=== PATIENT | male | born 1950 | race Caucasian/White ===

== ENCOUNTER 2016-04-16 11:41 | Emergency (ER) | payer MEDICARE, MEDICAID ==
[2016-04-16 11:52] VITALS: BP 153/82
== END 2016-04-16 12:30 | disposition left against medical advice (07) ==
LOC: ED 11:41
DX: R51 Headache (principal); Z53.21 Procedure and treatment not carried out due to patient leaving prior to being seen by health care provider

== ENCOUNTER 2016-04-20 13:41 | Inpatient (IN) | payer MEDICARE, MEDICAID ==
[2016-04-20] MEDS ORDERED: Vancomycin(*) 1,000 MG in NS 0.9% 250 ML* 250 ML IVPB ONE (15:16)
[2016-04-20] MEDS ORDERED: Cefepime(*) 2 GM in NS 0.9% 50 ML* 50 ML IVPB ONE (15:16)
[2016-04-20] MEDS ORDERED: metroNIDAZOLE IV 500 MG/100ML* 500 MG/100 ML BAG IVPB ONE (15:16)
[2016-04-20] MEDS ORDERED: HYDROmorphone INJ* 1 MG/ML CARPUJECT SYRINGE IV SLOW PU ONE (15:18)
[2016-04-20] MEDS ORDERED: Acetaminophen TAB* 325 MG PO ONE (15:19)
[2016-04-20 15:25] LABS: Hematocrit 41 % (42-52); Hemoglobin 13.8 g/dl (14.0-18.0); Mean Corpuscular HGB Conc 33 g/dl (31-36); Mean Corpuscular Hemoglobin 29 pg (27-31); Mean Corpuscular Volume 87 fL (80-94); Mean Platelet Volume 8 um3 (7.4-10.4); Red Blood Count 4.74 10^6/ul (4.0-5.4); Red Cell Distribution Width 13 % (10.5-15); White Blood Count 19.5 10^3/ul (3.5-10.8)
[2016-04-20] MEDS ORDERED: NS 0.9% 50 ML* 50 ML ONE (15:25)
[2016-04-20 15:26] LABS: Comments Flag Yes
[2016-04-20] MEDS ORDERED: NS 0.9% 250 ML* 250 ML ONE (15:26)
[2016-04-20 15:27] LABS: Add Diff/Slide Review? Slide Review Added
[2016-04-20] MEDS ORDERED: Vancomycin(*) 1,000 MG BAG IVPB ONE (15:29)
[2016-04-20 15:37] LABS: Albumin 3.3 g/dL (3.2-5.2); BUN/Creatinine Ratio 17.7 (8-20); Calcium 9.6 mg/dL (8.6-10.3); EGFR African American 127.4 (>60); EGFR Non-African American 99.1 (>60); Globulin 5.4 g/dL (2-4); Potassium 4.1 mmol/L (3.5-5.0); Total Bilirubin 0.6 mg/dL (0.2-1.0); Total Protein 8.7 g/dL (6.4-8.9)
[2016-04-20 15:38] LABS: Troponin I 0.01 ng/mL (<0.04)
[2016-04-20] MEDS: NS 0.9% 1000 ML* 4,000 ML IV ONE ×3 (15:44→17:45)
--- NOTE | 2016-04-20 16:10 | ADMNOTE ---
Subjective Date of Service: 04/20/16 Interval History: ADMISSION HISTORY AND PHYSICAL EXAM: Allergies Allergy/AdvReac Type Severity Reaction Status Date / Time No Known Allergies Allergy Verified 04/16/16 11:46 Home Medications Medication Instructions Recorded Confirmed Type Albuterol HFA INHALER* [Proair Hfa 2 puff INH Q4HR PRN 08/03/13 04/20/16 History Inhaler*] Ibuprofen TAB* [Motrin TAB*] 600 mg PO TID PRN 08/03/13 04/20/16 History Lisinopril TAB* [Prinivil TAB*] 20 mg PO QAM 08/03/13 04/20/16 History metFORMIN* [Glucophage*] 1,000 mg PO BID 08/03/13 04/20/16 History Insulin Detemir (NF) [Levemir (NF)] 150 unit SUBCUT BEDTIME 10/05/13 04/20/16 History SitaGLIPtin (NF) [Januvia (NF)] 100 mg PO QAM 11/11/15 04/20/16 History Insulin NPH Isophane & Reg (Hu 100 inj SUBCUT QAM 01/03/16 04/20/16 History [Humulin 70/30 (70-30) 100 Unit/ml] Aspirin EC Low Dose* [Ecotrin EC 81 mg PO DAILY 04/20/16 04/20/16 History Low Dose*] Canagliflozin (NF) [Invokana (NF)] 300 mg PO DAILY 04/20/16 04/20/16 History Fenofibrate(NF) [Tricor(NF)] 160 mg PO DAILY 04/20/16 04/20/16 History Humulin R 100unit/Ml 25 units SUBCUT BID 04/20/16 04/20/16 History Pravastatin (NF) [Pravachol (NF)] 40 mg PO BEDTIME 04/20/16 04/20/16 History HPI: The patient has been seeing Dr. Torres regularly since his partial R foot amputation 01/13/16. About 2 weeks ago his foot got worse. Last week he was seen by Dr. Torres and sent to the ED to get admitted and have an MRI. He waited in the ED waiting area for about 2 hours and then left. He has some pain in his foot but ran out of pain meds about 3 days ago. No chills or sweats. Family History: Findings - unremarkable Social History: Findings - SDM is his natalie Panchito Gonzalez. Lives with his girlfriend. Quit smoking and drinking about 15 yrs ago. Past Medical History: Findings - R foot partial amputation 01/13/16, melanoma L shoulder 2013, splenectomy 1973, [facility], foot surgery, R shoulder surgery, KYLE, DM, asthma, HLD Review of Systems - Measurements Intake and Output: Intake and Output Last 24 Hours 04/18/16 04/19/16 04/20/16 04/21/16 06:59 06:59 06:59 06:59 Weight 285 lb - Review of Systems Constitutional Symptoms: Negative: Weight Gain, Weight Loss, Weakness, Fatigue, Fever, Night Sweats, Unexplained Falls, Other Dermatology: Positive: Normal HEENT: Positive: Normal Eyes: Positive: Normal Thyroid: Positive: Normal Pulmonary: Positive: Normal Cardiology: Positive: Normal Gastroenterology: Positive: Normal Genital - Urinary: Positive: Normal Musculoskeletal: Positive: Other - R foot pain Endocrinology: Positive: Diabetes Mellitus Hematologic/Lymphatic: Positive: Anemia, Easy Brusing, Hx Leukemia, Hx Lymphoma , Use of Anticoagulant, Use of Antiplatelet Drugs, Other Neurology: Positive: Normal Psychiatry: Positive: Normal Allergic/Immunologic: Negative: Hx Anaphylaxis, Hx Angioedema, Hx Environmental, Hx Seasonal, Athsma, Hx HIV, Immunocompromise, Swollen Glands LymphNodes, Other Objective Active Medications: Cefepime HCl 2 gm/ Sodium (Chloride) 50 mls @ 100 mls/hr IVPB ED ONCE ONE Stop: 04/20/16 15:45 Sodium Chloride (Ns 0.9% 1000 Ml*) 4,000 mls @ 1,000 mls/hr IV ED ONCE ONE Stop: 04/20/16 19:15 Last Admin: 04/20/16 15:44 Dose: 1,000 mls/hr Vancomycin HCl 1,000 mg/ (Sodium Chloride) 250 mls @ 166.667 mls/hr IVPB ED ONCE ONE Stop: 04/20/16 16:45 Last Admin: 04/20/16 15:37 Dose: 166.667 mls/hr Metronidazole/Sodium Chloride (Flagyl 500 Mg Ivpb*) 500 mg in 100 mls @ 100 mls /hr IVPB ED ONCE ONE Stop: 04/20/16 16:15 Vital Signs 02/08/2904/20/16 04/20/16 13:43 14:50 15:39 Temperature 100.2 F 99.4 F Pulse Rate 119 107 Respiratory 22 16 16 Rate Blood Pressure 145/88 124/74 (mmHg) O2 Sat by Pulse 99 97 Oximetry Oxygen Devices in Use Now: None Appearance: Alert, supine on ED stretcher. In good spirits. Looks comfortable. Eyes: No Scleral Icterus Ears/Nose/Mouth/Throat: Clear Oropharnyx, Mucous Membranes Moist Neck: NL Appearance and Movements; NL JVP, No Thyroid Enlargement, Masses Respiratory: Symmetrical Chest Expansion and Respiratory Effort, Clear to Auscultation, Clear to Percussion Cardiovascular: NL Sounds; No Murmurs; No JVD, RRR, No Edema, - Extremities: No Edema, No Clubbing, Cyanosis, - - R foot bandaged with gauze and an elastic wrap. Skin: No Rash or Ulcers, No Nodules or Sclerosis, - Neurological: Alert and Oriented x 3, NL Sensation Result Diagrams: 04/20/16 15:00 04/20/16 15:00 Assess/Plan/Problems-Billing Assessment: - Patient Problems (1) Osteomyelitis, chronic, ankle or foot Current Visit: Yes Status: Acute Comment: Cefeepime, vanco, metro ordered. Dr. Torres may do further surgery. (2) Diabetes Current Visit: Yes Status: Acute Code(s): E11.9 - TYPE 2 DIABETES MELLITUS WITHOUT COMPLICATIONS SNOMED Code(s): 98242061 Comment: Pt states he take 150 U Levemir at night and 25 U Humalog with each meal. Lantus, Lispor fixed schedule and Lantus SS ordered. Cons carb diet. Metformin and 2 other oral agents on hold. (3) Morbid obesity Current Visit: Yes Status: Acute Code(s): E66.01 - MORBID (SEVERE) OBESITY DUE TO EXCESS CALORIES SNOMED Code(s): 473057118 Comment: BMI 39.7.
--- NOTE | 2016-04-20 16:14 | ED ---
Andrei Tanner Adam, scribed for Ozzy Alberto MD on 04/20/16 at 1513 . Lower Extremity - HPI Summary HPI Summary: Pt is a 65 year old diabetic male presenting with a painful wound in his right foot. He states that he came to [facility] [place] for this 4 days ago but got tired of waiting and left before being seen. He has a home nurse that manages the wound care of his foot but she did not come today. He underwent a ray operation on the right foot 4 months ago in which his great toe was amputated. He was healing well until he walked all over [facility] recently, aggravating the wound. Pt also c/o vomiting and a fever that set on last week (Tylenol taken this am). He denies CP, SOB, and arthralgia. PMHx of DM and HTN. FMHx of DM. - History of Current Complaint Chief Complaint: EDExtremityLower Stated Complaint: POSSIBLE INFECTION RT FT Time Seen by Provider: 04/20/16 15:02 Hx Obtained From: Patient Mechanism Of Injury: Unknown Onset of Pain: Prior to Arrival Onset/Duration: Still Present Severity Initially: Mild Severity Currently: Moderate Pain Intensity: 5 Pain Scale Used: 0-10 Numeric Timing: Constant Location: Is Discrete @ - Right foot Associated Signs And Symptoms: Positive: Redness, Other - Drainage Aggravating Factor(s): Standing, Ambulation, Movement, Weight Bearing Alleviating Factor(s): Rest Able to Bear Weight: Yes - Allergies/Home Medications Allergies/Adverse Reactions: Allergies Allergy/AdvReac Type Severity Reaction Status Date / Time No Known Allergies Allergy Verified 04/16/16 11:46 PMH/Surg Hx/FS Hx/Imm Hx Endocrine/Hematology History: Reports: Hx Diabetes - TYPE II ON ORAL AND INSULIN MEDICATION FOR Denies: Hx Anticoagulant Therapy Cardiovascular History: Reports: Hx Hypertension - ON MEDICATION FOR Denies: Hx Congestive Heart Failure, Hx Pacemaker/ICD, Other Cardiovascular Problems/Disorders Respiratory History: Reports: Hx Asthma - PRN INHALER, Hx Sleep Apnea Comment Only: Other Respiratory Problems/Disorders - ON DAILY PROAIR INHALER , SOB GI History: Denies: Other GI Disorders History: Denies: Hx Renal Disease Musculoskeletal History: Denies: Hx Arthritis, Other Musculoskeletal History Sensory History: Reports: Hx Contacts or Glasses - GLASSES Denies: Hx Hearing Aid Opthamlomology History: Reports: Hx Contacts or Glasses - GLASSES Neurological History: Denies: Other Neuro Impairments/Disorders Psychiatric History: Denies: Hx Panic Disorder - Cancer History Cancer Type, Location and Year: Lt SHOULDER - CANCEROUS MASS REMOVED - 2012 Hx Chemotherapy: Yes - 10/2013 - Surgical History Surgery Procedure, Year, and Place: 12/28 - Rt GREAT TOE -AMPUTATED. SPLENECTOMY -1973. RT SHOULDER -1973. Rt HEEL - BONE SPUR REMOVED - 2008. FRANSICO CARPAL TUNNEL - 2005. Lt SHOULDER - CANCEROUS MASS REMOVED - 2012. Rt PINKY FINGER - KNUCKLE REPAIRED - Xs 2 Hx Anesthesia Reactions: No Infectious Disease History: No Infectious Disease History: Denies: Traveled Outside the [place] in Last 30 Days - Family History Known Family History: Positive: Diabetes - Social History Occupation: Disabled Lives: Alone Alcohol Use: None Hx Substance Use: No Substance Use Type: Reports: None Hx Tobacco Use: Yes Smoking Status (MU): Former Smoker Type: Cigarettes Amount Used/How Often: 3 PPD X 45 YRS Length of Time of Smoking/Using Tobacco: 45 YEARS Have You Smoked in the Last Year: No Review of Systems Negative: Fever Negative: Chest Pain Negative: Shortness Of Breath Positive: Vomiting Positive: Myalgia - Bottom of foot. Negative: Arthralgia Positive: Other - Open wound on bottom of foot All Other Systems Reviewed And Are Negative: Yes Physical Exam - Summary Physical Exam Summary: The patient is obese in no acute distress and in no acute pain. Decreased skin turgor. HEENT: The head is normocephalic and atraumatic. The pupils are equal and reactive. The conjunctivae are clear and without drainage. Nares are patent and without drainage. Mouth reveals dry oral mucosa. The external ears are intact. Neck is supple with full range of motion and non-tender. There are no carotid bruits. There is no neck vein distension. Respiratory: Chest is non-tender. Lungs are clear to auscultation and breath sounds are symmetrical and equal. Cardiovascular: Heart is tachycardic. There is no murmur or rub auscultated. There is no peripheral edema and pulses are symmetrical and equal. Abdomen: The abdomen is soft and non-tender. There are normal bowel sounds heard in all four quadrants and there is no organomegaly palpated. Musculoskeletal: There is no back pain noted. Extremities are non-tender with full range of motion. Capillary refill 2 seconds. There is no peripheral edema or calf tenderness elicited. Right foot: Foul-smelling purulent drainage. Erythema on dorsum of foot above ankle. No lymphangitis. Good pulses. No gangrene. Amputation of great toe. Macerated ulcer on the sole of the foot. Drainage between the toes which are erythematous. Neurological: Patient is alert and oriented to person, place and time. The patient has symmetrical motor strength in all four extremities. Cranial nerves are grossly intact. Deep tendon reflexes are symmetrical and equal in all four extremities. Psychiatric: The patient has an appropriate affect and does not exhibit any anxiety or depression. Triage Information Reviewed: Yes Vital Signs On Initial Exam: Initial Vitals Temp Pulse Resp BP Pulse Ox 100.2 F 119 22 145/88 99 04/20/16 13:43 04/20/16 13:43 04/20/16 13:43 04/20/16 13:43 04/20/16 13:43 Vital Signs Reviewed: Yes Diagnostics - Vital Signs Vital Signs Temp Pulse Resp BP Pulse Ox 04/20/16 14:50 99.4 F 107 16 124/74 97 04/20/16 13:43 100.2 F 119 22 145/88 99 - Laboratory Lab Results: Lab Results 04/20/16 04/20/16 04/20/16 Range/Units 15:00 15:00 15:00 WBC 19.5 H (3.5-10.8) 10^3/ul RBC 4.74 (4.0-5.4) 10^6/ul Hgb 13.8 L (14.0-18.0) g/dl Hct 41 L (42-52) % MCV 87 (80-94) fL MCH 29 (27-31) pg MCHC 33 (31-36) g/dl RDW 13 (10.5-15) % Plt Count 563 H (150-450) 10^3/ul MPV 8 (7.4-10.4) um3 Neut % (Auto) 71.9 (38-83) % Lymph % (Auto) 17.3 L (25-47) % [place] % (Auto) 9.1 H (1-9) % Eos % (Auto) 0.7 (0-6) % Baso % (Auto) 1.0 (0-2) % Absolute Neuts (auto) 14.0 H (1.5-7.7) 10^3/ul Absolute Lymphs (auto) 3.4 (1.0-4.8) 10^3/ul Absolute Monos (auto) 1.8 H (0-0.8) 10^3/ul Absolute Eos (auto) 0.1 (0-0.6) 10^3/ul Absolute Basos (auto) 0.2 (0-0.2) 10^3/ul Absolute Nucleated RBC 0.01 10^3/ul Nucleated RBC % 0 INR (Anticoag Therapy) 1.16 H (0.89-1.11) APTT 26.1 (26.0-36.3) seconds Sodium 128 L (133-145) mmol/L Potassium 4.1 (3.5-5.0) mmol/L Chloride 97 L (101-111) mmol/L Carbon Dioxide 24 (22-32) mmol/L Anion Gap 7 (2-11) mmol/L BUN 14 (6-24) mg/dL Creatinine 0.79 (0.67-1.17) mg/dL Est GFR ( Amer) 127.4 (>60) Est GFR (Non-Af Amer) 99.1 (>60) BUN/Creatinine Ratio 17.7 (8-20) Glucose 230 H (70-100) mg/dL Lactic Acid (0.5-2.0) mmol/L Calcium 9.6 (8.6-10.3) mg/dL Total Bilirubin 0.60 (0.2-1.0) mg/dL AST 11 L (13-39) U/L ALT 11 (7-52) U/L Alkaline Phosphatase 82 (34-104) U/L Troponin I 0.01 (<0.04) ng/mL Total Protein 8.7 (6.4-8.9) g/dL Albumin 3.3 (3.2-5.2) g/dL Globulin 5.4 H (2-4) g/dL Albumin/Globulin Ratio 0.6 L (1-3) 04/20/16 Range/Units 15:00 WBC (3.5-10.8) 10^3/ul RBC (4.0-5.4) 10^6/ul Hgb (14.0-18.0) g/dl Hct (42-52) % MCV (80-94) fL MCH (27-31) pg MCHC (31-36) g/dl RDW (10.5-15) % Plt Count (150-450) 10^3/ul MPV (7.4-10.4) um3 Neut % (Auto) (38-83) % Lymph % (Auto) (25-47) % [place] % (Auto) (1-9) % Eos % (Auto) (0-6) % Baso % (Auto) (0-2) % Absolute Neuts (auto) (1.5-7.7) 10^3/ul Absolute Lymphs (auto) (1.0-4.8) 10^3/ul Absolute Monos (auto) (0-0.8) 10^3/ul Absolute Eos (auto) (0-0.6) 10^3/ul Absolute Basos (auto) (0-0.2) 10^3/ul Absolute Nucleated RBC 10^3/ul Nucleated RBC % INR (Anticoag Therapy) (0.89-1.11) APTT (26.0-36.3) seconds Sodium (133-145) mmol/L Potassium (3.5-5.0) mmol/L Chloride (101-111) mmol/L Carbon Dioxide (22-32) mmol/L Anion Gap (2-11) mmol/L BUN (6-24) mg/dL Creatinine (0.67-1.17) mg/dL Est GFR ( Amer) (>60) Est GFR (Non-Af Amer) (>60) BUN/Creatinine Ratio (8-20) Glucose (70-100) mg/dL Lactic Acid 2.0 (0.5-2.0) mmol/L Calcium (8.6-10.3) mg/dL Total Bilirubin (0.2-1.0) mg/dL AST (13-39) U/L ALT (7-52) U/L Alkaline Phosphatase (34-104) U/L Troponin I (<0.04) ng/mL Total Protein (6.4-8.9) g/dL Albumin (3.2-5.2) g/dL Globulin (2-4) g/dL Albumin/Globulin Ratio (1-3) Result Diagrams: 04/20/16 15:00 04/20/16 15:00 Lab Statement: Any lab studies that have been ordered have been reviewed, and results considered in the medical decision making process. - EKG 15:20 Cardiac Rate: NL - 93 BPM EKG Rhythm: Sinus Rhythm EKG Interpretation: RBBB - Additional Comments Diagnostic Additional Comments: Troponin I - 0.01 Lower Extremity Course/Dx - Diagnoses Differential Diagnosis/HQI/PQRI: Positive: Cellulitis, Infection, Osteomyelitis , Other - diabetes mellitus, sepsis Provider Diagnoses: Infected foot - Physician Notifications Discussed Care of Patient With: Dr. Torres at 15:20 who recommended admission to the hospitalist service for IV antibiotics. Dr. Mallory notified at 1545. he will evaluate the patient for admission. Discharge - Discharge Plan Condition: Stable Disposition: ADMITTED TO [facility] Referrals: Erik Puri MD [Primary Care Provider] - The documentation as recorded by the Andrei lange Adam accurately reflects the service I personally performed and the decisions made by me, Ozzy Alberto MD.
[2016-04-20] MEDS ORDERED: Dextrose 50% Syringe 50 ML* 25 GM/50 ML SYRINGE IV PUSH PRN (16:38)
[2016-04-20] MEDS ORDERED: Albuterol HFA INHALER* 8 gm MDI INH PRN (16:41)
[2016-04-20] MEDS ORDERED: Vancomycin per Pharmacy* NOTE FOLLOW UP SCH (17:00)
[2016-04-20] MEDS ORDERED: Enoxaparin(*) 40 MG/0.4 ML SYR SUBCUT SCH (18:00)
[2016-04-20] MEDS: metroNIDAZOLE IV 500 MG/100ML* 500 MG/100 ML BAG IVPB SCH (19:45)
[2016-04-20] MEDS ORDERED: Gadoteridol* (CONTRAST) 279.3 MG/ML 10 ML IV ONE (20:43)
[2016-04-20] MEDS: Insulin GLARGINE(*) 1 UNITS UNIT SUBCUT SCH (22:14)
[2016-04-20] MEDS: Insulin LISPRO* 1 UNITS UNIT SUBCUT SCH ×2 (22:15→23:13)
[2016-04-20] MEDS: Atorvastatin* 10 MG TAB PO SCH (22:15)
[2016-04-20] MEDS: Enoxaparin(*) 40 MG/0.4 ML SYR SUBCUT SCH (22:16)
[2016-04-20] MEDS: Vancomycin(*) 1,250 MG in NS 0.9% 250 ML* 250 ML IVPB SCH (22:20)
[2016-04-21] MEDS: metroNIDAZOLE IV 500 MG/100ML* 500 MG/100 ML BAG IVPB SCH ×4 (01:46→19:48)
[2016-04-21] MEDS: Cefepime(*) 2 GM in NS 0.9% 50 ML* 50 ML IVPB SCH ×2 (05:27→18:30)
[2016-04-21] MEDS: Vancomycin(*) 1,250 MG in NS 0.9% 250 ML* 250 ML IVPB SCH ×2 (06:18→14:20)
--- NOTE | 2016-04-21 08:13 | RAD ---
INDICATION: Osteomyelitis right foot. COMPARISON: Correlation is made with a prior x-ray study of the right foot from September 01, 2016. TECHNIQUE: Axial, sagittal and coronal T1 and T2-weighted images of the right foot were obtained. In addition axial, sagittal and coronal T1-weighted images were obtained with fat suppression following intravenous gadolinium enhancement with 20 mL of ProHance nonionic contrast. The exam is limited due to motion artifact on the majority of the pulse sequences obtained. FINDINGS: The patient is status post amputation of the first digital ray at the level of the mid first metatarsal. There is surrounding soft tissue swelling and a soft tissue defect present inferior to the surgical site and inferior to second and third metatarsal heads. There is fluid and low signal intensity present in the soft tissue defect extending to the skin surface between the first and second metatarsals. The low signal most likely represents air. There is bone marrow edema signal intensity at the amputation site in the mid first metatarsal and abnormal enhancement in this region suspicious for osteomyelitis. In addition there is bone marrow edema signal intensity and abnormal enhancement present throughout the second metatarsal and within the second proximal, middle and distal phalanges and within the third metatarsal head most consistent with osteomyelitis. There is also increased signal intensity on T2-weighted images within the intermediate cuneiform bone which demonstrates normal signal intensity on T1-weighted images. No abnormal enhancement is seen and this likely represents reactive change. No abscess is seen. IMPRESSION: FINDINGS MOST CONSISTENT WITH OSTEOMYELITIS AT THE AMPUTATION SITE IN THE MID FIRST METATARSAL, THROUGHOUT THE SECOND METATARSAL, SECOND PROXIMAL MID AND DISTAL PHALANGES AND IN THE THIRD METATARSAL HEAD.
--- NOTE | 2016-04-21 09:21 | PN ---
Subjective Date of Service: 04/21/16 Interval History: Patient seen this morning. Reports no new complaints. Denies RLE pain. Sitting up and eating breakfast. No fever or chills overnight. No SOB or chest pain. Understands results of MRI and BCx Family History: Unchanged from Admission Social History: Unchanged from Admission Past Medical History: Unchanged from Admission Objective Active Medications: Albuterol (Ventolin Hfa Inhaler*) 2 puff INH Q4H PRN Aspirin (Aspirin Ec Low Dose*) 81 mg PO DAILY OTTO Atorvastatin Calcium (Lipitor*) 10 mg PO BEDTIME OTTO Dextrose (D50w Syringe 50 Ml*) 12.5 gm IV PUSH .FOR FS < 60 - SS PRN Enoxaparin Sodium (Lovenox(*)) 40 mg SUBCUT 2215 OTTO Cefepime HCl 2 gm/ Sodium (Chloride) 50 mls @ 100 mls/hr IVPB Q12H OTTO Metronidazole/Sodium Chloride (Flagyl 500 Mg Ivpb*) 500 mg in 100 mls @ 100 mls /hr IVPB Q8H OTTO Vancomycin HCl 1,250 mg/ (Sodium Chloride) 250 mls @ 166.667 mls/hr IVPB Q8H OTTO Insulin Glargine (Lantus(*)) 80 units SUBCUT Q24H OTTO Insulin Human Lispro (Humalog*) 0 units SUBCUT ACHS OTTO Insulin Human Lispro (Humalog*) 0 units SUBCUT ACHS OTTO Lisinopril (Prinivil Tab*) [address] [facility] Vital Signs 04/20/16 04/20/16 04/20/16 16:45 18:00 19:42 Temperature 101.5 F 100.6 F 98.4 F Pulse Rate 78 71 Respiratory 18 20 Rate Blood Pressure 118/63 141/71 (mmHg) O2 Sat by Pulse 94 97 Oximetry 04/20/16 04/20/16 04/21/16 22:32 22:51 03:05 Temperature 99.1 F 99.7 F Pulse Rate 90 78 Respiratory 20 20 16 Rate Blood Pressure 159/72 141/69 (mmHg) O2 Sat by Pulse 97 94 Oximetry 04/21/16 08:00 Temperature Pulse Rate Respiratory 16 Rate Blood Pressure (mmHg) O2 Sat by Pulse Oximetry Oxygen Devices in Use Now: None Appearance: Obese, middle-aged, M, sitting on bed in NAD Eyes: No Scleral Icterus Ears/Nose/Mouth/Throat: Mucous Membranes Moist Neck: NL Appearance and Movements; NL JVP Respiratory: Symmetrical Chest Expansion and Respiratory Effort, Clear to Auscultation Cardiovascular: NL Sounds; No Murmurs; No JVD, RRR Abdominal: - - Obese, soft, NTND, BS+ Lymphatic: No Cervical Adenopathy Extremities: - - Asymmetric RLE, some mild RLE edema Skin: - - RLE with wound dressing place, did not undress Neurological: Alert and Oriented x 3 Result Diagrams: 04/20/16 15:00 04/20/16 15:00 Assess/Plan/Problems-Billing Assessment: Staph aureus bacteremia, R foot osteomyelitis in a 65 yo M with hx of RLE osteo , DM, HTN, KYLE, asthma - Patient Problems (1) Osteomyelitis of foot, right, acute Current Visit: Yes Comment: with staph aureus bacteremia. MRI shows bone involvement in 1st, 2nd and 3rd metatarsals. Patient also with fever and leukocytosis. Appreciate Ortho assistance, will discuss further about next steps , ?need for further amputation. Will continue Vanc/Cefepime/Flagyl for now. Will get ID consult to assist with ABx management. Check RLE doppler (2) Diabetes Current Visit: Yes Comment: Continue Lantus, Lispro fixed schedule and Lispro SS. Cons carb diet. Metformin and 2 other oral agents on hold. (3) HTN (hypertension) Current Visit: Yes Comment: Continue home Lisinopril (4) Morbid obesity Current Visit: Yes Comment: BMI 39.7. (5) DVT prophylaxis Current Visit: Yes Comment: Lovenox SQ Status and Disposition: Inpatient for osteo and IV ABx
[2016-04-21 09:41] LABS: Hematocrit 36 % (42-52); Hemoglobin 11.8 g/dl (14.0-18.0); Mean Corpuscular HGB Conc 33 g/dl (31-36); Mean Corpuscular Hemoglobin 29 pg (27-31); Mean Corpuscular Volume 88 fL (80-94); Mean Platelet Volume 8 um3 (7.4-10.4); Red Cell Distribution Width 13 % (10.5-15); White Blood Count 19.5 10^3/ul (3.5-10.8)
[2016-04-21 09:45] LABS: Comments Flag Yes
[2016-04-21 09:55] LABS: BUN/Creatinine Ratio 16.4 (8-20); Calcium 8.6 mg/dL (8.6-10.3); EGFR African American 154.1 (>60); EGFR Non-African American 119.8 (>60); Potassium 3.8 mmol/L (3.5-5.0)
[2016-04-21] MEDS: Aspirin EC Low Dose* 81 MG TAB.EC PO SCH (10:16)
[2016-04-21] MEDS: Lisinopril TAB* 10 MG PO SCH (10:16)
[2016-04-21] MEDS: Insulin LISPRO* 1 UNITS UNIT SUBCUT SCH ×8 (10:17→23:04)
--- NOTE | 2016-04-21 12:19 | PN ---
Progress Note - Progress Note SOAP: Subjective: [Pt was seen laying in bed today. Pt states that he is not having any pain currently. States that there is some slight stinging in the affected foot. ] Objective: [General: Pt is awake, alert and oriented. MSK: Dressing was changed today. Dried blood had soaked through the 4x4s and through the DIDI wrap on the dorsal portion of the foot. Wound has mucoid covering. New betadine wet to dry dressing was placed over the wound today and a new DIDI wrap was applied. ] Vital Signs Temp 99.0 F 04/21/16 11:23 Pulse 71 04/21/16 11:23 Resp 18 04/21/16 11:23 BP 120/69 04/21/16 11:23 Pulse Ox 93 04/21/16 11:23 Intake & Output 04/20/16 04/21/16 04/21/16 18:59 06:59 18:59 Intake Total 2250 960 Output Total 800 Balance 2250 160 Weight 285 lb 285 lb Intake: IV Fluids 2250 460 cefepime 50 flagyl 100 ns 60 vanco 250 Oral 500 Output: Urine 800 Other: Estimated Void Medium # Bowel Movements 0 # Voids 1 Microbiology 04/20/16 15:33 Aerobic Blood Culture - Preliminary Blood Venous Blood MRSA/MSSA (PCR) - Final Mrsa Negative S.aureus Positive Assessment: [Osteomyelitis of R foot. ] Plan: [MRI was obtained last night Dressing changed today, Will continue daily dressing change wet to dry. ]
--- NOTE | 2016-04-21 13:01 | RAD ---
HISTORY: Right calf pain and edema TECHNIQUE: Multiple transverse and longitudinal ultrasound images were obtained of the veins of the right lower extremity using grayscale, color Doppler, and spectral Doppler imaging with and without compression and with augmentation. FINDINGS: VEINS: The common femoral vein, deep femoral vein, femoral vein and popliteal vein are compressible throughout their course, with normal flow on color Doppler imaging and normal response to augmentation on spectral Doppler imaging. SOFT TISSUES: Mildly enlarged right groin lymph nodes are seen measuring up to 1.3 x 4 cm and greatest dimension. Normal lymph node architecture appears to be maintained. IMPRESSION: 1. No sonographic evidence of deep vein thrombosis. 2. Top normal right groin lymph nodes with maintenance of normal morphology.
--- NOTE | 2016-04-21 20:42 | CONS ---
CONSULTATION REPORT: DATE OF CONSULT: 04/21/16 REQUESTING PHYSICIAN: Dr. Garcia. CONSULTING SERVICE: Infectious Disease. REASON FOR CONSULTATION: Staphylococcal bacteremia and foot infection. IMPRESSION: 1. Right plantar forefoot ulcer foul odor surrounding cellulitis. MRI shows acute osteomyelitis, nonhematogenous of the first metatarsal and second metatarsal proximal mid distal phalangeus and third metatarsal head. This is likely polymicrobial including Staphylococcus aureus predominant pathogen. PCR for MRSA is negative from the blood. 2. Diabetes with neuropathy. 3. 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 4. Normal DESIREE October 2015. 5. History of right great toe amputation on 01/13/16, now the site is healed. 6. Leukocytosis and fever. 7. Staphylococcus aureus bacteremia. No other apparent sites of infection. No prosthetic material present. Other differential would include infective endocarditis. RECOMMENDATIONS: We will continue cefepime and Flagyl to cover Staphylococcus aureus as well as other organisms that may grow in the wound, which is then cleaned with Betadine. He is going to have further amputation in the next day or two as well. 2. Transthoracic echocardiogram. He has no peripheral stigmata of infective endocarditis, so I think it is less likely. HISTORY OF PRESENT ILLNESS: This is a 65-year-old male with history of right great toe amputation in December 2015, now with an ulcer in the bottom of the right foot since the [place], this has gotten bigger and bigger, gotten more painful to bear weight. He started to have redness spread of his foot and leg. He developed fever, chills, and sweats. He was directed to the ER last week, went home against medical advice. Then he came back on the with the white count of 19,000 and fever of 102. Blood cultures were taken that grow Staph aureus. MRI was done with findings as above. He has been seen by Dr. Torres, planning for further surgery. He has had ongoing fevers. He denies chills, sweats today. He has no abdominal pain or diarrhea. He has no other painful joints, no back, or neck pain either. There is no prosthetic material present. PAST MEDICAL HISTORY: 1. Status post right great toe amputation 2015. 2. Diabetes with neuropathy. 3. Obstructive sleep apnea, on CPAP. 4. Melanoma of the shoulder with a positive lymph node 2013. 5. Hypertension. 6. Hyperlipidemia. 7. Asthma. 8. Status post splenectomy 1973. HOME MEDICATIONS: 1. Tylenol. 2. Albuterol. 3. Aspirin. 4. Lipitor. 5. Cefepime 2 g IV every 12 hours. 6. Insulin glargine. 7. Lisinopril. 8. Flagyl 5 mg every 8 hours. ALLERGIES: No known drug allergies. FAMILY HISTORY: No recurrent infections. SOCIAL HISTORY: Lives in [place] with his girlfriend. No travel. No sick contacts. REVIEW OF SYSTEMS: All negative except as noted above. PHYSICAL EXAMINATION: GENERAL: He is awake, in no distress. VITAL SIGNS: Temperature 37, heart rate 70, respiratory 18, blood pressure 120/70, and O2 saturation 93% on room air. HEENT: There is no conjunctival hemorrhage. Oropharynx, no lesions. NECK: Neck was supple without nuchal rigidity. LYMPH NODES: There is no cervical, supraclavicular, inguinal, axillary, or epitrochlear lymphadenopathy. Lungs: Clear to auscultation bilaterally. HEART: Regular rate and rhythm without murmurs, rubs, or gallops. ABDOMEN: Soft, nontender, and nondistended without hepatosplenomegaly. MUSCULOSKELETAL : There is no spine tenderness to palpation or joint synovitis. The right foot , there is erythema and mild edema over the dorsal foot up the ankle and distal leg without crepitus or fluctuance. The plantar aspect of the forefoot, there is a 2 cm ragged ulceration with foul odor, some serous drainage covered with Betadine. SKIN: There is no rashes or splinter hemorrhage. NEUROLOGIC: He is oriented x3. Follows up all commands. He has decreased sensation to the light touch in the feet bilaterally. DIAGNOSTIC STUDIES/LABORATORY DATA: White blood cell count 19, hemoglobin 11, and platelets 544. Creatinine of 0.7. ALT 11. Please see impressions and recommendations as outlined above. We will recheck the blood cultures tomorrow. Thanks for asking me to see Mr. Joiner in consultation. [id number]/[facility] #: [id number] RUTH
[2016-04-21] MEDS: Atorvastatin* 10 MG TAB PO SCH (21:11)
[2016-04-21] MEDS: Insulin GLARGINE(*) 1 UNITS UNIT SUBCUT SCH (21:13)
[2016-04-21] MEDS ORDERED: Vancomycin Trough Check NOTE FOLLOW UP ONE (22:00)
[2016-04-21] MEDS: Enoxaparin(*) 40 MG/0.4 ML SYR SUBCUT SCH (22:53)
[2016-04-21] MEDS ORDERED: Acetaminophen TAB* 325 MG ONE (23:58)
[2016-04-22] MEDS: metroNIDAZOLE IV 500 MG/100ML* 500 MG/100 ML BAG IVPB SCH ×3 (03:10→19:17)
[2016-04-22] MEDS: Cefepime(*) 2 GM in NS 0.9% 50 ML* 50 ML IVPB SCH ×2 (05:52→17:18)
[2016-04-22 06:54] LABS: Hematocrit 36 % (42-52); Hemoglobin 11.8 g/dl (14.0-18.0); Mean Corpuscular HGB Conc 33 g/dl (31-36); Mean Corpuscular Hemoglobin 29 pg (27-31); Mean Corpuscular Volume 87 fL (80-94); Mean Platelet Volume 8 um3 (7.4-10.4); Red Blood Count 4.12 10^6/ul (4.0-5.4); Red Cell Distribution Width 13 % (10.5-15); White Blood Count 22.4 10^3/ul (3.5-10.8)
[2016-04-22 06:56] LABS: Comments Flag Yes
[2016-04-22 06:57] LABS: Add Diff/Slide Review? Slide Review Added
[2016-04-22 07:17] LABS: BUN/Creatinine Ratio 15.7 (8-20); Calcium 8.6 mg/dL (8.6-10.3); EGFR African American 146.5 (>60); EGFR Non-African American 113.9 (>60); Potassium 3.4 mmol/L (3.5-5.0)
[2016-04-22] MEDS: Insulin LISPRO* 1 UNITS UNIT SUBCUT SCH ×8 (09:02→22:25)
[2016-04-22] MEDS: Lisinopril TAB* 10 MG PO SCH (10:04)
[2016-04-22] MEDS: Aspirin EC Low Dose* 81 MG TAB.EC PO SCH (10:04)
--- NOTE | 2016-04-22 10:04 | PN ---
Progress Note - Progress Note SOAP: Subjective: DOS: 04/22/16 CC: foot infection HPI: 65 year old man with history of right great toe amputation now with ulcer and foot infection of plantar forefoot on the left. Still red through foot and ankle, not painful. No fever, rash, or diarrhea. Slept ok, eating well. Objective: [] Vital Signs Temp 37.3 C 04/22/16 07:15 Pulse 71 04/22/16 07:15 Resp 18 04/22/16 07:30 BP 133/52 04/22/16 07:15 Pulse Ox 92 04/22/16 07:30 Intake & Output 04/21/16 04/22/16 04/22/16 18:59 06:59 18:59 Intake Total 120 660 230 Balance 120 660 230 Intake: IV Fluids 210 230 cefepime 50 170 flagyl 100 ns 60 60 Oral 120 450 Other: Estimated Void Large Medium # Bowel Movements 1 Estimated Stool Amount Medium # Voids 1 0 Gen:AAOx3 Neuro: decreased sensation to light touch in both feet Neck:supple Heart;RRR no murmur LN: non tender right inguinal node, mobile Lungs:CTA BL Abd:+BS NTND soft Skin: no rash MSK: right foot erythema and mild edema from the plantar ulcer up through ankle Laboratory Results - last 24 hr 04/21/16 04/21/16 04/21/16 11:59 17:25 21:03 WBC RBC Hgb Hct MCV MCH MCHC RDW Plt Count MPV Neut % (Auto) Lymph % (Auto) [place] % (Auto) Eos % (Auto) Baso % (Auto) Absolute Neuts (auto) Absolute Lymphs (auto) Absolute Monos (auto) Absolute Eos (auto) Absolute Basos (auto) Absolute Nucleated RBC Nucleated RBC % Sodium Potassium Chloride Carbon Dioxide Anion Gap BUN Creatinine Est GFR ( Amer) Est GFR (Non-Af Amer) BUN/Creatinine Ratio Glucose POC Glucose (mg/dL) 162 H 140 H 205 H Calcium 04/22/16 04/22/16 04/22/16 06:32 06:32 07:33 WBC 22.4 H RBC 4.12 Hgb 11.8 L Hct 36 L MCV 87 MCH 29 MCHC 33 RDW 13 Plt Count 554 H MPV 8 Neut % (Auto) 60.3 Lymph % (Auto) 27.5 [place] % (Auto) 9.2 H Eos % (Auto) 1.9 Baso % (Auto) 1.1 Absolute Neuts (auto) 13.5 H Absolute Lymphs (auto) 6.2 H Absolute Monos (auto) 2.1 H Absolute Eos (auto) 0.4 Absolute Basos (auto) 0.2 Absolute Nucleated RBC 0 Nucleated RBC % 0 Sodium 135 Potassium 3.4 L Chloride 103 Carbon Dioxide 25 Anion Gap 7 BUN 11 Creatinine 0.70 Est GFR ( Amer) 146.5 Est GFR (Non-Af Amer) 113.9 BUN/Creatinine Ratio 15.7 Glucose 81 POC Glucose (mg/dL) 98 Calcium 8.6 Microbiology 04/20/16 15:00 Blood Venous Aerobic Blood Culture - Preliminary 04/20/16 15:00 Blood Venous Anaerobic Blood Culture - Preliminary 04/20/16 15:00 Blood Venous Blood Culture - Final 04/20/16 15:33 Blood Venous Aerobic Blood Culture - Final Staphylococcus Aureus 04/20/16 15:33 Blood Venous Anaerobic Blood Culture - Final Staphylococcus Aureus 04/20/16 15:33 Blood Venous Blood Culture - Final 04/20/16 15:33 Blood Venous Blood MRSA/MSSA (PCR) - Final Mrsa Negative S.aureus Positive Assessment: 1. Right foot cellulitis and myositis with acute non hematogenous osteomyelitis ; MSSA and likely polymicrobial 2. MSSA bacteremia due to #1. 3. worsening leukocytosis 4. diabetes with neuropathy 5. hx right great toe amputation. Plan: 1. change cefepime to ancef 2 gm IV Q8hrs, continue flagyl. I&D pending. Recheck BC pending. Will also check TTE.
--- NOTE | 2016-04-22 11:25 | ECHO ---
Patient: VALERI CORRALES [facility] Rec#: [id number] : 1950 Date: 04/22/2016 Age: 65y Height: 180.34 cm / 71.0 in Weight: 129.27 kg / 284.9 lbs Sex: M BSA: 2.45 Room#: 333 Admit Date#: 04/20/2016 Type: Inpatient Referring: Raphael Dozier MD Reading: Albertina Galeas MD Telephoner: Kaila Pollack YADIRA CC: Erik Puri MD Transthoracic Echocardiogram Indication: Bacteremia BP: 133/52 HR: 70 Rhythm: NSR Findings History: Cellulitis,osteomyelitis,DM with neuropathy,fever,Staph bacteremia,KYLE with CPAP,melanoma,HTN,HLD,asthma. Technical Comments: The study is technically limited due to patient body habitus. Completed at 0848. Left Ventricle: Mild concentric left ventricular hypertrophy is observed. Global left ventricular wall motion and contractility are within normal limits. The estimated ejection fraction is 55-60%. There is no consistent Doppler evidence of clinically significant diastolic dysfunction. Left Atrium: The left atrial chamber size is normal. Right Ventricle: The right ventricle is slightly dilated. The right ventricular global systolic function is normal. Right Atrium: The right atrium is not well visualized. Aortic Valve: The aortic valve is trileaflet. There is no evidence of aortic valve thickening. There is no evidence of aortic regurgitation. There is no evidence of aortic stenosis. Mitral Valve: The mitral valve leaflets are mildly thickened. There is no evidence of mitral regurgitation. There is no evidence of mitral stenosis. Tricuspid Valve: The tricuspid valve leaflets are normal. There is trace tricuspid regurgitation. There is evidence that pulmonary hypertension may be underestimated. There is no tricuspid stenosis. Pulmonic Valve: The pulmonic valve appears normal. There is no evidence of pulmonic regurgitation. There is no pulmonic stenosis. Pericardium: A pericardial fat pad is visualized. Aorta: There is no dilatation of the ascending aorta. There is no dilatation of the aortic arch. There is mild dilatation of the aortic root. Pulmonary Artery: The main pulmonary artery appears normal. Venous: The venous system is not well visualized. Conclusions Mild concentric left ventricular hypertrophy is observed. Global left ventricular wall motion and contractility are within normal limits. The estimated ejection fraction is 55-60%. The right ventricle is slightly dilated. There is trace tricuspid regurgitation. Technically difficult study. Compared with prior echo of 05/10/2007, no significant changes. Also a limited study due to body habitus. Measurements Name Value Normal Range RVIDd (AP) 2D 3.1 cm (0.9 - 2.6) RVDdMajor (2D) 4.5 cm (2.2 - 4.4) IVSd (2D) 1.2 cm (0.6 - 1) LVPWd (2D) 1.2 cm (0.6 - 1) LVIDd (2D) 5.2 cm (3.6 - 5.4) LVIDs (2D) 3.6 cm - LV FS (2D) 30 % (25 - 45) Aortic Annulus 2.2 cm (1.4 - 2.6) Ao root diameter (2D) 3.7 cm (2.1 - 3.5) Ascending Ao 3.4 cm (2.1 - 3.4) Aortic arch 3 cm (1.8 - 3.4) Descending Ao 1.3 cm - LA dimension (AP) 2D 3.1 cm (2.3 - 3.8) Name Value Normal Range MV E-wave Vmax 0.9 m/sec - MV deceleration time 170 msec - MV A-wave Vmax 0.7 m/sec - MV E:A ratio 1.28 ratio - LV septal e' Vmax 0.08 m/sec - LV lateral e' Vmax 0.1 m/sec - LV E:e' septal ratio 6.92 ratio - LV E:e' lateral ratio 7.5 ratio - Name Value Normal Range AV Vmax 1.4 m/sec - AV VTI 29.9 cm - AV peak gradient 8.1 mmHg - AV mean gradient 4.26 mmHg - LVOT Vmax 1.2 m/sec - LVOT VTI 26.7 cm - LVOT peak gradient 6.01 mmHg - LVOT mean gradient 3.32 mmHg - Name Value Normal Range TR Vmax 1.8 m/sec - TR peak gradient 13 mmHg - RAP 8 mmHg - RVSP 21 mmHg - Name Value Normal Range PV Vmax 1.1 m/sec - PV peak gradient 5 mmHg -
--- NOTE | 2016-04-22 14:31 | PN ---
Subjective Date of Service: 04/22/16 Interval History: Patient seen this afternoon. Had fever overnight. Says some pain in the foot but not much. Family History: Unchanged from Admission Social History: Unchanged from Admission Past Medical History: Unchanged from Admission Objective Active Medications: Acetaminophen (Tylenol Tab*) 650 mg PO Q4H PRN Albuterol (Ventolin Hfa Inhaler*) 2 puff INH Q4H PRN Aspirin (Aspirin Ec Low Dose*) 81 mg PO DAILY [facility] Atorvastatin Calcium (Lipitor*) 10 mg PO BEDTIME [facility] Dextrose (D50w Syringe 50 Ml*) 12.5 gm IV PUSH .FOR FS < 60 - SS PRN Famotidine (Pepcid Iv*) 20 mg IV ONCE ONE Heparin Sodium (Porcine) (Heparin Vial(*)) 5,000 units SUBCUT 0600,2200 [facility] Cefepime HCl 2 gm/ Sodium (Chloride) 50 mls @ 100 mls/hr IVPB Q12H [facility] Metronidazole/Sodium Chloride (Flagyl 500 Mg Ivpb*) 500 mg in 100 mls @ 100 mls /hr IVPB 0330,1130,1930 [facility] Lactated Ringer's (Lactated Ringers 1000 Ml Bag*) 1,000 mls @ 125 mls/hr IV PER RATE [facility] Insulin Glargine (Lantus(*)) 80 units SUBCUT BEDTIME [facility] Insulin Glargine (Lantus(*)) 40 units SUBCUT ONCE ONE Insulin Human Lispro (Humalog*) 0 units SUBCUT ACHS [facility] Insulin Human Lispro (Humalog*) 0 units SUBCUT ACHS [facility] Lidocaine/Sodium Bicarbonate (Buffered Lidocaine 1% Syrin*) 0.2 ml INTRADERM ONCE ONE Lisinopril (Prinivil Tab*) 20 mg PO DAILY [facility] Metoclopramide HCl (Reglan Iv*) 10 mg IV SLOW PU ONCE ONE Vital Signs 04/21/16 04/21/16 04/21/16 15:15 19:59 20:00 Temperature 98.9 F 98.5 F Pulse Rate 68 81 Respiratory 18 18 18 Rate Blood Pressure 135/57 127/57 (mmHg) O2 Sat by Pulse 93 93 Oximetry 04/21/16 04/22/16 04/22/16 23:40 00:35 04:24 Temperature 101.4 F 100.5 F 98.4 F Pulse Rate 85 71 Respiratory 20 20 Rate Blood Pressure 134/67 120/64 (mmHg) O2 Sat by Pulse 94 93 Oximetry 04/22/16 04/22/16 04/22/16 07:15 07:30 12:01 Temperature 99.2 F 98.4 F Pulse Rate 71 68 Respiratory 16 18 16 Rate Blood Pressure 133/52 132/56 (mmHg) O2 Sat by Pulse 92 92 97 Oximetry Oxygen Devices in Use Now: CPAP/BiPAP Appearance: Middle-aged, obese, M, laying in bed in NAD Eyes: No Scleral Icterus Ears/Nose/Mouth/Throat: Mucous Membranes Moist Neck: NL Appearance and Movements; NL JVP Respiratory: Symmetrical Chest Expansion and Respiratory Effort, Clear to Auscultation Cardiovascular: NL Sounds; No Murmurs; No JVD, RRR Abdominal: NL Sounds; No Tenderness; No Distention Lymphatic: No Cervical Adenopathy Extremities: No Edema Skin: - - RLE with dressing in place, some mild erythema and warmth extending out Neurological: Alert and Oriented x 3 Result Diagrams: 04/22/16 06:32 04/22/16 06:32 Assess/Plan/Problems-Billing Assessment: Staph aureus bacteremia, R foot osteomyelitis in a 65 yo M with hx of RLE osteo , DM, HTN, KYLE, asthma - Patient Problems (1) Osteomyelitis of foot, right, acute Current Visit: Yes Comment: with staph aureus bacteremia. MRI shows bone involvement in 1st, 2nd and 3rd metatarsals. Persistent fever and leukocytosis. Appreciate Ortho assistance, plan for OR 04/23. Appreciate ID assistance, continue ?Ancef/Cefepime and Flagyl. Repeat BCx pending. TTE negative for signs of endocarditis (limited study due to habitus) (2) Diabetes Current Visit: Yes Comment: Continue Lantus (decreased dose tonight), Lispro fixed schedule and Lispro SS. Cons carb diet. Metformin and 2 other oral agents on hold. (3) HTN (hypertension) Current Visit: Yes Comment: Continue home Lisinopril (hold 04/23 for surgery) (4) Morbid obesity Current Visit: Yes Comment: BMI 39.7. (5) DVT prophylaxis Current Visit: Yes Comment: Lovenox SQ Status and Disposition: Inpatient for osteo and IV ABx
--- NOTE | 2016-04-22 14:47 | PN ---
Progress Note - Progress Note SOAP: Subjective: []Patient sitting at edge of bed upon entering room. He voices understanding that he is scheduled for surgery with Dr. Torres on his foot tomorrow. He denies pain. Dressing was changed yesterday. Objective: [] Vital Signs Temp 98.4 F 04/22/16 12:01 Pulse 68 04/22/16 12:01 Resp 16 04/22/16 12:01 BP 132/56 04/22/16 12:01 Pulse Ox 97 04/22/16 12:01 Intake & Output 04/21/16 04/22/16 04/22/16 18:59 06:59 18:59 Intake Total 120 660 770 Balance 120 660 770 Intake: IV Fluids 210 230 cefepime 50 170 flagyl 100 ns 60 60 Oral 120 450 540 Other: Estimated Void Large Medium Medium # Bowel Movements 1 Estimated Stool Amount Medium # Voids 1 0 2 Laboratory Results - last 24 hr 04/21/16 04/21/16 04/22/16 17:25 21:03 06:32 WBC 22.4 H RBC 4.12 Hgb 11.8 L Hct 36 L MCV 87 MCH 29 MCHC 33 RDW 13 Plt Count 554 H MPV 8 Neut % (Auto) 60.3 Lymph % (Auto) 27.5 [place] % (Auto) 9.2 H Eos % (Auto) 1.9 Baso % (Auto) 1.1 Absolute Neuts (auto) 13.5 H Absolute Lymphs (auto) 6.2 H Absolute Monos (auto) 2.1 H Absolute Eos (auto) 0.4 Absolute Basos (auto) 0.2 Absolute Nucleated RBC 0 Nucleated RBC % 0 Sodium Potassium Chloride Carbon Dioxide Anion Gap BUN Creatinine Est GFR ( Amer) Est GFR (Non-Af Amer) BUN/Creatinine Ratio Glucose POC Glucose (mg/dL) 140 H 205 H Calcium 04/22/16 04/22/16 04/22/16 06:32 07:33 11:53 WBC RBC Hgb Hct MCV MCH MCHC RDW Plt Count MPV Neut % (Auto) Lymph % (Auto) [place] % (Auto) Eos % (Auto) Baso % (Auto) Absolute Neuts (auto) Absolute Lymphs (auto) Absolute Monos (auto) Absolute Eos (auto) Absolute Basos (auto) Absolute Nucleated RBC Nucleated RBC % Sodium 135 Potassium 3.4 L Chloride 103 Carbon Dioxide 25 Anion Gap 7 BUN 11 Creatinine 0.70 Est GFR ( Amer) 146.5 Est GFR (Non-Af Amer) 113.9 BUN/Creatinine Ratio 15.7 Glucose 81 POC Glucose (mg/dL) 98 102 Calcium 8.6 Microbiology 04/20/16 15:33 Aerobic Blood Culture - Final Blood Venous Staphylococcus Aureus Anaerobic Blood Culture - Final Staphylococcus Aureus Blood Culture - Final Blood MRSA/MSSA (PCR) - Final Mrsa Negative S.aureus Positive 04/20/16 15:00 Aerobic Blood Culture - Final Blood Venous Staphylococcus Aureus Anaerobic Blood Culture - Final Staphylococcus Aureus Blood Culture - Final Left foot dressings were removed Mucoid necrotic foul smelling tissue is noted plantar aspect metatarsal heads Betadine soaked guaze with multiple 4x4s and sam wraps re applied. Assessment: []Left foot cellulitis an osteomyelitis MSSA bacteremia Plan: []Patient is scheduled for OR tomorrow with Dr. Torres for I and D and probable amputation as necessary NPO after midnight tonight
[2016-04-22] MEDS: Acetaminophen TAB* 325 MG PO PRN ×2 (19:47)
[2016-04-22] MEDS ORDERED: Insulin GLARGINE(*) 1 UNITS UNIT SUBCUT ONE (21:00)
[2016-04-22] MEDS: Atorvastatin* 10 MG TAB PO SCH (21:28)
[2016-04-22] MEDS: Heparin VIAL(*) 5000 UNITS/ML VIAL (FIVE THOUSAND) SUBCUT SCH (21:33)
[2016-04-23] MEDS: metroNIDAZOLE IV 500 MG/100ML* 500 MG/100 ML BAG IVPB SCH ×3 (03:25→21:08)
[2016-04-23] MEDS: Cefepime(*) 2 GM in NS 0.9% 50 ML* 50 ML IVPB SCH ×2 (05:26→19:59)
[2016-04-23] MEDS: Heparin VIAL(*) 5000 UNITS/ML VIAL (FIVE THOUSAND) SUBCUT SCH (05:26)
[2016-04-23] MEDS ORDERED: Buffered Lidocaine 1% SYR 3ML* 3 ML/SYR SYRINGE INTRADERM ONE (06:00)
[2016-04-23] MEDS ORDERED: Famotidine IV* 10 MG/ML 2 ML (20 mg) IV ONE (06:00)
[2016-04-23] MEDS ORDERED: Metoclopramide IV* 5 MG/ML 2 ML VIAL IV SLOW PU ONE (06:00)
[2016-04-23] MEDS: Aspirin EC Low Dose* 81 MG TAB.EC PO SCH (07:57)
[2016-04-23] MEDS: Acetaminophen TAB* 325 MG PO PRN (07:57)
[2016-04-23] MEDS: Insulin LISPRO* 1 UNITS UNIT SUBCUT SCH ×8 (08:01→20:15)
--- NOTE | 2016-04-23 13:41 | PN ---
Subjective Date of Service: 04/23/16 Interval History: Patient seen this afternoon, awaiting OR. No new complaints. Not reporting and foot pain at the moment. Continues to have intermittent fevers. Family History: Unchanged from Admission Social History: Unchanged from Admission Past Medical History: Unchanged from Admission Objective Active Medications: Acetaminophen (Tylenol Tab*) 650 mg PO Q4H PRN PRN Reason: FEVER Last Admin: 04/23/16 07:57 Dose: 650 mg Albuterol (Ventolin Hfa Inhaler*) 2 puff INH Q4H PRN PRN Reason: WHEEZING Last Admin: 04/22/16 00:01 Dose: 2 puff Aspirin (Aspirin Ec Low Dose*) 81 mg PO DAILY [facility] Last Admin: 04/23/16 07:57 Dose: 81 mg Atorvastatin Calcium (Lipitor*) 10 mg PO BEDTIME [facility] PRN Reason: Protocol Last Admin: 04/22/16 21:28 Dose: 10 mg Dextrose (D50w Syringe 50 Ml*) 12.5 gm IV PUSH .FOR FS < 60 - SS PRN PRN Reason: FS < 60 Cefepime HCl 2 gm/ Sodium (Chloride) 50 mls @ 100 mls/hr IVPB Q12H [facility] Last Admin: 04/23/16 05:26 Dose: 100 mls/hr Metronidazole/Sodium Chloride (Flagyl 500 Mg Ivpb*) 500 mg in 100 mls @ 100 mls /hr IVPB 0330,1130,1930 [facility] Last Admin: 04/23/16 12:03 Dose: 100 mls/hr Lactated Ringer's (Lactated Ringers 1000 Ml Bag*) 1,000 mls @ 125 mls/hr IV PER RATE [facility] Last Admin: 04/23/16 09:53 Dose: 125 mls/hr Insulin Glargine (Lantus(*)) 80 units SUBCUT BEDTIME [facility] Insulin Human Lispro (Humalog*) 0 units SUBCUT ACHS [facility] PRN Reason: Protocol Last Admin: 04/23/16 08:01 Dose: Not Given Insulin Human Lispro (Humalog*) 0 units SUBCUT ACHS [facility] PRN Reason: Protocol Last Admin: 04/23/16 12:03 Dose: Not Given Lisinopril (Prinivil Tab*) 20 mg PO DAILY [facility] Vital Signs 04/22/16 04/22/16 04/22/16 15:55 19:22 19:26 Temperature 99.6 F 101.4 F Pulse Rate 73 79 Respiratory 24 18 22 Rate Blood Pressure 147/69 133/67 (mmHg) O2 Sat by Pulse 94 95 Oximetry 04/22/16 04/23/16 04/23/16 23:34 03:53 07:29 Temperature 98.8 F 98.4 F 98.7 F Pulse Rate 66 75 71 Respiratory 18 18 16 Rate Blood Pressure 120/64 130/69 136/67 (mmHg) O2 Sat by Pulse 94 96 94 Oximetry Oxygen Devices in Use Now: None Appearance: Middle-aged, M, laying in bed in NAD Eyes: No Scleral Icterus Ears/Nose/Mouth/Throat: Mucous Membranes Moist Neck: NL Appearance and Movements; NL JVP Respiratory: Symmetrical Chest Expansion and Respiratory Effort, Clear to Auscultation Cardiovascular: NL Sounds; No Murmurs; No JVD, RRR Abdominal: NL Sounds; No Tenderness; No Distention, - - Obese Lymphatic: No Cervical Adenopathy Extremities: - - Mild RLE edema, warmth, dressing in place on R foot Neurological: Alert and Oriented x 3 Result Diagrams: 04/22/16 06:32 04/22/16 06:32 Microbiology and Other Data: Microbiology 04/22/16 07:01 Aerobic Blood Culture - Preliminary Blood Venous No Growth Day 1 Anaerobic Blood Culture - Preliminary No Growth Day 1 04/22/16 06:32 Aerobic Blood Culture - Preliminary Blood Venous No Growth Day 1 Anaerobic Blood Culture - Preliminary No Growth Day 1 Assess/Plan/Problems-Billing Assessment: Staph aureus bacteremia, R foot osteomyelitis in a 65 yo M with hx of RLE osteo , DM, HTN, KYLE, asthma - Patient Problems (1) Osteomyelitis of foot, right, acute Current Visit: Yes Comment: with staph aureus bacteremia. MRI shows bone involvement in 1st, 2nd and 3rd metatarsals. Persistent fever and leukocytosis. Appreciate Ortho assistance, awaiting OR. Appreciate ID assistance, continue ? Ancef/Cefepime and Flagyl. Repeat BCx NGTD. TTE negative for signs of endocarditis (limited study due to habitus) (2) Diabetes Current Visit: Yes Comment: Continue Lantus, Lispro fixed schedule and Lispro SS. Cons carb diet. Metformin and 2 other oral agents on hold. (3) HTN (hypertension) Current Visit: Yes Comment: Continue home Lisinopril (hold 04/23 for surgery) (4) Morbid obesity Current Visit: Yes Comment: BMI 39.7. (5) DVT prophylaxis Current Visit: Yes Comment: Lovenox SQ Status and Disposition: Inpatient for osteo and IV ABx
[2016-04-23] MEDS ORDERED: fentaNYL* 50 MCG/ML 2 ML VIAL (100 MCG VIAL) ONE (14:34)
[2016-04-23] MEDS ORDERED: Midazolam* 1 MG/ML 2 ML VIAL (2 MG) ONE (14:35)
[2016-04-23] MEDS ORDERED: Propofol* 10 MG/ML 20 ML BTL IV PUSH ONE (14:36)
[2016-04-23] MEDS ORDERED: Lidocaine 2% PF * 5 ML VIAL ONE (14:36)
[2016-04-23] MEDS ORDERED: Ondansetron INJ* 2 MG/ML VIAL ONE (14:36)
[2016-04-23] MEDS ORDERED: HYDROmorphone INJ* 1 MG/ML CARPUJECT SYRINGE IV PRN (15:19)
[2016-04-23] MEDS ORDERED: PROCHLORPERAZINE INJ 5 MG/ML 2 ML VIAL IV PRN (15:19)
[2016-04-23] MEDS ORDERED: Ondansetron INJ* 2 MG/ML VIAL IV PRN (15:19)
[2016-04-23] MEDS ORDERED: fentaNYL* 50 MCG/ML 2 ML VIAL (100 MCG VIAL) IV PRN (15:19)
[2016-04-23] MEDS ORDERED: DiMENhydriNATE IV* 50 MG/ML VIAL IV PUSH PRN (15:19)
[2016-04-23] MEDS ORDERED: HYDROmorphone INJ* 1 MG/ML CARPUJECT SYRINGE ONE ×2 (16:21→16:38)
[2016-04-23] MEDS ORDERED: Bupivacaine 0.5% SDV PF* 30 ML VIAL ONE (17:00)
[2016-04-23] MEDS ORDERED: oxyCODONE TAB* 5 MG TAB PO PRN (17:20)
[2016-04-23] MEDS ORDERED: Morphine INJ* 2 MG/ML 1 ML CARPUJECT IV PRN (17:20)
[2016-04-23] MEDS ORDERED: oxyCODONE TAB* 5 MG TAB ONE (18:01)
[2016-04-23] MEDS: Insulin GLARGINE(*) 1 UNITS UNIT SUBCUT SCH (20:14)
[2016-04-23] MEDS: Atorvastatin* 10 MG TAB PO SCH (20:14)
[2016-04-23] MEDS: oxyCODONE TAB* 5 MG TAB PO PRN (22:57)
[2016-04-24] MEDS: metroNIDAZOLE IV 500 MG/100ML* 500 MG/100 ML BAG IVPB SCH ×3 (03:30→19:49)
[2016-04-24] MEDS: Cefepime(*) 2 GM in NS 0.9% 50 ML* 50 ML IVPB SCH ×2 (06:02→18:16)
[2016-04-24 07:03] LABS: Hematocrit 33 % (42-52); Hemoglobin 11.4 g/dl (14.0-18.0); Mean Corpuscular HGB Conc 34 g/dl (31-36); Mean Corpuscular Hemoglobin 29 pg (27-31); Mean Corpuscular Volume 86 fL (80-94); Mean Platelet Volume 8 um3 (7.4-10.4); Red Blood Count 3.87 10^6/ul (4.0-5.4); Red Cell Distribution Width 13 % (10.5-15); White Blood Count 18.8 10^3/ul (3.5-10.8)
[2016-04-24 07:08] LABS: BUN/Creatinine Ratio 12.9 (8-20); Calcium 8.3 mg/dL (8.6-10.3); EGFR African American 146.5 (>60); EGFR Non-African American 113.9 (>60); Potassium 3.6 mmol/L (3.5-5.0)
[2016-04-24 07:26] LABS: Comments Flag Yes
--- NOTE | 2016-04-24 08:36 | OP ---
DATE OF OPERATION: 04/23/16 - ROOM #333 DATE OF : 54 SURGEON: Heron Torres MD PIPING SUPERVISOR: Brandy Dunn PA-C ANESTHESIOLOGIST: Giuseppe Lawrence MD ANESTHESIA: General PRE-OP DIAGNOSIS: Osteomyelitis right forefoot, neuropathic ulcer. POST-OP DIAGNOSIS: Osteomyelitis right forefoot, neuropathic ulcer. OPERATIVE PROCEDURE: Lisfranc disarticulation right midfoot with Achilles release. DESCRIPTION OF PROCEDURE: The patient was taken to the operating room where a transverse fish-mouth incision was made over the midfoot where there was a large plantar ulcer which coursed back to group home to the base of the second metatarsal. We divided the dorsal flap and then disarticulated the TMT joints, dividing the first cuneiform with the microsagittal saw. We also rounded the plantar aspect of the cuboid and the first cuneiform. We then irrigated a tendon sheath in the anterior portion (I believe, it was the EHL tendon sheath), which appeared to be slightly purulent. We made a puncture wound proximal to the ankle and used a red rubber catheter to irrigate this proximal to distal. Cultures were sent and then we disarticulated the foot and sent this to Pathology as well. We dropped the tourniquet and gained hemostasis. There was good bleeding throughout. We closed the flaps with 0 Vicryl sutures and 2-0 Surgipro for the skin. We also percutaneously released the Achilles just above the insertion point with a 15 blade. Compression dressing, plaster splint applied. [id number]/[facility] #: [id number] [facility]
[2016-04-24] MEDS: Insulin LISPRO* 1 UNITS UNIT SUBCUT SCH ×8 (08:37→20:16)
[2016-04-24] MEDS: Aspirin EC Low Dose* 81 MG TAB.EC PO SCH (08:44)
[2016-04-24] MEDS: Lisinopril TAB* 10 MG PO SCH (08:44)
[2016-04-24] MEDS: Enoxaparin(*) 40 MG/0.4 ML SYR SUBCUT SCH (11:01)
[2016-04-24] MEDS: oxyCODONE TAB* 5 MG TAB PO PRN (11:01)
--- NOTE | 2016-04-24 13:21 | PN ---
Subjective Date of Service: 04/24/16 Interval History: Patient seen early afternoon. Reports he is feeling well post-operatively. Some pain in the foot but controlled with PO pain medications. Feels he will be able to maintain NWB in RLE (although has not been compliant so far today). No fever , chills. Family History: Unchanged from Admission Social History: Unchanged from Admission Past Medical History: Unchanged from Admission Objective Active Medications: Acetaminophen (Tylenol Tab*) 650 mg PO Q4H PRN Albuterol (Ventolin Hfa Inhaler*) 2 puff INH Q4H PRN Aspirin (Aspirin Ec Low Dose*) 81 mg PO DAILY OTTO Atorvastatin Calcium (Lipitor*) 10 mg PO BEDTIME OTTO Dextrose (D50w Syringe 50 Ml*) 12.5 gm IV PUSH .FOR FS < 60 - SS PRN Enoxaparin Sodium (Lovenox(*)) 40 mg SUBCUT Q24H OTTO Cefepime HCl 2 gm/ Sodium (Chloride) 50 mls @ 100 mls/hr IVPB Q12H OTTO Metronidazole/Sodium Chloride (Flagyl 500 Mg Ivpb*) 500 mg in 100 mls @ 100 mls /hr IVPB 0330,1130,1930 OTTO Lactated Ringer's (Lactated Ringers 1000 Ml Bag*) 1,000 mls @ 125 mls/hr IV PER RATE [facility] Insulin Glargine (Lantus(*)) 80 units SUBCUT BEDTIME OTTO Insulin Human Lispro (Humalog*) 0 units SUBCUT ACHS OTTO Insulin Human Lispro (Humalog*) 0 units SUBCUT ACHS [facility] Lisinopril (Prinivil Tab*) 20 mg PO DAILY [facility] Morphine Sulfate (Morphine Inj (Syringe)*) 2 mg IV Q2H PRN Oxycodone HCl (Roxycodone Tab*) 5 mg PO Q3H PRN Oxycodone HCl (Roxycodone Tab*) 10 mg PO Q3H PRN Vital Signs 04/23/16 04/23/16 04/23/16 17:20 17:25 17:30 Temperature 97.9 F Pulse Rate 90 87 83 Respiratory 20 20 20 Rate Blood Pressure 90/57 90/42 83/48 (mmHg) O2 Sat by Pulse 95 95 98 Oximetry 04/23/16 04/23/16 04/23/16 17:35 17:45 18:00 Temperature Pulse Rate 83 72 65 Respiratory 20 18 16 Rate Blood Pressure 95/60 104/55 112/68 (mmHg) O2 Sat by Pulse 98 96 94 Oximetry 04/23/16 04/23/16 04/23/16 18:15 18:30 18:45 Temperature 97.5 F Pulse Rate 66 64 69 Respiratory 12 16 16 Rate Blood Pressure 149/87 113/77 103/71 (mmHg) O2 Sat by Pulse 96 95 94 Oximetry 04/23/16 04/23/16 04/23/16 19:00 19:16 19:40 Temperature 98.3 F Pulse Rate 64 67 78 Respiratory 12 14 20 Rate Blood Pressure 133/78 116/72 135/73 (mmHg) O2 Sat by Pulse 95 94 97 Oximetry 04/24/16 04/24/16 04/24/16 03:13 07:30 07:36 Temperature 98.6 F 98.6 F Pulse Rate 91 76 Respiratory 18 16 16 Rate Blood Pressure 143/62 131/60 (mmHg) O2 Sat by Pulse 94 92 Oximetry 04/24/16 04/24/16 11:01 11:30 Temperature 98.1 F Pulse Rate 75 Respiratory 15 16 Rate Blood Pressure 122/59 (mmHg) O2 Sat by Pulse 92 Oximetry Oxygen Devices in Use Now: None Appearance: Middle-aged, obese, M, laying in bed in NAD Eyes: No Scleral Icterus Ears/Nose/Mouth/Throat: Mucous Membranes Moist Neck: NL Appearance and Movements; NL JVP Respiratory: Symmetrical Chest Expansion and Respiratory Effort, Clear to Auscultation Cardiovascular: NL Sounds; No Murmurs; No JVD, RRR Abdominal: NL Sounds; No Tenderness; No Distention Lymphatic: No Cervical Adenopathy Extremities: - - RLE with dressing in place Neurological: Alert and Oriented x 3 Result Diagrams: 04/24/16 06:13 04/24/16 06:13 Assess/Plan/Problems-Billing Assessment: Staph aureus bacteremia, R foot osteomyelitis in a 65 yo M with hx of RLE osteo , DM, HTN, KYLE, asthma - Patient Problems (1) Osteomyelitis of foot, right, acute Current Visit: Yes Comment: with staph aureus bacteremia. MRI shows bone involvement in 1st, 2nd and 3rd metatarsals. Appreciate Ortho assistance, s/p R TMA on 04/23, now RLE NWB. Appreciate ID assistance, continue Cefepime and Flagyl through the weekend with plans for PO ABx afterwards. Repeat BCx NGTD. TTE negative for signs of endocarditis (limited study due to habitus). PT eval. (2) Diabetes Current Visit: Yes Comment: Continue Lantus, Lispro fixed schedule and Lispro SS. Cons carb diet. Metformin and 2 other oral agents on hold. (3) HTN (hypertension) Current Visit: Yes Comment: Continue home Lisinopril (4) Morbid obesity Current Visit: Yes Comment: BMI 39.7. (5) DVT prophylaxis Current Visit: Yes Comment: Lovenox SQ Status and Disposition: Inpatient for osteo and IV ABx
[2016-04-24] MEDS ORDERED: Senna TAB PO PRN (13:52)
[2016-04-24] MEDS ORDERED: Docusate CAP* 100 MG PO PRN (13:52)
--- NOTE | 2016-04-24 16:06 | PN ---
Progress Note - Progress Note SOAP: Subjective: POD #1 Right foot transtarsal amputation. Doing well. States that he has no pain in lower leg. Denies CP/SOB, n/v. Objective: Vitals: Temp Pulse Resp BP Pulse Ox 98.1 F 75 16 122/59 92 /12/29 11:30 /12/29 11:30 04/24/16 13:01 04/24/16 11:30 04/24/16 11:30 Gen: A&O x3, NAD at rest laying in bed RLE: Splint C/D/I Assessment: POD #1 Right foot transtarsal amputation Plan: NWB RLE Cont IV abx per medicine/ID, likely through weekend Ortho will continue to follow
[2016-04-24] MEDS: Atorvastatin* 10 MG TAB PO SCH (19:51)
[2016-04-24] MEDS: Acetaminophen TAB* 325 MG PO PRN (19:51)
[2016-04-24] MEDS: Insulin GLARGINE(*) 1 UNITS UNIT SUBCUT SCH (20:14)
[2016-04-25] MEDS: metroNIDAZOLE IV 500 MG/100ML* 500 MG/100 ML BAG IVPB SCH ×3 (03:35→20:17)
[2016-04-25] MEDS: Cefepime(*) 2 GM in NS 0.9% 50 ML* 50 ML IVPB SCH ×2 (05:44→18:17)
[2016-04-25] MEDS: Insulin LISPRO* 1 UNITS UNIT SUBCUT SCH ×8 (07:44→21:48)
[2016-04-25 08:00] LABS: Hematocrit 34 % (42-52); Hemoglobin 11.3 g/dl (14.0-18.0); Mean Corpuscular HGB Conc 33 g/dl (31-36); Mean Corpuscular Hemoglobin 29 pg (27-31); Mean Corpuscular Volume 87 fL (80-94); Mean Platelet Volume 7 um3 (7.4-10.4); Red Cell Distribution Width 13 % (10.5-15); White Blood Count 15.6 10^3/ul (3.5-10.8)
[2016-04-25 08:10] LABS: Comments Flag Yes
[2016-04-25 08:13] LABS: BUN/Creatinine Ratio 15.5 (8-20); Calcium 8.4 mg/dL (8.6-10.3); EGFR Non-African American 141.5 (>60); Potassium 3.5 mmol/L (3.5-5.0)
--- NOTE | 2016-04-25 08:29 | PN ---
Progress Note - Progress Note SOAP: Subjective: [Pt reports doing well. So significant complaints of pain. Denies CP, SOB, nausea. Slept] Objective: [A and O X 3, NAD, VSS Patient seated in chair waiting for breakfast. Dressing to R foot/lower leg intact. Postop shoe on. Palpable popliteal pulse. ] Vital Signs: Temp Pulse Resp BP Pulse Ox 98.9 F 65 16 118/52 93 04/25/16 02:54 04/25/16 02:57 04/25/16 02:57 04/25/16 02:57 04/25/16 02:57 Laboratory Results - last 24 hr 04/24/16 04/24/16 04/24/16 08:31 12:05 17:42 WBC RBC Hgb Hct MCV MCH MCHC RDW Plt Count MPV Neut % (Auto) Lymph % (Auto) [place] % (Auto) Eos % (Auto) Baso % (Auto) Absolute Neuts (auto) Absolute Lymphs (auto) Absolute Monos (auto) Absolute Eos (auto) Absolute Basos (auto) Absolute Nucleated RBC Nucleated RBC % Sodium Potassium Chloride Carbon Dioxide Anion Gap BUN Creatinine Est GFR ( Amer) Est GFR (Non-Af Amer) BUN/Creatinine Ratio Glucose POC Glucose (mg/dL) 70 L 92 120 H Calcium 04/24/16 04/25/16 04/25/16 20:02 07:36 07:46 WBC 15.6 H RBC 3.90 L Hgb 11.3 L Hct 34 L MCV 87 MCH 29 MCHC 33 RDW 13 Plt Count 496 H MPV 7 L Neut % (Auto) 62.3 Lymph % (Auto) 22.7 L [place] % (Auto) 10.7 H Eos % (Auto) 3.3 Baso % (Auto) 1.0 Absolute Neuts (auto) 9.7 H Absolute Lymphs (auto) 3.6 Absolute Monos (auto) 1.7 H Absolute Eos (auto) 0.5 Absolute Basos (auto) 0.2 Absolute Nucleated RBC 0.01 Nucleated RBC % 0.1 Sodium Potassium Chloride Carbon Dioxide Anion Gap BUN Creatinine Est GFR ( Amer) Est GFR (Non-Af Amer) BUN/Creatinine Ratio Glucose POC Glucose (mg/dL) 150 H 112 H Calcium 04/25/16 07:46 WBC RBC Hgb Hct MCV MCH MCHC RDW Plt Count MPV Neut % (Auto) Lymph % (Auto) [place] % (Auto) Eos % (Auto) Baso % (Auto) Absolute Neuts (auto) Absolute Lymphs (auto) Absolute Monos (auto) Absolute Eos (auto) Absolute Basos (auto) Absolute Nucleated RBC Nucleated RBC % Sodium 134 Potassium 3.5 Chloride 103 Carbon Dioxide 25 Anion Gap 6 BUN 9 Creatinine 0.58 L Est GFR ( Amer) 182.0 Est GFR (Non-Af Amer) 141.5 BUN/Creatinine Ratio 15.5 Glucose 98 POC Glucose (mg/dL) Calcium 8.4 L Assessment: [65 yo male s/p R foot transmetatarsal amputation doing well. POD #2] Plan: [NWB RLE Con't. IV abx per ID Ortho will con't to follow.]
[2016-04-25] MEDS: Lisinopril TAB* 10 MG PO SCH (09:16)
[2016-04-25] MEDS: Aspirin EC Low Dose* 81 MG TAB.EC PO SCH (09:16)
[2016-04-25] MEDS: Enoxaparin(*) 40 MG/0.4 ML SYR SUBCUT SCH (12:28)
--- NOTE | 2016-04-25 12:49 | PN ---
Subjective Date of Service: 04/25/16 Interval History: Patient seen this afternoon with RENETTA and SO at the bedside. Reports pain is well controlled. Says he feels well. Reports BM this AM although none documented. Discussed with patient some of the difficulties on PT eval and my concern that he would be unable to maintain NWB on his own at home. He states he would be open to [facility]. Family History: Unchanged from Admission Social History: Unchanged from Admission Past Medical History: Unchanged from Admission Objective Active Medications: Acetaminophen (Tylenol Tab*) 650 mg PO Q4H PRN Albuterol (Ventolin Hfa Inhaler*) 2 puff INH Q4H PRN Aspirin (Aspirin Ec Low Dose*) 81 mg PO DAILY OTTO Atorvastatin Calcium (Lipitor*) 10 mg PO BEDTIME OTTO Dextrose (D50w Syringe 50 Ml*) 12.5 gm IV PUSH .FOR FS < 60 - SS PRN Docusate Sodium (Colace Cap*) 100 mg PO BID PRN Enoxaparin Sodium (Lovenox(*)) 40 mg SUBCUT Q24H OTTO Cefepime HCl 2 gm/ Sodium (Chloride) 50 mls @ 100 mls/hr IVPB Q12H OTTO Metronidazole/Sodium Chloride (Flagyl 500 Mg Ivpb*) 500 mg in 100 mls @ 100 mls /hr IVPB 0330,1130,1930 OTTO Lactated Ringer's (Lactated Ringers 1000 Ml Bag*) 1,000 mls @ 125 mls/hr IV PER RATE OTTO Insulin Glargine (Lantus(*)) 80 units SUBCUT BEDTIME OTTO Insulin Human Lispro (Humalog*) 0 units SUBCUT ACHS OTTO Insulin Human Lispro (Humalog*) 0 units SUBCUT ACHS OTTO Lisinopril (Prinivil Tab*) 20 mg PO DAILY OTTO Morphine Sulfate (Morphine Inj (Syringe)*) 2 mg IV Q2H PRN Oxycodone HCl (Roxycodone Tab*) 5 mg PO Q3H PRN Oxycodone HCl (Roxycodone Tab*) 10 mg PO Q3H PRN Polyethylene Glycol/Electrolytes (Miralax*) 17 gm PO DAILY CO Senna (Senokot Tab*) 1 tab PO DAILY PRN Vital Signs 04/24/16 04/24/16 04/24/16 13:01 16:36 19:23 Temperature 100.7 F 101.3 F Pulse Rate 77 80 Respiratory 16 16 16 Rate Blood Pressure 124/67 125/57 (mmHg) O2 Sat by Pulse 93 93 Oximetry 04/24/16 04/24/16 04/25/16 20:17 23:25 02:54 Temperature 98.3 F 98.9 F Pulse Rate 63 Respiratory 18 16 Rate Blood Pressure 107/41 (mmHg) O2 Sat by Pulse 93 Oximetry 04/25/16 04/25/16 04/25/16 02:57 07:22 08:00 Temperature 97.9 F Pulse Rate 65 63 Respiratory 16 20 16 Rate Blood Pressure 118/52 137/60 (mmHg) O2 Sat by Pulse 93 94 Oximetry Oxygen Devices in Use Now: None Appearance: Obese, M, laying in bed in NAD Eyes: No Scleral Icterus Ears/Nose/Mouth/Throat: Mucous Membranes Moist Neck: NL Appearance and Movements; NL JVP Respiratory: Symmetrical Chest Expansion and Respiratory Effort, Clear to Auscultation Cardiovascular: NL Sounds; No Murmurs; No JVD, RRR Abdominal: NL Sounds; No Tenderness; No Distention Lymphatic: No Cervical Adenopathy Extremities: - - RLE with dressing in place, c/d/i Skin: No Rash or Ulcers Neurological: Alert and Oriented x 3 Result Diagrams: 04/25/16 07:46 04/25/16 07:46 Assess/Plan/Problems-Billing Assessment: Staph aureus bacteremia, R foot osteomyelitis in a 65 yo M with hx of RLE osteo , DM, HTN, KYLE, asthma - Patient Problems (1) Osteomyelitis of foot, right, acute Current Visit: Yes Comment: with staph aureus bacteremia. MRI shows bone involvement in 1st, 2nd and 3rd metatarsals. Appreciate Ortho assistance, s/p R TMA on 04/23, now RLE NWB. Appreciate ID assistance, continue Cefepime and Flagyl through the weekend with plans for PO ABx afterwards, although if patient goes to [facility] may want to continue IV? will need to discuss further with Dr. Dozier on 04/27. Repeat BCx NGTD. TTE negative for signs of endocarditis (limited study due to habitus). PT recommening [facility]. (2) Diabetes Current Visit: Yes Comment: Continue Lantus, Lispro fixed schedule and Lispro SS. Cons carb diet. Metformin and 2 other oral agents on hold. (3) HTN (hypertension) Current Visit: Yes Comment: Continue home Lisinopril (4) Morbid obesity Current Visit: Yes Comment: BMI 39.7. (5) DVT prophylaxis Current Visit: Yes Comment: Lovenox SQ Status and Disposition: Inpatient for osteo and IV ABx. Will likely need [facility]
[2016-04-25] MEDS: Atorvastatin* 10 MG TAB PO SCH (21:44)
[2016-04-25] MEDS: Insulin GLARGINE(*) 1 UNITS UNIT SUBCUT SCH (21:45)
[2016-04-26] MEDS: metroNIDAZOLE IV 500 MG/100ML* 500 MG/100 ML BAG IVPB SCH ×3 (03:48→19:00)
[2016-04-26] MEDS: Cefepime(*) 2 GM in NS 0.9% 50 ML* 50 ML IVPB SCH ×2 (06:03→17:49)
[2016-04-26 07:50] LABS: Hematocrit 35 % (42-52); Hemoglobin 11.4 g/dl (14.0-18.0); Mean Corpuscular HGB Conc 33 g/dl (31-36); Mean Corpuscular Hemoglobin 29 pg (27-31); Mean Corpuscular Volume 87 fL (80-94); Mean Platelet Volume 8 um3 (7.4-10.4); Red Blood Count 3.98 10^6/ul (4.0-5.4); Red Cell Distribution Width 13 % (10.5-15); White Blood Count 15.2 10^3/ul (3.5-10.8)
[2016-04-26 07:54] LABS: Comments Flag Yes
[2016-04-26 08:11] LABS: BUN/Creatinine Ratio 17.5 (8-20); Calcium 8.2 mg/dL (8.6-10.3); EGFR African American 185.7 (>60); EGFR Non-African American 144.4 (>60); Potassium 3.8 mmol/L (3.5-5.0)
[2016-04-26] MEDS: Insulin LISPRO* 1 UNITS UNIT SUBCUT SCH ×8 (08:21→21:20)
[2016-04-26] MEDS: Aspirin EC Low Dose* 81 MG TAB.EC PO SCH (09:46)
[2016-04-26] MEDS: Lisinopril TAB* 10 MG PO SCH (09:46)
[2016-04-26] MEDS: Polyethylene Glycol 3350* 17 GM PACKET PO PRN (09:46)
--- NOTE | 2016-04-26 10:46 | PN ---
Progress Note - Progress Note SOAP: Subjective: [Pt conts. to report he is doing well. No c/o pain or otherwise.] Objective: [A and O x 3, NAD, VSS Dressing R foot/lower leg intact. Palpable popliteal pulse. Vital Signs: Temp Pulse Resp BP Pulse Ox 98.8 F 58 16 114/55 95 04/26/16 07:15 04/26/16 07:15 04/26/16 08:00 04/26/16 07:15 04/26/16 08:00 Laboratory Results - last 24 hr 04/25/16 04/25/16 04/25/16 11:59 16:26 21:34 WBC RBC Hgb Hct MCV MCH MCHC RDW Plt Count MPV Neut % (Auto) Lymph % (Auto) [place] % (Auto) Eos % (Auto) Baso % (Auto) Absolute Neuts (auto) Absolute Lymphs (auto) Absolute Monos (auto) Absolute Eos (auto) Absolute Basos (auto) Absolute Nucleated RBC Nucleated RBC % Sodium Potassium Chloride Carbon Dioxide Anion Gap BUN Creatinine Est GFR ( Amer) Est GFR (Non-Af Amer) BUN/Creatinine Ratio Glucose POC Glucose (mg/dL) 134 H 179 H 203 H Calcium 04/26/16 04/26/16 07:29 07:29 WBC 15.2 H RBC 3.98 L Hgb 11.4 L Hct 35 L MCV 87 MCH 29 MCHC 33 RDW 13 Plt Count 555 H D MPV 8 Neut % (Auto) 56.3 Lymph % (Auto) 29.6 [place] % (Auto) 10.2 H Eos % (Auto) 3.4 Baso % (Auto) 0.5 Absolute Neuts (auto) 8.5 H Absolute Lymphs (auto) 4.5 Absolute Monos (auto) 1.6 H Absolute Eos (auto) 0.5 Absolute Basos (auto) 0.1 Absolute Nucleated RBC 0 Nucleated RBC % 0 Sodium 134 Potassium 3.8 Chloride 102 Carbon Dioxide 28 Anion Gap 4 BUN 10 Creatinine 0.57 L Est GFR ( Amer) 185.7 Est GFR (Non-Af Amer) 144.4 BUN/Creatinine Ratio 17.5 Glucose 114 H POC Glucose (mg/dL) Calcium 8.2 L ] Assessment: [s/p R foot transmetatarsal amputation doing well POD # 3] Plan: [NWB RLE Con't abx per ID Ortho will con't to follow]
[2016-04-26] MEDS: Enoxaparin(*) 40 MG/0.4 ML SYR SUBCUT SCH (11:09)
--- NOTE | 2016-04-26 15:28 | PN ---
Subjective Date of Service: 04/26/16 Interval History: Patient seen this afternoon. Says he needs to go home because he is frustrated with the razors here. "I already went through 5!". Says otherwise he feels fine. Now saying he does not want to go to rehab, thinks he will be able to care of everything at home. Family History: Unchanged from Admission Social History: Unchanged from Admission Past Medical History: Unchanged from Admission Objective Active Medications: Acetaminophen (Tylenol Tab*) 650 mg PO Q4H PRN Albuterol (Ventolin Hfa Inhaler*) 2 puff INH Q4H PRN Aspirin (Aspirin Ec Low Dose*) 81 mg PO DAILY OTTO Atorvastatin Calcium (Lipitor*) 10 mg PO BEDTIME OTTO Dextrose (D50w Syringe 50 Ml*) 12.5 gm IV PUSH .FOR FS < 60 - SS PRN Docusate Sodium (Colace Cap*) 100 mg PO BID PRN Enoxaparin Sodium (Lovenox(*)) 40 mg SUBCUT Q24H OTTO Cefepime HCl 2 gm/ Sodium (Chloride) 50 mls @ 100 mls/hr IVPB Q12H OTTO Metronidazole/Sodium Chloride (Flagyl 500 Mg Ivpb*) 500 mg in 100 mls @ 100 mls /hr IVPB 0330,1130,1930 OTTO Insulin Glargine (Lantus(*)) 80 units SUBCUT BEDTIME OTTO Insulin Human Lispro (Humalog*) 0 units SUBCUT ACHS OTTO Insulin Human Lispro (Humalog*) 0 units SUBCUT ACHS OTTO Lisinopril (Prinivil Tab*) 20 mg PO DAILY OTTO Morphine Sulfate (Morphine Inj (Syringe)*) 2 mg IV Q2H PRN Oxycodone HCl (Roxycodone Tab*) 5 mg PO Q3H PRN Oxycodone HCl (Roxycodone Tab*) 10 mg PO Q3H PRN Polyethylene Glycol/Electrolytes (Miralax*) 17 gm PO DAILY PRN Senna (Senokot Tab*) 1 tab PO DAILY PRN Vital Signs 04/25/16 04/25/16 04/25/16 15:32 15:35 16:32 Temperature 99.6 F Pulse Rate 68 Respiratory 16 16 18 Rate Blood Pressure 129/48 (mmHg) O2 Sat by Pulse 93 Oximetry 04/25/16 04/25/1617 20:22 20:25 23:50 Temperature 99.1 F 98.8 F Pulse Rate 73 67 Respiratory 20 18 16 Rate Blood Pressure 132/61 122/54 (mmHg) O2 Sat by Pulse 93 93 96 Oximetry 04/26/16 04/26/16 04/26/16 00:00 03:35 07:15 Temperature 99.0 F 98.8 F Pulse Rate 61 58 Respiratory 18 18 Rate Blood Pressure 117/62 114/55 (mmHg) O2 Sat by Pulse 96 96 95 Oximetry 04/26/16 04/26/16 08:00 11:31 Temperature 98.3 F Pulse Rate 71 Respiratory 16 16 Rate Blood Pressure 134/72 (mmHg) O2 Sat by Pulse 95 97 Oximetry Oxygen Devices in Use Now: None Appearance: Obese, middle-aged, M, sitting in chair attempting to shave Eyes: No Scleral Icterus Ears/Nose/Mouth/Throat: Mucous Membranes Moist Neck: NL Appearance and Movements; NL JVP Respiratory: Symmetrical Chest Expansion and Respiratory Effort, Clear to Auscultation Cardiovascular: NL Sounds; No Murmurs; No JVD, RRR Abdominal: NL Sounds; No Tenderness; No Distention Lymphatic: No Cervical Adenopathy Extremities: - - RLE with dressing in place Skin: No Rash or Ulcers Neurological: Alert and Oriented x 3 Result Diagrams: 04/26/16 07:29 04/26/16 07:29 Additional Lab and Data: Assess/Plan/Problems-Billing Assessment: Staph aureus bacteremia, R foot osteomyelitis in a 65 yo M with hx of RLE osteo , DM, HTN, KYLE, asthma - Patient Problems (1) Osteomyelitis of foot, right, acute Current Visit: Yes Comment: with staph aureus bacteremia. MRI shows bone involvement in 1st, 2nd and 3rd metatarsals. Appreciate Ortho assistance, s/p R TMA on 04/23, now RLE NWB. Appreciate ID assistance, continue Cefepime and Flagyl through the weekend with plans for PO ABx afterwards, although if patient goes to [facility] may want to continue IV? will need to discuss further with Dr. Dozier on 04/27. Leukocytosis persisting. Repeat BCx NGTD. TTE negative for signs of endocarditis (limited study due to habitus). PT recommening [facility]. (2) Diabetes Current Visit: Yes Comment: Continue Lantus, Lispro fixed schedule and Lispro SS. Cons carb diet. Metformin and 2 other oral agents on hold. (3) HTN (hypertension) Current Visit: Yes Comment: Continue home Lisinopril (4) Morbid obesity Current Visit: Yes Comment: BMI 39.7. (5) DVT prophylaxis Current Visit: Yes Comment: Lovenox SQ Status and Disposition: Inpatient for osteo and IV ABx. Will likely need [facility]
[2016-04-26] MEDS: Insulin GLARGINE(*) 1 UNITS UNIT SUBCUT SCH (21:20)
[2016-04-26] MEDS: Atorvastatin* 10 MG TAB PO SCH (21:20)
[2016-04-27] MEDS: metroNIDAZOLE IV 500 MG/100ML* 500 MG/100 ML BAG IVPB SCH ×3 (03:38→20:15)
[2016-04-27] MEDS: Cefepime(*) 2 GM in NS 0.9% 50 ML* 50 ML IVPB SCH ×2 (05:35→18:08)
[2016-04-27 06:59] LABS: Hematocrit 34 % (42-52); Hemoglobin 11.5 g/dl (14.0-18.0); Mean Corpuscular HGB Conc 34 g/dl (31-36); Mean Corpuscular Hemoglobin 29 pg (27-31); Mean Corpuscular Volume 87 fL (80-94); Mean Platelet Volume 8 um3 (7.4-10.4); Red Blood Count 3.97 10^6/ul (4.0-5.4); Red Cell Distribution Width 14 % (10.5-15); White Blood Count 16.5 10^3/ul (3.5-10.8)
[2016-04-27 07:09] LABS: Add Diff/Slide Review? Slide Review Added; Comments Flag Yes
--- NOTE | 2016-04-27 08:45 | PN ---
Progress Note - Progress Note SOAP: Subjective: []Patient seen OOB in chair. Denies foot/leg pain. Denies SOB/ Chest pain or dizziness. " I just want to get out of here" Objective: [] Vital Signs Temp 97.5 F 04/27/16 07:32 Pulse 58 04/27/16 07:32 Resp 16 04/27/16 07:32 BP 125/55 04/27/16 07:32 Pulse Ox 95 04/27/16 07:32 Intake & Output 04/26/16 04/27/16 04/27/16 18:59 06:59 18:59 Intake Total 730 880 Output Total 500 1250 425 Balance 230 -370 -425 Intake: Oral 730 880 Output: Urine 500 1250 425 Laboratory Results - last 24 hr 04/26/16 04/26/16 04/26/16 11:54 17:19 21:02 WBC RBC Hgb Hct MCV MCH MCHC RDW Plt Count MPV Neut % (Auto) Lymph % (Auto) [place] % (Auto) Eos % (Auto) Baso % (Auto) Absolute Neuts (auto) Absolute Lymphs (auto) Absolute Monos (auto) Absolute Eos (auto) Absolute Basos (auto) Absolute Nucleated RBC Nucleated RBC % POC Glucose (mg/dL) 160 H 208 H 225 H 04/27/16 04/27/16 06:36 08:01 WBC 16.5 H RBC 3.97 L Hgb 11.5 L Hct 34 L MCV 87 MCH 29 MCHC 34 RDW 14 Plt Count 605 H D MPV 8 Neut % (Auto) 54.5 Lymph % (Auto) 32.1 [place] % (Auto) 9.0 Eos % (Auto) 3.8 Baso % (Auto) 0.6 Absolute Neuts (auto) 9.0 H Absolute Lymphs (auto) 5.3 H Absolute Monos (auto) 1.5 H Absolute Eos (auto) 0.6 Absolute Basos (auto) 0.1 Absolute Nucleated RBC 0 Nucleated RBC % 0 POC Glucose (mg/dL) 119 H Microbiology 04/22/16 07:01 Aerobic Blood Culture - Final Blood Venous No Growth Day 5 Anaerobic Blood Culture - Final No Growth Day 5 Blood Culture - Final 04/22/16 06:32 Aerobic Blood Culture - Final Blood Venous No Growth Day 5 Anaerobic Blood Culture - Final No Growth Day 5 Blood Culture - Final 04/23/16 16:38 Anaerobic Culture - Preliminary Wound - Right Staphylococcus Aureus Skin and Soft Tissue MRSA/MSSA (PCR - Final Mrsa Negative S.aureus Positive Gram Stain - Final Wound Culture - Final Staphylococcus Aureus 04/20/16 15:33 Aerobic Blood Culture - Final Blood Venous Staphylococcus Aureus Anaerobic Blood Culture - Final Staphylococcus Aureus Blood Culture - Final Blood MRSA/MSSA (PCR) - Final Mrsa Negative S.aureus Positive 04/20/16 15:00 Aerobic Blood Culture - Final Blood Venous Staphylococcus Aureus Anaerobic Blood Culture - Final Staphylococcus Aureus Blood Culture - Final Splint is dry and intact Right LE upper calf non tender Assessment: []s/p transmetatarsal amputation for Osteo right foot POD#4 MSSA bacteremia Plan: []Continue with current IV abx per ID Discharge plan per ID /Medical service PT/OT NWB right LE Lovenox DVT prophylaxis
[2016-04-27] MEDS: Insulin LISPRO* 1 UNITS UNIT SUBCUT SCH ×8 (09:15→20:58)
[2016-04-27] MEDS: Lisinopril TAB* 10 MG PO SCH (09:20)
[2016-04-27] MEDS: Polyethylene Glycol 3350* 17 GM PACKET PO PRN (09:20)
[2016-04-27] MEDS: Aspirin EC Low Dose* 81 MG TAB.EC PO SCH (09:20)
[2016-04-27] MEDS: Enoxaparin(*) 40 MG/0.4 ML SYR SUBCUT SCH (11:25)
[2016-04-27] MEDS ORDERED: Bisacodyl SUPP* 10 MG SUPP PR PRN (12:46)
--- NOTE | 2016-04-27 16:04 | PN ---
Subjective Date of Service: 04/27/16 Interval History: pt wants to go home. has no post op pain Family History: Unchanged from Admission Social History: Unchanged from Admission Past Medical History: Unchanged from Admission Objective Active Medications: Acetaminophen (Tylenol Tab*) 650 mg PO Q4H PRN PRN Reason: FEVER Last Admin: 04/24/16 19:51 Dose: 650 mg Albuterol (Ventolin Hfa Inhaler*) 2 puff INH Q4H PRN PRN Reason: WHEEZING Last Admin: 04/22/16 00:01 Dose: 2 puff Aspirin (Aspirin Ec Low Dose*) 81 mg PO DAILY [facility] Last Admin: 04/27/16 09:20 Dose: 81 mg Atorvastatin Calcium (Lipitor*) 10 mg PO BEDTIME OTTO PRN Reason: Protocol Last Admin: 04/26/16 21:20 Dose: 10 mg Bisacodyl (Dulcolax Supp*) 10 mg TN DAILY PRN PRN Reason: CONSTIPATION Dextrose (D50w Syringe 50 Ml*) 12.5 gm IV PUSH .FOR FS < 60 - SS PRN PRN Reason: FS < 60 Docusate Sodium (Colace Cap*) 100 mg PO BID PRN PRN Reason: CONSTIPATION Last Admin: 04/25/16 21:44 Dose: 100 mg Enoxaparin Sodium (Lovenox(*)) 40 mg SUBCUT Q24H [facility] Last Admin: 04/27/16 11:25 Dose: 40 mg Cefepime HCl 2 gm/ Sodium (Chloride) 50 mls @ 100 mls/hr IVPB Q12H [facility] Last Admin: 04/27/16 05:35 Dose: 100 mls/hr Metronidazole/Sodium Chloride (Flagyl 500 Mg Ivpb*) 500 mg in 100 mls @ 100 mls /hr IVPB 0330,1130,1930 [facility] Last Admin: 04/27/16 11:25 Dose: 100 mls/hr Insulin Glargine (Lantus(*)) 80 units SUBCUT BEDTIME [facility] Last Admin: 04/26/16 21:20 Dose: 80 units Insulin Human Lispro (Humalog*) 0 units SUBCUT ACHS [facility] PRN Reason: Protocol Last Admin: 04/27/16 13:24 Dose: 2 unit Insulin Human Lispro (Humalog*) 0 units SUBCUT ACHS OTTO PRN Reason: Protocol Last Admin: 04/27/16 13:26 Dose: 22 unit Lisinopril (Prinivil Tab*) 20 mg PO DAILY [facility] Last Admin: 04/27/16 09:20 Dose: 20 mg Morphine Sulfate (Morphine Inj (Syringe)*) 2 mg IV Q2H PRN PRN Reason: PAIN BREAKTHROUGH Last Admin: 04/25/16 15:32 Dose: 2 mg Oxycodone HCl (Roxycodone Tab*) 5 mg PO Q3H PRN PRN Reason: PAIN Oxycodone HCl (Roxycodone Tab*) 10 mg PO Q3H PRN PRN Reason: PAIN Last Admin: 04/24/16 11:01 Dose: 10 mg Polyethylene Glycol/Electrolytes (Miralax*) 17 gm PO DAILY PRN PRN Reason: CONSTIPATION Last Admin: 04/27/16 09:20 Dose: 17 gm Senna (Senokot Tab*) 1 tab PO DAILY PRN PRN Reason: CONSTIPATION Last Admin: 04/25/16 21:43 Dose: 1 tab Vital Signs 04/26/16 04/26/16 04/26/16 16:24 19:20 21:00 Temperature 98.0 F 98.8 F Pulse Rate 75 82 Respiratory 18 20 20 Rate Blood Pressure 116/62 113/63 (mmHg) O2 Sat by Pulse 97 96 Oximetry 04/26/16 04/27/16 04/27/16 23:51 00:00 03:30 Temperature 99.0 F 97.9 F Pulse Rate 65 63 Respiratory 16 16 Rate Blood Pressure 134/52 118/61 (mmHg) O2 Sat by Pulse 93 95 95 Oximetry 04/27/16 04/27/16 04/27/16 07:32 08:00 11:45 Temperature 97.5 F 98.1 F Pulse Rate 58 74 Respiratory 16 16 16 Rate Blood Pressure 125/55 122/49 (mmHg) O2 Sat by Pulse 95 97 Oximetry 04/27/16 15:35 Temperature 97.2 F Pulse Rate 75 Respiratory 18 Rate Blood Pressure 134/68 (mmHg) O2 Sat by Pulse 96 Oximetry Oxygen Devices in Use Now: None Appearance: 65 yo m in nAD, aAOx3 Eyes: No Scleral Icterus, PERRLA Ears/Nose/Mouth/Throat: NL Teeth, Lips, Gums, Mucous Membranes Moist Neck: NL Appearance and Movements; NL JVP, Trachea Midline Respiratory: Symmetrical Chest Expansion and Respiratory Effort, Clear to Auscultation Cardiovascular: NL Sounds; No Murmurs; No JVD, RRR Abdominal: NL Sounds; No Tenderness; No Distention, No Hepatosplenomegaly Lymphatic: No Cervical Adenopathy Extremities: No Clubbing, Cyanosis, - - R foot, s/p TMA, post op cast not removed Skin: No Nodules or Sclerosis Neurological: Alert and Oriented x 3, NL Muscle Strength and Tone Result Diagrams: 04/27/16 06:36 04/26/16 07:29 Additional Lab and Data: Microbiology and Other Data: Microbiology 04/22/16 07:01 Aerobic Blood Culture - Preliminary Blood Venous No Growth Day 1 Anaerobic Blood Culture - Preliminary No Growth Day 1 04/22/16 06:32 Aerobic Blood Culture - Preliminary Blood Venous No Growth Day 1 Anaerobic Blood Culture - Preliminary No Growth Day 1 Assess/Plan/Problems-Billing Assessment: Staph aureus bacteremia, R foot osteomyelitis in a 65 yo M with hx of RLE osteo , DM, HTN, KYLE, asthma - Patient Problems (1) Osteomyelitis of foot, right, acute Comment: with staph aureus bacteremia. MRI shows bone involvement in 1st, 2nd and 3rd metatarsals. Appreciate Ortho assistance, s/p R TMA on 04/23, now RLE NWB. Appreciate ID assistance, continue Cefepime and Flagyl through the weekend with plans for PO Flagyl and IV Cefepime daily x 2 weeks. PICC consult placed. Repeat BCx NGTD. TTE negative for signs of endocarditis (limited study due to habitus). PT recommening [facility]. (2) Diabetes Comment: Continue Lantus, Lispro fixed schedule and Lispro SS. Cons carb diet. Metformin and 2 other oral agents on hold. (3) Morbid obesity Comment: BMI 39.7. (4) HTN (hypertension) Comment: Continue home Lisinopril, controlled (5) DVT prophylaxis Comment: Lovenox SQ Status and Disposition: Inpatient for osteo and IV ABx. plan to d/c to [facility] with IV cefepime and PO Falgyl x 14 days more.
[2016-04-27] MEDS: Atorvastatin* 10 MG TAB PO SCH (20:57)
[2016-04-27] MEDS: Insulin GLARGINE(*) 1 UNITS UNIT SUBCUT SCH (20:58)
[2016-04-28] MEDS: metroNIDAZOLE IV 500 MG/100ML* 500 MG/100 ML BAG IVPB SCH ×2 (03:27→11:41)
[2016-04-28] MEDS: Cefepime(*) 2 GM in NS 0.9% 50 ML* 50 ML IVPB SCH (05:43)
--- NOTE | 2016-04-28 08:21 | PN ---
Progress Note - Progress Note SOAP: Subjective: []Patient seen at bedside. Doing well. No complaints of pain. No SOB or chest pain. Objective: [] Vital Signs Temp 98.5 F 04/28/16 03:36 Pulse 68 04/28/16 03:36 Resp 16 04/28/16 03:36 BP 125/59 04/28/16 03:36 Pulse Ox 94 04/28/16 03:36 Intake & Output 04/27/16 04/28/16 04/28/16 18:59 06:59 18:59 Intake Total 1825 643 Output Total 1600 1900 Balance 225 -1257 Intake: IV Fluids 10 ns 10 IVPB 55 183 cefepime 55 73 flagyl 110 Oral 1760 460 Output: Urine 1600 1900 Other: Estimated Void Small # Voids 1 Laboratory Results - last 24 hr 04/27/16 04/27/16 04/27/16 11:31 16:59 20:51 POC Glucose (mg/dL) 149 H 201 H 196 H 04/28/16 07:38 POC Glucose (mg/dL) 125 H Microbiology 04/23/16 16:38 Anaerobic Culture - Final Wound - Right Peptoniphilus Asaccharolyticus Actinomyces Species Skin and Soft Tissue MRSA/MSSA (PCR - Final Mrsa Negative S.aureus Positive Gram Stain - Final Wound Culture - Final Staphylococcus Aureus 04/22/16 07:01 Aerobic Blood Culture - Final Blood Venous No Growth Day 5 Anaerobic Blood Culture - Final No Growth Day 5 Blood Culture - Final 04/22/16 06:32 Aerobic Blood Culture - Final Blood Venous No Growth Day 5 Anaerobic Blood Culture - Final No Growth Day 5 Blood Culture - Final 04/20/16 15:33 Aerobic Blood Culture - Final Blood Venous Staphylococcus Aureus Anaerobic Blood Culture - Final Staphylococcus Aureus Blood Culture - Final Blood MRSA/MSSA (PCR) - Final Mrsa Negative S.aureus Positive 04/20/16 15:00 Aerobic Blood Culture - Final Blood Venous Staphylococcus Aureus Anaerobic Blood Culture - Final Staphylococcus Aureus Blood Culture - Final Splint remains clean and dry right foot Assessment: []s/p transmetatarsal amputation right foot for osteomyelitis POD #5 MSSA Bacteremia Plan: []Orthopedically stable for discharge to rehab today, remain non weight bearing Continue IV Cefepime and PO Flagyl per medicine ID recommendations Follow up with Dr. Torres in office in 7 - 10 days
[2016-04-28] MEDS: Insulin LISPRO* 1 UNITS UNIT SUBCUT SCH ×4 (09:31→13:41)
[2016-04-28] MEDS: Aspirin EC Low Dose* 81 MG TAB.EC PO SCH (09:36)
[2016-04-28] MEDS: Lisinopril TAB* 10 MG PO SCH (09:36)
[2016-04-28] MEDS: Enoxaparin(*) 40 MG/0.4 ML SYR SUBCUT SCH (11:40)
[2016-04-28 12:04] VITALS: BP 107/59
--- NOTE | 2016-04-28 14:17 | DS ---
DISCHARGE SUMMARY: DATE OF ADMISSION: 04/20/16 DATE OF DISCHARGE: 04/28/16 PRIMARY CARE PROVIDER: Dr. Puri. DISCHARGE DIAGNOSES: 1. Right foot osteomyelitis, status post right tarsometatarsal amputation of the foot performed on 04/23/[address] Torres. 2. MSSA bacteremia. CONSULTANTS DURING THE HOSPITAL STAY: Include: 1. Dr. Torres, Orthopedic Surgery. 2. Dr. Dozier, Infectious Disease. MEDICATIONS AT DISCHARGE: Include: 71. Cefepime 2 g IV every 12 hours for 14 days total. 2. Metronidazole 500 mg p.o. 4 times a day for 14 days total. 3. Acetaminophen 650 mg every 4 hours p.r.n. 4. Albuterol inhaler 2 puffs inhaled every 4 hours p.r.n. 5. Aspirin 81 mg daily. 6. Dulcolax suppository 10 mg daily p.r.n. 7. Invokana 300 mg daily. 8. Colace 100 mg b.i.d. 9. Tricor 150 mg daily. 10. Heparin/take as per protocol. 11. Insulin glargine 80 units subcutaneously daily. 12. Insulin lispro sliding scale. 13. Lisinopril 20 mg daily. 14. MiraLAX 17 g p.o. daily. 15. Pravachol 40 mg at bedtime. 16. Senna 1 tablet daily. 17. Januvia 100 mg daily. 18. Glucophage 1000 mg b.i.d. 19. Oxycodone 5 mg every 3 hours p.r.n. LABORATORY DATA: On 04/27/16, white blood cell count 16.5, hemoglobin 11.5, hematocrit 34, and platelets 605. On 04/26/16, sodium 134, potassium 3.8, chloride 102, carbon dioxide 28, BUN 10 , creatinine 0.57. Venous Doppler study obtained on 04/21/16, impression: "No sonographic evidence of deep vein thrombosis. Abnormal right groin lymph nodes with maintenance of normal morphology." That was performed in the right leg only. Right leg MRI obtained on 04/20/16, impression: "Findings most consistent with osteomyelitis at the amputation site in the mid first metatarsal throughout the second metatarsal second proximal and distal phalanges and in the third metatarsal head." Pathology of the surgical specimen is pending at the time of dictation. Transthoracic echocardiogram obtained on 04/21/16 showed EF of 55% to 60%. Global left ventricular wall motion contractility within normal limits. The right ventricle is slightly dilated. Traced tricuspid regurgitation. Compared with prior studies from 2007, no significant changes. HOSPITALIZATION COURSE: Heron Joiner is a 65-year-old male with a history of diabetes, obesity, status post partial right foot amputation by Dr. Torres in the past, who presented on 04/20/16, of his foot wound getting worse. He was admitted to the hospital. Subsequent MRI of the right foot as above was positive for osteomyelitis. The patient was consulted by the infectious disease specialist, Dr. Dozier, and placed on cefepime, vancomycin, and metronidazole. The patient was seen by Dr. Torres who performed transmetatarsal amputation of the right foot on 04/23/16. Postoperatively, patient did reasonably well. His pathology report is still pending at the time of discharge. Please also note that the patient was noted to have MSSA bacteremia noted at admission. Repeat blood cultures within 24 hours were already negative for bacteria. His wound culture from the right foot grew Staphylococcus aureus, MRSA negative, Actinomyces and Peptoniphilus. As per discussion with Dr. Dozier prior to discharge, patient is to continue his IV cefepime and p.o. Flagyl for another 2 weeks. After discharge, the patient is to see Dr. Torres in approximately [address] Dozier in approximately 1 to 2 weeks after discharge. While on the antibiotics at [facility], patient is to have weekly CMPs, CRPs and CBCs drawn to be sent to Dr. Dozier. The patient PICC line was placed the day of discharge. At discharge, patient is also nonweightbearing on the right foot and otherwise to continue physical therapy. PHYSICAL EXAM AT TIME OF DISCHARGE: Blood pressure 107/59, heart rate of 75 and regular, respiratory rate 18, oxygen saturation 93% on room air, temperature 97.8. General: Very pleasant 65-year-old male who is in no acute distress. Alert, awake, and oriented x3. HEENT: Head: Atraumatic, normocephalic. Eyes: Pupils are equal, and reactive to light and accommodation. Oropharynx clear. Mucosa moist. Neck: Supple. No JVD. No bruit bilaterally. Cardiovascular: Regular rate and rhythm. No murmur. Respiratory: Clear to auscultation bilaterally. Abdomen: Soft, nontender, bowel sounds present in all 4 quadrants. Extremities: There is no edema. Pulses +2 on the left foot. The right foot is in the cast postoperatively. The right-sided toes are well perfused with good capillary refill. Neuro Evaluation: Speech clear. Cranial nerves II through XII grossly intact. Motor Strength is 5/5 bilaterally. Please note that this is a short summary of the patient's hospital visit. Please refer to further medical records for details. TIME SPENT: Approximately 45 minutes were spent on the patient's discharge. CC: Dr. Puri; Dr. Dozier; Dr. Torres * [id number]/[facility] #: [id number] [facility]
== END 2016-04-28 15:55 | DRG 617 ==
LOC: ED 13:41 → SSU 16:16
PROVIDERS: ADMIT Internal Medicine; ATTEND Internal Medicine
PROC: 0LNN0ZZ Release Right Lower Leg Tendon, Open Approach (ICD-10-PCS; principal; 2016-04-20)
PROC: 0Y6M0Z0 Detachment at Right Foot, Complete, Open Approach (ICD-10-PCS; 2016-04-20)
PROC: 02HV33Z Insertion of Infusion Device into Superior Vena Cava, Percutaneous Approach (ICD-10-PCS; 2016-04-28)
DX: E11.69 Type 2 diabetes mellitus with other specified complication (principal); M86.671 Other chronic osteomyelitis, right ankle and foot; E11.40 Type 2 diabetes mellitus with diabetic neuropathy, unspecified; M86.171 Other acute osteomyelitis, right ankle and foot; R78.81 Bacteremia; E66.01 Morbid (severe) obesity due to excess calories; I07.1 Rheumatic tricuspid insufficiency; L03.115 Cellulitis of right lower limb; L97.419 Non-pressure chronic ulcer of right heel and midfoot with unspecified severity; E11.621 Type 2 diabetes mellitus with foot ulcer; I10 Essential (primary) hypertension; Z83.3 Family history of diabetes mellitus; J45.909 Unspecified asthma, uncomplicated; Z87.891 Personal history of nicotine dependence; G47.33 Obstructive sleep apnea (adult) (pediatric); Z89.411 Acquired absence of right great toe; Z79.82 Long term (current) use of aspirin; Z79.4 Long term (current) use of insulin; Z79.01 Long term (current) use of anticoagulants; Z68.39 Body mass index [BMI] 39.0-39.9, adult; E78.5 Hyperlipidemia, unspecified; Z85.820 Personal history of malignant melanoma of skin
CPT/HCPCS: 36415; 80048; 80053; 83605; 84484; 85025; 85060; 85610; 85730; 87040; 87070; 87073; 87076; 87077; 87150; 87186; 87205; 87640; 87641; 88307; 88311; 93005; 93306; A9270-GY; A9579; C1751; J0692; J1170; J1644; J1650; J2250; J2270; J2405; J2704; J2765; J3010; J3370; J3490

== ENCOUNTER 2018-08-09 11:40 | Inpatient (IN) | payer MEDICARE, MEDICAID ==
--- NOTE | 2018-08-09 13:01 | HP ---
Amended report to enter cosigning physician. HISTORY AND PHYSICAL: DATE OF ADMISSION: 08/09/18 PROVIDER: Heron Torres MD* (dictated by VIOLETA Kelley). ADMITTING DIAGNOSIS: Left foot infection. HISTORY OF PRESENT ILLNESS: Heron is a 67-year-old gentleman who has been followed by Dr. Torres for ongoing troubles with the right foot. He presented to the office for routine followup of the right foot and stated that the left foot has been more painful, red, and swollen over the last couple of days. He has also had nausea and vomiting associated with it as well as fevers and chills. He has not been on any antibiotics yet for this nor has he had any treatment thus far. He denies any paresthesias or numbness to the foot. PAST MEDICAL HISTORY: Insulin-dependent diabetes, hypertension, hyperlipidemia. PAST SURGICAL HISTORY: Right foot partial amputation in 2015, melanoma excision from the left shoulder in 2013, splenectomy in 1973, bilateral carpal tunnel release, fifth finger percutaneous pinning, and right shoulder surgery. He reports no complications with anesthesia. CURRENT MEDICATIONS: 1. Aspirin 81 mg p.o. q. day. 2. Fenofibrate 160 mg p.o. q. day. 3. Lisinopril 20 mg p.o. q. day. 4. Pravastatin 20 mg p.o. q.h.s. 5. Januvia 100 mg p.o. q. day. 6. ProAir HFA 108 mcg/act 1 to 2 puffs every 4 hours as needed. 7. Humulin 70/30, 100 units as directed. 8. Humulin R 100 units/mL as directed. 9. Levemir 100 units/mL as directed. 10. Breo-Ellipta 100/25 mcg 1 puff inhaled daily. 11. Glucophage 1000 mg p.o. b.i.d. 12. Trulicity 0.75 mg/0.5 mL weekly. 13. Invokana 300 mg p.o. q. day. ALLERGIES: No known drug allergies. FAMILY HISTORY: Noncontributory. SOCIAL HISTORY: The patient is disabled. He lives with his girlfriend. He quit smoking and drinking 17 years ago. REVIEW OF SYSTEMS: General: Positive for recent fevers, chills. Negative for recent hospitalizations or night sweats. HEENT: Negative for changes to his vision, hearing. Negative for sore throat, runny nose. Negative for headaches , lightheadedness, or balance problems. Cardiovascular: Negative for chest pain, history of heart attack, heart murmur, heart palpitations. Positive for high blood pressure. Positive for hyperlipidemia. Respiratory: Negative for chronic cough. Positive for shortness of breath with exertion. Positive for asthma. Negative for COPD. Gastrointestinal: Negative for heartburn. Positive for nausea, vomiting. Negative for diarrhea or constipation. Genitourinary: Negative for night-time urination, frequency of urination, urinary tract infections, or kidney problems. Musculoskeletal: Negative for chronic back or neck pain. Positive for left foot infection. Skin: Negative for rashes, lesions, lumps, or sores. Neurologic: Negative for seizure, stroke , epilepsy, depression, or anxiety. Endocrine: Positive for diabetes. Negative for thyroid problems. Hematology: Negative for easy bleeding, bruising, or anemia. PHYSICAL EXAMINATION GENERAL: He is a well-developed, well-nourished male. He does appear ill on exam. VITAL SIGNS: The patient is 5 feet 11 inches, 310 pounds. Blood pressure 150/ 84, pulse of 124, respirations 18, temperature 100.3. HEENT: Normocephalic, atraumatic. His hearing and vision are grossly intact. NECK: His trachea is midline. RESPIRATORY: Lungs are clear to auscultation bilaterally. No wheezes, rales, or rhonchi. CARDIOVASCULAR: Tachycardic with regular rhythm. No murmurs, rubs, or gallops appreciated. ABDOMEN: Obese and nontender. EXTREMITIES: Exam of the left lower extremity, the patient has significant edema and erythema to the left forefoot with maceration to the dorsal and plantar aspect of the foot. There is a small open wound to the plantar aspect of the foot at the second MTP joint that is weeping serous fluid. He is diffusely tender to palpation throughout the area. His foot is also malodorous. IMPRESSION: Left forefoot infection. PLAN: The patient will be admitted to the hospital for IV antibiotics, meeting SIRS criteria for a left forefoot infection. We would like to obtain an MRI to further evaluate the extent of soft tissue abscess and osteomyelitis. ABIs will also be obtained to assess his vascular status. We will consult on the hospitalist team for medical comanagement of his diabetes and hypertension. The patient is understanding of this plan and is agreeable to admission at this time. VIOLETA KELLEY [id number]/[facility] #: [id number] [facility]
[2018-08-09] MEDS ORDERED: diPHENhydraMINE IV* 50 MG/ML 1 ml VIAL (BENADRYL) IV PRN (13:04)
--- OUTSIDE RECORDS SUMMARY | 2018-08-09 13:07 | XMS REPORT | Continuity of Care Document ---
:1950 External Reference #:[id number] Author Name Chey Butler Care Team Providers Name Role Phone Erik Puri MD Primary Care Physician Unavailable Payers Date Identification Numbers Payment Provider Subscriber Effective: 2018 Policy Number: [id number] [employer] Valeri Joiner PayID: [id number] [address] [place] [address] Policy Number: [id number] Medicaid Valeri Joiner Group Name: 1 1 [address] PayID: [id number] [place] [address] Effective: 2018 Policy Number: [employer] Valeri Joiner [id number] Expires: 2018 PayID: [id number] [address] [address] [place] [address] Expires: 2018 Policy Number: [id number] [employer] Valeri Joiner PayID: [id number] [address] [address] Attn: [place] [address] Expires: 2018 Policy Number: [id number] [employer] Valeri Joiner PayID: [id number] [address] [address] Attn: [place] [address] Effective: 2017 Policy Number: [id number] [employer] Valeri Joiner Options Expires: 2018 PayID: [id number] [address] [address] Attn: [place] [address] Problems Active Problems Provider Date Chronic obstructive lung disease Katherine Stephenson MD Onset: 11/13/2015 Obstructive sleep apnea syndrome Katherine Stephenson MD Onset: 11/13/2015 Morbid obesity Katherine Stephenson MD Onset: 11/13/2015 Chronic osteomyelitis of ankle and/or foot Valeri Torres M.D. Onset: 2015 Family History Date Family Member(s) Observation Comments General Diabetes Father due to PR () - at age 83 Mother due to Unknown Causes () Mother due to At Age 62 () Siblings 3 Sister at age 62 unknown Brothers healthy Social History Type Date Description Comments Sex Unknown Marital Status Single Occupation Not working Tobacco Use Start: Unknown Quit 2003 ETOH Use Denies alcohol use Tobacco Use Start: Unknown End: Patient is a former 3PPD x 37 years - Unknown smoker quit 12 yrs ago Recreational Drug Use Denies Drug Use Smoking Status Reviewed: 08/09/18 Patient is a former 3PPD x 37 years - smoker quit 12 yrs ago Exercise Type/Frequency Does not exercise Allergies, Adverse Reactions, Alerts Description No Known Drug Allergies Medications Active Medications SIG Qnty Indications Ordering Provider Date Breo Ellipta 1 puff inhaled 60units J44.9 Katherine Stephenson, 11/13/2015 daily 100-25mcg/Inh Aerosol Aspirin Enteric qd Unknown 11/26/2002 Coated 81mg Tablets Fenofibrate qd Unknown 160mg Lisinopril qd Unknown 20mg Invokana 1 by mouth every 30tabs Valeri Torres, 300mg day M.D. Tablets Pravastatin Sodium 1 tablet by mouth Unknown once daily at 20mg Tablets bedtime Januvia 1 by mouth every Unknown 100mg Tablets day Proair HFA 1-2 puffs by Unknown mouth every 4 108(90Base) mcg/Act hours as needed Aerosol Humulin 70/30 as directed Unknown (70-30)100Unit/ML Suspension Humulin R as directed Unknown 100Unit/ML Solution Levemir as directed Unknown 100Unit/ML Solution Glucophage 1 by mouth twice Unknown 1000mg a day Tablets Trulicity inject 0.75mg Unknown once a week 0.75mg/0.5ML Solution Pen-Inject History Medications Sulfamethoxazole/Trimethoprim DS 1 by mouth 60tabs M86.671 Raphael Dutton - 800-160mg twice daily Jacqueline 12/21/2016 Tablets Tara Rifampin 1 by mouth 60caps M86.671 Raphael DAzra 07/02/2016 - 300mg Capsules twice a day Jacqueline 12/21/2016 Tara Bactrim DS 1 by mouth 30tabs Valeri 06/02/2016 - 800-160mg Tablets twice a day Tara Torres 08/02/2016 Bactrim DS 1 by mouth 30tabs Valeri 03/17/2016 - 800-160mg Tablets twice a day Tara Torres 05/11/2016 Bactrim DS 1 by mouth 30tabs [id number] Valeri 01/23/2016 - 800-160mg Tablets twice a day Tara Torres 02/26/2016 Bactrim DS 1 by mouth 28tabs Valeri 01/13/2016 - 800-160mg Tablets twice a day Tara Torres 01/26/2016 Oxycodone HCL 1-2 tabs by 40tabs Valeri 01/13/2016 - 5mg Tablets mouth every Tara Torres 02/26/2016 4-6 hours as needed Walker Jazz Glides/5 Adjustment for use after 1units Valeri 01/09/2016 - Holes/-03/22" total knee Tara Torres 04/18/2018-03/22" Misc replacement 11/2015 Keflex 500mg one tablet 21caps Raphael Dutton 12/12/2015 - Capsules three times a [facility] 02/26/2016 day - stop Cadence.Nato taking this 48 hrs prior to surgery Ceftriaxone Sodium iv every 24 Raphael Dutton 11/08/2015 - 2gm Solution Rec hours x 6 [facility], 12/12/2015 weeks at [facility] M.DAzra Tramadol HCL 1 by mouth 30tabs Annette 09/29/2013 - 50mg Tablets every 4 hour YunierEvaristo 11/06/2015 as needed pain , M.D. Percocet 1-2 by mouth 60tabs Annette 08/02/2013 - 5-325mg Tablets every 4 to 6 [facility] 11/06/2015 hours as , M.D. needed pain Lipitor 10mg 1 po qd 30tabs Unknown 11/26/2002 - Tablets 11/06/2015 Actos 30mg 1 po qd 30tabs Unknown 11/26/2002 - Tablets 11/06/2015 Tylenol 1 or 2 q 4 Unknown 09/19/2002 - 325mg Tablets hours prn 11/06/2015 Metformin HCL bid Unknown - 1000mg 05/11/2016 Augmentin one by mouth Unknown - 875-125mg Tablets every 12 hours 11/12/2015 for 7 days Ibuprofen 1 by mouth Unknown - 600mg Tablets three times a 05/11/2016 day Cefepime HCL iv every 12 Unknown - 2gm Solution Rec hours x 14 06/13/2016 days Metronidazole one tablet by 60tabs Valeri - 500mg Tablets mouth 4 times Tara Torres 06/20/2016 daily for 14 days Medications Administered in Office Medication SIG Qnty Indications Ordering Provider Date Celestone 3 mg and 3mg Annette Sorensen, 01/16/2014 Injection Tara Vital Signs Date Vital Result Comment 08/09/2018 11:09am Height 71 inches 5'11" Heart Rate 124 /min BP Systolic 150 mmHg BP Diastolic 84 mmHg Respiratory Rate 18 /min Body Temperature 100.3 F Pain Level 0 06/14/2018 10:52am Height 71 inches 5'11" Weight 310.00 lb Heart Rate 64 /min BP Systolic Sitting 124 mmHg BP Diastolic Sitting 76 mmHg Body Temperature 97.8 F Pain Level 0 BMI (Body Mass Index) 43.2 kg/m2 05/24/2018 11:33am Height 71 inches 5'11" Weight 310.00 lb BP Systolic 122 mmHg BP Diastolic 70 mmHg Body Temperature 98.0 F BMI (Body Mass Index) 43.2 kg/m2 05/17/2018 11:24am Height 71 inches 5'11" Heart Rate 80 /min Respiratory Rate 18 /min Body Temperature 98.3 F Pain Level 0 04/19/2018 10:57am Height 71 inches 5'11" Weight 310.00 lb Heart Rate 74 /min BP Systolic 142 mmHg BP Diastolic 80 mmHg Respiratory Rate 12 /min Pain Level 0 BMI (Body Mass Index) 43.2 kg/m2 03/17/2018 10:05am Height 71 inches 5'11" Weight 310.00 lb BP Systolic 138 mmHg BP Diastolic 62 mmHg Pain Level 0 BMI (Body Mass Index) 43.2 kg/m2 02/10/2018 11:20am Height 71 inches 5'11" Heart Rate 80 /min BP Systolic 140 mmHg BP Diastolic 82 mmHg Body Temperature 98.1 F Pain Level 0 01/18/2018 8:25am Height 71 inches 5'11" Weight 295.00 lb Heart Rate 80 /min Respiratory Rate 18 /min Body Temperature 97.9 F Pain Level 0 BMI (Body Mass Index) 41.1 kg/m2 12/14/2017 11:09am Heart Rate 80 /min BP Systolic 152 mmHg BP Diastolic 74 mmHg Body Temperature 97.9 F Pain Level 0 11/09/2017 9:51am Height 71 inches 5'11" Weight 290.00 lb Heart Rate 68 /min BP Systolic 144 mmHg BP Diastolic 86 mmHg Respiratory Rate 14 /min Pain Level 0 BMI (Body Mass Index) 40.4 kg/m2 09/07/2017 10:34am Height 71 inches 5'11" Heart Rate 56 /min BP Systolic 148 mmHg BP Diastolic 90 mmHg Respiratory Rate 18 /min Body Temperature 98.0 F Pain Level 0 06/28/2017 1:15pm Height 71 inches 5'11" Weight 286.00 lb Heart Rate 72 /min BP Systolic Sitting 140 mmHg BP Diastolic Sitting 82 mmHg Respiratory Rate 16 /min Body Temperature 98.5 F BMI (Body Mass Index) 39.9 kg/m2 06/08/2017 10:35am Height 71 inches 5'11" Heart Rate 77 /min BP Systolic 142 mmHg BP Diastolic 80 mmHg Respiratory Rate 16 /min Body Temperature 97.3 F Pain Level 0 05/25/2017 10:28am Height 71 inches 5'11" Weight 284.00 lb per patient Heart Rate 88 /min BP Systolic Sitting 141 mmHg BP Diastolic Sitting 82 mmHg Pain Level 0 BMI (Body Mass Index) 39.6 kg/m2 04/27/2017 9:16am Height 71 inches 5'11" Weight 284.00 lb Heart Rate 91 /min Respiratory Rate 18 /min Body Temperature 98.3 F Pain Level 0 BMI (Body Mass Index) 39.6 kg/m2 02/23/2017 8:32am Height 71 inches 5'11" Weight 284.00 lb Heart Rate 78 /min Respiratory Rate 14 /min Body Temperature 98.1 F Pain Level 0 BMI (Body Mass Index) 39.6 kg/m2 12/24/2016 9:52am Height 71 inches 5'11" Weight 284.00 lb BP Systolic 115 mmHg BP Diastolic 68 mmHg Respiratory Rate 17 /min Body Temperature 98.0 F Pain Level 0 BMI (Body Mass Index) 39.6 kg/m2 12/22/2016 10:34am Height 71 inches 5'11" Weight 285.25 lb Heart Rate 72 /min BP Systolic Sitting 130 mmHg BP Diastolic Sitting 86 mmHg Respiratory Rate 14 /min Body Temperature 98.7 F BMI (Body Mass Index) 39.8 kg/m2 10/23/2016 1:04pm Height 79 inches 6'7" Weight 292.00 lb BP Systolic 136 mmHg BP Diastolic 70 mmHg Respiratory Rate 20 /min Pain Level 0 BMI (Body Mass Index) 32.9 kg/m2 09/21/2016 4:28pm Height 79 inches 6'7" Weight 294.00 lb Heart Rate 72 /min BP Systolic Sitting 124 mmHg BP Diastolic Sitting 66 mmHg Respiratory Rate 14 /min Body Temperature 98.8 F BMI (Body Mass Index) 33.1 kg/m2 09/18/2016 8:47am Height 79 inches 6'7" Weight 292.00 lb BP Systolic 150 mmHg BP Diastolic 90 mmHg Respiratory Rate 20 /min Body Temperature 97.5 F Pain Level 0 BMI (Body Mass Index) 32.9 kg/m2 08/27/2016 8:18am Height 79 inches 6'7" Weight 292.00 lb BP Systolic 140 mmHg BP Diastolic 90 mmHg Body Temperature 97.8 F Pain Level 0 BMI (Body Mass Index) 32.9 kg/m2 08/04/2016 10:33am Height 79 inches 6'7" Weight 288.00 lb BP Systolic 120 mmHg BP Diastolic 90 mmHg Body Temperature 98.2 F Pain Level 0 BMI (Body Mass Index) 32.4 kg/m2 08/03/2016 2:47pm Height 70 inches 5'10" Weight 289.12 lb Heart Rate 88 /min BP Systolic Sitting 124 mmHg BP Diastolic Sitting 80 mmHg Respiratory Rate 16 /min Body Temperature 99.1 F BMI (Body Mass Index) 41.5 kg/m2 07/24/2016 11:07am Height 70 inches 5'10" Weight 285.00 lb BP Systolic 142 mmHg BP Diastolic 84 mmHg Respiratory Rate 16 /min Body Temperature 98.7 F Pain Level 0 BMI (Body Mass Index) 40.9 kg/m2 07/17/2016 10:20am Height 70 inches 5'10" Weight 285.00 lb Respiratory Rate 19 /min Body Temperature 97.6 F Pain Level 0 BMI (Body Mass Index) 40.9 kg/m2 07/07/2016 1:06pm Height 70 inches 5'10" Weight 285.00 lb Respiratory Rate 20 /min Body Temperature 97.7 F Pain Level 0 BMI (Body Mass Index) 40.9 kg/m2 07/02/2016 1:38pm Height 70 inches 5'10" Weight 285.00 lb Heart Rate 84 /min BP Systolic Sitting 120 mmHg BP Diastolic Sitting 70 mmHg Respiratory Rate 16 /min Body Temperature 98.6 F BMI (Body Mass Index) 40.9 kg/m2 06/30/2016 11:26am Height 70 inches 5'10" Weight 285.00 lb Heart Rate 80 /min BP Systolic 117 mmHg BP Diastolic 90 mmHg Respiratory Rate 20 /min Body Temperature 97.8 F Pain Level 0 BMI (Body Mass Index) 40.9 kg/m2 06/23/2016 9:54am Height 70 inches 5'10" Weight 285.00 lb Heart Rate 82 /min BP Systolic 130 mmHg BP Diastolic 76 mmHg Respiratory Rate 16 /min Body Temperature 97.2 F Pain Level 0 BMI (Body Mass Index) 40.9 kg/m2 06/16/2016 10:20am Height 70 inches 5'10" Weight 285.00 lb Heart Rate 93 /min BP Systolic 122 mmHg BP Diastolic 74 mmHg Body Temperature 97.6 F BMI (Body Mass Index) 40.9 kg/m2 06/09/2016 8:44am Height 70 inches 5'10" Weight 285.00 lb Heart Rate 82 /min BP Systolic 124 mmHg BP Diastolic 84 mmHg Respiratory Rate 18 /min Body Temperature 97.6 F Pain Level 0 BMI (Body Mass Index) 40.9 kg/m2 06/02/2016 10:47am Height 70 inches 5'10" Weight 285.00 lb Heart Rate 82 /min BP Systolic 122 mmHg BP Diastolic 78 mmHg Respiratory Rate 16 /min Body Temperature 97.8 F Pain Level 0 BMI (Body Mass Index) 40.9 kg/m2 05/14/2016 10:06am Height 70 inches 5'10" Weight 285.00 lb Heart Rate 71 /min BP Systolic 120 mmHg BP Diastolic 62 mmHg Respiratory Rate 16 /min Pain Level 0 BMI (Body Mass Index) 40.9 kg/m2 05/12/2016 11:28am Height 70 inches 5'10" Weight 285.00 lb per pt report Heart Rate 96 /min BP Systolic Sitting 104 mmHg BP Diastolic Sitting 60 mmHg Respiratory Rate 14 /min Body Temperature 98.0 F BMI (Body Mass Index) 40.9 kg/m2 05/07/2016 11:33am Height 70 inches 5'10" Heart Rate 72 /min BP Systolic 115 mmHg BP Diastolic 70 mmHg Body Temperature 97.8 F Pain Level 0 04/16/2016 9:55am Height 70 inches 5'10" Weight 297.00 lb Heart Rate 88 /min BP Systolic 130 mmHg BP Diastolic 90 mmHg Respiratory Rate 20 /min Body Temperature 99.1 F Pain Level 1 BMI (Body Mass Index) 42.6 kg/m2 04/03/2016 2:27pm Height 70 inches 5'10" Weight 317.00 lb Pain Level 0 BMI (Body Mass Index) 45.5 kg/m2 03/27/2016 12:10pm Height 70 inches 5'10" Weight 317.00 lb Pain Level 0 BMI (Body Mass Index) 45.5 kg/m2 03/17/2016 10:01am Height 70 inches 5'10" Weight 317.00 lb Pain Level 0 BMI (Body Mass Index) 45.5 kg/m2 02/27/2016 2:41pm Height 70 inches 5'10" Weight 317.00 lb Heart Rate 60 /min BP Systolic Sitting 140 mmHg BP Diastolic Sitting 90 mmHg Respiratory Rate 14 /min Body Temperature 98.2 F BMI (Body Mass Index) 45.5 kg/m2 02/21/2016 11:17am Height 70 inches 5'10" Weight 312.00 lb Respiratory Rate 18 /min Pain Level 0 BMI (Body Mass Index) 44.8 kg/m2 02/11/2016 8:45am Height 70 inches 5'10" Weight 312.00 lb Respiratory Rate 17 /min Pain Level 0 BMI (Body Mass Index) 44.8 kg/m2 01/30/2016 10:52am Height 70 inches 5'10" Weight 312.00 lb Pain Level 3 BMI (Body Mass Index) 44.8 kg/m2 01/27/2016 1:45pm Height 70 inches 5'10" Weight 312.00 lb Heart Rate 84 /min BP Systolic Sitting 120 mmHg BP Diastolic Sitting 68 mmHg Respiratory Rate 14 /min Body Temperature 98.7 F BMI (Body Mass Index) 44.8 kg/m2 01/23/2016 8:46am Height 70 inches 5'10" Weight 311.00 lb Body Temperature 97.9 F Pain Level 0 BMI (Body Mass Index) 44.6 kg/m2 01/03/2016 9:41am Height 70 inches 5'10" Weight 311.00 lb Heart Rate 80 /min BP Systolic 146 mmHg BP Diastolic 76 mmHg Body Temperature 98.9 F BMI (Body Mass Index) 44.6 kg/m2 12/11/2015 4:04pm Height 70 inches 5'10" Weight 285.00 lb Heart Rate 80 /min BP Systolic 145 mmHg BP Diastolic 80 mmHg Pain Level 0 BMI (Body Mass Index) 40.9 kg/m2 11/26/2015 11:41am Height 71 inches 5'11" Weight 313.50 lb with boot Heart Rate 74 /min BP Systolic Sitting 142 mmHg BP Diastolic Sitting 84 mmHg Respiratory Rate 14 /min Body Temperature 98.5 F BMI (Body Mass Index) 43.7 kg/m2 11/13/2015 8:31am Height 71 inches 5'11" Weight 294.00 lb Heart Rate 72 /min BP Systolic Sitting 138 mmHg BP Diastolic Sitting 82 mmHg Respiratory Rate 18 /min O2 % BldC Oximetry 96 % BMI (Body Mass Index) 41.0 kg/m2 11/08/2015 9:14am Height 71 inches 5'11" Weight 294.00 lb Heart Rate 72 /min BP Systolic Sitting 132 mmHg BP Diastolic Sitting 78 mmHg Respiratory Rate 14 /min Body Temperature 98.4 F BMI (Body Mass Index) 41.0 kg/m2 02/14/2015 9:40am Height 71 inches 5'11" Weight 250.00 lb Pain Level 6 with exercise or use BMI (Body Mass Index) 34.9 kg/m2 01/16/2015 9:24am Height 71 inches 5'11" Weight 254.00 lb Pain Level 0 BMI (Body Mass Index) 35.4 kg/m2 01/01/2015 9:35am Height 71 inches 5'11" Weight 254.00 lb Pain Level 0 BMI (Body Mass Index) 35.4 kg/m2 12/12/2014 10:06am Height 71 inches 5'11" Weight 254.00 lb Pain Level 6 BMI (Body Mass Index) 35.4 kg/m2 11/13/2014 11:14am Height 71 inches 5'11" Weight 254.00 lb Pain Level 4 BMI (Body Mass Index) 35.4 kg/m2 10/24/2014 10:08am Height 71 inches 5'11" Weight 254.00 lb Pain Level 5 BMI (Body Mass Index) 35.4 kg/m2 10/03/2014 3:36pm Height 71 inches 5'11" Weight 254.00 lb Pain Level 5 BMI (Body Mass Index) 35.4 kg/m2 09/26/2014 10:49am Height 71 inches 5'11" Weight 254.00 lb Pain Level 0 BMI (Body Mass Index) 35.4 kg/m2 09/18/2014 9:34am Height 71 inches 5'11" Weight 254.00 lb Body Temperature 97.4 F BMI (Body Mass Index) 35.4 kg/m2 08/14/2014 10:49am Height 71 inches 5'11" Weight 254.00 lb Pain Level 6 BMI (Body Mass Index) 35.4 kg/m2 04/24/2014 10:42am Height 71 inches 5'11" Weight 254.00 lb Pain Level 6 BMI (Body Mass Index) 35.4 kg/m2 01/16/2014 9:39am Height 71 inches 5'11" Weight 254.00 lb Pain Level 5 BMI (Body Mass Index) 35.4 kg/m2 10/24/2013 9:39am Height 71 inches 5'11" Weight 254.00 lb Heart Rate 68 /min BMI (Body Mass Index) 35.4 kg/m2 09/25/2013 11:34am Height 71 inches 5'11" Weight 254.00 lb Heart Rate 76 /min BP Systolic 145 mmHg BP Diastolic 84 mmHg BMI (Body Mass Index) 35.4 kg/m2 09/06/2013 10:01am Height 71 inches 5'11" Weight 265.00 lb Heart Rate 82 /min BP Systolic 147 mmHg BP Diastolic 75 mmHg BMI (Body Mass Index) 37.0 kg/m2 08/21/2013 2:39pm Height 71 inches 5'11" Weight 265.00 lb Heart Rate 72 /min BP Systolic Sitting 126 mmHg BP Diastolic Sitting 80 mmHg BMI (Body Mass Index) 37.0 kg/m2 08/16/2013 12:44pm Height 71 inches 5'11" Weight 265.00 lb Heart Rate 89 /min BP Systolic 146 mmHg BP Diastolic 84 mmHg BMI (Body Mass Index) 37.0 kg/m2 08/02/2013 12:16pm Height 71 inches 5'11" Weight 265.00 lb Heart Rate 66 /min BP Systolic 127 mmHg BP Diastolic 69 mmHg BMI (Body Mass Index) 37.0 kg/m2 12/14/2011 8:48am Height 71 inches 5'11" Weight 284.00 lb Heart Rate 68 /min BP Systolic 126 mmHg BP Diastolic 74 mmHg BMI (Body Mass Index) 39.6 kg/m2 11/27/2002 10:13am Height 71 inches Weight 294.00 lb Heart Rate 60 /min BP Systolic Sitting 160 mmHg BP Diastolic Sitting 80 mmHg BP Systolic Standing 156 mmHg BP Diastolic Standing 88 mmHg BMI (Body Mass Index) 41.0 kg/m2 09/19/2002 3:03pm Height 71 inches Weight 294.00 lb Heart Rate 66 /min BP Systolic Sitting 134 mmHg BP Diastolic Sitting 68 mmHg BP Systolic Standing 100 mmHg BP Diastolic Standing 70 mmHg BP Systolic Lying Down 130 mmHg BP Diastolic Lying Down 70 mmHg Respiratory Rate 16 /min BMI (Body Mass Index) 41.0 kg/m2 Results Test Date Facility Test Result H/L Range Note Comp Metabolic Panel 08/18/2016 [facility] Sodium 135 mmol/L N 133-145 [address] [place] [address] [phone] Potassium 4.9 mmol/L N 3.5-5.0 Chloride 101 mmol/L N 101-111 Co2 Carbon Dioxide 26 mmol/L N 22-32 Anion Gap 8 mmol/L N 2-11 Glucose 87 mg/dL N 70-100 Blood Urea Nitrogen 10 mg/dL N 6-24 Creatinine 0.68 mg/dL N 0.67-1.17 BUN/Creatinine Ratio 14.7 N 8-20 Calcium 9.8 mg/dL N 8.6-10.3 Total Protein 7.5 g/dL N 6.4-8.9 Albumin 4.2 g/dL N 3.2-5.2 Globulin 3.3 g/dL N 2-4 Albumin/Globulin Ratio 1.3 N 1-3 Total Bilirubin 0.40 mg/dL N 0.2-1.0 Alkaline Phosphatase 78 U/L N 34-104 Alt 11 U/L N 7-52 Ast 12 U/L Low 13-39 Egfr Non- 117.8 N >60 Egfr 151.5 N >60 1 CBC Auto 08/18/2016 [facility] White Blood 11.5 10^3/uL High 3.5-10.[address] [place] [address] [phone] Red Blood Count 5.25 10^6/uL N 4.0-5.4 Hemoglobin 15.3 g/dL N 14.0-18.0 Hematocrit 47 % N 42-52 Mean Corpuscular Volume 90 fL N 80-94 Mean Corpuscular Hemoglobin 29 pg N 27-31 Mean Corpuscular HGB Conc 33 g/dL N 31-36 Red Cell Distribution Width 15 % N 10.5-15 Platelet Count 443 10^3/uL N 150-450 Mean Platelet Volume 8 um3 N 7.4-10.4 Abs Neutrophils 3.9 10^3/uL N 1.5-7.7 Abs Lymphocytes 6.2 10^3/uL High 1.0-4.8 Abs Monocytes 1.0 10^3/uL High 0-0.8 Abs Eosinophils 0.3 10^3/uL N 0-0.6 Abs Basophils 0.1 10^3/uL N 0-0.2 Abs Nucleated RBC 0.02 10^3/uL N Granulocyte % 33.9 % Low 38-83 Lymphocyte % 54.0 % High 25-47 Monocyte % 8.7 % N 1-9 Eosinophil % 2.6 % N 0-6 Basophil % 0.8 % N 0-2 Nucleated Red Blood Cells % 0.2 N Laboratory test 08/18/2016 [facility] C Reactive 5.69 mg/L High < 5.00 [address] [place] [address] [phone] Manual 08/18/2016 [facility] Neutrophil % 29 % Low 38-[address] [place] [address] [phone] Lymphocytes % 49 % High 25-47 Monocytes % 8 % N 0-13 Eosinophils % 3 % N 0-6 Reactive Lymph % 11 % High 0-6 RBC Morphology Normal N Normal Laboratory test 08/18/2016 [facility] Pathologist (SEE NOTE) N [address] [place] [address] [phone] Laboratory test 07/02/2016 [facility] C Reactive 3.96 mg/L N < 5.00 [address] [place] [address] [phone] Comp Metabolic 07/02/2016 [facility] Sodium 135 mmol/L N 133- [address] [place] [address] [phone] Potassium 4.6 mmol/L N 3.5-5.0 Chloride 102 mmol/L N 101-111 Co2 Carbon Dioxide 27 mmol/L N 22-32 Anion Gap 6 mmol/L N 2-11 Glucose 144 mg/dL High 70-100 Blood Urea Nitrogen 12 mg/dL N 6-24 Creatinine 0.66 mg/dL Low 0.67-1.17 BUN/Creatinine Ratio 18.2 N 8-20 Calcium 9.5 mg/dL N 8.6-10.3 Total Protein 7.0 g/dL N 6.4-8.9 Albumin 3.9 g/dL N 3.2-5.2 Globulin 3.1 g/dL N 2-4 Albumin/Globulin Ratio 1.3 N 1-3 Total Bilirubin 0.30 mg/dL N 0.2-1.0 Alkaline Phosphatase 81 U/L N 34-104 Alt 11 U/L N 7-52 Ast 11 U/L Low 13-39 Egfr Non- 121.9 N >60 Egfr 156.8 N >60 5 CBC Auto 07/02/2016 [facility] White Blood 13.2 10^3/uL High 3.5-10.[address] [place] [address] [phone] Red Blood Count 4.91 10^6/uL N 4.0-5.4 Hemoglobin 14.3 g/dL N 14.0-18.0 Hematocrit 44 % N 42-52 Mean Corpuscular Volume 90 fL N 80-94 Mean Corpuscular Hemoglobin 29 pg N 27-31 Mean Corpuscular HGB Conc 33 g/dL N 31-36 Red Cell Distribution Width 16 % High 10.5-15 Platelet Count 481 10^3/uL High 150-450 Mean Platelet Volume 8 um3 N 7.4-10.4 Abs Neutrophils 5.6 10^3/uL N 1.5-7.7 Abs Lymphocytes 6.3 10^3/uL High 1.0-4.8 Abs Monocytes 1.0 10^3/uL High 0-0.8 Abs Eosinophils 0.2 10^3/uL N 0-0.6 Abs Basophils 0.1 10^3/uL N 0-0.2 Abs Nucleated RBC 0.01 10^3/uL N Granulocyte % 42.5 % N 38-83 Lymphocyte % 47.8 % High 25-47 Monocyte % 7.5 % N 1-9 Eosinophil % 1.6 % N 0-6 Basophil % 0.6 % N 0-2 Nucleated Red Blood Cells % 0.1 N Laboratory test 01/13/2016 [facility] Surgical SEE RESULT [address] [place] [address] [phone] CBC Auto Diff 12/12/2015 [facility] White Blood 12.4 High 3.5- [address] Count 10^3/uL 0.8 [place] [address] [phone] Red Blood Count 4.83 10^6/uL N 4.0-5.4 Hemoglobin 14.3 g/dL N 14.0-18.0 Hematocrit 43 % N 42-52 Mean Corpuscular Volume 89 fL N 80-94 Mean Corpuscular Hemoglobin 30 pg N 27-31 Mean Corpuscular HGB Conc 33 g/dL N 31-36 Red Cell Distribution Width 15 % N 10.5-15 Platelet Count 454 10^3/uL High 150-450 Mean Platelet Volume 9 um3 N 7.4-10.4 Abs Neutrophils 5.4 10^3/uL N 1.5-7.7 Abs Lymphocytes 5.6 10^3/uL High 1.0-4.8 Abs Monocytes 1.0 10^3/uL High 0-0.8 Abs Eosinophils 0.2 10^3/uL N 0-0.6 Abs Basophils 0.1 10^3/uL N 0-0.2 Abs Nucleated RBC 0.02 10^3/uL N Granulocyte % 43.9 % N 38-83 Lymphocyte % 45.5 % N 25-47 Monocyte % 8.3 % N 1-9 Eosinophil % 1.6 % N 0-6 Basophil % 0.7 % N 0-2 Nucleated Red Blood Cells % 0.2 N Comp Metabolic Panel 12/12/2015 [facility] Sodium 134 mmol/L N 133-[address] [place] [address] [phone] Potassium 3.4 mmol/L Low 3.5-5.0 Chloride 107 mmol/L N 101-111 Co2 Carbon Dioxide 21 mmol/L Low 22-32 Anion Gap 6 mmol/L N 2-11 Glucose 190 mg/dL High 70-100 Blood Urea Nitrogen 17 mg/dL N 6-24 Creatinine 0.65 mg/dL Low 0.67-1.17 BUN/Creatinine Ratio 26.2 High 8-20 Calcium 7.4 mg/dL Low 8.6-10.3 Total Protein 6.3 g/dL Low 6.4-8.9 Albumin 3.1 g/dL Low 3.2-5.2 Globulin 3.2 g/dL N 2-4 Albumin/Globulin Ratio 1.0 N 1-3 Total Bilirubin 0.30 mg/dL N 0.2-1.0 Alkaline Phosphatase 52 U/L N 34-104 Alt 18 U/L N 7-52 Ast 21 U/L N 13-39 Egfr Non- 124.1 N >60 Egfr 159.6 N >60 7 Laboratory test 12/12/2015 [facility] C Reactive 5.64 mg/L High < 5.00 [address] [place] [address] [phone] Comp Metabolic 12/03/2015 [facility] Sodium 132 Low 133-[address] mmol/[place] [address] [phone] Potassium 4.3 mmol/L N 3.5-5.0 Chloride 99 mmol/L Low 101-111 Co2 Carbon Dioxide 26 mmol/L N 22-32 Anion Gap 7 mmol/L N 2-11 Glucose 244 mg/dL High 70-100 Blood Urea Nitrogen 16 mg/dL N 6-24 Creatinine 0.81 mg/dL N 0.67-1.17 BUN/Creatinine Ratio 19.8 N 8-20 Calcium 9.2 mg/dL N 8.6-10.3 Total Protein 7.6 g/dL N 6.4-8.9 Albumin 3.9 g/dL N 3.2-5.2 Globulin 3.7 g/dL N 2-4 Albumin/Globulin Ratio 1.1 N 1-3 Total Bilirubin 0.30 mg/dL N 0.2-1.0 Alkaline Phosphatase 73 U/L N 34-104 Alt 19 U/L N 7-52 Ast 20 U/L N 13-39 Egfr Non- 96.2 N >60 Egfr 123.8 N >60 9 Laboratory test 12/03/2015 [facility] C Reactive 7.09 mg/L High < 5.00 [address] [place] [address] [phone] CBC Auto Diff 12/03/2015 [facility] White Blood 12.9 High 3.5- 10.[address] Count 10^3/[place] [address] [phone] Red Blood Count 4.76 10^6/uL N 4.0-5.4 Hemoglobin 14.1 g/dL N 14.0-18.0 Hematocrit 42 % N 42-52 Mean Corpuscular Volume 88 fL N 80-94 Mean Corpuscular Hemoglobin 30 pg N 27-31 Mean Corpuscular HGB Conc 34 g/dL N 31-36 Red Cell Distribution Width 14 % N 10.5-15 Platelet Count 421 10^3/uL N 150-450 Mean Platelet Volume 8 um3 N 7.4-10.4 Abs Neutrophils 6.0 10^3/uL N 1.5-7.7 Abs Lymphocytes 5.6 10^3/uL High 1.0-4.8 Abs Monocytes 0.9 10^3/uL High 0-0.8 Abs Eosinophils 0.3 10^3/uL N 0-0.6 Abs Basophils 0.1 10^3/uL N 0-0.2 Abs Nucleated RBC 0.04 10^3/uL N Granulocyte % 46.6 % N 38-83 Lymphocyte % 43.4 % N 25-47 Monocyte % 7.2 % N 1-9 Eosinophil % 2.2 % N 0-6 Basophil % 0.6 % N 0-2 Nucleated Red Blood Cells % 0.3 N CBC Auto 11/26/2015 [facility] White Blood 12.2 10^3/uL High 3.5-10.[address] [place] [address] [phone] Red Blood Count 4.71 10^6/uL N 4.0-5.4 Hemoglobin 13.9 g/dL Low 14.0-18.0 Hematocrit 41 % Low 42-52 Mean Corpuscular Volume 88 fL N 80-94 Mean Corpuscular Hemoglobin 29 pg N 27-31 Mean Corpuscular HGB Conc 34 g/dL N 31-36 Red Cell Distribution Width 14 % N 10.5-15 Platelet Count 363 10^3/uL N 150-450 Mean Platelet Volume 8 um3 N 7.4-10.4 Abs Neutrophils 4.8 10^3/uL N 1.5-7.7 Abs Lymphocytes 5.9 10^3/uL High 1.0-4.8 Abs Monocytes 1.1 10^3/uL High 0-0.8 Abs Eosinophils 0.3 10^3/uL N 0-0.6 Abs Basophils 0.1 10^3/uL N 0-0.2 Abs Nucleated RBC 0 10^3/uL N Granulocyte % 39.7 % N 38-83 Lymphocyte % 48.4 % High 25-47 Monocyte % 8.8 % N 1-9 Eosinophil % 2.5 % N 0-6 Basophil % 0.6 % N 0-2 Nucleated Red Blood Cells % 0 N Comp Metabolic Panel 11/26/2015 [facility] Sodium 133 mmol/L N 133-[address] [place] [address] [phone] Potassium 4.2 mmol/L N 3.5-5.0 Chloride 100 mmol/L Low 101-111 Co2 Carbon Dioxide 27 mmol/L N 22-32 Anion Gap 6 mmol/L N 2-11 Glucose 147 mg/dL High 70-100 Blood Urea Nitrogen 12 mg/dL N 6-24 Creatinine 0.64 mg/dL Low 0.67-1.17 BUN/Creatinine Ratio 18.8 N 8-20 Calcium 9.2 mg/dL N 8.6-10.3 Total Protein 7.7 g/dL N 6.4-8.9 Albumin 3.9 g/dL N 3.2-5.2 Globulin 3.8 g/dL N 2-4 Albumin/Globulin Ratio 1.0 N 1-3 Total Bilirubin 0.40 mg/dL N 0.2-1.0 Alkaline Phosphatase 64 U/L N 34-104 Alt 17 U/L N 7-52 Ast 20 U/L N 13-39 Egfr Non- 126.3 N >60 Egfr 162.4 N >60 11 Laboratory test 11/26/2015 [facility] C Reactive 7.82 mg/L High < 5.00 [address] [place] [address] [phone] Laboratory test 11/22/2015 [facility] Point of Care 268 mg/dL High 74-106 [address] [place] [address] [phone] Laboratory test 11/21/2015 [facility] Point of Care 130 mg/dL High 74-106 [address] [place] [address] [phone] Laboratory test 11/21/2015 [facility] Point of Care 190 mg/dL High 74-106 [address] [place] [address] [phone] Laboratory test 11/20/2015 [facility] Point of Care 100 mg/dL N 74-106 [address] Glucose [place], [place] [phone] Laboratory test 11/20/2015 [facility] Point of Care 165 mg/dL High 74-106 [address] [place] [address] [phone] CBC Auto Diff 11/19/2015 [facility] White Blood 13.8 High 3.5- 10.[address] Count 10^3/[place] [address] [phone] Red Blood Count 4.51 10^6/uL N 4.0-5.4 Hemoglobin 13.5 g/dL Low 14.0-18.0 Hematocrit 39 % Low 42-52 Mean Corpuscular Volume 87 fL N 80-94 Mean Corpuscular Hemoglobin 30 pg N 27-31 Mean Corpuscular HGB Conc 34 g/dL N 31-36 Red Cell Distribution Width 14 % N 10.5-15 Platelet Count 377 10^3/uL N 150-450 Mean Platelet Volume 8 um3 N 7.4-10.4 Abs Neutrophils 5.7 10^3/uL N 1.5-7.7 Abs Lymphocytes 6.5 10^3/uL High 1.0-4.8 Abs Monocytes 1.1 10^3/uL High 0-0.8 Abs Eosinophils 0.3 10^3/uL N 0-0.6 Abs Basophils 0.1 10^3/uL N 0-0.2 Abs Nucleated RBC 0.01 10^3/uL N Granulocyte % 41.5 % N 38-83 Lymphocyte % 47.0 % N 25-47 Monocyte % 8.2 % N 1-9 Eosinophil % 2.5 % N 0-6 Basophil % 0.8 % N 0-2 Nucleated Red Blood Cells % 0.1 N Comp Metabolic Panel 11/19/2015 [facility] Sodium 135 mmol/L N 133-[address] [place] [address] [phone] Potassium 4.1 mmol/L N 3.5-5.0 Chloride 102 mmol/L N 101-111 Co2 Carbon Dioxide 29 mmol/L N 22-32 Anion Gap 4 mmol/L N 2-11 Glucose 64 mg/dL Low 70-100 Blood Urea Nitrogen 14 mg/dL N 6-24 Creatinine 0.66 mg/dL Low 0.67-1.17 BUN/Creatinine Ratio 21.2 High 8-20 Calcium 9.2 mg/dL N 8.6-10.3 Total Protein 7.0 g/dL N 6.4-8.9 Albumin 3.5 g/dL N 3.2-5.2 Globulin 3.5 g/dL N 2-4 Albumin/Globulin Ratio 1.0 N 1-3 Alkaline Phosphatase 48 U/L N 34-104 Alt 12 U/L N 7-52 Ast 15 U/L N 13-39 Egfr Non- 121.9 N >60 Egfr 156.8 N >60 18 Total Bilirubin 0.00 mg/dL Low 0.2-1.0 Laboratory test 11/19/2015 [facility] C Reactive < 1.00 N < 5.00 [address] Protein mg/[place] [address] [phone] CBC Auto Diff 11/11/2015 [facility] White Blood 10.9 High 3.5- 10.[address] Count 10^3/[place] [address] [phone] Red Blood Count 4.69 10^6/uL N 4.0-5.4 Hemoglobin 13.9 g/dL Low 14.0-18.0 Hematocrit 41 % Low 42-52 Mean Corpuscular Volume 87 fL N 80-94 Mean Corpuscular Hemoglobin 30 pg N 27-31 Mean Corpuscular HGB Conc 34 g/dL N 31-36 Red Cell Distribution Width 14 % N 10.5-15 Platelet Count 437 10^3/uL N 150-450 Mean Platelet Volume 8 um3 N 7.4-10.4 Abs Neutrophils 4.1 10^3/uL N 1.5-7.7 Abs Lymphocytes 5.5 10^3/uL High 1.0-4.8 Abs Monocytes 0.9 10^3/uL High 0-0.8 Abs Eosinophils 0.2 10^3/uL N 0-0.6 Abs Basophils 0.1 10^3/uL N 0-0.2 Abs Nucleated RBC 0 10^3/uL N Granulocyte % 37.9 % Low 38-83 Lymphocyte % 50.5 % High 25-47 Monocyte % 8.6 % N 1-9 Eosinophil % 2.3 % N 0-6 Basophil % 0.7 % N 0-2 Nucleated Red Blood Cells % 0 N Laboratory test 11/11/2015 [facility] C Reactive 4.76 mg/L N < 5.00 [address] [place] [address] [phone] Comp Metabolic 11/11/2015 [facility] Sodium 133 mmol/L N 133- [address] [place] [address] [phone] Potassium 4.2 mmol/L N 3.5-5.0 Chloride 101 mmol/L N 101-111 Co2 Carbon Dioxide 28 mmol/L N 22-32 Anion Gap 4 mmol/L N 2-11 Glucose 112 mg/dL High 70-100 Blood Urea Nitrogen 13 mg/dL N 6-24 Creatinine 0.67 mg/dL N 0.67-1.17 BUN/Creatinine Ratio 19.4 N 8-20 Calcium 8.9 mg/dL N 8.6-10.3 Total Protein 7.4 g/dL N 6.4-8.9 Albumin 3.5 g/dL N 3.2-5.2 Globulin 3.9 g/dL N 2-4 Albumin/Globulin Ratio 0.9 Low 1-3 Total Bilirubin 0.40 mg/dL N 0.2-1.0 Alkaline Phosphatase 58 U/L N 34-104 Alt 12 U/L N 7-52 Ast 14 U/L N 13-39 Egfr Non- 119.8 N >60 Egfr 154.1 N >60 21 Wound 10/22/2015 [facility] Wound/Misc SEE 22, 23 Culture/Sensi [address] [place] [address] Stain BELOW [phone] Laboratory test 10/22/2015 [facility] Tissue (BX) SEE [address] Culture & [place] [address] St BELOW [phone] Laboratory test 12/20/2014 [facility] Point of Care 210 mg/dL High 74- [address] Glucose 106 [place] [address] [phone] Laboratory test 12/20/2014 [facility] Point of Care 246 mg/dL High 74- [address] Glucose 106 [place] [address] [phone] Laboratory test 12/20/2014 [facility] Point of Care 215 mg/dL High 74- [address] Glucose 106 [place] [address] [phone] Laboratory test 12/20/2014 [facility] Surgical SEE [address] [place] [address] BELOW [phone] Laboratory test 11/01/2014 [facility] Point of Care 224 mg/dL High 74- [address] Glucose 106 [place] [address] [phone] Laboratory test 09/13/2014 [facility] Point of Care 170 mg/dL High 74- [address] Glucose [address] [place] [address] [phone] 1 Because ethnic data is not always readily available, this report includes an eGFR for both -Americans and non- Americans. The National Kidney Disease Education Program (NKDEP) does not endorse the use of the MDRD equation for patients that are not between the ages of 18 and 70, are , have extremes of body size, muscle mass, or nutritional status, or are non- or non-. According to the National Kidney Foundation, irrespective of diagnosis, the stage of the disease is based on the level of kidney function: Stage Description GFR(mL/min/1.73 m(2)) 1 Kidney damage with normal or decreased GFR 90 2 Kidney damage with mild decrease in GFR 60-89 3 Moderate decrease in GFR 30-59 4 Severe decrease in GFR 15-29 5 Kidney failure <15 (or dialysis) 2 Acute inflammation: >10.00 3 Leukocytosis with mild absolute reactive lymphocytosis with mild monocytosis. Reactive process is favored. Additional studies as clinically warranted. Reviewed by Dr. Gillis 4 Acute inflammation: >10.00 5 Because ethnic data is not always readily available, this report includes an eGFR for both -Americans and non- Americans. The National Kidney Disease Education Program (NKDEP) does not endorse the use of the MDRD equation for patients that are not between the ages of 18 and 70, are , have extremes of body size, muscle mass, or nutritional status, or are non- or non-. According to the National Kidney Foundation, irrespective of diagnosis, the stage of the disease is based on the level of kidney function: Stage Description GFR(mL/min/1.73 m(2)) 1 Kidney damage with normal or decreased GFR 90 2 Kidney damage with mild decrease in GFR 60-89 3 Moderate decrease in GFR 30-59 4 Severe decrease in GFR 15-29 5 Kidney failure <15 (or dialysis) 6 SEE RESULT BELOW Name: VALERI JOINER : [address]: Valeri Torres MD Acct: [id number] Unit: [id number] AGE: 65 Location: OR Re01/13/16 SEX: M Status: DEP [facility] SPEC: [id number] REGINA: 01/13/16- [facility] DR: Valeri Torres MD REQ: [id number] RECD: 01/13/16 STATUS: SOUT _ ORDERED: Decal, LEVEL IV FINAL DIAGNOSIS Right great toe, amputation: -- Ulcer and ulcer bed. -- Margins of resection viable. --Bone with evidence of chronic osteomyelitis. PRE-OPERATIVE DIAGNOSIS Osteomyelitis right foot GROSS DESCRIPTION The specimen is received in formalin labeled, Right Great Toe, and consists of a 9.0 x 3.5 x 3.5 cm disarticulated first toe. There is a 1.5 x 1.5 cm ulceration 0.4 cm from the nearest margin; the margin appears viable. Mortician Investigator sections of lesion and margin are submitted in cassette B. Received separately in the same container is a 3.7 x 0.7 x 0.3 cm portion of tendon, a 3.0 x 2.3 x 1.5 cm disarticulated metatarsal head and a 10.5 x 2.5 x 1.0 cm irregular skin ellipse with a marginal 1.0 x 0.7 cm magi-lesion. Mortician Investigator sections of ellipse and tendon are submitted in cassette C. Mortician Investigator bone fragments are submitted in cassette A following decalcification. MICROSCOPIC DESCRIPTION Signed (signature on file) Osei Gillis MD 1321 END OF REPORT * ML=Testing performed at Main Lab DEPARTMENT OF PATHOLOGY, [address] [place] [address] Osei Gillis M.D. Director [facility] # [id number] 7 Because ethnic data is not always readily available, this report includes an eGFR for both -Americans and non- Americans. The National Kidney Disease Education Program (NKDEP) does not endorse the use of the MDRD equation for patients that are not between the ages of 18 and 70, are , have extremes of body size, muscle mass, or nutritional status, or are non- or non-. According to the National Kidney Foundation, irrespective of diagnosis, the stage of the disease is based on the level of kidney function: Stage Description GFR(mL/min/1.73 m(2)) 1 Kidney damage with normal or decreased GFR 90 2 Kidney damage with mild decrease in GFR 60-89 3 Moderate decrease in GFR 30-59 4 Severe decrease in GFR 15-29 5 Kidney failure <15 (or dialysis) 8 Acute inflammation: >10.00 9 Because ethnic data is not always readily available, this report includes an eGFR for both -Americans and non- Americans. The National Kidney Disease Education Program (NKDEP) does not endorse the use of the MDRD equation for patients that are not between the ages of 18 and 70, are , have extremes of body size, muscle mass, or nutritional status, or are non- or non-. According to the National Kidney Foundation, irrespective of diagnosis, the stage of the disease is based on the level of kidney function: Stage Description GFR(mL/min/1.73 m(2)) 1 Kidney damage with normal or decreased GFR 90 2 Kidney damage with mild decrease in GFR 60-89 3 Moderate decrease in GFR 30-59 4 Severe decrease in GFR 15-29 5 Kidney failure <15 (or dialysis) 10 Acute inflammation: >10.00 11 Because ethnic data is not always readily available, this report includes an eGFR for both -Americans and non- Americans. The National Kidney Disease Education Program (NKDEP) does not endorse the use of the MDRD equation for patients that are not between the ages of 18 and 70, are , have extremes of body size, muscle mass, or nutritional status, or are non- or non-. According to the National Kidney Foundation, irrespective of diagnosis, the stage of the disease is based on the level of kidney function: Stage Description GFR(mL/min/1.73 m(2)) 1 Kidney damage with normal or decreased GFR 90 2 Kidney damage with mild decrease in GFR 60-89 3 Moderate decrease in GFR 30-59 4 Severe decrease in GFR 15-29 5 Kidney failure <15 (or dialysis) 12 Acute inflammation: >10.00 13 Assisted Living Director: [id number] PARLETT IVAN R 14 Assisted Living Director: [id number] PRITTS WALI 15 Assisted Living Director: [id number] PRITTS WALI 16 Assisted Living Director: [id number] MOLIVIATIS RODRIGO 17 Assisted Living Director: [id number] MOLIVIATIS RODRIGO 18 Because ethnic data is not always readily available, this report includes an eGFR for both -Americans and non- Americans. The National Kidney Disease Education Program (NKDEP) does not endorse the use of the MDRD equation for patients that are not between the ages of 18 and 70, are , have extremes of body size, muscle mass, or nutritional status, or are non- or non-. According to the National Kidney Foundation, irrespective of diagnosis, the stage of the disease is based on the level of kidney function: Stage Description GFR(mL/min/1.73 m(2)) 1 Kidney damage with normal or decreased GFR 90 2 Kidney damage with mild decrease in GFR 60-89 3 Moderate decrease in GFR 30-59 4 Severe decrease in GFR 15-29 5 Kidney failure <15 (or dialysis) 19 Acute inflammation: >10.00 20 Acute inflammation: >10.00 21 Because ethnic data is not always readily available, this report includes an eGFR for both -Americans and non- Americans. The National Kidney Disease Education Program (NKDEP) does not endorse the use of the MDRD equation for patients that are not between the ages of 18 and 70, are , have extremes of body size, muscle mass, or nutritional status, or are non- or non-. According to the National Kidney Foundation, irrespective of diagnosis, the stage of the disease is based on the level of kidney function: Stage Description GFR(mL/min/1.73 m(2)) 1 Kidney damage with normal or decreased GFR 90 2 Kidney damage with mild decrease in GFR 60-89 3 Moderate decrease in GFR 30-59 4 Severe decrease in GFR 15-29 5 Kidney failure <15 (or dialysis) 22 F FOOT ULCER TISSUE 23 SEE RESULT BELOW Name: VALERI JOINER : [address]: Josemanuel Zhu MD Acct: [id number] Unit: [id number] AGE: 65 Location: WOUND Re10/22/15 SEX: M Status: REG REF SPEC: [id number] REGINA: 10/22/15-1507 [facility] DR: Josemanuel Zhu MD REQ: [id number] RECD: 10/22/15 STATUS: LOVE GUZMAN DR: Erik Puri MD _ SOURCE: WOUND SPDESC: ORDERED: Culture Stain COMMENTS: R FOOT ULCER QUERIES: Specimen Description R FOOT ULCER Procedure Result Reported Site Wound/Misc Gram Stain Final 10/22/15- 1739 ML 3+ Neutrophils 2+ Gram Positive Cocci Wound/Misc Culture Final 11/08/15- 1349 ML Organism 1 STREP AGALACTIAE - (GROUP B) Quantity 2+ Organism 2 STREPTOCOCCUS ANGINOSUS Quantity 2+ Organism 3 PREVOTELLA BUCCAE Quantity 2+ Beta Lactamase Positive Organism 4 PEPTONIPHILUS ASACCHAROLYTICUS Quantity 1+ STREPTOCOCCUS AGALACTIAE: Organism nonviable for complete susceptiblity testing. Anaerobic sensitivities are not routinely performed. Positive isolates will be saved for one week. Please call the Microbiology Laboratory if susceptibility testing is needed. CONTINUED ON NEXT PAGE * ML=Testing performed at [facility] DEPARTMENT OF PATHOLOGY, [address] [place] [address] Osei Gillis M.D. Director [facility] # [id number] Patient: VALERI JOINER [id number] (Continued) Specimen: [id number] Collected: 10/22/15-150 Received: 10/22/15 (Continued) Procedure Result Reported Site Wound/Misc Culture Final (continued) 11/08/15 1459 1. STREP AGALACTIAE - (GROUP B) M.I.C. RX --------- ------ Clindamycin S Erythromycin R 2. STREPTOCOCCUS ANGINOSUS M.I.C. RX --------- ------ Chloramphenicol 2 S Ampicillin 0.12 S Penicillin 0.06 S Meropenem 0.12 S Cefepime 0.5 S * Cefotaxime <=0.25 S Ceftriaxone <=0.25 S Levofloxacin 1 S Azithromycin <=0.25 S Clindamycin <=0.06 S Erythromycin 0.12 S Tetracycline >4 R Vancomycin 0.5 S * ML - MAIN LAB ([facility]) . END OF REPORT * ML=Testing performed at Main Lab DEPARTMENT OF PATHOLOGY, [address] [place] [address] Osei Gillis M.D. Director [facility] # [id number] 24 SEE RESULT BELOW Name: VALERI JOINER : [address]: Josemanuel Zhu MD Acct: [id number] Unit: [id number] AGE: 64 Location: WOUND Re10/22/15 SEX: M Status: REG REF SPEC: [id number] REGINA: 10/22/15-1507 [facility] [address]: Josemanuel Zhu MD REQ: [id number] RECD: 10/22/15 STATUS: LOVE GUZMAN DR: Erik Puri MD _ [facility] ORDERED: Tissue Cult/GS COMMENTS: F FOOT ULCER TISSUE Procedure Result Reported Site Tissue Gram Stain Final 10/22/15- 1736 ML 3+ Neutrophils 4+ Gram Positive Cocci in Chains, resembling Strep 4+ Gram Positive Cocci in Clusters, resembling Staph 4+ Gram Negative Bacilli Preparation By Direct Smear Tissue Culture Final 10/26/15- 0744 ML Organism 1 STREP AGALACTIAE - (GROUP B) Quantity 3+ Organism 2 STREPTOCOCCUS ANGINOSUS Quantity 3+ Organism 3 BACTEROIDES OVATUS Quantity 1+ Beta Lactamase Positive STREP AGALACTIAE - (GROUP B)-Please refer to [id number] for sensitivity testing.Anaerobic sensitivities are not routinely performed. Positive isolates will be saved for one week. Please call the Microbiology Laboratory if susceptibility testing is needed. CONTINUED ON NEXT PAGE * ML=Testing performed at [facility] DEPARTMENT OF PATHOLOGY, [address] [place] [address] Osei Gillis M.D. Director [facility] # [id number] Patient: VALERI JOINER [id number] (Continued) Specimen: [id number] Collected: 10/22/15 Received: 10/22/15 (Continued) Procedure Result Reported Site Tissue Culture Final (continued) 10/26/15743 2. STREPTOCOCCUS ANGINOSUS M.I.C. RX --------- ------ Chloramphenicol 4 S Ampicillin 0.12 S Penicillin 0.06 S Meropenem 0.12 S Cefepime <=0.25 S * Cefotaxime 0.5 S Ceftriaxone <=0.25 S Levofloxacin 0.5 S Azithromycin <=0.25 S Clindamycin <=0.06 S Erythromycin <=0.06 S Tetracycline >4 R Vancomycin 0.5 S * ML - MAIN LAB ([facility]) . END OF REPORT * ML=Testing performed at Main Lab DEPARTMENT OF PATHOLOGY, [address] [place] [address] Osei Gillis M.D. Director [facility] # [id number] 25 Assisted Living Director: [id number] CHARLOTTE RICKETTS 26 Assisted Living Director: [id number] DARIUS SALVADOR 27 Assisted Living Director: [id number] DARIUS SALVADOR 28 SEE RESULT BELOW Name: VALERI JOINER Alicia : [address]: Annette Sorensen Acct: [id number] Unit: [id number] AGE: 64 Location: [facility] Re12/20/14 SEX: M Status: REG [facility] SPEC: [id number] REGINA: 12/20/[address]: Annette Sorensen MD REQ: [id number] RECD: 12/21/149 STATUS: SOUT _ ORDERED: LEVEL I FINAL DIAGNOSIS Right small finger, hardware removal: Foreign body (orthopedic hardware) (Gross diagnosis). PRE-OPERATIVE DIAGNOSIS Dislocated right small finger proximal interphalangeal joint arthroplasty GROSS DESCRIPTION The specimen is received fresh labeled, Removed Implant from Right Small Finger Proximal Interphalangeal Joint, and consists of a 3.0 cm by up to 0.6 x 0.6 cm irregular transparent rubbery implant. Per established hospital medical staff protocol, no tissue is submitted. Gross only. Signed (signature on file) Osei Gillis MD 1604 END OF REPORT * ML=Testing performed at Main Lab DEPARTMENT OF PATHOLOGY, [address] [place] [address] Osei Gillis M.D. Director [facility] # [id number] 29 Assisted Living Director: [id number] CHANELLE Reyna 30 Assisted Living Director: [id number] CHRIST GRAYSON Procedures Date Code Description Status 05/24/2018 31527 Walking Cast Completed 05/17/2018 46950 Walking Cast Completed 07/17/2016 14376 Walking Cast Completed 07/07/2016 39939 Walking Cast Completed 06/30/2016 93512 Walking Cast Completed 06/23/2016 68147 Walking Cast Completed 06/16/2016 96532 Walking Cast Completed 06/09/2016 70229 Walking Cast Completed 06/02/2016 45720 Short Leg Cast Completed 05/14/2016 45270 Walking Cast Completed 05/07/2016 40205 Short Leg Cast Completed 04/23/2016 45254 Amputation Foot Midtarsal Completed 04/23/2016 82104 Amputation Foot Midtarsal Completed 04/22/2016 53848 ECHO Transthorasic Realtime 2D W Doppler & Color Flow Hosp Completed 03/17/2016 51396 Walking Cast Completed 01/13/2016 50911 Amputation Toe MP JT Completed 01/13/2016 49802 Amputation Toe MP JT Completed 01/03/2016 83782 EKG, Interpretation Only Completed 12/31/2015 03675 Debridement Skin,& sq Tissue Completed 12/24/2015 33625 Debridement Skin,& sq Tissue Completed 12/17/2015 71808 Debridement Skin,& sq Tissue Completed 12/10/2015 79986 Debridement Skin,& sq Tissue Completed 12/03/2015 10005 Debridement Skin,& sq Tissue Completed 11/26/2015 95721 Debridement Skin,& sq Tissue Completed 11/21/2015 42219 Hyperbaric Oxygen Therapy By Physician Completed 11/20/2015 35185 Hyperbaric Oxygen Therapy By Physician Completed 11/19/2015 31680 Debridement Skin,& sq Tissue Completed 11/12/2015 55391 Debridement Skin,& sq Tissue Completed 11/05/2015 51757 Debridement Skin,& sq Tissue Completed 10/29/2015 81090 Debridement Skin,& sq Tissue Completed 10/22/2015 81236 Debridement Muscle/Fascia,Epidermis/Dermis/Tissue,Addtl 20 Completed SQ CM 10/22/2015 25086 Debridement Skin, Subcutaneous Tissue & Muscle Completed 12/20/2014 98764 Arthroplasty Interphalangeal Joint W/Prosthetic Implant Completed 12/20/2014 26694 Arthroplasty Interphalangeal Joint W/Prosthetic Implant Completed 11/01/2014 76447 Arthroplasty Interphalangeal Joint W/Prosthetic Implant Completed 11/01/2014 78842 Arthroplasty Interphalangeal Joint W/Prosthetic Implant Completed 09/13/2014 01585 Carpal Tunnel Release Completed 09/13/2014 26608 Neuroplasty &/Or Transposition; Ulnar Nerve AT Elbow Completed 09/13/2014 41721 Neuroplasty &/Or Transposition; Ulnar Nerve AT Elbow Completed 01/16/2014 31208 Inject Tendon Sheath Or Ligament Aponeurosis Eg Plantar Completed Fascia 01/16/2014 88074 Inject/Drain Joint/Bursa Small W/O US Completed 01/16/2014 27903 Rad Exam; Fingers Completed 11/02/2013 83635 Lymphadenectomy Axillary Complete Completed 09/06/2013 86110 Rad Exam; Fingers Completed 09/06/2013 28718 Rad Exam; Fingers Completed 09/06/2013 77412 Short Arm Splint Application Completed 08/21/2013 56759 Short Arm Splint Application Completed 08/16/2013 42837 Rad Exam; Fingers Completed 08/16/2013 02776 Short Arm Splint Application Completed 08/04/2013 90444 Repair Of Collateral Ligament Metacarpophalangeal Or Completed Interphl JT 08/04/2013 23760 Repair Of Collateral Ligament Metacarpophalangeal Or Completed Interphl JT 05/12/2007 14920 Treadmill Interp/Report Only Completed 05/12/2007 72017 Stress Test Supervsn W/Out I/R Completed 05/12/2007 86642 Stress Test Supervsn W/Out I/R Completed 05/11/2007 53658 EKG, Interpretation Only Completed 05/10/2007 04301 Color Flow Doppler/Interp & Reprt Completed 05/10/2007 80838 Pulse Wave/Continuous-Interp.RPT Completed 05/10/2007 22639 Pulse Wave/Continuous-Interp.RPT Completed 05/10/2007 64881 Echocardiogram Completed 10/24/2002 99494 Treadmill Interp/Report Only Completed 10/24/2002 99605 Stress Test Supervsn W/Out I/R Completed 10/09/2002 36773 ECHO/Stress Completed 10/09/2002 13880 Stress Test Completed 09/19/2002 66369 Holter Monitor Interpretation Completed 09/18/2002 30234 EKG Tracing & Interpretation Completed Encounters Type Date Location Provider Dx Diagnosis Office Visit 06/14/2018 Orthopedic Cee Rizo Other acute 11:00a [facility] osteomyelitis, right ankle and foot 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 ankle and foot Office Visit 05/17/2018 Sarah Martinez171 Other acute 11:30a Services Of Tara Torres osteomyelitis, right C.M.A. ankle and foot Office Visit 04/19/2018 Sarah Martinez171 Other acute 11:15a Services Of Tara Torres osteomyelitis, right C.M.A. 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 ankle and foot Office Visit 02/10/2018 Sarah Martinez171 Other acute 11:15a Services Of Tara Torres osteomyelitis, right C.M.A. ankle and foot Office Visit 01/18/2018 Sarah Martinez171 Other acute 8:15a Services Of Tara Torres osteomyelitis, right C.M.A. ankle and foot Office Visit 12/14/2017 Sarah Melgar89.431 Acquired absence of 11:00a Services Of Tara Torres right foot C.M.A. Office Visit 11/09/2017 Sarah Melgar89.431 Acquired absence of 9:30a Services Of Tara Torres right foot C.M.A. M86.671 Other chronic osteomyelitis, right ankle and foot Office Visit 09/07/2017 10:30a Orthopedic Valeri Z89.431 Acquired Services Of Tara Torres absence of C.M.A. right foot E11.40 Type 2 diabetes mellitus with diabetic neuropathy, unsp Office Visit 06/28/2017 1:20p [facility] Glenn Dutton Z89.431 Acquired Infectious Rajiv Phillips. absence of Diseases right foot E11.40 Type 2 diabetes mellitus with diabetic neuropathy, unsp Office Visit 06/08/2017 Orthopedic Valeri M86.171 Other acute 10:45a Services Of Tara Torres osteomyelitis, right C.M.A. ankle and foot Office Visit 05/25/2017 Orthopedic Valeri Vila86.171 Other acute 10:45a Services Of Tara Torres osteomyelitis, right C.M.A. 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 diabetic neuropathy, [facility] M86.171 Other acute osteomyelitis, right ankle and foot Office Visit 02/23/2017 8:45a Orthopedic Valeri Castro Type 2 diabetes Services Of Tara Torres mellitus with C.M.A. 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 M.D. foot E11.40 Type 2 diabetes mellitus with diabetic neuropathy, unsp Office Visit 12/22/2016 11:10a [facility] Glenn Dutton M79.672 Pain in Infectious Fuentes PhillipsD. left foot Diseases E11.40 Type 2 diabetes mellitus with diabetic neuropathy, unsp Office Visit 10/23/2016 Orthopedic Valeri M86.671 Other chronic 1:45p Services Of Tara Torres osteomyelitis, right C.M.A. 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 ankle and foot Office Visit 08/27/2016 Orthopedic Valeri Hernandez Other chronic 8:45a Services Of Tara Torres osteomyelitis, right C.M.A. 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 osteomyelitis, Diseases right ankle and foot E11.40 Type 2 diabetes mellitus with diabetic neuropathy, unsp Z79.2 [employer] (current) use of antibiotics B95.61 Methicillin suscep staph infct causing dis classd elswhr Office Visit 07/24/2016 Orthopedic Valeri Hernandez Other chronic 10:45a Services Of Tara Torres osteomyelitis, right C.M.A. ankle and foot Office Visit 07/02/2016 [facility] Raphael Dutton E11.40 Type 2 diabetes 1:40p For Infectious Macqueen, mellitus with Diseases M.D. diabetic neuropathy, unsp Z79.2 [employer] (current) use of antibiotics B95.61 Methicillin suscep staph infct causing dis classd elswhr M86.671 Other chronic osteomyelitis, right ankle and foot Office Visit 05/12/2016 [facility] Raphael Dutton M86.171 Other acute 11:30a For Infectious Macqueen, M.D. osteomyelitis, Diseases right ankle and foot E11.9 Type 2 diabetes mellitus without complications M60.073 Infective myositis, right foot Z79.2 [employer] (current) use of antibiotics B95.61 Methicillin suscep staph infct causing dis classd elswhr Office Visit 04/28/2016 [facility] Shy M86.171 Other acute 3:33p Assoc,pc Evan, M.D. osteomyelitis, Hospitalists right ankle and foot R78.81 Bacteremia E11.9 Type 2 diabetes mellitus without complications Office Visit 04/27/2016 [facility] M86.171 Other acute 3:33p gopal Kraft M.D. osteomyelitis, Hospitalists right ankle and foot R78.81 Bacteremia E11.9 Type 2 diabetes mellitus without complications Office Visit 04/26/2016 [facility] M86.171 Other acute 3:32p gopal Kraft MD osteomyelitis, Hospitalists right ankle and foot R78.81 Bacteremia E11.9 Type 2 diabetes mellitus without complications Office Visit 04/25/2016 [facility] M86.171 Other acute 3:32p gopal Kraft MD osteomyelitis, Hospitalists right ankle and foot R78.81 Bacteremia E11.9 Type 2 diabetes mellitus without complications I10 Essential (primary) hypertension Office Visit 04/24/2016 [facility] M86.171 Other acute 3:31p gopal Kraft MD osteomyelitis, Hospitalists right ankle and foot R78.81 Bacteremia E11.9 Type 2 diabetes mellitus without complications Office Visit 04/23/2016 [facility] M86.171 Other acute 3:31p gopal Kraft MD osteomyelitis, Hospitalists right ankle and foot E11.9 Type 2 diabetes mellitus without complications Z79.4 [employer] (current) use of insulin I10 Essential (primary) hypertension Office Visit 04/22/2016 [facility] M86.171 Other acute 3:30p gopal Kraft MD osteomyelitis, Hospitalists right ankle and foot E11.9 Type 2 diabetes mellitus without complications I10 Essential (primary) hypertension Office Visit 04/22/2016 10:06a [facility] Raphael Dutton L03.115 Cellulitis of For Altaf Phillips M.D. right lower limb Diseases M60.073 Infective myositis, right foot M86.171 Other acute osteomyelitis, right ankle and foot E11.69 Type 2 diabetes mellitus with other specified complication R78.81 Bacteremia D72.829 Elevated white blood cell count, unspecified Office Visit 04/21/2016 [facility] Raphael Dutton E11.69 Type 2 diabetes 9:58a For Infectious Tara Phillips mellitus with Diseases other specified complication M86.171 Other acute osteomyelitis, right ankle and foot E11.621 Type 2 diabetes mellitus with foot ulcer L97.519 Non-prs chronic ulcer oth prt right foot w unsp severity L03.115 Cellulitis of right lower limb R78.81 Bacteremia D72.829 Elevated white blood cell count, unspecified Office Visit 04/21/2016 Orthopedic Cisco Vila86.671 Other chronic 11:30a Services Of C.M.Marcial Guerrero PA-C osteomyelitis, right ankle and foot Office Visit 04/21/2016 [facility] Zeke M86.171 Other acute 3:30p Assgopal monsivais MD osteomyelitis, Hospitalists right ankle and foot Z79.4 [employer] (current) use of insulin E11.9 Type 2 diabetes mellitus without complications I10 Essential (primary) hypertension Office Visit 04/20/2016 [facility] Osei M86.271 Subacute 3:27p gopal Kraft M.D. osteomyelitis, Hospitalists right ankle and foot E11.9 Type 2 diabetes mellitus without complications Z79.4 [facility] (current) use of insulin Office Visit 04/20/2016 Orthopedic Valeri Vila86.9 Osteomyelitis, 2:35p Services Of Tara Torres unspecified C.M.A. Office Visit 04/16/2016 Orthopedic Valeri Vila86.671 Other chronic 9:45a Services Of Tara Torres osteomyelitis, right C.M.A. ankle and foot L97.513 Non-prs chronic ulcer oth prt right foot w necros muscle Office Visit 02/27/2016 [facility] Raphael Dutton M86.671 Other chronic 2:40p For Infectious Tara Phillips osteomyelitis, Diseases right ankle and foot E11.621 Type 2 diabetes mellitus with foot ulcer G62.9 Polyneuropathy, unspecified Office Visit 01/27/2016 [facility] Raphael Dutton M86.671 Other chronic 2:00p For Infectious Tara Phillips osteomyelitis, Diseases right ankle and foot E11.621 Type 2 diabetes mellitus with foot ulcer B95.1 Streptococcus, group B, causing diseases classd elswhr Office Visit 12/11/2015 Orthopedic Valeri Vila86.671 Other chronic 3:50p Services Of Tara Torres osteomyelitis, right C.M.A. ankle and foot Office Visit 11/26/2015 [facility] Raphael Dutton E11.621 Type 2 diabetes 11:30a For Infectious Jacqueline, mellitus with foot Diseases M.D. 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 Office 04/24/2014 Orthopedic Annette 715.34 Osteoarthrosis Visit 10:30a Services Of Tara Sorensen Localzd Not Spec C.M.A. Prime Or 2Ndy Hand 841.1 Sprains & Strains Ulnar Collateral (Ligament) Office Visit 01/16/2014 Orthopedic Annette 841.1 Sprains & 9:00a Services Of Tara Sorensen Strains Ulnar C.M.A. Collateral (Ligament) 715.34 Osteoarthrosis Localzd Not Spec Prime Or 2Ndy Hand Office Visit 08/02/2013 Orthopedic Annette 841.1 Sprains & 11:30a Services Of Tara Sorensen Strains Ulnar Noe Collateral (Ligament) Office Visit 12/14/2011 Orthopedic Kevon Celaya M.D. 726.11 Tendinitis 9:15a Services Of Calcifying Noe Shoulder Plan of Treatment Future Appointment(s):09/13/2018 10:00 am - Valeri Torres M.D. at [facility]
[2018-08-09] MEDS ORDERED: Vancomycin(*) 1,000 MG in NS 0.9% 250 ML* 250 ML IVPB ONE (13:08)
[2018-08-09] MEDS ORDERED: Piperacillin/Tazobac ADVAN(*) 3.375 GM in NS 0.9% 100 ML* 100 ML IVPB ONE (13:08)
[2018-08-09] MEDS ORDERED: Albuterol HFA INHALER* 8 gm MDI INH PRN (13:12)
[2018-08-09] MEDS ORDERED: Bisacodyl SUPP* 10 MG SUPP PR PRN (13:12)
[2018-08-09] MEDS: Ondansetron INJ* 2 MG/ML VIAL IV PRN (13:31)
[2018-08-09 13:56] LABS: Hematocrit 43 % (42-52); Hemoglobin 14.7 g/dL (14.0-18.0); Mean Corpuscular HGB Conc 34 g/dL (31-36); Mean Corpuscular Hemoglobin 30 pg (27-31); Mean Corpuscular Volume 89 fL (80-94); Mean Platelet Volume 8.8 fL (7.4-10.4); Platelet Count 422 10^3/uL (150-450); Red Blood Count 4.85 10^6 /uL (4.18-5.48); Red Cell Distribution Width 14 % (10.5-15); White Blood Count 19.7 10^3/uL (3.5-10.8)
[2018-08-09] MEDS ORDERED: Lactated Ringers 1000 ML Bag* 1,000 ML IV SCH (14:00)
[2018-08-09] MEDS ORDERED: Vancomycin(*) 0 MG in NS 0.9% 250 ML* 250 ML IVPB SCH (14:00)
[2018-08-09] MEDS ORDERED: Zosyn per Pharmacy* NOTE FOLLOW UP SCH (14:00)
[2018-08-09 14:08] LABS: Activated Partial Thrombo Time 29.5 seconds (26.0-36.3); INR 1.12 (0.82-1.09)
[2018-08-09 14:26] LABS: ABS Basophils 0.1 10^3/ul (0-0.2); ABS Lymphocytes 3.9 10^3/ul (1.0-4.8); ABS Monocytes 1.8 10^3/ul (0-0.8); ABS Neutrophils 13.9 10^3/ul (1.5-7.7); Eosinophil % 0.1 %; Lymphocyte % 19.6 %
[2018-08-09 14:41] LABS: BUN/Creatinine Ratio 21.8 (8-20); EGFR African American 106.6 (>60); EGFR Non-African American 88.1 (>60)
[2018-08-09] MEDS ORDERED: Metoclopramide IV* 5 MG/ML 2 ML VIAL ONE (14:43)
[2018-08-09] MEDS: Metoclopramide IV* 5 MG/ML 2 ML VIAL IV PRN (14:46)
[2018-08-09] MEDS: Heparin VIAL(*) 5000 UNITS/ML VIAL (FIVE THOUSAND) SUBCUT SCH ×2 (14:47→21:43)
[2018-08-09] MEDS ORDERED: Dextrose 50% Syringe 50 ML* 25 GM/50 ML SYRINGE IV PUSH PRN ×3 (15:18→15:41)
[2018-08-09] MEDS ORDERED: Vancomycin per Pharmacy* NOTE FOLLOW UP PRN (15:22)
[2018-08-09] MEDS ORDERED: Insulin LISPRO* 1 UNITS UNIT SUBCUT ONE (15:41)
[2018-08-09] MEDS ORDERED: NS 0.9% 1000 ML** 1,000 ML IV SCH (15:45)
--- NOTE | 2018-08-09 16:10 | CONS ---
CONSULTATION REPORT: DATE OF CONSULT: 08/09/18 REQUESTING PHYSICIAN: Dr. Torres. CONSULTING SERVICE: Infectious Disease. REASON FOR CONSULT: Left foot infection. IMPRESSION: 1. Left foot soft tissue infection, possibility of underlying acute osteomyelitis in the setting of diabetic neuropathy, likely polymicrobial including anaerobes. It does look to be a puncture on the bottom, question foreign body as well. 2. Insulin-dependent diabetes, complicated by peripheral neuropathy. 3. Status post right midfoot partial amputation, 2015. 4. Hypertension. 5. Hyperlipidemia. 6. Status post melanoma excision, left shoulder in 2013. 7. Status post splenectomy in 1973. 8. Status post bilateral carpal release. RECOMMENDATIONS: 1. Continue vancomycin goal trough 15-20 and zosyn, MRI is pending, surgical plans per Dr Torres. Duration of therapy pending findings. HISTORY OF PRESENT ILLNESS: 67 year old man with diabetes and a previous right foot partial amputation now with left foot swelling. It developed over the weekend and there is redness through part of the foot. He has no fever and otherwise feels well. Doesn't think he stepped on anything. He saw Dr Torres and Brandy Dunn today and they admitted him, started antibiotics and are obtaining an MRI. PAST MEDICAL HISTORY: 1. Insulin-dependent diabetes, complicated by peripheral neuropathy. 2. Status post right midfoot partial amputation, 2015. 3. Hypertension. 4. Hyperlipidemia. 5. Status post melanoma excision, left shoulder in 2013. 6. Status post splenectomy in 1973. 7. Status post bilateral carpal release. MEDICATIONS: 1. Tylenol. 2. Albuterol as needed. 3. Aspirin. 4. Bisacodyl suppository as needed. 4. Invokana. 5. Fenofibrate. 6. Heparin subcutaneous injection. 7. Lisinopril. 8. Metformin twice daily. 9. Pravastatin. 10. Sitagliptin. 11. Vancomycin. 12. Zosyn 3.375 g every 8 hours. ALLERGIES: No known drug allergies. FAMILY HISTORY: No recurrent infection or TB. SOCIAL HISTORY: He is a past smoker. He is on disability, lives with his girlfriend. REVIEW OF SYSTEMS: All negative except as noted above to 14-point review. PHYSICAL EXAM: Vital Signs: Temperature 37, heart rate 80, respiratory rate 20 , blood pressure 118/64, oxygen saturation 98% on room air. In general, he is awake, not in distress. Neurologic: He is oriented x3. Follows commands. Decreased sensation to light touch in both feet. HEENT: There is no conjunctival hemorrhage. Oropharynx without lesions. Neck: Supple without mass. Heart: Regular rate and rhythm without murmurs, rubs, or gallops. Lungs : Clear to auscultation bilaterally. Abdomen: Soft, nontender, and nondistended. Bowel sounds present. Skin: There is no rash or splinter hemorrhages. Musculoskeletal: On the right foot, there is well-healed amputation scar in the midfoot. There is no ulcer there. On the left foot, there is diffuse edema, mild erythema, and some crepitus and air bubbles under the skin in the distal foot between the second and fourth toes. There is a small puncture wound on the bottom of the foot in the same distribution. DIAGNOSTIC STUDIES/LAB DATA: White blood cell count 19. Blood sugar 286. Kidney and liver testing are pending. Please see impressions and recommendations outlined above. Thank you for asking me to see Mr. Joiner in consultation. [id number]/[facility] #: [id number] [facility]ITAL[facility]
[2018-08-09] MEDS: Insulin LISPRO* 1 UNITS UNIT SUBCUT SCH ×2 (17:36→18:17)
[2018-08-09] MEDS ORDERED: ZOSYN 3.375 GM Q8H per EXTENDED INFUSION IVPB SCH ×2 (18:00)
[2018-08-09] MEDS: Vancomycin(*) 1,000 MG in NS 0.9% 250 ML* 250 ML IVPB SCH ×3 (18:50→22:35)
[2018-08-09 20:22] LABS: BUN/Creatinine Ratio 21.3 (8-20); Calcium 9.3 mg/dL (8.6-10.3); EGFR African American 117.4 (>60); Potassium 3.7 mmol/L (3.5-5.0)
[2018-08-09] MEDS: NS 0.9% 1000 ML** 1,000 ML IV SCH (20:30)
[2018-08-09] MEDS ORDERED: metFORMIN* 1,000 MG TAB PO SCH (21:00)
[2018-08-09] MEDS ORDERED: Insulin GLARGINE(*) 1 UNITS UNIT SUBCUT SCH ×2 (21:00)
[2018-08-09] MEDS: CMC:Pravastatin (NF) 20 MG TAB PO SCH (21:42)
--- NOTE | 2018-08-09 23:45 | CONS ---
CONSULTATION REPORT: DATE OF CONSULT: 08/09/18 PRIMARY CARE PROVIDER: Dr. Puri. REQUESTING PHYSICIAN IN CONSULTATION: Dr. Torres.* ATTENDING PHYSICIAN: Dr. Giraldo; dictated by VIOLETA Ann. REASON FOR CONSULTATION: Co-medical management. HISTORY OF PRESENT ILLNESS/HOSPITAL COURSE: I refer you to Brandy Dunn's HPI dictated on 08/09/18 for complete details, but in short Mr. Joiner is a 67-year- old male with a past medical history of diabetes mellitus status post right foot amputation, left foot infection, peripheral neuropathy, and hypertension who presents to [facility] as a direct transfer from an office visit. He presented for routine followup on the right foot and noted that the left foot has been red , painful, and swollen for the last couple of days. He has had nausea, vomiting , fever, and chills. He states that the 2nd, 3rd, and 4th digits are painful and discolored. Currently, the patient is no longer nauseous or vomiting. He is feeling generally well. He does note that he has had nausea and vomiting for the last 2 to 3 days, but it has since subsided. The 2nd through 3rd toes are still painful. The patient denies chest pain, shortness of breath, cough, abdominal pain, current nausea or vomiting. He denies diarrhea or constipation ; he notes he had a bowel movement yesterday. He has had fevers in the past, but denies fevers at this time. PAST MEDICAL HISTORY: 1. Diabetes mellitus, insulin dependent. 2. Hypertension. 3. Hyperlipidemia. 4. Question COPD. 5. History of melanoma. PAST SURGICAL HISTORY: 1. In 2016 right partial foot amputation. 2. Left shoulder melanoma excision in 2013. 3. Splenectomy in 1973. 4. Bilateral carpal tunnel release. 5. Percutaneous pinning of 5th finger. 6. Right shoulder surgery. HOME MEDICATIONS: 1. Aspirin 81 mg p.o. daily. 2. Fenofibrate 160 mg p.o. daily. 3. Lisinopril 20 mg p.o. daily. 4. Pravastatin 20 mg p.o. q.h.s. 5. ProAir HFA 108 mcg per actuation 1 to 2 puffs inhalation q.4 hours p.r.n. shortness of breath/wheeze. 6. Breo Ellipta 100/25 mcg 1 puff inhaled daily. 7. Januvia 100 mg p.o. daily. 8. Glucophage 1000 mg p.o. b.i.d. 9. Trulicity 0.75 mg/0.5 mL weekly. 10. Invokana 300 mg p.o. daily. 11. Humulin 70/30 100 units q.a.m. 12. Insulin R 25 units before lunch, 25 units before dinner. 13. Levemir 100 units q.p.m. DRUG ALLERGIES: No known drug allergies. FAMILY HISTORY: Positive for heart disease. Negative for diabetes mellitus, CVA. SOCIAL HISTORY: The patient states that he quit smoking approximately 15 years ago. Prior to that, he smoked for 37 years, 3 packs per day. He denies alcohol use. He denies use of illicit drugs. He is retired. He lives with his girlfriend. In the event that he is unable to make his own medical decisions, he has appointed his [id number] to be his surrogate decision maker. REVIEW OF SYSTEMS: A 10-point review of systems was performed and all the pertinent positives and negatives are in the HPI. All other systems are negative. PHYSICAL EXAM: General: Mr. Joiner is a well-developed, well-nourished, obese 67- year-old male who is sitting up in bed, he appears to be well, he is somewhat unkempt and disheveled, he is in no acute distress. Vital Signs: Temperature 99.2 tympanic, heart rate 102, respiratory rate 18, oxygen saturation 91% on room air, blood pressure 154/72. HEENT: PERRL. Extraocular movements intact. Sclerae without icterus. Hearing is grossly intact. Oral mucous membranes are moist. There are no lesions. The pharynx is clear. Cardiopulmonary: Regular rate and rhythm with S1, S2 present without murmurs, rubs, clicks, or gallops. There is no JVD. Pulmonary: Symmetrical chest expansion without use of accessory muscles. Lungs are clear to auscultation bilaterally. There is no rhonchi, wheeze, or rubs. Abdomen is obese. Bowel sounds noted in all quadrants. The abdomen is soft. There is no tenderness to palpation. Extremities: Skin is warm and smooth bilaterally. There is no clubbing or cyanosis. Radial pulses palpable. There is no lower extremity edema. The right foot has a partial amputation distally. The left foot is somewhat edematous and erythematous. There is discoloration to digits 2 through 3. Neuro: The patient is awake, he is alert and oriented x3. He is able to move all of his extremities. ASSESSMENT AND PLAN: Mr. Joiner is a 67-year-old male with a past medical history of diabetes mellitus insulin dependent with right partial foot amputation, hypertension, hyperlipidemia, possible chronic obstructive pulmonary disease who was transferred directly from Dr. Torres's office to [facility] due to concern for infection of the left forefoot. The patient will be admitted for: 1. Left forefoot infection. Management per Ortho and Infectious Disease. The patient has been placed on Zosyn and vancomycin. MRI has been ordered. Arterial studies have been ordered. 2. Diabetes mellitus. The patient has elevated glucose on admission with a level of 300, which was covered with short-acting insulin. The patient will receive Lantus 70 in the a.m. to cover Humulin 70/30 100 units q.a.m. and Lantus 100 units at night to cover his Levemir 100 units at night. He will also be placed on sliding scale. He typically receives Humulin 70/30 in the a.m. and 25 units before lunch and dinner. The patient will be placed on 15 units standing before meals with added sliding scale coverage. We will continue Januvia and Trulicity. We will hold Glucophage at this time. We will also hold Invokana, especially in the setting of increased risk of limb amputation. 3. Hypertension. Continue home medication, lisinopril. 4. Hyperlipidemia. Continue fenofibrate. 5. Questionable chronic obstructive pulmonary disease. The patient notes that he does not have chronic obstructive pulmonary disease, although he is noted to be on multiple inhalers and he has over 100 pack year smoking history. He is on Breo Ellipta and ProAir. These will be continued. 6. Code status. Full code. 7. DVT prophylaxis. Per Ortho, the patient has been placed on heparin 5000 subcu q.8 hours. TIME SPENT: Approximately 30 minutes were spent on this consultation, greater than half of that time was spent with the patient obtaining history, performing physical, and reviewing the plan of care. The case has been reviewed with my attending Dr. Giraldo, who is in agreement with the plan of care. SAV FERMIN, VIOLETA [id number]/[facility] #: [id number] [facility]ITAL[facility]ara
[2018-08-10] MEDS: ZOSYN 3.375 GM IVPB SCH ×8 (00:37→19:44)
[2018-08-10] MEDS: Vancomycin(*) 1,000 MG in NS 0.9% 250 ML* 250 ML IVPB SCH ×4 (03:45→22:08)
[2018-08-10] MEDS: Heparin VIAL(*) 5000 UNITS/ML VIAL (FIVE THOUSAND) SUBCUT SCH ×3 (06:07→21:57)
[2018-08-10] MEDS ORDERED: Lisinopril TAB* 10 MG PO SCH (09:00)
[2018-08-10] MEDS ORDERED: Canagliflozin (NF) 300 MG TAB PO SCH (09:00)
--- NOTE | 2018-08-10 09:21 | PN ---
Progress Note - Progress Note Date of Service: 08/10/18 Note: Orthopedic Surgery Date: 08/10/18 Chief Complaint: Left foot infection History: 67-year-old male with a previous right hindfoot amputation by Dr. Torres. He reports that he started to notice purulent drainage from his left forefoot about 4 days ago. It continued to worsen, and he was seen in the office yesterday by Dr. Torres. He was then admitted to the hospital where internal medicine and infectious diseases were consulted. He has been started on antibiotics. I was asked involved by my partner, Dr. Torres. PMH: Insulin-dependent diabetes, hypertension, hyperlipidemia PSH: Right hindfoot amputation in 2016, melanoma excision, splenectomy, bilateral carpal tunnel release, finger fracture, pinning, right shoulder surgery. Medications: As documented in chart. No anticoagulation at baseline other than aspirin Allergies: No known drug allergies. SH: Nonsmoker. FH: Noncontributory Physical Examination: Constitutional: Temp Pulse Resp BP Pulse Ox 98.1 F 73 16 131/60 91 08/10/18 07:57 08/10/18 07:57 08/10/18 08:00 08/10/18 07:57 08/10/18 07:57 General appearance is healthy and non-septic in no acute distress. Cardiovascular: Pulse examination demonstrates positive pedal pulses. There are no varicosities. Musculoskeletal: His right hindfoot amputation is well healed without evidence of infection. On the left, there is 5/5 motor strength and impaired light touch sensation. There is edema of the forefoot with erythema from the MTP joints distally. There is a small puncture wound at the plantar forefoot. The toes are edematous , dusky, and grossly purulent. The foot is very malodorous. Painless ankle range of motion. Silfverskiold test is positive. Imaging: MRI of the foot does not show any obvious osteomyelitis. There is diffuse forefoot edema. Labs: WBC 19.7 HCT 43 Platelets 422 Cr 0.80 INR 1.12 Impression and Plan: Left forefoot infection. I discussed the difficulty of this problem with Heron. The toes appear nonviable and are grossly purulent. We discussed both nonoperative and operative treatment options. I do not think antibiotic treatment alone is insufficient to address the forefoot infection. We did discuss surgical options, including debridement versus amputation. I think debridement is also unlikely to be sufficient, given the nonviable appearance of the toes. As far as amputation options, we discussed that I would hopefully be able to perform a transmetatarsal amputation, but if soft tissue coverage was an issue, he may need a more proximal foot amputation. He understood and was agreeable. He would like to move forward with an amputation. All of his questions were answered. We will plan on a left transmetatarsal amputation tomorrow. Again, this could end up being a hindfoot amputation if necessary. I will also address his Achilles tendon with a likely gastrocnemius recession, but possibly a tendo-Achilles lengthening. Please keep n.p.o. after midnight tonight. Continue antibiotics as guided by the infectious disease service. Shaw Martinez MD
--- NOTE | 2018-08-10 09:23 | PN ---
Progress Note - Progress Note Date of Service: 08/10/18 SOAP: Subjective: CC: Left foot infection HPI: Mr. Joiner is a 67 yo male with PMH significant for DM2, HTN and HLD. Denies fever, chills, shortness of breath, nausea, vomiting, diarrhea, or pain. Objective: Vital Signs - 8 hr 08/10/18 08/10/18 08/10/18 03:44 07:57 08:00 Temperature 99.4 F 98.1 F Pulse Rate 86 73 Respiratory 18 17 16 Rate Blood Pressure 130/46 131/60 (mmHg) O2 Sat by Pulse 96 91 Oximetry Physical Exam: General: NAD, sitting up in bed Neurological: Alert and Oriented x4 HEENT: Moist MM, no thrush Cardiovascular: Heart rate regular Respiratory: Lung sounds clear Abdominal: Bowel sounds present; ABD soft, large and non tender Skin: No rash; dressing to left foot clean, dry and intact; no erythema Laboratory Results - last 24 hr 08/09/18 08/09/18 08/09/18 13:31 13:40 13:40 WBC 19.7 H RBC 4.85 Hgb 14.7 Hct 43 MCV 89 MCH 30 MCHC 34 RDW 14 Plt Count 422 MPV 8.8 Neut % (Auto) 70.8 Lymph % (Auto) 19.6 Bullitt % (Auto) 9.2 Eos % (Auto) 0.1 Baso % (Auto) 0.3 Absolute Neuts (auto) 13.9 H Absolute Lymphs (auto) 3.9 Absolute Monos (auto) 1.8 H Absolute Eos (auto) 0.0 Absolute Basos (auto) 0.1 Absolute Nucleated RBC 0.0 Nucleated RBC % 0.0 INR (Anticoag Therapy) 1.12 H APTT 29.5 POC Glucose (mg/dL) 286 H 08/09/18 08/09/18 08/09/18 13:40 16:07 16:07 Sodium 130 L Potassium 4.0 Chloride 94 L Carbon Dioxide 21 L Anion Gap 15 H BUN 19 Creatinine 0.87 Est GFR ( Amer) 106.6 Est GFR (Non-Af Amer) 88.1 BUN/Creatinine Ratio 21.8 H Glucose 307 H Serum Osmolality 301 H Lactic Acid 1.6 Calcium 10.0 08/09/18 08/09/18 08/09/18 17:05 18:08 19:57 Sodium 131 L Potassium 3.7 Chloride 96 L Carbon Dioxide 23 Anion Gap 12 H BUN 17 Creatinine 0.80 Est GFR ( Amer) 117.4 Est GFR (Non-Af Amer) 97.0 BUN/Creatinine Ratio 21.3 H Glucose 272 H POC Glucose (mg/dL) 251 H 295 H Calcium 9.3 Assessment: 1. Left foot soft tissue infection. Left foot MRI shows "diffuse edema in the subcutaneous tissue and plantar flexor muscles, no evidence of bone marrow replacement to suggest osteomyelitis". Normal DESIREE. Afebrile with leukocytosis. Plan for a transmetatarsal amputation with ortho tomorrow. 2. DM2 with peripheral neuropathy. Plan: Continue vanco and Zosyn for now. Further antibiotics will be based on cultures obtained in the OR.
[2018-08-10] MEDS: CMC:SitaGLIPtin (NF) 100 MG TAB PO SCH (09:36)
[2018-08-10] MEDS: FENOFIBRATE 160 MG PO SCH (09:36)
[2018-08-10] MEDS: Aspirin EC TAB* 81 MG TAB.EC PO SCH (09:36)
[2018-08-10] MEDS: Insulin GLARGINE(*) 1 UNITS UNIT SUBCUT SCH ×2 (09:37→21:59)
[2018-08-10] MEDS: Insulin LISPRO* 1 UNITS UNIT SUBCUT SCH ×6 (09:37→17:17)
--- NOTE | 2018-08-10 10:08 | PN ---
Subjective Date of Service: 08/10/18 Interval History: Pt feels well, denies SOB, or pain. Ready for OR tomorrow Objective Active Medications: Acetaminophen (Tylenol Tab*) 650 mg PO Q4H PRN PRN Reason: FEVER Albuterol (Ventolin Hfa Inhaler*) 2 puff INH Q4HR PRN PRN Reason: WHEEZING Aspirin (Aspirin Ec Tab*) 81 mg PO DAILY [facility] Last Admin: 08/10/18 09:36 Dose: 81 mg Bisacodyl (Dulcolax Supp*) 10 mg CO DAILY PRN PRN Reason: CONSTIPATION Dextrose (D50w Syringe 50 Ml*) 12.5 gm IV PUSH .FOR FS < 60 - SS PRN PRN Reason: FS < 60 Diphenhydramine HCl (Benadryl Iv*) 25 mg IV Q6H PRN PRN Reason: PRURITIS Fenofibrate (Tricor 160 Mg) 160 mg PO DAILY [facility]; Protocol Last Admin: 08/10/18 09:36 Dose: 160 mg Heparin Sodium (Porcine) (Heparin Vial(*)) 5,000 units SUBCUT Q8HR [facility] Last Admin: 08/10/18 06:07 Dose: 5,000 units Sodium Chloride (Ns 0.9% 1000 Ml) 1,000 mls @ 100 mls/hr IV PER RATE [facility] Last Admin: 08/09/18 20:30 Dose: 100 mls/hr Vancomycin HCl 1,000 mg/ (Sodium Chloride) 250 mls @ 166.667 mls/hr IVPB 0415, 1015,1615,2215 [facility] Last Admin: 08/10/18 09:35 Dose: 166.667 mls/hr Piperacillin Sod/Tazobactam (Sod 3.375 gm/ Sodium Chloride) 100 mls @ 200 mls/ hr IVPB Q6H [facility] Last Admin: 08/10/18 06:07 Dose: 200 mls/hr Insulin Glargine (Lantus(*)) 70 units SUBCUT Q24H [facility] Last Admin: 08/10/18 09:37 Dose: 70 units Insulin Glargine (Lantus(*)) 100 units SUBCUT Q24H [facility] Last Admin: 08/09/18 20:28 Dose: 100 units Insulin Human Lispro (Humalog*) 0 units SUBCUT AC [facility]; Protocol Last Admin: 08/10/18 09:37 Dose: 3 unit Insulin Human Lispro (Humalog*) 15 units SUBCUT [facility] Last Admin: 08/10/18 09:37 Dose: 15 units Lisinopril (Prinivil Tab*) 20 mg PO QAM [facility] Last Admin: 08/10/18 09:36 Dose: 20 mg Metoclopramide HCl (Reglan Iv*) 10 mg IV Q6H PRN PRN Reason: NAUSEA Last Admin: 08/09/18 14:46 Dose: 10 mg Ondansetron HCl (Zofran Inj*) 4 mg IV Q6H PRN PRN Reason: NAUSEA Last Admin: 08/09/18 13:31 Dose: 4 mg Oxycodone/Acetaminophen (Percocet 5/325 Tab*) 1 tab PO Q4H PRN PRN Reason: PAIN Pharmacy Consult (Zosyn Per Pharmacy*) 1 note FOLLOW UP .ZOSYN PER PHARMACY [facility] Pharmacy Consult (Vancomycin Per Pharmacy*) 1 note FOLLOW UP . PRN PRN Reason: PER PROTOCOL Pharmacy Profile Note (Vancomycin Trough Check) 1 note FOLLOW UP 1600 ONE Stop: 08/10/18 16:01 Pravastatin Sodium (Pravachol (Nf)) 40 mg PO BEDTIME [facility]; Protocol Last Admin: 08/09/18 21:42 Dose: 40 mg [facility]agliptin [facility]ate ([facility] (Nf)) [facility] Protocol Last Admin: 08/10/18 09:36 Dose: 100 mg Vital Signs - 8 hr 08/10/18 08/10/18 08/10/18 03:44 07:57 08:00 Temperature 99.4 F 98.1 F Pulse Rate 86 73 Respiratory 18 17 16 Rate Blood Pressure 130/46 131/60 (mmHg) O2 Sat by Pulse 96 91 Oximetry Oxygen Devices in Use Now: None Appearance: 67 yo M in nAD, AAOx3 Eyes: No Scleral Icterus, PERRLA Ears/Nose/Mouth/Throat: NL Teeth, Lips, Gums, Mucous Membranes Moist Neck: NL Appearance and Movements; NL JVP, Trachea Midline Respiratory: Symmetrical Chest Expansion and Respiratory Effort, Clear to Auscultation Cardiovascular: NL Sounds; No Murmurs; No JVD, RRR Abdominal: NL Sounds; No Tenderness; No Distention, No Hepatosplenomegaly Lymphatic: No Cervical Adenopathy Extremities: No Clubbing, Cyanosis, - - trace left ankle edema Skin: No Nodules or Sclerosis, - - left foot with celulitis and large 4 cm blister overlying dorsum of distal left foot. R foot stump healed s/p TMA Result Diagrams: 08/09/18 13:40 08/09/18 19:57 Assess/Plan/Problems-Billing Assessment: L foot cellulitis with possible osteomyelitis in a 67 yo M with hx of RLE osteo, DM, HTN, asthma - Patient Problems (1) Cellulitis of left foot Comment: pt has what appears to be a puncture wound at bottom of left foot. MRI did not show osteo Sepstic at admission due to cellulitis cont Vanc/Zosyn, appreciate ID's assistance Plan for left TMA tomorrow (2) Diabetes Comment: Continue Lispro SS. Cons carb diet. Metformin and 2 other oral agents on hold. will lower dose of Lantus preop will check HbA1C (3) HTN (hypertension) Comment: Continue home Lisinopril, controlled (4) COPD (chronic obstructive pulmonary disease) Comment: not in exacerbation, cont home inhalers (5) DVT prophylaxis Comment: HSQ Status and Disposition: medicine consult , will follow
[2018-08-10] MEDS: Metoclopramide IV* 5 MG/ML 2 ML VIAL IV PRN (12:42)
[2018-08-10] MEDS: NS 0.9% 1000 ML** 1,000 ML IV SCH (13:45)
[2018-08-10] MEDS ORDERED: Vancomycin Trough Check NOTE FOLLOW UP ONE (16:00)
[2018-08-10] MEDS: CMC:Pravastatin (NF) 20 MG TAB PO SCH (21:56)
[2018-08-11] MEDS: ZOSYN 3.375 GM IVPB SCH ×10 (00:05→21:01)
[2018-08-11] MEDS: Vancomycin(*) 1,000 MG in NS 0.9% 250 ML* 250 ML IVPB SCH ×4 (03:54→22:25)
[2018-08-11 06:20] LABS: Hematocrit 40 % (42-52); Hemoglobin 13.3 g/dL (14.0-18.0); Mean Corpuscular HGB Conc 34 g/dL (31-36); Mean Corpuscular Hemoglobin 30 pg (27-31); Mean Corpuscular Volume 89 fL (80-94); Platelet Count 421 10^3/uL (150-450); Red Blood Count 4.43 10^6 /uL (4.18-5.48); Red Cell Distribution Width 14 % (10.5-15); White Blood Count 18.3 10^3/uL (3.5-10.8)
[2018-08-11 06:37] LABS: BUN/Creatinine Ratio 18.1 (8-20); Calcium 8.5 mg/dL (8.6-10.3); EGFR African American 132.6 (>60); EGFR Non-African American 109.6 (>60); Potassium 3.3 mmol/L (3.5-5.0)
[2018-08-11] MEDS: Insulin LISPRO* 1 UNITS UNIT SUBCUT SCH ×3 (07:25→18:13)
[2018-08-11] MEDS: NS 0.9% 1000 ML** 1,000 ML IV SCH (07:29)
[2018-08-11] MEDS: FENOFIBRATE 160 MG PO SCH (07:46)
[2018-08-11] MEDS: Aspirin EC TAB* 81 MG TAB.EC PO SCH (07:46)
[2018-08-11] MEDS: Insulin GLARGINE(*) 1 UNITS UNIT SUBCUT SCH ×2 (07:49→21:02)
[2018-08-11] MEDS: CMC:SitaGLIPtin (NF) 100 MG TAB PO SCH (07:49)
[2018-08-11 08:11] LABS: ABS Basophils 0.2 10^3/ul (0-0.2); ABS Eosinophils 0.2 10^3/ul (0-0.6); ABS Lymphocytes 4.8 10^3/ul (1.0-4.8); ABS Monocytes 1.8 10^3/ul (0-0.8); ABS Neutrophils 11.2 10^3/ul (1.5-7.7); Eosinophil % 1.3 %; Lymphocyte % 26.2 %; Nucleated Red Blood Cells % 0.1
--- NOTE | 2018-08-11 09:44 | PN ---
Progress Note - Progress Note Date of Service: 08/11/18 SOAP: Subjective: CC: foot ifnection HPI: 67 year old man with diabetes and left foot infection, will be going to the OR today. No fever, rash, or diarrhea. Objective: Vital Signs Temp 36.9 C 08/11/18 07:22 Pulse 65 08/11/18 07:22 Resp 16 08/11/18 07:30 BP 122/59 08/11/18 07:22 Pulse Ox 96 08/11/18 07:22 Intake & Output 08/10/18 08/11/18 08/11/18 18:59 06:59 18:59 Intake Total 1140 1300 1076 Output Total 650 480 Balance 329 671 0180 Intake: IV Fluids 971 LR 971 IVPB 105 LR 105 Oral 1140 1300 Output: Urine 650 480 Other: # Bowel Movements 0 Gen:awake, no distress HEENT: no thrush Heart:RRR no murmur Lungs:CTA BL Abd:+BS NTND soft Skin: no rash MSK: left forefoot edema and erythema with desquamation Laboratory Results - last 24 hr 08/09/18 08/10/18 08/10/18 19:57 11:45 16:14 WBC RBC Hgb Hct MCV MCH MCHC RDW Plt Count MPV Neut % (Auto) Lymph % (Auto) Greer % (Auto) Eos % (Auto) Baso % (Auto) Absolute Neuts (auto) Absolute Lymphs (auto) Absolute Monos (auto) Absolute Eos (auto) Absolute Basos (auto) Absolute Nucleated RBC Nucleated RBC % Sodium Potassium Chloride Carbon Dioxide Anion Gap BUN Creatinine Est GFR ( Amer) Est GFR (Non-Af Amer) BUN/Creatinine Ratio Glucose POC Glucose (mg/dL) 194 H Hemoglobin A1c 9.6 H Calcium Vancomycin Trough 9.1 08/10/18 08/11/18 08/11/18 16:30 06:09 06:09 WBC 18.3 H RBC 4.43 Hgb 13.3 L Hct 40 L MCV 89 MCH 30 MCHC 34 RDW 14 Plt Count 421 MPV 8.0 Neut % (Auto) 61.5 Lymph % (Auto) 26.2 Greer % (Auto) 10.0 Eos % (Auto) 1.3 Baso % (Auto) 1.0 Absolute Neuts (auto) 11.2 H Absolute Lymphs (auto) 4.8 Absolute Monos (auto) 1.8 H Absolute Eos (auto) 0.2 Absolute Basos (auto) 0.2 Absolute Nucleated RBC 0.0 Nucleated RBC % 0.1 Sodium 136 Potassium 3.3 L Chloride 105 Carbon Dioxide 23 Anion Gap 8 BUN 13 Creatinine 0.72 Est GFR ( Amer) 132.6 Est GFR (Non-Af Amer) 109.6 BUN/Creatinine Ratio 18.1 Glucose 78 POC Glucose (mg/dL) 107 H Hemoglobin A1c Calcium 8.5 L Vancomycin Trough Assessment: 1. Left foot cellulitis and myositis 2. diabetes with neuropathy 3. obesity Plan: 1. vancomycin goal tr 15-20, zosyn while awaiting cultures from operative procedure today
[2018-08-11] MEDS: KCL 20 MEQ/100 ML IVPREMIX* 20 MEQ/100 ML BAG IV SCH ×2 (09:57→14:11)
[2018-08-11] MEDS ORDERED: Vancomycin Trough Check NOTE FOLLOW UP ONE (10:00)
[2018-08-11] MEDS ORDERED: DiMENhydriNATE IV* 50 MG/ML VIAL IV PUSH PRN (11:04)
[2018-08-11] MEDS ORDERED: fentaNYL* 50 MCG/ML 2 ML VIAL (100 MCG VIAL) IV PRN (11:04)
[2018-08-11] MEDS ORDERED: Levalbuterol 0.63MG/3ML NEB* UNIT OF USE INH PRN (11:04)
[2018-08-11] MEDS ORDERED: Naloxone* 0.4 MG/ML 1 ML VIAL IV PRN (11:04)
[2018-08-11] MEDS ORDERED: Midazolam* 1 MG/ML 2 ML VIAL (2 MG) ONE (11:27)
[2018-08-11] MEDS ORDERED: Bupivacaine 0.5%* 50 ML VIAL ONE (11:45)
[2018-08-11] MEDS ORDERED: Famotidine IV* 10 MG/ML 2 ML (20 mg) ONE (11:57)
[2018-08-11] MEDS ORDERED: D5W 250 ML BAG* 250 ML IV SCH (12:00)
[2018-08-11] MEDS ORDERED: Lidocaine 2% PF * 5 ML VIAL ONE (12:13)
[2018-08-11] MEDS ORDERED: Propofol* 10 MG/ML 20 ML BTL ONE (12:14)
[2018-08-11] MEDS ORDERED: fentaNYL* 50 MCG/ML 2 ML VIAL (100 MCG VIAL) ONE (12:19)
[2018-08-11] MEDS ORDERED: EPHEDrine (Pressors)* 50 MG/ML VIAL ONE (12:53)
[2018-08-11] MEDS ORDERED: Calcium CHLORIDE 10% SYRINGE* 1 GM/10 ML ONE (13:00)
--- NOTE | 2018-08-11 13:32 | OP ---
Operative Report - Blank - Operative Report Date of Operation: 08/11/18 Note: PATIENT: Heron Joiner DATE OF : 1950 DATE OF SURGERY: 08/11/2018 SURGEON: Shaw Martinez MD PRACTICE MANAGER: VIOLETA Harmon, whos assistance was necessary for positioning, retraction, help with instrumentation, and closure. ANESTHESIOLOGIST: Dr. Hyman PREOPERATIVE DIAGNOSIS: Left forefoot infection and gastrocnemius contracture POSTOPERATIVE DIAGNOSIS: Left forefoot infection and gastrocnemius contracture OPERATION: 1. Left foot transmetatarsal amputation 2. Left gastrocnemius recession (Savage procedure) ANESTHESIA: General IMPLANTS: none TOURNIQUET TIME: Less than 1 hour with a well-padded thigh tourniquet at 250mmHg. SPECIMENS: Foot sent to pathology. Culture swabs to microbiology. ESTIMATED BLOOD LOSS: minimal COMPLICATIONS: none STATUS: Stable from the operating room to the recovery room and then back to the hospital floor. INDICATIONS FOR PROCEDURE: Heron has a left forefoot infection. Both operative and non operative treatment alternatives were reviewed. Further, the nature and risks of surgery were reviewed in careful detail. Our discussions regarding the risks of surgery included, but were not limited to, infection, wound problems, nerve injury, neuroma, RSD, persistent symptoms, blood clot, persistent or worsening infection , failure of the surgery, need for further amputation, and even the remote chance of catastrophic complication, including loss of limb. DESCRIPTION OF PROCEDURE: The patient was seen in the preoperative holding unit and informed written consent was obtained. The appropriate extremity was marked. The patient was then brought to the operating room and carefully positioned on the operating room table. Anesthesia was induced. All bony prominences were padded with great care. A well-padded thigh tourniquet was placed. A chlorhexidine based pre- scrub was performed followed by a chloraprep prep and drape in standard sterile fashion. A surgical safety pause was then conducted in which we confirmed the appropriate patient, extremity, planned procedure, availability of equipment, indication and administration of prophylactic antibiotics, and DVT prophylaxis in the form of a compression boot on the non-surgical extremity. We began with Esmarch exsanguination of the limb, avoiding the involved foot, and inflated the tourniquet. I then made an approximately 3-cm incision at the posteromedial calf. I carried the dissection through the soft tissue and divided the crural fascia longitudinally. I then exposed the fascia of the gastrocnemius muscle. Great care was taken to protect the sural nerve throughout this procedure. I cleared all adhesions from the posterior aspect of the gastrocnemius fascia and then transected this in its entirety from medially to laterally. I then identified the plantaris tendon, which was also tight medially. This was transected. These procedures had the effect of improving the ankle dorsiflexion to approximately 10 degrees. I then again confirmed that the sural nerve was in continuity. We irrigated copiously. We then used #3-0 Monocryl for the subdermal layer and vineet for the skin. I utilized a fish-mouth incision at the forefoot. I dissected down through the dorsal forefoot to the level of the metatarsals. An oscillating saw was used to osteotomize all five metatarsals. These were beveled to decrease prominence plantarly. A rongeur was used to round and smooth the bone edges. The plantar half of the incision was completed and forefoot was then amputated. Culture swabs were taken and the foot was sent to pathology. The remaining tissue appeared healthy and viable. The wound was then copiously irrigated. I closed the wound meticulously in layers. A sterile dressing was then applied followed by a splint with the ankle in neutral alignment. The patient was then awakened from anesthesia and transferred to the recovery room in stable condition. There were no complications. All needle and sponge counts were correct at the end of the case. ATTESTATION: I attest I was present and scrubbed and performed the critical portions of the procedure myself. POSTOPERATIVE PLAN: The patient will remain [id number] in the splint and will follow up will be in 1 week for a wound check, but we will likely leave the vineet in for 3-4 weeks. Antibiotic treatment will be guided by the infectious disease service.
[2018-08-11] MEDS ORDERED: Lisinopril TAB* 10 MG PO SCH (14:00)
--- NOTE | 2018-08-11 17:54 | PN ---
Subjective Date of Service: 08/11/18 Interval History: Pt feels well, post op pain well controlled Objective Active Medications: Acetaminophen (Tylenol Tab*) 650 mg PO Q4H PRN PRN Reason: FEVER Albuterol (Ventolin Hfa Inhaler*) 2 puff INH Q4HR PRN PRN Reason: WHEEZING Aspirin (Aspirin Ec Tab*) 81 mg PO DAILY [facility] Last Admin: 08/11/18 07:46 Dose: 81 mg Bisacodyl (Dulcolax Supp*) 10 mg AL DAILY PRN PRN Reason: CONSTIPATION Dextrose (D50w Syringe 50 Ml*) 12.5 gm IV PUSH .FOR FS < 60 - SS PRN PRN Reason: FS < 60 Diphenhydramine HCl (Benadryl Iv*) 25 mg IV Q6H PRN PRN Reason: PRURITIS Fenofibrate (Tricor 160 Mg) 160 mg PO DAILY [facility]; Protocol Last Admin: 08/11/18 07:46 Dose: 160 mg Sodium Chloride (Ns 0.9% 1000 Ml) 1,000 mls @ 100 mls/hr IV PER RATE [facility] Last Admin: 08/11/18 07:29 Dose: 100 mls/hr Vancomycin HCl 1,000 mg/ (Sodium Chloride) 250 mls @ 166.667 mls/hr IVPB 0415, 1015,1615,2215 [facility] Last Admin: 08/11/18 16:57 Dose: 166.667 mls/hr Piperacillin Sod/Tazobactam (Sod 3.375 gm/ Sodium Chloride) 100 mls @ 200 mls/ hr IVPB 0330,0930,1530,2130 [facility] Last Admin: 08/11/18 15:45 Dose: 200 mls/hr Insulin Glargine (Lantus(*)) 70 units SUBCUT Q24H [facility] Last Admin: 08/11/18 07:49 Dose: Not Given Insulin Glargine (Lantus(*)) 50 units SUBCUT BEDTIME [facility] Last Admin: 08/10/18 21:59 Dose: 50 units Insulin Human Lispro (Humalog*) 0 units SUBCUT AC [facility]; Protocol Last Admin: 08/11/18 13:17 Dose: Not Given Lisinopril (Prinivil Tab*) 20 mg PO DAILY [facility] Metoclopramide HCl (Reglan Iv*) 10 mg IV Q6H PRN PRN Reason: NAUSEA Last Admin: 08/10/18 12:42 Dose: 10 mg Ondansetron HCl (Zofran Inj*) 4 mg IV Q6H PRN PRN Reason: NAUSEA Last Admin: 08/09/18 13:31 Dose: 4 mg Oxycodone/Acetaminophen (Percocet 5/325 Tab*) 1 tab PO Q4H PRN PRN Reason: PAIN Pharmacy Consult (Zosyn Per Pharmacy*) 1 note FOLLOW UP .ZOSYN PER PHARMACY [facility] Pharmacy Consult (Vancomycin Per Pharmacy*) 1 note FOLLOW UP . PRN PRN Reason: PER PROTOCOL Pharmacy Profile Note (Vancomycin Trough Check) 1 note FOLLOW UP ONCE ONE Stop: 08/13/18 10:01 Pravastatin Sodium (Pravachol (Nf)) 40 mg PO BEDTIME [facility]; Protocol Last Admin: 08/10/18 21:56 Dose: 40 mg Sitagliptin Phosphate (Januvia (Nf)) 100 mg PO QAM [facility]; Protocol Last Admin: 08/11/18 07:49 Dose: Not Given Vital Signs - 8 hr 08/11/18 08/11/18 08/11/18 13:30 13:31 13:34 Temperature 97.7 F Pulse Rate 81 81 Respiratory 25 14 Rate Blood Pressure 139/82 (mmHg) O2 Sat by Pulse 92 93 Oximetry 08/11/18 08/11/18 08/11/18 13:36 13:40 13:51 Temperature Pulse Rate 81 68 75 Respiratory 20 15 12 Rate Blood Pressure 147/72 133/73 151/79 (mmHg) O2 Sat by Pulse 93 92 94 Oximetry 08/11/18 08/11/18 08/11/18 14:00 14:43 15:47 Temperature 98.4 F 98.4 F Pulse Rate 68 62 77 Respiratory 16 18 Rate Blood Pressure 144/79 141/68 155/65 (mmHg) O2 Sat by Pulse 95 94 94 Oximetry 08/11/18 17:07 Temperature 98.3 F Pulse Rate 62 Respiratory 18 Rate Blood Pressure 140/62 (mmHg) O2 Sat by Pulse 94 Oximetry Oxygen Devices in Use Now: Nasal Cannula Appearance: 67 yo M in nAD, aAOx3 Eyes: No Scleral Icterus, PERRLA Ears/Nose/Mouth/Throat: NL Teeth, Lips, Gums, Mucous Membranes Moist Neck: NL Appearance and Movements; NL JVP, Trachea Midline Respiratory: Symmetrical Chest Expansion and Respiratory Effort, Clear to Auscultation Cardiovascular: NL Sounds; No Murmurs; No JVD, RRR Abdominal: NL Sounds; No Tenderness; No Distention Lymphatic: No Cervical Adenopathy Extremities: No Clubbing, Cyanosis, - - left foot in post op dressings, R foot s /p TMA-stump healed Skin: No Nodules or Sclerosis Neurological: Alert and Oriented x 3, NL Muscle Strength and Tone Result Diagrams: 08/11/18 06:09 08/11/18 06:09 Microbiology and Other Data: Microbiology 08/11/18 12:51 Skin and Soft Tissue MRSA/MSSA (PCR - Final Foot Left Mrsa Positive S.aureus Positive Gram Stain - Final Assess/Plan/Problems-Billing Assessment: L foot cellulitis with possible osteomyelitis in a 67 yo M with hx of RLE osteo, DM, HTN, asthma - Patient Problems (1) Cellulitis of left foot Comment: Septic at admission due to cellulitis cont Vanc/Zosyn, appreciate ID's assistance S/p left TMA 08/11/18 (2) Diabetes Comment: Continue Lispro SS. Cons carb diet. Metformin and 2 other oral agents on hold. lower dose of Lantus periop HbA1C 9.6 (3) HTN (hypertension) Comment: Continue home Lisinopril, controlled (4) COPD (chronic obstructive pulmonary disease) Comment: not in exacerbation, cont home inhalers (5) DVT prophylaxis Comment: HSQ Status and Disposition: medicine consult , will follow
[2018-08-11] MEDS: oxyCODONE/Acetamin 5/325 MG* TAB PO PRN (19:29)
[2018-08-11] MEDS: CMC:Pravastatin (NF) 20 MG TAB PO SCH (21:01)
[2018-08-12] MEDS: oxyCODONE/Acetamin 5/325 MG* TAB PO PRN ×2 (00:19→04:45)
[2018-08-12] MEDS: ZOSYN 3.375 GM IVPB SCH ×4 (03:41→09:38)
[2018-08-12] MEDS: Vancomycin(*) 1,000 MG in NS 0.9% 250 ML* 250 ML IVPB SCH ×4 (04:45→23:00)
[2018-08-12 06:50] LABS: BUN/Creatinine Ratio 10.3 (8-20); Calcium 8.6 mg/dL (8.6-10.3); EGFR African American 75.7 (>60); EGFR Non-African American 62.6 (>60); Potassium 3.7 mmol/L (3.5-5.0)
[2018-08-12 07:10] LABS: Hematocrit 37 % (42-52); Hemoglobin 12.3 g/dL (14.0-18.0); Mean Corpuscular HGB Conc 34 g/dL (31-36); Mean Corpuscular Hemoglobin 30 pg (27-31); Mean Corpuscular Volume 89 fL (80-94); Mean Platelet Volume 8.8 fL (7.4-10.4); Platelet Count 402 10^3/uL (150-450); Red Blood Count 4.12 10^6 /uL (4.18-5.48); Red Cell Distribution Width 14 % (10.5-15); White Blood Count 20.7 10^3/uL (3.5-10.8)
[2018-08-12 07:46] LABS: ABS Basophils 0.1 10^3/ul (0-0.2); ABS Eosinophils 0.1 10^3/ul (0-0.6); ABS Lymphocytes 4.7 10^3/ul (1.0-4.8); ABS Monocytes 1.9 10^3/ul (0-0.8); ABS Neutrophils 13.9 10^3/ul (1.5-7.7); Eosinophil % 0.5 %; Lymphocyte % 22.5 %; Nucleated Red Blood Cells % 0.1
[2018-08-12] MEDS: CMC:SitaGLIPtin (NF) 100 MG TAB PO SCH (07:52)
[2018-08-12] MEDS: Insulin GLARGINE(*) 1 UNITS UNIT SUBCUT SCH ×2 (07:53→20:00)
[2018-08-12] MEDS: Insulin LISPRO* 1 UNITS UNIT SUBCUT SCH ×3 (07:53→17:50)
--- NOTE | 2018-08-12 09:19 | PN ---
Subjective Date of Service: 08/12/18 Interval History: Pt feels well. Denies SOB, post op pain minimal Objective Active Medications: Acetaminophen (Tylenol Tab*) 650 mg PO Q4H PRN PRN Reason: FEVER Albuterol (Ventolin Hfa Inhaler*) 2 puff INH Q4HR PRN PRN Reason: WHEEZING Aspirin (Aspirin Ec Tab*) 81 mg PO DAILY [facility] Last Admin: 08/11/18 07:46 Dose: 81 mg Bisacodyl (Dulcolax Supp*) 10 mg [place] DAILY PRN PRN Reason: CONSTIPATION Dextrose (D50w Syringe 50 Ml*) 12.5 gm IV PUSH .FOR FS < 60 - SS PRN PRN Reason: FS < 60 Diphenhydramine HCl (Benadryl Iv*) 25 mg IV Q6H PRN PRN Reason: PRURITIS Docusate Sodium (Colace Cap*) 100 mg PO BID [facility] Fenofibrate (Tricor 160 Mg) 160 mg PO DAILY [facility]; Protocol Last Admin: 08/11/18 07:46 Dose: 160 mg Heparin Sodium (Porcine) (Heparin Vial(*)) 5,000 units SUBCUT Q8HR [facility] Vancomycin HCl 1,000 mg/ (Sodium Chloride) 250 mls @ 166.667 mls/hr IVPB 0415, 1015,1615,2215 [facility] Last Admin: 08/12/18 04:45 Dose: 166.667 mls/hr Piperacillin Sod/Tazobactam (Sod 3.375 gm/ Sodium Chloride) 100 mls @ 200 mls/ hr IVPB 0330,0930,1530,2130 [facility] Last Admin: 08/12/18 03:41 Dose: 200 mls/hr Insulin Glargine (Lantus(*)) 70 units SUBCUT Q24H [facility] Last Admin: 08/12/18 07:53 Dose: 70 units Insulin Glargine (Lantus(*)) 50 units SUBCUT BEDTIME [facility] Last Admin: 08/11/18 21:02 Dose: 50 units Insulin Human Lispro (Humalog*) 0 units SUBCUT AC [facility]; Protocol Last Admin: 08/12/18 07:53 Dose: 9 unit Lisinopril (Prinivil Tab*) 20 mg PO DAILY [facility] Metoclopramide HCl (Reglan Iv*) 10 mg IV Q6H PRN PRN Reason: NAUSEA Last Admin: 08/10/18 12:42 Dose: 10 mg Ondansetron HCl (Zofran Inj*) 4 mg IV Q6H PRN PRN Reason: NAUSEA Last Admin: 08/09/18 13:31 Dose: 4 mg Oxycodone/Acetaminophen (Percocet 5/325 Tab*) 1 tab PO Q4H PRN PRN Reason: PAIN Last Admin: 08/12/18 04:45 Dose: 1 tab Pharmacy Consult (Zosyn Per Pharmacy*) 1 note FOLLOW UP .ZOSYN PER PHARMACY [facility] Pharmacy Consult (Vancomycin Per Pharmacy*) 1 note FOLLOW UP . PRN PRN Reason: PER PROTOCOL Pharmacy Profile Note (Vancomycin Trough Check) 1 note FOLLOW UP ONCE ONE Stop: 08/13/18 10:01 Polyethylene Glycol/Electrolytes (Miralax*) 17 gm PO DAILY PRN PRN Reason: CONSTIPATION Pravastatin Sodium (Pravachol (Nf)) 40 mg PO BEDTIME [facility]; Protocol Last Admin: 08/11/18 21:01 Dose: 40 mg Sitagliptin Phosphate (Januvia (Nf)) 100 mg PO QAM [facility]; Protocol Last Admin: 08/12/18 07:52 Dose: 100 mg Vital Signs - 8 hr 08/12/18 08/12/18 08/12/18 02:19 03:50 04:45 Temperature 98.6 F Pulse Rate 61 Respiratory 18 18 20 Rate Blood Pressure 147/58 (mmHg) O2 Sat by Pulse 93 Oximetry 08/12/18 08/12/18 08/12/18 06:45 07:50 08:00 Temperature 98.5 F Pulse Rate 57 Respiratory 16 18 18 Rate Blood Pressure 121/61 (mmHg) O2 Sat by Pulse 92 Oximetry Oxygen Devices in Use Now: None Appearance: 67 yo M in nAD, AAOx3 Eyes: No Scleral Icterus, PERRLA Ears/Nose/Mouth/Throat: NL Teeth, Lips, Gums, Mucous Membranes Moist Neck: NL Appearance and Movements; NL JVP, Trachea Midline Respiratory: Symmetrical Chest Expansion and Respiratory Effort, Clear to Auscultation Cardiovascular: NL Sounds; No Murmurs; No JVD Abdominal: NL Sounds; No Tenderness; No Distention Lymphatic: No Cervical Adenopathy Extremities: No Clubbing, Cyanosis, - - trace b/l LE's edema, L ankle in cast post op Neurological: Alert and Oriented x 3, NL Muscle Strength and Tone Result Diagrams: 08/12/18 05:36 08/12/18 05:36 Microbiology and Other Data: Microbiology 08/11/18 12:51 Skin and Soft Tissue MRSA/MSSA (PCR - Final Foot Left Mrsa Positive S.aureus Positive Gram Stain - Final Assess/Plan/Problems-Billing Assessment: L foot cellulitis with possible osteomyelitis in a 67 yo M with hx of RLE osteo, DM, HTN, asthma - Patient Problems (1) Cellulitis of left foot Comment: Septic at admission due to cellulitis cont Vanc/Zosyn (prelim wound cx + MRSA), appreciate ID's assistance S/p left TMA 08/11/18 (2) Diabetes Comment: Continue Lispro SS. Cons carb diet. Metformin and 2 other oral agents on hold. lower dose of Lantus periop will be cont for the time being(Lantus was at 100 U QHS, now at 50 U) HbA1C 9.6 (3) HTN (hypertension) Comment: Continue home Lisinopril, controlled (4) COPD (chronic obstructive pulmonary disease) Comment: not in exacerbation, cont home inhalers (5) DVT prophylaxis Comment: HSQ Status and Disposition: medicine consult , will follow
[2018-08-12] MEDS: Polyethylene Glycol 3350* 17 GM PACKET PO PRN (09:38)
[2018-08-12] MEDS: FENOFIBRATE 160 MG PO SCH (09:38)
[2018-08-12] MEDS: Lisinopril TAB* 10 MG PO SCH (09:38)
[2018-08-12] MEDS: Aspirin EC TAB* 81 MG TAB.EC PO SCH (09:38)
[2018-08-12] MEDS: Docusate CAP* 100 MG PO SCH ×2 (09:39→19:59)
[2018-08-12] MEDS: Acetaminophen TAB* 325 MG PO PRN ×2 (10:35→19:59)
--- NOTE | 2018-08-12 10:42 | PN ---
Progress Note - Progress Note Date of Service: 08/12/18 SOAP: Subjective: []Patient seen OOB in G chair with feet elevated. He is doing well, in good spirits. Denies pain left amputation site. Objective: [] Vital Signs Temp 98.5 F 08/12/18 07:50 Pulse 57 08/12/18 07:50 Resp 18 08/12/18 08:00 BP 121/61 08/12/18 07:50 Pulse Ox 92 08/12/18 07:50 Intake & Output 08/11/18 08/12/18 08/12/18 18:59 06:59 18:59 Intake Total 1927 1588 500 Output Total 1650 2950 Balance 277 -1362 500 Intake: IV Fluids 1762 ABX - ZOSYN 91 LR 1671 IVPB 105 248 ABX - VANCOMYCIN 248 LR 105 Oral 60 1340 500 Output: Urine 1650 2950 Laboratory Results - last 24 hr 08/11/18 08/11/18 08/11/18 11:38 13:32 17:09 WBC RBC Hgb Hct MCV MCH MCHC RDW Plt Count MPV Neut % (Auto) Lymph % (Auto) [place] % (Auto) Eos % (Auto) Baso % (Auto) Absolute Neuts (auto) Absolute Lymphs (auto) Absolute Monos (auto) Absolute Eos (auto) Absolute Basos (auto) Absolute Nucleated RBC Nucleated RBC % Sodium Potassium Chloride Carbon Dioxide Anion Gap BUN Creatinine Est GFR ( Amer) Est GFR (Non-Af Amer) BUN/Creatinine Ratio Glucose POC Glucose (mg/dL) 83 81 195 H Calcium 08/12/18 08/12/18 05:36 05:36 WBC 20.7 H RBC 4.12 L Hgb 12.3 L Hct 37 L MCV 89 MCH 30 MCHC 34 RDW 14 Plt Count 402 MPV 8.8 Neut % (Auto) 67.2 Lymph % (Auto) 22.5 [place] % (Auto) 9.4 Eos % (Auto) 0.5 Baso % (Auto) 0.4 Absolute Neuts (auto) 13.9 H Absolute Lymphs (auto) 4.7 Absolute Monos (auto) 1.9 H Absolute Eos (auto) 0.1 Absolute Basos (auto) 0.1 Absolute Nucleated RBC 0.0 Nucleated RBC % 0.1 Sodium 136 Potassium 3.7 Chloride 106 Carbon Dioxide 23 Anion Gap 7 BUN 12 Creatinine 1.17 Est GFR ( Amer) 75.7 Est GFR (Non-Af Amer) 62.6 BUN/Creatinine Ratio 10.3 Glucose 251 H POC Glucose (mg/dL) Calcium 8.6 Left LLE splint dry and intact Assessment: []s/p transmetatarsal amputation with gastrocnemius recession LLE for infected foot POD #1 Plan: []NWB LLE on will need SNF rehab Follow up with Brandy Dunn PA-C next Wednesday.
--- NOTE | 2018-08-12 11:32 | PN ---
Progress Note - Progress Note Date of Service: 08/12/18 SOAP: Subjective: CC: Left foot infection HPI: Mr. Joiner is a 67 yo male with PMH significant for DM2, HTN and HLD. No complaints or concerns at this time. Denies fever, chills, shortness of breath, nausea, vomiting, diarrhea, or pain. Objective: Vital Signs - 8 hr 08/12/18 08/12/18 08/12/18 03:50 04:45 06:45 Temperature 98.6 F Pulse Rate 61 Respiratory 18 20 16 Rate Blood Pressure 147/58 (mmHg) O2 Sat by Pulse 93 Oximetry 08/12/18 08/12/18 07:50 08:00 Temperature 98.5 F Pulse Rate 57 Respiratory 18 18 Rate Blood Pressure 121/61 (mmHg) O2 Sat by Pulse 92 Oximetry Physical Exam: General: NAD, sitting up in a chair Neurological: Alert and Oriented HEENT: No thrush, moist MM Cardiovascular: Heart rate regular, no murmur Respiratory: Lung sounds clear bilateral Abdominal: Bowel sounds present; ABD large, soft and non tender Skin: Surgical dressing to the left LE Laboratory Results - last 24 hr 08/12/18 08/12/18 05:36 05:36 WBC 20.7 H RBC 4.12 L Hgb 12.3 L Hct 37 L MCV 89 MCH 30 MCHC 34 RDW 14 Plt Count 402 MPV 8.8 Neut % (Auto) 67.2 Lymph % (Auto) 22.5 [place] % (Auto) 9.4 Eos % (Auto) 0.5 Baso % (Auto) 0.4 Absolute Neuts (auto) 13.9 H Absolute Lymphs (auto) 4.7 Absolute Monos (auto) 1.9 H Absolute Eos (auto) 0.1 Absolute Basos (auto) 0.1 Absolute Nucleated RBC 0.0 Nucleated RBC % 0.1 Sodium 136 Potassium 3.7 Chloride 106 Carbon Dioxide 23 Anion Gap 7 BUN 12 Creatinine 1.17 Est GFR ( Amer) 75.7 Est GFR (Non-Af Amer) 62.6 BUN/Creatinine Ratio 10.3 Glucose 251 H POC Glucose (mg/dL) Calcium 8.6 Microbiology 08/11/18 12:51 Anaerobic Culture - Preliminary Wound 08/11/18 12:51 Skin and Soft Tissue MRSA/MSSA (PCR - Final Foot Left Mrsa Positive S.aureus Positive Gram Stain - Final Assessment: 1. Left foot cellulitis and myositis. Left foot MRI shows "diffuse edema in the subcutaneous tissue and plantar flexor muscles, no evidence of bone marrow replacement to suggest osteomyelitis". Normal DESIREE. S/P left transmetatarsal amputation and left gastrocnemius recession with Dr. Martinez, POD #1. Afebrile with leukocytosis. Initial cultures with PCR showing MRSA and staph aureus, final cultures pending. 2. DM2 with peripheral neuropathy. 3. Morbid obesity. BMI 40.4. Plan: Continue vancomycin, trough goal 15-20. Further recommendations will be based on final culture results.
[2018-08-12] MEDS: Heparin VIAL(*) 5000 UNITS/ML VIAL (FIVE THOUSAND) SUBCUT SCH ×2 (14:14→23:00)
[2018-08-12] MEDS: CMC:Pravastatin (NF) 20 MG TAB PO SCH (19:59)
[2018-08-13] MEDS: Vancomycin(*) 1,000 MG in NS 0.9% 250 ML* 250 ML IVPB SCH ×3 (05:15→16:26)
[2018-08-13 05:43] LABS: Hematocrit 39 % (42-52); Hemoglobin 13.2 g/dL (14.0-18.0); Mean Corpuscular HGB Conc 34 g/dL (31-36); Mean Corpuscular Hemoglobin 30 pg (27-31); Mean Corpuscular Volume 89 fL (80-94); Mean Platelet Volume 8.4 fL (7.4-10.4); Platelet Count 449 10^3/uL (150-450); Red Cell Distribution Width 14 % (10.5-15); White Blood Count 17.5 10^3/uL (3.5-10.8)
[2018-08-13] MEDS: Heparin VIAL(*) 5000 UNITS/ML VIAL (FIVE THOUSAND) SUBCUT SCH ×3 (05:57→21:27)
[2018-08-13 06:06] LABS: BUN/Creatinine Ratio 9.8 (8-20); Calcium 9.2 mg/dL (8.6-10.3); EGFR African American 71.5 (>60); EGFR Non-African American 59.1 (>60); Potassium 3.5 mmol/L (3.5-5.0)
[2018-08-13] MEDS: Insulin LISPRO* 1 UNITS UNIT SUBCUT SCH ×3 (07:16→17:48)
[2018-08-13 07:41] LABS: ABS Basophils 0.1 10^3/ul (0-0.2); ABS Eosinophils 0.2 10^3/ul (0-0.6); ABS Lymphocytes 4.2 10^3/ul (1.0-4.8); ABS Monocytes 1.7 10^3/ul (0-0.8); ABS Neutrophils 11.2 10^3/ul (1.5-7.7); Eosinophil % 1.4 %; Lymphocyte % 24.2 %
--- NOTE | 2018-08-13 08:00 | PN ---
Progress Note - Progress Note Date of Service: 08/13/18 SOAP: Subjective: resting comfortably, no pain, no complaints Objective: Laboratory Last Values WBC 17.5 10^3/uL (3.5-10.8) H 08/13/18 05:12 RBC 4.40 10^6 /uL (4.18-5.48) 08/13/18 05:12 Hgb 13.2 g/dL (14.0-18.0) L 08/13/18 05:12 Hct 39 % (42-52) L 08/13/18 05:12 MCV 89 fL (80-94) 08/13/18 05:12 MCH 30 pg (27-31) 08/13/18 05:12 MCHC 34 g/dL (31-36) 08/13/18 05:12 RDW 14 % (10.5-15) 08/13/18 05:12 Plt Count 449 10^3/uL (150-450) 08/13/18 05:12 MPV 8.4 fL (7.4-10.4) 08/13/18 05:12 Neut % (Auto) 64.1 % 08/13/18 05:12 Lymph % (Auto) 24.2 % 08/13/18 05:12 [place] % (Auto) 9.8 % 08/13/18 05:12 Eos % (Auto) 1.4 % 08/13/18 05:12 Baso % (Auto) 0.5 % 08/13/18 05:12 Absolute Neuts (auto) 11.2 10^3/ul (1.5-7.7) H 08/13/18 05:12 Absolute Lymphs (auto) 4.2 10^3/ul (1.0-4.8) 08/13/18 05:12 Absolute Monos (auto) 1.7 10^3/ul (0-0.8) H 08/13/18 05:12 Absolute Eos (auto) 0.2 10^3/ul (0-0.6) 08/13/18 05:12 Absolute Basos (auto) 0.1 10^3/ul (0-0.2) 08/13/18 05:12 Absolute Nucleated RBC 0.0 10^3/ul 08/13/18 05:12 Nucleated RBC % 0.0 08/13/18 05:12 INR (Anticoag Therapy) 1.12 (0.82-1.09) H 08/09/18 13:40 APTT 29.5 seconds (26.0-36.3) 08/09/18 13:40 Sodium 139 mmol/L (135-145) 08/13/18 05:12 Potassium 3.5 mmol/L (3.5-5.0) 08/13/18 05:12 Chloride 107 mmol/L (101-111) 08/13/18 05:12 Carbon Dioxide 26 mmol/L (22-32) 08/13/18 05:12 Anion Gap 6 mmol/L (2-11) 08/13/18 05:12 BUN 12 mg/dL (6-24) 08/13/18 05:12 Creatinine 1.23 mg/dL (0.67-1.17) H 08/13/18 05:12 Est GFR ( Amer) 71.5 (>60) 08/13/18 05:12 Est GFR (Non-Af Amer) 59.1 (>60) 08/13/18 05:12 BUN/Creatinine Ratio 9.8 (8-20) 08/13/18 05:12 Glucose 74 mg/dL (70-100) 08/13/18 05:12 POC Glucose (mg/dL) 69 mg/dL (70-100) L 08/13/18 07:08 Hemoglobin A1c 9.6 % (4.0-5.6) H 08/09/18 19:57 Serum Osmolality 301 mOsm/kg (275-295) H 08/09/18 16:07 Lactic Acid 1.6 mmol/L (0.5-2.0) 08/09/18 16:07 Calcium 9.2 mg/dL (8.6-10.3) 08/13/18 05:12 Vancomycin Trough 13.2 mcg/mL 08/11/18 09:51 Vital Signs Temp Pulse Resp BP Pulse Ox 98.6 F 63 18 120/59 93 08/13/18 07:50 08/13/18 07:50 08/13/18 07:50 08/13/18 07:50 08/13/18 07:50 LLE splint c/d/i Assessment: s/p left transmetatarsal amp Plan: 1) NWB LLE 2) continue IV abx 3) Heparin for DVT prophylaxis 4) will need inpatient rehab
[2018-08-13] MEDS: Lisinopril TAB* 10 MG PO SCH (08:48)
[2018-08-13] MEDS: CMC:SitaGLIPtin (NF) 100 MG TAB PO SCH (08:48)
[2018-08-13] MEDS: FENOFIBRATE 160 MG PO SCH (08:49)
[2018-08-13] MEDS: Aspirin EC TAB* 81 MG TAB.EC PO SCH (08:49)
[2018-08-13] MEDS: Docusate CAP* 100 MG PO SCH ×2 (08:49→21:27)
[2018-08-13] MEDS: Insulin GLARGINE(*) 1 UNITS UNIT SUBCUT SCH ×2 (08:49→21:27)
[2018-08-13] MEDS: Acetaminophen TAB* 325 MG PO PRN (09:38)
[2018-08-13] MEDS ORDERED: Vancomycin Trough Check NOTE FOLLOW UP ONE (10:00)
[2018-08-13 10:48] LABS: EGFR African American 72.1 (>60); EGFR Non-African American 59.6 (>60)
[2018-08-13 11:14] LABS: Vancomycin Trough 22.5 mcg/mL
[2018-08-13] MEDS: Ondansetron INJ* 2 MG/ML VIAL IV PRN (17:52)
[2018-08-13] MEDS: CMC:Pravastatin (NF) 20 MG TAB PO SCH (21:27)
[2018-08-14] MEDS: Vancomycin(*) 1,000 MG in NS 0.9% 250 ML* 250 ML IVPB SCH ×4 (00:52→23:33)
[2018-08-14] MEDS: Heparin VIAL(*) 5000 UNITS/ML VIAL (FIVE THOUSAND) SUBCUT SCH ×3 (05:43→20:57)
--- NOTE | 2018-08-14 07:28 | PN ---
Progress Note - Progress Note Date of Service: 08/14/18 SOAP: Subjective: resting comfortably, no pain, no calf pain/SOB Objective: Vital Signs Temp Pulse Resp BP Pulse Ox 98.3 F 57 20 134/48 91 08/14/18 04:30 08/14/18 04:30 08/14/18 04:30 08/14/18 04:30 08/14/18 04:30 Laboratory Last Values WBC 17.5 10^3/uL (3.5-10.8) H 08/13/18 05:12 RBC 4.40 10^6 /uL (4.18-5.48) 08/13/18 05:12 Hgb 13.2 g/dL (14.0-18.0) L 08/13/18 05:12 Hct 39 % (42-52) L 08/13/18 05:12 MCV 89 fL (80-94) 08/13/18 05:12 MCH 30 pg (27-31) 08/13/18 05:12 MCHC 34 g/dL (31-36) 08/13/18 05:12 RDW 14 % (10.5-15) 08/13/18 05:12 Plt Count 449 10^3/uL (150-450) 08/13/18 05:12 MPV 8.4 fL (7.4-10.4) 08/13/18 05:12 Neut % (Auto) 64.1 % 08/13/18 05:12 Lymph % (Auto) 24.2 % 08/13/18 05:12 [place] % (Auto) 9.8 % 08/13/18 05:12 Eos % (Auto) 1.4 % 08/13/18 05:12 Baso % (Auto) 0.5 % 08/13/18 05:12 Absolute Neuts (auto) 11.2 10^3/ul (1.5-7.7) H 08/13/18 05:12 Absolute Lymphs (auto) 4.2 10^3/ul (1.0-4.8) 08/13/18 05:12 Absolute Monos (auto) 1.7 10^3/ul (0-0.8) H 08/13/18 05:12 Absolute Eos (auto) 0.2 10^3/ul (0-0.6) 08/13/18 05:12 Absolute Basos (auto) 0.1 10^3/ul (0-0.2) 08/13/18 05:12 Absolute Nucleated RBC 0.0 10^3/ul 08/13/18 05:12 Nucleated RBC % 0.0 08/13/18 05:12 INR (Anticoag Therapy) 1.12 (0.82-1.09) H 08/09/18 13:40 APTT 29.5 seconds (26.0-36.3) 08/09/18 13:40 Sodium 139 mmol/L (135-145) 08/13/18 05:12 Potassium 3.5 mmol/L (3.5-5.0) 08/13/18 05:12 Chloride 107 mmol/L (101-111) 08/13/18 05:12 Carbon Dioxide 26 mmol/L (22-32) 08/13/18 05:12 Anion Gap 6 mmol/L (2-11) 08/13/18 05:12 BUN 12 mg/dL (6-24) 08/13/18 10:25 Creatinine 1.22 mg/dL (0.67-1.17) H 08/13/18 10:25 Est GFR ( Amer) 72.1 (>60) 08/13/18 10:25 Est GFR (Non-Af Amer) 59.6 (>60) 08/13/18 10:25 BUN/Creatinine Ratio 9.8 (8-20) 08/13/18 05:12 Glucose 74 mg/dL (70-100) 08/13/18 05:12 POC Glucose (mg/dL) 144 mg/dL (70-100) H 08/13/18 16:54 Hemoglobin A1c 9.6 % (4.0-5.6) H 08/09/18 19:57 Serum Osmolality 301 mOsm/kg (275-295) H 08/09/18 16:07 Lactic Acid 1.6 mmol/L (0.5-2.0) 08/09/18 16:07 Calcium 9.2 mg/dL (8.6-10.3) 08/13/18 05:12 Vancomycin Trough 22.5 mcg/mL 08/13/18 10:25 incision: splint c/d/i Assessment: s/p left LE transmetatarsal amputation Plan: 1) NWB LLE 2) continue IV abx 3) needs SNF placement 4) Heparin for DVT prophylaxis 5) F/U with ortho next todd
[2018-08-14] MEDS: Insulin LISPRO* 1 UNITS UNIT SUBCUT SCH ×3 (07:42→17:56)
[2018-08-14] MEDS: Aspirin EC TAB* 81 MG TAB.EC PO SCH (07:52)
[2018-08-14] MEDS: Lisinopril TAB* 10 MG PO SCH (07:52)
[2018-08-14] MEDS: Polyethylene Glycol 3350* 17 GM PACKET PO PRN (07:52)
[2018-08-14] MEDS: CMC:SitaGLIPtin (NF) 100 MG TAB PO SCH (07:52)
[2018-08-14] MEDS: Docusate CAP* 100 MG PO SCH ×2 (07:52→20:55)
[2018-08-14] MEDS: FENOFIBRATE 160 MG PO SCH (08:13)
[2018-08-14] MEDS: Insulin GLARGINE(*) 1 UNITS UNIT SUBCUT SCH ×2 (09:12→20:56)
[2018-08-14] MEDS: Senna TAB PO PRN ×2 (15:53→20:55)
--- NOTE | 2018-08-14 20:28 | PN ---
Progress Note - Progress Note Date of Service: 08/14/18 Note: Two mornings with hypoglycemia - normally takes Lantus 100 units in AM. Will decrease his PM from 50 to 35 units and decrease his AM from 70 to 60 units and continue to adjust accordingly.
[2018-08-14] MEDS: CMC:Pravastatin (NF) 20 MG TAB PO SCH (20:55)
[2018-08-15] MEDS: Ondansetron INJ* 2 MG/ML VIAL IV PRN (00:01)
[2018-08-15] MEDS: Acetaminophen TAB* 325 MG PO PRN (03:59)
[2018-08-15] MEDS: Heparin VIAL(*) 5000 UNITS/ML VIAL (FIVE THOUSAND) SUBCUT SCH ×3 (06:01→21:02)
[2018-08-15] MEDS: Insulin LISPRO* 1 UNITS UNIT SUBCUT SCH ×3 (08:25→17:52)
[2018-08-15] MEDS: Vancomycin Trough Check NOTE FOLLOW UP ONE ×2 (08:26→10:11)
[2018-08-15] MEDS: Vancomycin(*) 1,000 MG in NS 0.9% 250 ML* 250 ML IVPB SCH ×4 (08:31→12:07)
--- NOTE | 2018-08-15 09:19 | PN ---
Subjective Date of Service: 08/15/18 Interval History: Two AMs with hypoglycemia. Insulin regimen adjusted overnight and BG wnl this morning. Patient has no complaints and is feeling well. Had a BM this morning. Reports pain is well controlled. Denies chest pain, difficulty breathing, abd pain, nausea, vomiting, visual changes, dizziness. Objective Active Medications: Acetaminophen (Tylenol Tab*) 650 mg PO Q4H PRN PRN Reason: FEVER Last Admin: 08/15/18 03:59 Dose: 650 mg Albuterol (Ventolin Hfa Inhaler*) 2 puff INH Q4HR PRN PRN Reason: WHEEZING Aspirin (Aspirin Ec Tab*) 81 mg PO DAILY [facility] Last Admin: 08/14/18 07:52 Dose: 81 mg Bisacodyl (Dulcolax Supp*) 10 mg RI DAILY PRN PRN Reason: CONSTIPATION Last Admin: 08/15/18 07:40 Dose: 10 mg Dextrose (D50w Syringe 50 Ml*) 12.5 gm IV PUSH .FOR FS < 60 - SS PRN PRN Reason: FS < 60 Diphenhydramine HCl (Benadryl Iv*) 25 mg IV Q6H PRN PRN Reason: PRURITIS Docusate Sodium (Colace Cap*) 100 mg PO BID [facility] Last Admin: 08/14/18 20:55 Dose: 100 mg Fenofibrate (Tricor 160 Mg) 160 mg PO DAILY [facility]; Protocol Last Admin: 08/14/18 08:13 Dose: 160 mg Heparin Sodium (Porcine) (Heparin Vial(*)) 5,000 units SUBCUT Q8HR [facility] Last Admin: 08/15/18 06:01 Dose: 5,000 units Vancomycin HCl 1,000 mg/ (Sodium Chloride) 250 mls @ 166.667 mls/hr IVPB 0000, 0800,1600 [facility] Last Admin: 08/14/18 23:33 Dose: 166.667 mls/hr Insulin Glargine (Lantus(*)) 35 units SUBCUT BEDTIME [facility] Last Admin: 08/14/18 20:56 Dose: 35 units Insulin Glargine (Lantus(*)) 65 units SUBCUT Q24H [facility] Insulin Human Lispro (Humalog*) 0 units SUBCUT AC [facility]; Protocol Last Admin: 08/15/18 08:25 Dose: Not Given Lactulose (Lactulose*) 30 ml PO QID PRN PRN Reason: CONSTIPATION Last Admin: 08/14/18 15:53 Dose: 30 ml Lisinopril (Prinivil Tab*) 20 mg PO DAILY [facility] Last Admin: 08/14/18 07:52 Dose: 20 mg Metoclopramide HCl (Reglan Iv*) 10 mg IV Q6H PRN PRN Reason: NAUSEA Last Admin: 08/10/18 12:42 Dose: 10 mg Ondansetron HCl (Zofran Inj*) 4 mg IV Q6H PRN PRN Reason: NAUSEA Last Admin: 08/15/18 00:01 Dose: 4 mg Oxycodone/Acetaminophen (Percocet 5/325 Tab*) 1 tab PO Q4H PRN PRN Reason: PAIN Last Admin: 08/12/18 04:45 Dose: 1 tab Pharmacy Consult (Vancomycin Per Pharmacy*) 1 note FOLLOW UP . PRN PRN Reason: PER PROTOCOL Polyethylene Glycol/Electrolytes (Miralax*) 17 gm PO DAILY PRN PRN Reason: CONSTIPATION Last Admin: 08/14/18 07:52 Dose: 17 gm Pravastatin Sodium (Pravachol (Nf)) 40 mg PO BEDTIME [facility]; Protocol Last Admin: 08/14/18 20:55 Dose: 40 mg Senna (Senokot Tab*) 2 tab PO DAILY PRN PRN Reason: CONSTIPATION Last Admin: 08/14/18 20:55 Dose: 2 tab Sitagliptin Phosphate (Januvia (Nf)) 100 mg PO QAM [facility]; Protocol Last Admin: 08/14/18 07:52 Dose: 100 mg Vital Signs - 8 hr 08/15/18 08/15/18 08/15/18 04:05 07:38 08:00 Temperature 100.1 F 97.8 F Pulse Rate 68 66 Respiratory 20 20 18 Rate Blood Pressure 138/72 122/62 (mmHg) O2 Sat by Pulse 93 90 Oximetry Oxygen Devices in Use Now: None Appearance: Obese, white male, laying upright in hospital bed, appearing in NAD Eyes: No Scleral Icterus, PERRLA Ears/Nose/Mouth/Throat: Mucous Membranes Moist Neck: NL Appearance and Movements; NL JVP Respiratory: Symmetrical Chest Expansion and Respiratory Effort, - - Minimally decreased respirations in bilateral lung bases, otherwise clear to auscultation Cardiovascular: NL Sounds; No Murmurs; No JVD, RRR Abdominal: - - Obese abdomen, abd soft/nontender/nondistended Extremities: No Edema, No Clubbing, Cyanosis, - - Right amputation to ankle, left TMA; neg calf tenderness Neurological: Alert and Oriented x 3, NL Muscle Strength and Tone, - - Patient pleasant and cooperative Result Diagrams: 08/15/18 09:26 08/15/18 09:26 Microbiology and Other Data: Microbiology 08/11/18 12:51 Skin and Soft Tissue MRSA/MSSA (PCR - Final Foot Left Mrsa Positive S.aureus Positive Gram Stain - Final Assess/Plan/Problems-Billing Assessment: L foot cellulitis with possible osteomyelitis in a 67 yo M with hx of RLE osteo, DM, HTN, asthma, s/p left TMA on 08/11 - Patient Problems (1) Cellulitis of left foot Code(s): L03.116 - CELLULITIS OF LEFT LOWER LIMB SNOMED Code(s): 411298731 Comment: -Septic at admission due to cellulitis, resolved -associated with myositis -S/p left TMA 08/11/18 -vancomycin ordered for now, will be adjusted per ID recommendations -culture demonstrates Finegoldia magia, sensitivities pending; initial PCR MRSA positive (2) Diabetes Code(s): E11.9 - TYPE 2 DIABETES MELLITUS WITHOUT COMPLICATIONS SNOMED Code(s) : 42560443 Comment: -Continue Lispro SS. Cons carb diet. Continue home sitagliptin. Home canagliflozin and metformin on hold. -AM insulin glarine decreased from 70 to 65 units and PM glargine decreased from 50 to 35 due to frequent morning hypoglycemia -BG wnl, will continue this regimen for now and continue to monitor -HbA1C 9.6 (3) HTN (hypertension) Code(s): I10 - ESSENTIAL (PRIMARY) HYPERTENSION SNOMED Code(s): 08979814 Comment: -normotensive -Continue home Lisinopril (4) COPD (chronic obstructive pulmonary disease) Code(s): J44.9 - CHRONIC OBSTRUCTIVE PULMONARY DISEASE, UNSPECIFIED SNOMED Code(s): 30994100 Comment: -not in acute exacerbation -continue home inhalers (5) DVT prophylaxis Code(s): NMI6993 - SNOMED Code(s): 745720049 Comment: -continue heparin SQ (6) Full code status Code(s): Z78.9 - OTHER SPECIFIED HEALTH STATUS SNOMED Code(s): 041472129 Status and Disposition: medicine consult , will follow Per orthopedic surgery
[2018-08-15] MEDS: Aspirin EC TAB* 81 MG TAB.EC PO SCH (09:26)
[2018-08-15] MEDS: CMC:SitaGLIPtin (NF) 100 MG TAB PO SCH (09:26)
[2018-08-15] MEDS: Docusate CAP* 100 MG PO SCH ×2 (09:26→21:02)
[2018-08-15] MEDS: Lisinopril TAB* 10 MG PO SCH (09:26)
[2018-08-15] MEDS: FENOFIBRATE 160 MG PO SCH (09:27)
[2018-08-15] MEDS: Insulin GLARGINE(*) 1 UNITS UNIT SUBCUT SCH ×2 (09:28→21:03)
[2018-08-15 09:41] LABS: Hematocrit 39 % (42-52); Hemoglobin 13.2 g/dL (14.0-18.0); Mean Corpuscular HGB Conc 34 g/dL (31-36); Mean Corpuscular Hemoglobin 31 pg (27-31); Mean Corpuscular Volume 90 fL (80-94); Mean Platelet Volume 8.2 fL (7.4-10.4); Platelet Count 476 10^3/uL (150-450); Red Blood Count 4.33 10^6 /uL (4.18-5.48); Red Cell Distribution Width 14 % (10.5-15); White Blood Count 16.2 10^3/uL (3.5-10.8)
[2018-08-15 09:53] LABS: BUN/Creatinine Ratio 10.6 (8-20); Calcium 9.5 mg/dL (8.6-10.3); EGFR Non-African American 50.4 (>60); Potassium 3.9 mmol/L (3.5-5.0)
--- NOTE | 2018-08-15 11:28 | PN ---
Progress Note - Progress Note Date of Service: 08/15/18 SOAP: Subjective: []Patient seen and examined at bedside. He feels well without fever, chills, CP , SOB, dizziness, nausea. Tmax 100.2 in the past 24 hours Objective: []General: Appears well, NAD LLE: Splint CDI, no erythema proximally Right calf supple and nontender Assessment: [] s/p left LE transmetatarsal amputation Plan: 1) NWB LLE 2) continue IV abx: vanco 3) needs SNF placement, prefers DC home but requires radha lift when fatigued and not cleared by PT to safely do stairs 4) Heparin for DVT prophylaxis 5) F/U with ortho wednesday Vital Signs Temp 97.8 F 08/15/18 07:38 Pulse 66 08/15/18 07:38 Resp 18 08/15/18 08:00 BP 122/62 08/15/18 07:38 Pulse Ox 90 08/15/18 07:38 Intake & Output 08/14/18 08/15/18 08/15/18 18:59 06:59 18:59 Intake Total 2673 1105 240 Output Total 2225 3305 Balance 448 -2200 240 Intake: IV Fluids 60 20 NS (0.9%) 60 20 IVPB 573 285 ABX - VANCOMYCIN 573 285 Oral 2040 800 240 Output: Urine 2225 3305 Other: # Bowel Movements 1 Estimated Stool Amount Medium Laboratory Last Values WBC 16.2 10^3/uL (3.5-10.8) H 08/15/18 09:26 RBC 4.33 10^6 /uL (4.18-5.48) 08/15/18 09:26 Hgb 13.2 g/dL (14.0-18.0) L 08/15/18 09:26 Hct 39 % (42-52) L 08/15/18 09:26 MCV 90 fL (80-94) 08/15/18 09:26 MCH 31 pg (27-31) 08/15/18 09:26 MCHC 34 g/dL (31-36) 08/15/18 09:26 RDW 14 % (10.5-15) 08/15/18 09:26 Plt Count 476 10^3/uL (150-450) H 08/15/18 09:26 MPV 8.2 fL (7.4-10.4) 08/15/18 09:26 Neut % (Auto) 64.1 % 08/13/18 05:12 Lymph % (Auto) 24.2 % 08/13/18 05:12 [place] % (Auto) 9.8 % 08/13/18 05:12 Eos % (Auto) 1.4 % 08/13/18 05:12 Baso % (Auto) 0.5 % 08/13/18 05:12 Absolute Neuts (auto) 11.2 10^3/ul (1.5-7.7) H 08/13/18 05:12 Absolute Lymphs (auto) 4.2 10^3/ul (1.0-4.8) 08/13/18 05:12 Absolute Monos (auto) 1.7 10^3/ul (0-0.8) H 08/13/18 05:12 Absolute Eos (auto) 0.2 10^3/ul (0-0.6) 08/13/18 05:12 Absolute Basos (auto) 0.1 10^3/ul (0-0.2) 08/13/18 05:12 Absolute Nucleated RBC 0.0 10^3/ul 08/13/18 05:12 Nucleated RBC % 0.0 08/13/18 05:12 INR (Anticoag Therapy) 1.12 (0.82-1.09) H 08/09/18 13:40 APTT 29.5 seconds (26.0-36.3) 08/09/18 13:40 Sodium 138 mmol/L (135-145) 08/15/18 09:26 Potassium 3.9 mmol/L (3.5-5.0) 08/15/18 09:26 Chloride 102 mmol/L (101-111) 08/15/18 09:26 Carbon Dioxide 30 mmol/L (22-32) 08/15/18 09:26 Anion Gap 6 mmol/L (2-11) 08/15/18 09:26 BUN 15 mg/dL (6-24) 08/15/18 09:26 Creatinine 1.41 mg/dL (0.67-1.17) H 08/15/18 09:26 Est GFR ( Amer) 61.0 (>60) 08/15/18 09:26 Est GFR (Non-Af Amer) 50.4 (>60) 08/15/18 09:26 BUN/Creatinine Ratio 10.6 (8-20) 08/15/18 09:26 Glucose 91 mg/dL (70-100) 08/15/18 09:26 POC Glucose (mg/dL) 72 mg/dL (70-100) 08/15/18 07:42 Hemoglobin A1c 9.6 % (4.0-5.6) H 08/09/18 19:57 Serum Osmolality 301 mOsm/kg (275-295) H 08/09/18 16:07 Lactic Acid 1.6 mmol/L (0.5-2.0) 08/09/18 16:07 Calcium 9.5 mg/dL (8.6-10.3) 08/15/18 09:26 Vancomycin Trough 20.5 mcg/mL 08/15/18 09:26
[2018-08-15] MEDS: CMC:Pravastatin (NF) 20 MG TAB PO SCH (21:02)
[2018-08-16] MEDS: Vancomycin(*) 1,000 MG in NS 0.9% 250 ML* 250 ML IVPB SCH ×2 (00:18→12:07)
[2018-08-16] MEDS: Heparin VIAL(*) 5000 UNITS/ML VIAL (FIVE THOUSAND) SUBCUT SCH ×3 (05:19→21:35)
[2018-08-16] MEDS: Insulin LISPRO* 1 UNITS UNIT SUBCUT SCH ×3 (07:58→16:54)
[2018-08-16 09:11] LABS: EGFR African American 64.2 (>60)
[2018-08-16] MEDS: Insulin GLARGINE(*) 1 UNITS UNIT SUBCUT SCH (09:34)
[2018-08-16] MEDS: Lisinopril TAB* 10 MG PO SCH (09:35)
[2018-08-16] MEDS: Docusate CAP* 100 MG PO SCH ×2 (09:35→21:35)
[2018-08-16] MEDS: FENOFIBRATE 160 MG PO SCH (09:35)
[2018-08-16] MEDS: CMC:SitaGLIPtin (NF) 100 MG TAB PO SCH (09:35)
[2018-08-16] MEDS: Aspirin EC TAB* 81 MG TAB.EC PO SCH (09:35)
--- NOTE | 2018-08-16 10:27 | PN ---
Progress Note - Progress Note Date of Service: 08/16/18 SOAP: Subjective: []Pt seen at bedside. He feels very well without fever or chills. Denies CP, SOB , dizziness, nausea. He is agreeable to rehab. Objective: [] General: Appears well, NAD LLE: Splint CDI, no erythema proximally Right calf supple and nontender Assessment: [] s/p left LE transmetatarsal amputation Plan: 1) NWB LLE 2) continue IV abx: vanco 3) needs SNF placement 4) Heparin for DVT prophylaxis 5) F/U with ortho wednesday Vital Signs Temp 97.9 F 08/16/18 07:56 Pulse 66 08/16/18 07:56 Resp 20 08/16/18 07:56 BP 132/62 08/16/18 07:56 Pulse Ox 93 08/16/18 07:56 Intake & Output 08/15/18 08/16/18 08/16/18 18:59 06:59 18:59 Intake Total 1040 3200 480 Output Total 1600 2280 750 Balance -560 920 -270 Intake: IVPB 260 ABX - VANCOMYCIN 260 Oral 1040 2940 480 Output: Urine 1450 2280 750 Emesis 150 Other: # Bowel Movements 1 0 Estimated Stool Amount Medium # Voids 2 Laboratory Last Values WBC 16.2 10^3/uL (3.5-10.8) H 08/15/18 09:26 RBC 4.33 10^6 /uL (4.18-5.48) 08/15/18 09:26 Hgb 13.2 g/dL (14.0-18.0) L 08/15/18 09:26 Hct 39 % (42-52) L 08/15/18 09:26 MCV 90 fL (80-94) 08/15/18 09:26 MCH 31 pg (27-31) 08/15/18 09:26 MCHC 34 g/dL (31-36) 08/15/18 09:26 RDW 14 % (10.5-15) 08/15/18 09:26 Plt Count 476 10^3/uL (150-450) H 08/15/18 09:26 MPV 8.2 fL (7.4-10.4) 08/15/18 09:26 Neut % (Auto) 64.1 % 08/13/18 05:12 Lymph % (Auto) 24.2 % 08/13/18 05:12 [place] % (Auto) 9.8 % 08/13/18 05:12 Eos % (Auto) 1.4 % 08/13/18 05:12 Baso % (Auto) 0.5 % 08/13/18 05:12 Absolute Neuts (auto) 11.2 10^3/ul (1.5-7.7) H 08/13/18 05:12 Absolute Lymphs (auto) 4.2 10^3/ul (1.0-4.8) 08/13/18 05:12 Absolute Monos (auto) 1.7 10^3/ul (0-0.8) H 08/13/18 05:12 Absolute Eos (auto) 0.2 10^3/ul (0-0.6) 08/13/18 05:12 Absolute Basos (auto) 0.1 10^3/ul (0-0.2) 08/13/18 05:12 Absolute Nucleated RBC 0.0 10^3/ul 08/13/18 05:12 Nucleated RBC % 0.0 08/13/18 05:12 INR (Anticoag Therapy) 1.12 (0.82-1.09) H 08/09/18 13:40 APTT 29.5 seconds (26.0-36.3) 08/09/18 13:40 Sodium 138 mmol/L (135-145) 08/15/18 09:26 Potassium 3.9 mmol/L (3.5-5.0) 08/15/18 09:26 Chloride 102 mmol/L (101-111) 08/15/18 09:26 Carbon Dioxide 30 mmol/L (22-32) 08/15/18 09:26 Anion Gap 6 mmol/L (2-11) 08/15/18 09:26 BUN 18 mg/dL (6-24) 08/16/18 08:11 Creatinine 1.35 mg/dL (0.67-1.17) H 08/16/18 08:11 Est GFR ( Amer) 64.2 (>60) 08/16/18 08:11 Est GFR (Non-Af Amer) 53.0 (>60) 08/16/18 08:11 BUN/Creatinine Ratio 10.6 (8-20) 08/15/18 09:26 Glucose 91 mg/dL (70-100) 08/15/18 09:26 POC Glucose (mg/dL) 97 mg/dL (70-100) 08/16/18 08:14 Hemoglobin A1c 9.6 % (4.0-5.6) H 08/09/18 19:57 Serum Osmolality 301 mOsm/kg (275-295) H 08/09/18 16:07 Lactic Acid 1.6 mmol/L (0.5-2.0) 08/09/18 16:07 Calcium 9.5 mg/dL (8.6-10.3) 08/15/18 09:26 Vancomycin Trough 20.5 mcg/mL 08/15/18 09:26
--- NOTE | 2018-08-16 14:40 | DS ---
Orthopedic Discharge Summary - Discharge Summary Date of Admission:08/09/18 Date of Discharge: 08/17/18 Date of Surgery: 08/11/18 Attending Orthopedic Provider: Dr Martinez Pre-operative Diagnosis: Left forefoot infection and gastrocnemius contracture Operative Procedure: 1. Left foot transmetatarsal amputation 2. Left gastrocnemius recession (Savage procedure) Disposition of Patient: [facility] Condition of Patient: stable History: VALERI CORRALES is a 67 year old M with a left forefoot infection and gastrocnemius contracture Hospital Course: VALERI was admitted to [facility] on 08/09/18. Patient underwent a [left transmetatarsal amputation and left gastrocnemius recession] without complication followed by a brief recovery in PACU and transfer to the Short Stay Surgical Unit in stable condition. During his stay our hospitalist service also assist in managing his comorbid conditions with alteration of glargine dose recommedation of inulin glargine 25 units QHS, 60 units QAM. Infectious disease managed his antibiotics, he was on vancomycin in house with culture results demonstrating finegoldia magna, MSSA, MRSA, Group B strep. At discharge antibiotic recommendation per ID is doxycycline 100 mg po BID x 2 weeks. His Splint remained clean, dry and intact throughout his stay. Exam 08/17 patient appeared well, he denies CP, SOB, dizziness, nausea, fever or chills. Splint is CDI. Left calf proximal to the splint and Right calf without erythema or edema. Discharge medications Albuterol HFA INHALER* [Ventolin HFA Inhaler*] 2 puff INH Q4HR PRN 08/03/13 [ History Confirmed 08/09/18] Lisinopril TAB* [Prinivil TAB 10 MG*] 20 mg PO QAM 08/03/13 [History Confirmed 08/09/18] metFORMIN* [Glucophage 1000 MG TAB *] 1,000 mg PO BID 08/03/13 [History Confirmed 08/09/18] SitaGLIPtin (NF) [Januvia (NF)] 100 mg PO QAM 11/11/15 [History Confirmed ] Aspirin EC TAB* [Ecotrin EC Low Dose 81 MG*] 81 mg PO DAILY 04/20/16 [History Confirmed 08/09/18] Canagliflozin (NF) [Invokana (NF)] 300 mg PO DAILY 04/20/16 [History Confirmed 08/09/18] Fenofibrate [Tricor 160 MG] 160 mg PO DAILY 04/20/16 [History Confirmed 08/09/18 ] Pravastatin (NF) [Pravachol (NF)] 40 mg PO BEDTIME 04/20/16 [History Confirmed 08/09/18] Senna TAB* [Senokot TAB*] 1 tab PO DAILY PRN #60 tab 04/27/16 [Rx Confirmed ] Acetaminophen TAB* [Tylenol TAB*] 650 mg PO Q4H PRN #0 tab 04/28/16 [Rx Confirmed 08/09/18] Bisacodyl SUPP* [Dulcolax Supp*] 10 mg LA DAILY PRN #0 supp 04/28/16 [Rx Confirmed 08/09/18] Docusate CAP* [Colace Cap*] 100 mg PO BID PRN #0 cap 04/28/16 [Rx Confirmed ] Polyethylene Glycol 3350* [Miralax*] 17 gm PO DAILY PRN #0 packet 04/28/16 [Rx Confirmed 08/09/18] oxyCODONE TAB* [Roxycodone TAB 5 mg*] 5 mg PO Q3H PRN #0 tab MDD 8 tabs [Rx Confirmed 08/09/18] DOXYcycline CAP(*) [DOXYcycline 100MG CAP(*)] 100 mg PO BID 14 Days cap [Rx] Docusate CAP* [Colace Cap*] 100 mg PO BID cap 08/17/18 [Rx] Enoxaparin(*) [Lovenox(*)] 40 mg SUBCUT Q24HR #30 syringe 08/17/18 [Rx] Insulin GLARGINE(*) [Lantus(*)] 25 units SUBCUT BEDTIME unit 08/17/18 [Rx] Insulin GLARGINE(*) [Lantus(*)] 60 units SUBCUT Q24H unit 08/17/18 [Rx] Discharge Instruction Nonweightbearing left lower extremity Keep splint clean, dry and intact Antibiotics: doxycycline 100 mg 1 tab every 12 hours for 2 weeks DVT prophylaxis: Lovenox 40 mg subq injection once daily while leg is immobilized Dr Castellano Infectious disease office will call you for follow up appointment Follow up with Orthopedics, Brandy Dunn PA-C 08/19 for wound check Call orthopedics for an appointment as well as with any concerns [phone] Go to the emergency room with chest pain or shortness of breath Call the orthopedic office with fever, chills, redness, drainage, increased pain Hospital medicine recommendations: -Diabetes management -return to home medications of canagliflozin, sitagliptin, and metformin -Insulin glargine 25 units qhs -Insulin glargine 60 units qAM -Please monitor patient closely for morning hypoglycemia -hypertension management -continue home lisinopril 20 mg po
--- NOTE | 2018-08-16 19:37 | PN ---
Subjective Date of Service: 08/16/18 Interval History: Patient without complaints and feeling well. Denies fever/chills, chest pain, abd pain, difficulty breathing, pain at site of amputation. Objective Active Medications: Acetaminophen (Tylenol Tab*) 650 mg PO Q4H PRN PRN Reason: FEVER Last Admin: 08/15/18 03:59 Dose: 650 mg Albuterol (Ventolin Hfa Inhaler*) 2 puff INH Q4HR PRN PRN Reason: WHEEZING Aspirin (Aspirin Ec Tab*) 81 mg PO DAILY FORMERLY [facility], [facility] Last Admin: 08/16/18 09:35 Dose: 81 mg Bisacodyl (Dulcolax Supp*) 10 mg ME DAILY PRN PRN Reason: CONSTIPATION Last Admin: 08/15/18 07:40 Dose: 10 mg Dextrose (D50w Syringe 50 Ml*) 12.5 gm IV PUSH .FOR FS < 60 - SS PRN PRN Reason: FS < 60 Diphenhydramine HCl (Benadryl Iv*) 25 mg IV Q6H PRN PRN Reason: PRURITIS Docusate Sodium (Colace Cap*) 100 mg PO BID FOR[facility]LY [facility], [facility]1983 Last Admin: 08/16/18 09:35 Dose: 100 mg Doxycycline Hyclate (Vibramycin Cap(*)) 100 mg PO BID FOR[facility], [facility] Fenofibrate (Tricor 160 Mg) 160 mg PO DAILY FOR[facility]LY [facility], [facility]; Protocol Last Admin: 08/16/18 09:35 Dose: 160 mg Heparin Sodium (Porcine) (Heparin Vial(*)) 5,000 units SUBCUT Q8HR FOR[facility], [facility] Last Admin: 08/16/18 13:43 Dose: 5,000 units Insulin Glargine (Lantus(*)) 65 units SUBCUT Q24H [facility] Last Admin: 08/16/18 09:34 Dose: 65 units Insulin Glargine (Lantus(*)) 30 units SUBCUT BEDTIME [facility], [facility] Insulin Human Lispro (Humalog*) 0 units SUBCUT AC [facility], [facility]; Protocol Last Admin: 08/16/18 16:54 Dose: Not Given Lactulose (Lactulose*) 30 ml PO QID PRN PRN Reason: CONSTIPATION Last Admin: 08/14/18 15:53 Dose: 30 ml Lisinopril (Prinivil Tab*) 20 mg PO DAILY [facility] Last Admin: 08/16/18 09:35 Dose: 20 mg Metoclopramide HCl (Reglan Iv*) 10 mg IV Q6H PRN PRN Reason: NAUSEA Last Admin: 08/10/18 12:42 Dose: 10 mg Ondansetron HCl (Zofran Inj*) 4 mg IV Q6H PRN PRN Reason: NAUSEA Last Admin: 08/15/18 00:01 Dose: 4 mg Polyethylene Glycol/Electrolytes (Miralax*) 17 gm PO DAILY PRN PRN Reason: CONSTIPATION Last Admin: 08/14/18 07:52 Dose: 17 gm Pravastatin Sodium (Pravachol (Nf)) 40 mg PO BEDTIME OTTO; Protocol Last Admin: 08/15/18 21:02 Dose: 40 mg Senna (Senokot Tab*) 2 tab PO DAILY PRN PRN Reason: CONSTIPATION Last Admin: 08/14/18 20:55 Dose: 2 tab Sitagliptin Phosphate (Januvia (Nf)) 100 mg PO QAM OTTO; Protocol Last Admin: 08/16/18 09:35 Dose: 100 mg Vital Signs - 8 hr 08/16/18 08/16/18 08/16/18 11:53 15:40 16:00 Temperature 97.1 F 98.8 F Pulse Rate 68 60 Respiratory 20 15 Rate Blood Pressure 136/68 138/74 (mmHg) O2 Sat by Pulse 93 96 96 Oximetry Oxygen Devices in Use Now: None Appearance: obese white male appeairng comfortable sitting upright in hospital bed, appearing in NAD Eyes: No Scleral Icterus, PERRLA Ears/Nose/Mouth/Throat: Mucous Membranes Moist Neck: NL Appearance and Movements; NL JVP Respiratory: Symmetrical Chest Expansion and Respiratory Effort, Clear to Auscultation Cardiovascular: NL Sounds; No Murmurs; No JVD, RRR Abdominal: NL Sounds; No Tenderness; No Distention Extremities: No Edema, No Clubbing, Cyanosis, - - R amputation at ankle; left TMA amputation in DIDI wrap Skin: No Rash or Ulcers Neurological: Alert and Oriented x 3, NL Muscle Strength and Tone Result Diagrams: 08/15/18 09:26 08/16/18 08:11 Microbiology and Other Data: Microbiology 08/11/18 12:51 Skin and Soft Tissue MRSA/MSSA (PCR - Final Foot Left Mrsa Positive S.aureus Positive Gram Stain - Final Assess/Plan/Problems-Billing Assessment: L foot cellulitis with possible osteomyelitis in a 67 yo M with hx of RLE osteo, DM, HTN, asthma, s/p left TMA on 08/11 - Patient Problems (1) Cellulitis of left foot Code(s): L03.116 - CELLULITIS OF LEFT LOWER LIMB SNOMED Code(s): 367684231 Comment: -Septic at admission due to cellulitis, resolved -associated with myositis -S/p left TMA 08/11/18 -vancomycin ordered for now, will be adjusted per ID recommendations -culture demonstrates Amyia ia; initial PCR MRSA positive (2) Diabetes Code(s): E11.9 - TYPE 2 DIABETES MELLITUS WITHOUT COMPLICATIONS SNOMED Code(s) : 47196054 Comment: -Continue Lispro SS. Cons carb diet. Continue home sitagliptin. Home canagliflozin and metformin on hold. -continue AM insulin glargine 65 units -decrease PM insulin glargine from 35 to 30 units due to continued morning hypoglycemia -BG wnl, will continue this regimen for now and continue to monitor -HbA1C 9.6 (3) HTN (hypertension) Code(s): I10 - ESSENTIAL (PRIMARY) HYPERTENSION SNOMED Code(s): 06724859 Comment: -normotensive -Continue home Lisinopril (4) COPD (chronic obstructive pulmonary disease) Code(s): J44.9 - CHRONIC OBSTRUCTIVE PULMONARY DISEASE, UNSPECIFIED SNOMED Code(s): 31123776 Comment: -not in acute exacerbation -continue home inhalers (5) DVT prophylaxis Code(s): CLX6340 - SNOMED Code(s): 774013475 Comment: -continue heparin SQ (6) Full code status Code(s): Z78.9 - OTHER SPECIFIED HEALTH STATUS SNOMED Code(s): 888742991 Status and Disposition: medicine consult , will follow Per orthopedic surgery
[2018-08-16] MEDS ORDERED: Insulin GLARGINE(*) 1 UNITS UNIT SUBCUT SCH (21:30)
[2018-08-16] MEDS: CMC:Pravastatin (NF) 20 MG TAB PO SCH (21:34)
[2018-08-17] MEDS: Acetaminophen TAB* 325 MG PO PRN (04:10)
[2018-08-17] MEDS: Heparin VIAL(*) 5000 UNITS/ML VIAL (FIVE THOUSAND) SUBCUT SCH ×2 (05:30→14:02)
[2018-08-17 08:20] LABS: ABS Basophils 0.1 10^3/ul (0-0.2); ABS Eosinophils 0.4 10^3/ul (0-0.6); ABS Monocytes 1.4 10^3/ul (0-0.8); ABS Neutrophils 10.2 10^3/ul (1.5-7.7); Eosinophil % 2.6 %; Hematocrit 40 % (42-52); Hemoglobin 13.1 g/dL (14.0-18.0); Lymphocyte % 24.9 %; Mean Corpuscular HGB Conc 33 g/dL (31-36); Mean Corpuscular Hemoglobin 30 pg (27-31); Mean Corpuscular Volume 91 fL (80-94); Mean Platelet Volume 8.6 fL (7.4-10.4); Platelet Count 493 10^3/uL (150-450); Red Blood Count 4.36 10^6 /uL (4.18-5.48); Red Cell Distribution Width 14 % (10.5-15)
[2018-08-17] MEDS: Insulin LISPRO* 1 UNITS UNIT SUBCUT SCH ×2 (08:23→13:00)
[2018-08-17] MEDS: Aspirin EC TAB* 81 MG TAB.EC PO SCH (08:44)
[2018-08-17] MEDS: Insulin GLARGINE(*) 1 UNITS UNIT SUBCUT SCH (08:44)
[2018-08-17] MEDS: FENOFIBRATE 160 MG PO SCH (08:44)
[2018-08-17] MEDS: CMC:SitaGLIPtin (NF) 100 MG TAB PO SCH (08:44)
[2018-08-17] MEDS: Lisinopril TAB* 10 MG PO SCH (08:44)
[2018-08-17] MEDS: Docusate CAP* 100 MG PO SCH (08:44)
[2018-08-17] MEDS ORDERED: DOXYcycline CAP(*) 100 MG PO SCH (09:00)
[2018-08-17] MEDS ORDERED: Vancomycin Trough Check NOTE FOLLOW UP ONE (11:30)
[2018-08-17 16:16] VITALS: BP 140/80
== END 2018-08-17 16:30 | DRG 854 ==
LOC: SSU 13:02
PROVIDERS: ADMIT Orthopaedic Surgery; ATTEND Orthopaedic Surgery
PROC: 0Y6N0ZB Detachment at Left Foot, Partial 2nd Ray, Open Approach (ICD-10-PCS; 2018-08-11)
PROC: 0Y6N0ZC Detachment at Left Foot, Partial 3rd Ray, Open Approach (ICD-10-PCS; 2018-08-11)
PROC: 0Y6N0ZD Detachment at Left Foot, Partial 4th Ray, Open Approach (ICD-10-PCS; 2018-08-11)
PROC: 0Y6N0ZF Detachment at Left Foot, Partial 5th Ray, Open Approach (ICD-10-PCS; 2018-08-11)
PROC: 0L8P0ZZ Division of Left Lower Leg Tendon, Open Approach (ICD-10-PCS; 2018-08-11)
PROC: 0Y6N0Z9 Detachment at Left Foot, Partial 1st Ray, Open Approach (ICD-10-PCS; principal; 2018-08-11 10:15)
DX: A41.9 Sepsis, unspecified organism (principal); L03.116 Cellulitis of left lower limb; Z68.41 Body mass index [BMI] 40.0-44.9, adult; E11.40 Type 2 diabetes mellitus with diabetic neuropathy, unspecified; I10 Essential (primary) hypertension; J44.9 Chronic obstructive pulmonary disease, unspecified; E78.5 Hyperlipidemia, unspecified; E11.65 Type 2 diabetes mellitus with hyperglycemia; M24.575 Contracture, left foot; B95.62 Methicillin resistant Staphylococcus aureus infection as the cause of diseases classified elsewhere; B95.1 Streptococcus, group B, as the cause of diseases classified elsewhere; M60.9 Myositis, unspecified; E66.01 Morbid (severe) obesity due to excess calories; K21.9 Gastro-esophageal reflux disease without esophagitis; B95.61 Methicillin susceptible Staphylococcus aureus infection as the cause of diseases classified elsewhere; Z85.820 Personal history of malignant melanoma of skin; Z87.891 Personal history of nicotine dependence; Z90.81 Acquired absence of spleen; Z89.431 Acquired absence of right foot; Z82.49 Family history of ischemic heart disease and other diseases of the circulatory system
CPT/HCPCS: 36415; 71046; 80048; 80202; 82565; 83036; 83605; 83930; 84520; 85025; 85027; 85610; 85730; 87070; 87073; 87076; 87077; 87186; 87205; 87640; 87641; 88307; 88311; 93005; 93922; A9270-GY; G8978-GP-CM; G8978-GP-CN; G8979-GP-CJ; G8979-GP-CK; G8987-GO-CM; G8988-GO-CI; J1644; J2250; J2405; J2543; J2704; J2765; J3010; J3370; J3480; J3490

== ENCOUNTER 2018-10-17 07:14 | Inpatient (IN) | payer MEDICARE, MEDICAID ==
--- NOTE | 2018-10-16 23:14 | HP ---
HISTORY AND PHYSICAL: DATE OF ADMISSION: 10/17/18 DATE OF OFFICE VISIT: 10/11/18 DATE OF SURGERY: 10/17/18 ATTENDING SURGEON: Heron Torres MD * (DICTATED BY VIOLETA CABALLERO) PROCEDURE: Left foot revision amputation, debridement. HISTORY OF PRESENT ILLNESS: Heron is a 67-year-old male presenting today for followup of his left foot postoperative wound infection with Dr. Torres. He was last seen by Dr. Urbina on 10/07/18 and an MRI was ordered to evaluate for potential infection of left foot. His left foot partial amputation was on 08/11/18. He was here today for followup, ut his MRI had not been completed yet. His wound does still have drainage. He has had nurse visits every other day for dressing changes. He denies fever, chills, chest pain, shortness of breath, or calf pain. He denies any pain at this time. He was told by Dr. Urbina last week that if his wound did not improve and the MRI showed evidence of infection, he would need at least an I and D if not a left foot amputation revision. PAST MEDICAL HISTORY: Insulin-dependent diabetes, hypertension, hyperlipidemia. PAST SURGICAL HISTORY: Left foot partial amputation, right foot partial amputation, bilateral carpal tunnel release, splenectomy, melanoma excision from the left shoulder, right shoulder surgery, fifth finger percutaneous pinning. He reports no complications with anesthesia. MEDICATIONS: 1. Ibuprofen 600 mg p.o. t.i.d. as needed for pain. 2. Cipro 500 mg 1 tab p.o. twice a day. 3. Aspirin 81 mg p.o. daily. 4. Fenofibrate 160 mg p.o. daily. 5. Lisinopril 20 mg p.o. daily. 6. Invokana 300 mg 7. Pravastatin sodium 20 mg 1 p.o. daily at bedtime. 8. Januvia 100 mg 1 p.o. daily. 9. ProAir 108 mcg 1 to 2 puff every 4 hours as needed. 10. Humulin 70/30, 100 units per mL as directed. 11. Humulin R 100 units per mL as directed. 12. Levemir 100 units per mL as directed. 13. Glucophage 1000 mg 1 p.o. twice daily. 14. Docusate sodium 100 mg 1 tab p.o. every 12 hours as needed for constipation. 15. Enoxaparin sodium 40 mg per 0.4 mL. 16. Lantus 100 units per mL 10 units daily. 17. Oxycodone HCL 5 mg 1 tab p.o. every 4 to 6 hours as needed for pain. ALLERGIES: No known drug allergies. FAMILY HISTORY: Noncontributory. SOCIAL HISTORY: The patient is disabled. He lives with his girl friend. He quit smoking and drinking 17 years ago. He denies recreational drug use. REVIEW OF SYSTEMS: General: Negative for fevers, chills, night sweats, unexplained weight loss or gain. HEENT: Negative for headache, lightheadedness , syncopal episodes, or visual changes. Integumentary: Negative for abrasions , lesions, or open wounds. Cardiothoracic: Negative for hypertension, chest pain, palpitations, or edema. Respiratory: Negative for shortness of breath with exertion, chronic cough, or wheezing. GI: Negative for nausea, vomiting, diarrhea, constipation or GERD symptoms. : Negative for nocturia, urinary frequency, urgency, history of UTIs, or kidney problems. Musculoskeletal: Positive for left foot infection, negative for chronic or intermittent back pain. No history of fractures. Neurologic: Negative for paresthesias, numbness , history of seizure, stroke, or poor balance. Negative for anxiety or depression. Endocrine: Positive for diabetes. Negative for thyroid issues. Hematologic: Positive for anemia. Negative for easy bruising, bleeding disorders, or history of DVT or PE. ID: Negative for history of MRSA infection , hep C, or HIV. PHYSICAL EXAMINATION GENERAL: Well-developed, well-nourished 67-year-old male, in no acute distress , appropriate mood and affect. VITAL SIGNS: Height 71 inches, weight 310 pounds. Blood pressure 140/80, respirations 18, temperature 98, pain level 0. HEENT: Normocephalic, atraumatic. PERRLA. Extraocular movements intact. Throat is clear. NECK: Supple. No palpable lymph nodes. PULMONARY: Lungs are clear to auscultation bilaterally. No wheezes, rales, or rhonchi. CARDIO: Regular rate and rhythm. S1 and S2 normal. No murmurs, rubs, or gallops. No edema. ABDOMEN: Positive bowel sounds. Obese, soft and nontender. NEUROLOGIC: A and O x3. Cranial nerves II through XII intact. Sensation is intact to light touch. MUSCULOSKELETAL: Left lower extremity: Skin is intact. There is copious weeping of serous fluid expressed from the incision. His left foot is malodorous. There is some erythema and soft tissue swelling. He is able to dorsiflex and plantarflex his ankle without pain. The calf is soft and nontender. DIAGNOSTIC STUDIES: He is scheduled for an MRI on 10/14/18 to evaluate for abscess collection and to rule out osteomyelitis of the remaining bones of the mid foot. IMPRESSION: Left foot postoperative infection. PLAN: The patient is scheduled to undergo a left foot revision amputation, debridement with Dr. Torres on 10/17/18. Dr. Torres went over the procedure as well as the risks and benefits with the patient. He elected to proceed. He will follow up in the office in 10 to 14 days postop for suture removal and followup, evaluation and a prescription for pain medication will be prescribed to the patient for postoperative pain management. VIOLETA CABALLERO [id number]/[facility] #: [id number] MTDD
[~2018-10-17 07:14] MED LIST: Buffered Lidocaine 1% SYRIN* 1 ML/SYRINGE INTRADERM ONE; Lactated Ringers 1000 ML Bag* 1,000 ML IV SCH
[2018-10-17] MEDS ORDERED: Buffered Lidocaine 1% SYRIN* 1 ML/SYRINGE INTRADERM ONE (07:38)
[2018-10-17] MEDS ORDERED: ceFAZolin 2 GM in NS PREMIX(*) 2 GM/100 ML BAG IVPB ONE (07:38)
[2018-10-17] MEDS ORDERED: Lidocaine 2% PF* 10 ML AMP ONE ×2 (10:12)
[2018-10-17] MEDS ORDERED: Midazolam* 1 MG/ML 5 ML VIAL (5 MG) ONE (10:23)
[2018-10-17] MEDS ORDERED: fentaNYL* 50 MCG/ML 2 ML VIAL (100 MCG VIAL) ONE (10:28)
[2018-10-17] MEDS ORDERED: Naloxone* 0.4 MG/ML 1 ML VIAL IV PRN (10:56)
[2018-10-17] MEDS ORDERED: fentaNYL* 50 MCG/ML 2 ML VIAL (100 MCG VIAL) IV PRN (10:56)
[2018-10-17] MEDS ORDERED: Ondansetron INJ* 2 MG/ML VIAL IV PRN ×2 (10:56→11:33)
[2018-10-17] MEDS ORDERED: Polyethylene Glycol 3350* 17 GM PACKET PO PRN (11:33)
[2018-10-17] MEDS ORDERED: Ondansetron ODT TAB* 4 MG PO PRN (11:33)
[2018-10-17] MEDS ORDERED: diPHENhydraMINE IV* 50 MG/ML 1 ml VIAL (BENADRYL) IV PRN (11:33)
[2018-10-17] MEDS ORDERED: Bisacodyl SUPP* 10 MG SUPP PR PRN (11:33)
[2018-10-17] MEDS ORDERED: diPHENhydraMINE PO* 25 MG PO PRN (11:33)
[2018-10-17] MEDS ORDERED: Albuterol HFA INHALER* 8 gm MDI INH PRN (11:37)
[2018-10-17] MEDS ORDERED: Lactated Ringers 1000 ML Bag* 1,000 ML IV SCH (12:00)
--- NOTE | 2018-10-17 12:31 | OP ---
DATE OF OPERATION: 10/17/18 - ROOM #333 DATE OF : 54 SURGEON: Heron Torres MD [employer]: VIOLETA Sethi PRE-OP DIAGNOSIS: Wound breakdown left transmetatarsal amputation. POST-OP DIAGNOSIS: Wound breakdown left transmetatarsal amputation. OPERATIVE PROCEDURE: Revision of left midfoot amputation. DESCRIPTION OF PROCEDURE: Heron was taken to the operating room with a thigh tourniquet inflated. We made an excision of the previous transmetatarsal wound 2 cm on dorsal and plantar side carried down to the metatarsal bases, which were stripped subperiosteally up to the Lisfranc's joint. We then disarticulated the forefoot portion with the metatarsal bases. The first cuneiform was trimmed back, so there would be a smooth parabola to the midfoot, we also bevelled the dorsal and plantar aspect. Cultures were spent. We irrigated thoroughly with 3 L. Local hemostasis was obtained after we dropped the tourniquet at 11 minutes. We then closed dorsal to plantar with 0 Monocryl sutures, 2-0 Prolene for the skin and a compression dressing applied. [id number]/[facility] #: [id number] [facility]
[2018-10-17] MEDS: Acetaminophen TAB* 325 MG PO SCH ×2 (14:21→22:11)
[2018-10-17] MEDS: ceFAZolin 1 GM ADVAN(*) 1 GM in NS 0.9% 50 ML* 50 ML IVPB SCH (17:09)
[2018-10-17] MEDS: metFORMIN* 1,000 MG TAB PO SCH (17:10)
[2018-10-17] MEDS ORDERED: Dextrose 50% VIAL 50 ml IV PUSH PRN (18:15)
[2018-10-17] MEDS: CMC: Pravastatin (NF) 20 MG TAB PO SCH (20:31)
[2018-10-17] MEDS: Magnesium Hydroxide LIQ* 30 ML UDC PO SCH (20:31)
[2018-10-17] MEDS: Docusate CAP* 100 MG PO SCH (20:31)
[2018-10-17] MEDS ORDERED: Insulin GLARGINE(*) 1 UNITS UNIT SUBCUT SCH ×2 (21:00)
[2018-10-18] MEDS: ceFAZolin 1 GM ADVAN(*) 1 GM in NS 0.9% 50 ML* 50 ML IVPB SCH (01:40)
--- NOTE | 2018-10-18 03:41 | CONS ---
HOSPITAL MEDICINE CONSULTATION REPORT: DATE OF CONSULT: 10/17/18 PROVIDER: Emilie oCrdoba NP ATTENDING PHYSICIAN: Dr. Heron Torres CONSULTING PHYSICIAN: Dr. Adelia Daily (dictated by Emilie Cordoba NP) REASON FOR CONSULT: Co-management of chronic medical conditions. HISTORY OF PRESENT ILLNESS: Mr. Joiner is a 67-year-old male with past medical history significant for tendon contracture, chronic osteomyelitis, morbid obesity, diabetes, COPD, hypertension, hyperlipidemia, and obstructive sleep apnea, who presented to [facility] for a revision of his left foot amputation and debridement with Dr. Torres. Please see dictated H and P from VIOLETA Carranza for complete details. In brief, the patient had an MRI, which continued to show infection and needed to have I and D and revision of his left foot amputation. His initial amputation was on 08/11/18. Due to the patient's chronic medical conditions, Hospital Medicine was asked to consult. PAST MEDICAL HISTORY: Significant for: 1. Type 2 diabetes. 2. Hypertension. 3. Hyperlipidemia. 4. History of osteomyelitis. 4. Morbid obesity. 5. Obstructive sleep apnea. 6. COPD. PAST SURGICAL HISTORY: 1. Left foot partial amputation. 2. Right foot partial amputation. 3. Bilateral carpal tunnel release. 4. Splenectomy. 5. Melanoma. 6. Incision from left shoulder. 7. Right shoulder surgery. 8. Fifth finger percutaneous pinning. HOME MEDICATIONS: 1. Lisinopril 20 mg p.o. daily. 2. Ibuprofen 600 mg p.o. t.i.d. 3. Aspirin 81 mg p.o. daily. 4. Fenofibrate 150 mg p.o. daily. 5. Pravastatin 20 mg p.o. at bedtime. 6. Januvia 100 mg p.o. daily. 7. ProAir 108 mg 1 to 2 puffs every 4 hours as needed. 8. Glucophage 1000 mg one tablet twice daily. 9. Colace 100 mg b.i.d. 10. Oxycodone HCL 5 mg 1 tablet every 4 to 6 hours. 11. The patient is on Lantus insulin at home, it is unclear the dose of his Lantus insulin, as there are inconsistent reports on dosing from his primary care office. The patient is unsure of his dosing, this will need to be confirmed. The patient reports that he has not been taking his 70/30 or regular insulin at home as he does not have any available. His medications thus will need to be reviewed and updated as it does list Invokana, the patient reports he has not taken Invokana in over an year. ALLERGIES: No known drug allergies. FAMILY HISTORY: Mother with a history of heart disease, brother with diabetes, father with a history stroke, father with a history of lymphoma. SOCIAL HISTORY: The patient denies any smoking, alcohol or illicit drug use. Surrogate decision maker in the event he is unable to make his own decision is Panchito Gonzalez, who is his sister. He is a full code. REVIEW OF SYSTEMS: The patient denies any recent fever, chills, nausea, vomiting, or diarrhea. He denies any abdominal pain. Denies any gross hematuria or dysuria. Denies any focal weakness or sensory loss. Denies any chest pain. He denies any cough, hemoptysis, or shortness of breath. Denies any edema. Denies weakness on one side, any visual complaints, difficulty swallowing, anxiety or depression. PHYSICAL EXAMINATION: General: At this time, Mr. Joiner is alert and oriented , resting in his hospital bed. He is in no acute distress. Vital Signs: Blood pressure 152/74, heart rate is 54, respirations 16, O2 saturation 97% on room air, temperature was 97.4. HEENT: Head is atraumatic, normocephalic. Eyes: EOMs are intact. Sclerae anicteric and not pale. Oral mucosa appeared to be moist. Neck is supple. Lungs are clear to auscultation bilaterally. No wheezes, rales, or rhonchi. Cardiac: S1, S2. Regular rate and rhythm. No murmurs, rubs, or gallops. Abdomen is soft and nontender. Bowel sounds are present x4. Extremities: He is able to move all 4 extremities. He does have a dressing, that is dry and intact to his left foot. He does have partial amputation to the right foot. DIAGNOSTIC STUDIES/LAB DATA: CBC from 08/19/18, WBCs 16.6, RBCs 4.30, hemoglobin 13.0, hematocrit 39, platelet count 604. BMP from 08/19/18, sodium 138, potassium 4.7, chloride 101, carbon dioxide 29, anion gap was 8, BUN was 23 , creatinine was 1.36, glucose was 78, hemoglobin A1c 9.6, calcium 9.7. ASTs were 17, ALTs were 10, alkaline phosphatase was 72. ASSESSMENT AND PLAN: Mr. Joiner is a 67-year-old male with past medical history significant for diabetes, chronic obstructive pulmonary disease, hypertension, hyperlipidemia, history of osteomyelitis, who presented to [facility] for a left foot amputation revision and I and D with Dr. Torres. [facility] was asked to consult due to the patient's chronic medical conditions. Our recommendations are as follows: 1. Status post left foot amputation revision. Management per Orthopedics. PT/ OT per Orthopedics. Pain management per Orthopedics. DVT prophylaxis per Orthopedics. IV antibiotics per Orthopedics. 2. Type [address] him on fingersticks a.c. and h.s. He will have a lispro sliding scale. He does need to have his Lantus dose clarified before resuming. Blood sugars today in the 120s to 140s and we will hold off on giving Lantus this evening until dosing can be clarified. I will hold his Januvia and continue his metformin. 3. Hypertension. The patient should continue his lisinopril as previously prescribed. 4. Hyperlipidemia. He will continue on Pravachol as previously prescribed. 5. FEN. He can have a consistent carb diet. 6. Code status. He is a full code. 7. DVT prophylaxis. As per Orthopedics. TIME SPENT: Time spent on this consultation was 45 minutes, greater than half that time was spent at the bedside reviewing the events leading thus far to his hospitalization, performing physical exam, and reviewing my plan of care. I have discussed with my attending, Dr. Adelia Daily. She is in agreement with my plan. EMILIE CORDOBA, [employer] [id number]/[facility] #: [id number] RUTH
[2018-10-18] MEDS: Acetaminophen TAB* 325 MG PO SCH ×4 (05:05→22:06)
[2018-10-18] MEDS ORDERED: CANAGLIFLOZIN 300 MG PO SCH (09:00)
[2018-10-18] MEDS ORDERED: Aspirin EC TAB* 81 MG TAB.EC PO SCH (09:00)
[2018-10-18] MEDS ORDERED: Lisinopril TAB* 10 MG PO SCH (09:00)
[2018-10-18] MEDS ORDERED: Aspirin TAB* 325 MG PO SCH (09:00)
[2018-10-18] MEDS ORDERED: PTO: SitaGLIPtin (NF) 100 MG TAB PO SCH (09:00)
[2018-10-18] MEDS: Insulin LISPRO* 1 UNITS UNIT SUBCUT SCH ×3 (09:46→18:29)
[2018-10-18] MEDS: Docusate CAP* 100 MG PO SCH ×2 (09:48→22:07)
[2018-10-18] MEDS: Lisinopril TAB* 10 MG PO SCH (09:48)
[2018-10-18] MEDS: metFORMIN* 1,000 MG TAB PO SCH ×2 (09:48→18:30)
[2018-10-18] MEDS ORDERED: Vancomycin per Pharmacy* NOTE FOLLOW UP SCH (10:00)
[2018-10-18] MEDS: Magnesium Hydroxide LIQ* 30 ML UDC PO SCH ×2 (10:23→22:10)
[2018-10-18] MEDS ORDERED: Vancomycin(*) 2,000 MG in NS 0.9% 500 ML* 500 ML IVPB ONE (10:30)
[2018-10-18] MEDS: oxyCODONE TAB* 5 MG TAB PO PRN (11:04)
--- NOTE | 2018-10-18 11:09 | PN ---
Progress Note - Progress Note Date of Service: 10/18/18 SOAP: Subjective: []Saw Heron at bedside today, he feels well today though left foot remains painful. Denies CP, SOB, dizziness, nausea, feeling of fever or chills. Objective: []Gen: Appears well, NAD LLE: Dressing CDI, no erythema proximally. Calves supple and nontender without Assessment: []POD 1 sp revision L midfoot amputation Plan: []NWB LLE switched ancef to vancomycin restarted lovenox, okay to continue asa 81 qd Vital Signs Temp 98.6 F 10/18/18 11:30 Pulse 79 10/18/18 11:30 Resp 16 10/18/18 11:30 BP 120/60 10/18/18 11:30 Pulse Ox 92 10/18/18 11:30 Intake & Output 10/17/18 10/18/18 10/18/18 18:59 06:59 18:59 Intake Total 1040 2144 Output Total 0 925 1075 Balance 1040 1219 -1075 Weight 286 lb Intake: IV Fluids 800 990 LR 800 990 IVPB 54 ABX - CEFAZOLIN 54 Oral 240 1100 Output: Urine 0 925 1075 Other: Estimated Void Small Date of Last Bowel 10/17/18 Movement # Bowel Movements 0 Estimated Stool Amount Medium Laboratory Last Values POC Glucose (mg/dL) 182 mg/dL (70-100) H 10/18/18 07:33
[2018-10-18] MEDS ORDERED: Enoxaparin(*) 40 MG/0.4 ML SYR SUBCUT SCH (12:00)
--- NOTE | 2018-10-18 14:49 | CONS ---
CONSULTATION REPORT: DATE OF CONSULTATION: 10/18/18 PRIMARY CARE PROVIDER: Erik Puri MD. PROVIDER REQUESTING CONSULTATION: VIOLETA Hdz. CONSULTING SERVICE: Infectious Diseases. PROVIDER: Day Leach NP. ATTENDING PHYSICIAN: Dr. Raphael Dozier * (dictated by Day Ferrari NP). REASON FOR CONSULT: Left midfoot amputation with wound breakdown and drainage. IMPRESSIONS: 1. Left foot infection. Status post revision of left midfoot amputation, postop day #1. No reports of purulent drainage in the operative report. Afebrile. No recent labs. In the past the patient has grown methicillin- resistant Staphylococcus aureus, group B strep in this foot in addition to enterobacter and Finegoldia magna. 2. Diabetes mellitus type 2 with diabetic peripheral neuropathy. 3. Status post splenectomy 1973. 4. Status post right midfoot partial amputation 2015. PLAN/RECOMMENDATIONS: Recommend continuing vancomycin for now while we await operative culture, currently there are no organisms seen in the preliminary result. Recommend checking labs in the morning; CBC, CMP, and CRP. Further recommendations will be based off of the patient's clinical course and culture results. We will continue to follow along. HISTORY OF PRESENT ILLNESS: Mr. Joiner is a 67-year-old female with the past medical history significant for diabetes mellitus type 2, hypertension, hyperlipidemia; who was seen by Dr. Torres in the office on 10/11/[address] Martinez on 10/07/18 and had an MRI ordered. He initially had a left partial foot amputation on 08/11/18. He was noted to still have wound drainage. He was having dressing changes by visiting nurse. He had been on doxycycline prior to surgery. He presented to the hospital on 10/17/18 and underwent a revision of the left midfoot amputation. He has been afebrile since his admission. He has not had a CBC checked. He has not had a CRP checked since early August. Also last CBC was early August at which time his white blood cell count was 16.6. He denies any fevers; chills; chest pain; shortness of breath; nausea; vomiting; diarrhea; abdominal pain; or urinary symptoms such as urgency , frequency, or dysuria. He denies any rash. He has had no recent travel. He was initially on Ancef and transitioned to vancomycin today. PAST MEDICAL HISTORY: 1. Diabetes mellitus type 2. 2. Hypertension. 3. Hyperlipidemia. PAST SURGICAL HISTORY: 1. Status post left forefoot amputation. 2. Status post right foot partial amputation. 3. Status post bilateral carpal tunnel release. 4. Status post splenectomy. 5. Status post excisional melanoma of the left shoulder. 6. Status post right shoulder surgery. 7. Status post fifth finger ORIF. MEDICATIONS: Home medications include: 1. Oxycodone 5 mg by mouth every 3 hours as needed for pain. 2. Metformin 1000 mg by mouth twice daily. 3. Januvia 100 mg by mouth every day. 4. Senokot 1 tablet by mouth daily. 5. Pravastatin 40 mg by mouth daily. 6. MiraLAX 17 g by mouth daily as needed for constipation. 7. Lisinopril 20 mg by mouth daily. 8. Lantus 25 units in the morning and at lunch and 60 units subcutaneous at bedtime. 9. Tricor 160 mg by mouth. 10. Lovenox 40 mg subcutaneous daily. 11. Doxycycline 100 mg by mouth twice daily. 12. Invokana 300 mg by mouth daily. 13. Dulcolax suppository 10 mg per rectum daily as needed for constipation. 14. Aspirin 81 mg by mouth daily. 15. Albuterol HFA inhaler 2 puffs inhalation every 4 hours as needed for shortness of breath or wheeze. 16. Acetaminophen 650 mg by mouth every 4 hours as needed for pain. Hospital medications: 1. Acetaminophen 975 mg by mouth every 8 hours. 2. Acetaminophen 650 mg by mouth every 4 hours as needed for fever or pain. 3. Albuterol HFA 2 puffs inhalation every 4 hours as needed for shortness of breath or wheeze. 4. Aspirin 81 mg by mouth daily. 5. Dulcolax suppository 10 mg p.r. daily as needed for constipation. 6. Dextrose 25 mL IV push for glucose less than 60 as needed. 7. Benadryl 25 mg IV p.o. every 6 hours as needed for itching. 8. Colace 100 mg by mouth twice daily. 9. Lovenox 40 mg subcutaneous daily. 10. Tricor 160 mg by mouth every morning. 11. Humalog insulin sliding scale subcutaneous with meals. 12. Lactated Ringer's 100 mL an hour intravenously. 13. Lactulose 30 mL by mouth every 6 hours as needed for constipation. 14. Lisinopril 20 mg by mouth every morning. 15. Milk of magnesia 30 mg by mouth twice daily until BMs and 30 mL by mouth every 6 hours as needed for constipation. 16. Metformin 1000 mg by mouth twice daily. 17. Zofran 4 mg IV or p.o. every 6 hours as needed for nausea. 18. Oxycodone 5 mg by mouth every 3 hours as needed for pain. 19. MiraLAX 17 g by mouth daily. 20. Pravastatin 40 mg by mouth daily. 21. Vancomycin 2000 mg IV once and per pharmacy protocol. ALLERGIES: No known drug allergies. FAMILY HISTORY: Mother with a history of heart disease. Brother with a history of diabetes. Father with a history of a stroke and lymphoma. No family history of recurrent or resistant infections. SOCIAL HISTORY: Former smoker, quitting 17 years ago. Denies alcohol, recreational drug use. REVIEW OF SYSTEMS: I performed a 10-point review of systems. All the pertinent positives and negative are mentioned in the history of present illness. Remaining review of systems are negative. PHYSICAL EXAM: Vital Signs: 98.6 heart rate 79, respiratory rate 16, O2 sat 92 % on room air, and blood pressure 120/60. General Appearance: Alert, appears to be in no acute distress. Head: Normocephalic and atraumatic. ENT: Pupils are equal and reactive to light. Extraocular movements are intact. No subconjunctival hemorrhage. Moist mucous membranes. No thrush. Neck: Supple. No lymphadenopathy. Neurological: Alert and oriented x4. Cranial nerves II through XII are grossly intact. Cardiovascular: Regular rate and rhythm. S1 and S2 present. No murmurs, rubs, or gallops. Respiratory: No accessory muscle use. Lungs are clear to auscultation bilaterally. Abdomen: Bowel sounds present. Abdomen: Soft, large, nontender, and nondistended. Extremities : Trace bilateral lower extremity edema. Psychological: Calm and cooperative. Skin: No rashes or abnormalities. He is noted to have a dressing to the left lower extremity stump. DIAGNOSTIC STUDIES/LAB DATA: No recent labs. Please see impression and recommendations outlined above. Recommendations have been discussed with VIOLETA Hdz. The case has been reviewed with my attending Dr. Raphael Dozier who agrees with the plan of care. Reviewed by CALISTA ALEMAN 10/21/18 [id number]/[facility] #: [id number] RUTH
[2018-10-18 15:48] LABS: EGFR African American 128.4 (>60); EGFR Non-African American 106.2 (>60)
[2018-10-18] MEDS ORDERED: PROCHLORPERAZINE INJ 5 MG/ML 2 ML VIAL IV PRN (15:53)
--- NOTE | 2018-10-18 16:29 | PN ---
Subjective Date of Service: 10/18/18 Interval History: Mr. Joiner is feeling fine this morning. He offers no complaints. Denies pain. No CP, SOB, N/V. There was some confusion yesterday about how much insulin the patient is taking at home. He is very confident that he takes: 100 units 70/30 in the AM, 25 units regular at lunch, 25 units regular at dinner, 60 units Lantus at bedtime. No concerns from nursing. Family History: Unchanged from Admission Social History: Unchanged from Admission Past Medical History: Unchanged from Admission Objective Active Medications: Acetaminophen (Tylenol Tab*) 975 mg PO Q8HR OTTO Acetaminophen (Tylenol Tab*) 650 mg PO Q4H PRN FEVER Albuterol (Ventolin Hfa Inhaler*) 2 puff INH Q4HR PRN WHEEZING Aspirin (Aspirin 81 Mg Chew Tab*) 81 mg PO DAILY OTTO Bisacodyl (Dulcolax Supp*) 10 mg WA DAILY PRN constipation Dextrose (Dextrose 50% Vial 50 Ml*) 25 ml IV PUSH .FOR FS < 60 - SS PRN FS < 60 Diphenhydramine HCl (Benadryl Iv*) 25 mg IV Q6H PRN itching Diphenhydramine HCl (Benadryl Po*) 25 mg PO Q6H PRN itching Docusate Sodium (Colace Cap*) 100 mg PO BID OTTO Enoxaparin Sodium (Lovenox(*)) 40 mg SUBCUT Q24H OTTO Fenofibrate (Tricor 160 Mg) 160 mg PO QAM OTTO; Protocol Lactated Ringer's (Lactated Ringers 1000 Ml Bag*) 1,000 mls @ 100 mls/hr IV PER RATE OTTO Vancomycin HCl 1,000 mg/ (Sodium Chloride) 250 mls @ 166.667 mls/hr IVPB Q8H OTTO Insulin Human Lispro (Humalog*) 0 units SUBCUT AC OTTO; Protocol Lactulose (Lactulose*) 30 ml PO Q6H PRN constipation Lisinopril (Prinivil Tab*) 20 mg PO QAM OTTO Magnesium Hydroxide (Milk Of Magnesia Liq*) 30 ml PO BID OTTO Magnesium Hydroxide (Milk Of Magnesia Liq*) 30 ml PO Q6H PRN constipation Metformin HCl (Glucophage*) 1,000 mg PO BID WITH MEALS OTTO Ondansetron HCl (Zofran Inj*) 4 mg IV Q6H PRN nausea Ondansetron HCl (Zofran Odt Tab*) 4 mg PO Q6H PRN NAUSEA Oxycodone HCl (Roxycodone Tab*) 5 mg PO Q3H PRN PAIN Polyethylene Glycol/Electrolytes (Miralax*) 17 gm PO DAILY PRN Constipation Pravastatin Sodium (Pravachol (Nf)) 40 mg PO BEDTIME OTTO; Protocol Prochlorperazine Edisylate (Compazine Inj*) 10 mg IV Q6H PRN NAUSEA/VOMITING Vital Signs - 8 hr 10/18/18 10/18/18 10/18/18 11:04 11:30 15:40 Temperature 98.6 F 99.3 F Pulse Rate 79 70 Respiratory 18 16 18 Rate Blood Pressure 120/60 140/80 (mmHg) O2 Sat by Pulse 92 94 Oximetry Oxygen Devices in Use Now: None Appearance: Middle-aged male laying in bed in NAD Eyes: No Scleral Icterus Ears/Nose/Mouth/Throat: Mucous Membranes Moist Neck: NL Appearance and Movements; NL JVP, Trachea Midline Respiratory: Symmetrical Chest Expansion and Respiratory Effort, Clear to Auscultation Cardiovascular: NL Sounds; No Murmurs; No JVD, RRR Abdominal: NL Sounds; No Tenderness; No Distention Extremities: No Edema Neurological: Alert and Oriented x 3 Lines/Tubes/Other Access: Clean, Dry and Intact Peripheral IV Nutrition: Taking PO's Result Diagrams: 10/18/18 15:11 Assess/Plan/Problems-Billing Assessment: Mr. Joiner is a 67 yo M with PMH of DM2, HTN, HLD, KYLE, COPD, and osteomyelitis ; who presented for an elective left foot amputation revision. Hospital Medicine is consulting for co-medical management. - Patient Problems (1) Status post amputation of left foot Code(s): Z89.432 - ACQUIRED ABSENCE OF LEFT FOOT Comment: - POD #1 - Management per Ortho - ID recommends vanco d/t history of MRSA (2) Diabetes Code(s): E11.9 - TYPE 2 DIABETES MELLITUS WITHOUT COMPLICATIONS Comment: - A1c 9.6% - Hold Januvia - Continue metformin; start Lantus (3) COPD (chronic obstructive pulmonary disease) Code(s): J44.9 - CHRONIC OBSTRUCTIVE PULMONARY DISEASE, UNSPECIFIED Comment: - Continue albuterol (4) HTN (hypertension) Code(s): I10 - ESSENTIAL (PRIMARY) HYPERTENSION Comment: - Normotensive, SBP 120-140s - Continue lisinopril (5) HLD (hyperlipidemia) Code(s): E78.5 - HYPERLIPIDEMIA, UNSPECIFIED Comment: - Continue pravastatin (6) Morbid obesity Code(s): E66.01 - MORBID (SEVERE) OBESITY DUE TO EXCESS CALORIES Comment: - BMI 39 (7) DVT prophylaxis Comment: - Lovenox per Ortho (8) Full code status Code(s): Z78.9 - OTHER SPECIFIED HEALTH STATUS Comment: Status and Disposition: Dispo per Ortho. Thank you for this consultation. We will continue to follow along. Please call with any questions or concerns. Attending: Kady Mitchell
[2018-10-18] MEDS: Enoxaparin(*) 40 MG/0.4 ML SYR SUBCUT SCH (18:30)
[2018-10-18] MEDS: Vancomycin(*) 1,000 MG in NS 0.9% 250 ML* 250 ML IVPB SCH (20:39)
[2018-10-18] MEDS: CMC: Pravastatin (NF) 20 MG TAB PO SCH (22:07)
[2018-10-18] MEDS: Insulin GLARGINE(*) 1 UNITS UNIT SUBCUT SCH (22:10)
[2018-10-19] MEDS: Vancomycin(*) 1,000 MG in NS 0.9% 250 ML* 250 ML IVPB SCH ×3 (04:28→21:04)
[2018-10-19 05:08] LABS: Hematocrit 36 % (42-52); Hemoglobin 12.4 g/dL (14.0-18.0); Mean Corpuscular HGB Conc 35 g/dL (31-36); Mean Corpuscular Hemoglobin 30 pg (27-31); Mean Corpuscular Volume 88 fL (80-94); Mean Platelet Volume 8.5 fL (7.4-10.4); Platelet Count 339 10^3/uL (150-450); Red Blood Count 4.11 10^6 /uL (4.18-5.48); Red Cell Distribution Width 14 % (10-15); White Blood Count 13.5 10^3/uL (3.5-10.8)
[2018-10-19 05:27] LABS: Albumin 3.3 g/dL (3.2-5.2); BUN/Creatinine Ratio 18.2 (8-20); C Reactive Protein 167.84 mg/L (<8.01); Calcium 8.9 mg/dL (8.6-10.3); EGFR African American 122.7 (>60); EGFR Non-African American 101.4 (>60); Globulin 3.3 g/dL (2-4); Potassium 3.9 mmol/L (3.5-5.0); Total Bilirubin 0.7 mg/dL (0.2-1.0); Total Protein 6.6 g/dL (6.4-8.9)
[2018-10-19] MEDS: Acetaminophen TAB* 325 MG PO SCH ×3 (05:35→21:50)
[2018-10-19 05:59] LABS: ABS Basophils 0.1 10^3/ul (0-0.2); ABS Eosinophils 0.4 10^3/ul (0-0.6); ABS Lymphocytes 4.1 10^3/ul (1.0-4.8); ABS Monocytes 1.8 10^3/ul (0-0.8); ABS Neutrophils 7.1 10^3/ul (1.5-7.7); Eosinophil % 2.6 %; Lymphocyte % 30.4 %; Nucleated Red Blood Cells % 0.1
[2018-10-19] MEDS: Aspirin 81 mg CHEW TAB* 81 MG TAB.CHEW PO SCH (08:18)
[2018-10-19] MEDS: Magnesium Hydroxide LIQ* 30 ML UDC PO SCH (08:18)
[2018-10-19] MEDS: metFORMIN* 1,000 MG TAB PO SCH ×2 (08:19→17:26)
[2018-10-19] MEDS: Lisinopril TAB* 10 MG PO SCH (08:19)
[2018-10-19] MEDS: Docusate CAP* 100 MG PO SCH ×2 (08:19→21:04)
[2018-10-19] MEDS: Insulin LISPRO* 1 UNITS UNIT SUBCUT SCH ×3 (09:11→18:02)
--- NOTE | 2018-10-19 13:51 | PN ---
Progress Note - Progress Note Date of Service: 10/19/18 SOAP: Subjective: [] Pt seen at bedside. He is comfortable, LLE nonpainful. Denies fever, chills, CP, SOB, dizziness, nausea. Tmax 100.6 in past 24 hours. Objective: []Gen: Appears well, NAD LLE: Dressing CDI, no erythema proximally. Calves supple and nontender without Assessment: []POD 2 sp revision L midfoot amputation Plan: []NWB LLE ABX per ID. On Vancomycin, follow cultures DVT prophy lovenox, okay to continue asa 81 qd Vital Signs Temp 99.2 F 10/19/18 08:20 Pulse 65 10/19/18 08:20 Resp 18 10/19/18 08:20 BP 138/72 10/19/18 12:15 Pulse Ox 99 10/19/18 08:20 Intake & Output 10/18/18 10/19/18 10/19/18 18:59 06:59 18:59 Intake Total 350 900 293 Output Total 1525 450 250 Balance -1175 450 43 Intake: IV Fluids 30 20 LR 30 nS 20 IVPB 290 273 ABX - VANCOMYCIN 290 273 Oral 350 580 Output: Urine 1525 450 250 Laboratory Last Values WBC 13.5 10^3/uL (3.5-10.8) H 10/19/18 05:01 RBC 4.11 10^6 /uL (4.18-5.48) L 10/19/18 05:01 Hgb 12.4 g/dL (14.0-18.0) L 10/19/18 05:01 Hct 36 % (42-52) L 10/19/18 05:01 MCV 88 fL (80-94) 10/19/18 05:01 MCH 30 pg (27-31) 10/19/18 05:01 MCHC 35 g/dL (31-36) 10/19/18 05:01 RDW 14 % (10-15) 10/19/18 05:01 Plt Count 339 10^3/uL (150-450) 10/19/18 05:01 MPV 8.5 fL (7.4-10.4) 10/19/18 05:01 Neut % (Auto) 52.7 % 10/19/18 05:01 Lymph % (Auto) 30.4 % 10/19/18 05:01 Bosque % (Auto) 13.3 % 10/19/18 05:01 Eos % (Auto) 2.6 % 10/19/18 05:01 Baso % (Auto) 1.0 % 10/19/18 05:01 Absolute Neuts (auto) 7.1 10^3/ul (1.5-7.7) 10/19/18 05:01 Absolute Lymphs (auto) 4.1 10^3/ul (1.0-4.8) 10/19/18 05:01 Absolute Monos (auto) 1.8 10^3/ul (0-0.8) H 10/19/18 05:01 Absolute Eos (auto) 0.4 10^3/ul (0-0.6) 10/19/18 05:01 Absolute Basos (auto) 0.1 10^3/ul (0-0.2) 10/19/18 05:01 Absolute Nucleated RBC 0.0 10^3/ul 10/19/18 05:01 Nucleated RBC % 0.1 10/19/18 05:01 Sodium 134 mmol/L (135-145) L 10/19/18 05:01 Potassium 3.9 mmol/L (3.5-5.0) 10/19/18 05:01 Chloride 105 mmol/L (101-111) 10/19/18 05:01 Carbon Dioxide 25 mmol/L (22-32) 10/19/18 05:01 Anion Gap 4 mmol/L (2-11) 10/19/18 05:01 BUN 14 mg/dL (6-24) 10/19/18 05:01 Creatinine 0.77 mg/dL (0.67-1.17) 10/19/18 05:01 Est GFR ( Amer) 122.7 (>60) 10/19/18 05:01 Est GFR (Non-Af Amer) 101.4 (>60) 10/19/18 05:01 BUN/Creatinine Ratio 18.2 (8-20) 10/19/18 05:01 Glucose 145 mg/dL (70-100) H 10/19/18 05:01 POC Glucose (mg/dL) 159 mg/dL (70-100) H 10/19/18 11:39 Calcium 8.9 mg/dL (8.6-10.3) 10/19/18 05:01 Total Bilirubin 0.70 mg/dL (0.2-1.0) 10/19/18 05:01 AST 9 U/L (13-39) L 10/19/18 05:01 ALT 7 U/L (7-52) 10/19/18 05:01 Alkaline Phosphatase 39 U/L (34-104) 10/19/18 05:01 C-Reactive Protein 167.84 mg/L (<8.01) H 10/19/18 05:01 Total Protein 6.6 g/dL (6.4-8.9) 10/19/18 05:01 Albumin 3.3 g/dL (3.2-5.2) 10/19/18 05:01 Globulin 3.3 g/dL (2-4) 10/19/18 05:01 Albumin/Globulin Ratio 1.0 (1-3) 10/19/18 05:01
--- NOTE | 2018-10-19 14:44 | PN ---
Subjective Date of Service: 10/19/18 Interval History: Patient is feeling relatively well today. Patient is having BMs after surgery, is urinating, has no pain. Patient felt somewhat lightheaded standing up with PT this AM. Patient denies F/C, N/V, abdominal pain, diarrhea, CP, SOB, or other pain. Discussed with patient his diet at home given dramatic decline in insulin need in hospital and he admits that he likely needs to improve diet. Family History: Unchanged from Admission Social History: Unchanged from Admission Past Medical History: Unchanged from Admission Objective Active Medications: Acetaminophen (Tylenol Tab*) 975 mg PO Q8HR [facility] Last Admin: 10/19/18 12:18 Dose: Not Given Acetaminophen (Tylenol Tab*) 650 mg PO Q4H PRN PRN Reason: FEVER Albuterol (Ventolin Hfa Inhaler*) 2 puff INH Q4HR PRN PRN Reason: WHEEZING Aspirin (Aspirin 81 Mg Chew Tab*) 81 mg PO DAILY [facility] Last Admin: 10/19/18 08:18 Dose: 81 mg Bisacodyl (Dulcolax Supp*) 10 mg [place] DAILY PRN PRN Reason: constipation Dextrose (Dextrose 50% Vial 50 Ml*) 25 ml IV PUSH .FOR FS < 60 - SS PRN PRN Reason: FS < 60 Diphenhydramine HCl (Benadryl Iv*) 25 mg IV Q6H PRN PRN Reason: itching Diphenhydramine HCl (Benadryl Po*) 25 mg PO Q6H PRN PRN Reason: itching Docusate Sodium (Colace Cap*) 100 mg PO BID [facility] Last Admin: 10/19/18 08:19 Dose: 100 mg Enoxaparin Sodium (Lovenox(*)) 40 mg SUBCUT Q24H [facility] Last Admin: 10/18/18 18:30 Dose: 40 mg Fenofibrate (Tricor 160 Mg) 160 mg PO QAM [facility]; Protocol Last Admin: 10/19/18 08:19 Dose: 160 mg Lactated Ringer's (Lactated Ringers 1000 Ml Bag*) 1,000 mls @ 100 mls/hr IV PER RATE [facility] Last Admin: 10/18/18 01:01 Dose: 100 mls/hr Vancomycin HCl 1,000 mg/ (Sodium Chloride) 250 mls @ 166.667 mls/hr IVPB Q8H [facility] Last Admin: 10/19/18 12:09 Dose: 166.667 mls/hr Insulin Glargine (Lantus(*)) 10 units SUBCUT BEDTIME [facility] Last Admin: 10/18/18 22:10 Dose: 10 units Insulin Human Lispro (Humalog*) 0 units SUBCUT AC [facility]; Protocol Last Admin: 10/19/18 12:09 Dose: 3 units Lactulose (Lactulose*) 30 ml PO Q6H PRN PRN Reason: constipation Lisinopril (Prinivil Tab*) 20 mg PO QAM [facility] Last Admin: 10/19/18 08:19 Dose: 20 mg Magnesium Hydroxide (Milk Of Magnesia Liq*) 30 ml PO Q6H PRN PRN Reason: constipation Metformin HCl (Glucophage*) 1,000 mg PO BID WITH MEALS [facility] Last Admin: 10/19/18 08:19 Dose: 1,000 mg Ondansetron HCl (Zofran Inj*) 4 mg IV Q6H PRN PRN Reason: nausea Ondansetron HCl (Zofran Odt Tab*) 4 mg PO Q6H PRN PRN Reason: NAUSEA Last Admin: 10/18/18 13:25 Dose: 4 mg Oxycodone HCl (Roxycodone Tab*) 5 mg PO Q3H PRN PRN Reason: PAIN Last Admin: 10/18/18 11:04 Dose: 5 mg Pharmacy Consult (Vancomycin Per Pharmacy*) 1 note FOLLOW UP .VANC PER PHARMACY [facility]; Protocol Pharmacy Profile Note (Vancomycin Trough Check) 1 note FOLLOW UP 1130 ONE Stop: 10/20/18 11:31 Polyethylene Glycol/Electrolytes (Miralax*) 17 gm PO DAILY PRN PRN Reason: Constipation Pravastatin Sodium (Pravachol (Nf)) 40 mg PO BEDTIME [facility]; Protocol Last Admin: 10/18/18 22:07 Dose: 40 mg Prochlorperazine Edisylate (Compazine Inj*) 10 mg IV Q6H PRN PRN Reason: NAUSEA/VOMITING Last Admin: 10/18/18 16:13 Dose: 2 ml Vital Signs - 8 hr 10/19/18 10/19/18 10/19/18 08:00 08:20 12:15 Temperature 99.2 F Pulse Rate 65 Respiratory 18 18 Rate Blood Pressure 132/75 138/72 (mmHg) O2 Sat by Pulse 99 99 Oximetry Oxygen Devices in Use Now: None Appearance: Patient is a 67yo male who appears stated age and is sitting in the bed in NAD. Eyes: No Scleral Icterus, PERRLA Ears/Nose/Mouth/Throat: NL Teeth, Lips, Gums, Clear Oropharnyx, Mucous Membranes Moist Neck: NL Appearance and Movements; NL JVP, Trachea Midline Respiratory: Symmetrical Chest Expansion and Respiratory Effort, Clear to Auscultation Cardiovascular: NL Sounds; No Murmurs; No JVD, RRR, No Edema Abdominal: NL Sounds; No Tenderness; No Distention, No Hepatosplenomegaly Lymphatic: No Cervical Adenopathy Extremities: No Clubbing, Cyanosis, - - Surgically absent forefoot. Skin: No Nodules or Sclerosis Neurological: NL Sensation, NL Muscle Strength and Tone, - - Peripheral neuropathy. Result Diagrams: 10/19/18 05:01 10/19/18 05:01 Microbiology and Other Data: Microbiology 10/17/18 10:47 Anaerobic Culture - Preliminary Wound - Left No Growth Day 1 10/17/18 10:47 Gram Stain - Final Foot Left Assess/Plan/Problems-Billing Assessment: Mr. Joiner is a 67 yo M with PMH of DM2, HTN, HLD, KYLE, COPD, and osteomyelitis ; who presented for an elective left foot amputation revision. Hospital Medicine is consulting for co-medical management. - Patient Problems (1) Status post amputation of left foot Current Visit: Yes Status: Acute Code(s): Z89.432 - ACQUIRED ABSENCE OF LEFT FOOT SNOMED Code(s): 589653151 Comment: - POD #2 - Due to Chronic Osteo - Management per Ortho - ID recommends vanco d/t history of MRSA - Awaiting intraop cultures to narrow. (2) COPD (chronic obstructive pulmonary disease) Current Visit: No Status: Acute Code(s): J44.9 - CHRONIC OBSTRUCTIVE PULMONARY DISEASE, UNSPECIFIED SNOMED Code(s): 59378773 Comment: - Continue albuterol PRN (3) Diabetes Current Visit: No Status: Acute Code(s): E11.9 - TYPE 2 DIABETES MELLITUS WITHOUT COMPLICATIONS SNOMED Code(s): 52389690 Comment: - A1c 9.6% - Hold Januvia - Continue metformin; start Lantus - Excellent control in the hospital on severely decreased insulin regimen. (4) HTN (hypertension) Current Visit: No Status: Acute Code(s): I10 - ESSENTIAL (PRIMARY) HYPERTENSION SNOMED Code(s): 41044715 Comment: - Normotensive, SBP 120-140s - Continue lisinopril (5) Morbid obesity Current Visit: No Status: Acute Code(s): E66.01 - MORBID (SEVERE) OBESITY DUE TO EXCESS CALORIES SNOMED Code(s): 537467652 Comment: - BMI 39 (6) HLD (hyperlipidemia) Current Visit: Yes Status: Acute Code(s): E78.5 - HYPERLIPIDEMIA, UNSPECIFIED SNOMED Code(s): 15442079 Comment: - Continue pravastatin (7) Full code status Current Visit: No Status: Acute Code(s): Z78.9 - OTHER SPECIFIED HEALTH STATUS SNOMED Code(s): 584932876 Comment: (8) DVT prophylaxis Current Visit: No Status: Acute Code(s): GOH4827 - SNOMED Code(s): 842040555 Comment: - Lovenox per Ortho Status and Disposition: Dispo per Ortho. Thank you for this consultation. We will continue to follow along. Please call with any questions or concerns.
[2018-10-19] MEDS: Enoxaparin(*) 40 MG/0.4 ML SYR SUBCUT SCH (17:30)
[2018-10-19] MEDS: CMC: Pravastatin (NF) 20 MG TAB PO SCH (21:03)
[2018-10-19] MEDS: Insulin GLARGINE(*) 1 UNITS UNIT SUBCUT SCH (21:03)
[2018-10-19] MEDS: oxyCODONE TAB* 5 MG TAB PO PRN (21:49)
[2018-10-20] MEDS: Vancomycin(*) 1,000 MG in NS 0.9% 250 ML* 250 ML IVPB SCH ×3 (03:54→20:30)
[2018-10-20] MEDS: Acetaminophen TAB* 325 MG PO SCH ×3 (05:36→21:44)
[2018-10-20] MEDS: metFORMIN* 1,000 MG TAB PO SCH ×2 (07:49→17:07)
[2018-10-20] MEDS: Insulin LISPRO* 1 UNITS UNIT SUBCUT SCH ×3 (07:53→17:32)
[2018-10-20 08:00] LABS: ABS Basophils 0.1 10^3/ul (0-0.2); ABS Eosinophils 0.4 10^3/ul (0-0.6); ABS Lymphocytes 3.4 10^3/ul (1.0-4.8); ABS Monocytes 1.4 10^3/ul (0-0.8); ABS Neutrophils 6.8 10^3/ul (1.5-7.7); Hematocrit 35 % (42-52); Lymphocyte % 28.3 %; Mean Corpuscular HGB Conc 35 g/dL (31-36); Mean Corpuscular Hemoglobin 30 pg (27-31); Mean Corpuscular Volume 88 fL (80-94); Mean Platelet Volume 8.7 fL (7.4-10.4); Nucleated Red Blood Cells % 0.1; Platelet Count 379 10^3/uL (150-450); Red Blood Count 3.94 10^6 /uL (4.18-5.48); Red Cell Distribution Width 14 % (10-15); White Blood Count 11.9 10^3/uL (3.5-10.8)
[2018-10-20 08:17] LABS: BUN/Creatinine Ratio 14.9 (8-20); Calcium 8.7 mg/dL (8.6-10.3); EGFR African American 128.4 (>60); EGFR Non-African American 106.2 (>60)
[2018-10-20] MEDS: Docusate CAP* 100 MG PO SCH ×2 (09:47→20:17)
[2018-10-20] MEDS: Aspirin 81 mg CHEW TAB* 81 MG TAB.CHEW PO SCH (09:48)
[2018-10-20] MEDS: Lisinopril TAB* 10 MG PO SCH (09:48)
[2018-10-20] MEDS ORDERED: Vancomycin Trough Check NOTE FOLLOW UP ONE (11:30)
--- NOTE | 2018-10-20 12:08 | PN ---
Progress Note - Progress Note Date of Service: 10/20/18 SOAP: Subjective: Pt is doing well. Pain is controlled. Denies F/C, CP/SOB or calf pain Objective: PE- 67 y/o WDWN M NAD LLE- dressing changed, inc c/d/i, no sign of infection, calf soft N/T, +DF/PF ankle, NVI Vital Signs Temp Pulse Resp BP Pulse Ox 98.8 F 91 18 117/65 94 10/20/18 11:25 10/20/18 11:25 10/20/18 11:25 10/20/18 11:25 10/20/18 11:25 Laboratory Results - last 24 hr 10/19/18 10/19/18 10/20/18 17:28 20:51 07:40 WBC 11.9 H RBC 3.94 L Hgb 12.0 L Hct 35 L MCV 88 MCH 30 MCHC 35 RDW 14 Plt Count 379 MPV 8.7 Neut % (Auto) 56.8 Lymph % (Auto) 28.3 [place] % (Auto) 11.4 Eos % (Auto) 3.0 Baso % (Auto) 0.5 Absolute Neuts (auto) 6.8 Absolute Lymphs (auto) 3.4 Absolute Monos (auto) 1.4 H Absolute Eos (auto) 0.4 Absolute Basos (auto) 0.1 Absolute Nucleated RBC 0.0 Nucleated RBC % 0.1 Sodium Potassium Chloride Carbon Dioxide Anion Gap BUN Creatinine Est GFR ( Amer) Est GFR (Non-Af Amer) BUN/Creatinine Ratio Glucose POC Glucose (mg/dL) 158 H 159 H Calcium 10/20/18 10/20/18 07:40 07:51 WBC RBC Hgb Hct MCV MCH MCHC RDW Plt Count MPV Neut % (Auto) Lymph % (Auto) [place] % (Auto) Eos % (Auto) Baso % (Auto) Absolute Neuts (auto) Absolute Lymphs (auto) Absolute Monos (auto) Absolute Eos (auto) Absolute Basos (auto) Absolute Nucleated RBC Nucleated RBC % Sodium 134 L Potassium 4.0 Chloride 104 Carbon Dioxide 24 Anion Gap 6 BUN 11 Creatinine 0.74 Est GFR ( Amer) 128.4 Est GFR (Non-Af Amer) 106.2 BUN/Creatinine Ratio 14.9 Glucose 144 H POC Glucose (mg/dL) 130 H Calcium 8.7 Assessment: []POD 3 sp revision L midfoot amputation Plan: []NWB LLE ABX per ID. On Vancomycin, follow cultures DVT prophy lovenox, okay to continue asa 81 qd Plan discharge when cultures come back and abx are set up
--- NOTE | 2018-10-20 13:55 | PN ---
Subjective Date of Service: 10/20/18 Interval History: Patient is feeling well today. Patient has no pain or dizziness. Patient denies F/C, N/V, abdominal pain, diarrhea, or other pain. Family History: Unchanged from Admission Social History: Unchanged from Admission Past Medical History: Unchanged from Admission Objective Active Medications: Acetaminophen (Tylenol Tab*) 975 mg PO Q8HR [facility] Last Admin: 10/20/18 12:54 Dose: Not Given Acetaminophen (Tylenol Tab*) 650 mg PO Q4H PRN PRN Reason: FEVER Albuterol (Ventolin Hfa Inhaler*) 2 puff INH Q4HR PRN PRN Reason: WHEEZING Aspirin (Aspirin 81 Mg Chew Tab*) 81 mg PO DAILY [facility] Last Admin: 10/20/18 09:48 Dose: 81 mg Bisacodyl (Dulcolax Supp*) 10 mg [place] DAILY PRN PRN Reason: constipation Dextrose (Dextrose 50% Vial 50 Ml*) 25 ml IV PUSH .FOR FS < 60 - SS PRN PRN Reason: FS < 60 Diphenhydramine HCl (Benadryl Iv*) 25 mg IV Q6H PRN PRN Reason: itching Diphenhydramine HCl (Benadryl Po*) 25 mg PO Q6H PRN PRN Reason: itching Docusate Sodium (Colace Cap*) 100 mg PO BID [facility] Last Admin: 10/20/18 09:47 Dose: 100 mg Enoxaparin Sodium (Lovenox(*)) 40 mg SUBCUT Q24H [facility] Last Admin: 10/19/18 17:30 Dose: 40 mg Fenofibrate (Tricor 160 Mg) [facility] Protocol Last Admin: 10/20/18 09:47 Dose: 160 mg Lactated Ringer's (Lactated Ringers 1000 Ml Bag*) 1,000 mls @ 100 mls/hr IV PER RATE [facility] Last Admin: 10/18/18 01:01 Dose: 100 mls/hr Vancomycin HCl 1,000 mg/ (Sodium Chloride) 250 mls @ 166.667 mls/hr IVPB Q8H [facility] Last Admin: 10/20/18 12:49 Dose: 166.667 mls/hr Insulin Glargine (Lantus(*)) 10 units SUBCUT BEDTIME [facility] Last Admin: 10/19/18 21:03 Dose: 10 units Insulin Human Lispro (Humalog*) 0 units SUBCUT AC [facility]; Protocol Last Admin: 10/20/18 12:49 Dose: 3 units Lactulose (Lactulose*) 30 ml PO Q6H PRN PRN Reason: constipation Lisinopril (Prinivil Tab*) 20 mg PO QAM [facility] Last Admin: 10/20/18 09:48 Dose: 20 mg Magnesium Hydroxide (Milk Of Magnesia Liq*) 30 ml PO Q6H PRN PRN Reason: constipation Metformin HCl (Glucophage*) 1,000 mg PO BID WITH MEALS [facility] Last Admin: 10/20/18 07:49 Dose: 1,000 mg Ondansetron HCl (Zofran Inj*) 4 mg IV Q6H PRN PRN Reason: nausea Ondansetron HCl (Zofran Odt Tab*) 4 mg PO Q6H PRN PRN Reason: NAUSEA Last Admin: 10/18/18 13:25 Dose: 4 mg Oxycodone HCl (Roxycodone Tab*) 5 mg PO Q3H PRN PRN Reason: PAIN Last Admin: 10/19/18 21:49 Dose: 5 mg Pharmacy Consult (Vancomycin Per Pharmacy*) 1 note FOLLOW UP .VANC PER PHARMACY [facility]; Protocol Polyethylene Glycol/Electrolytes (Miralax*) 17 gm PO DAILY PRN PRN Reason: Constipation Pravastatin Sodium (Pravachol (Nf)) 40 mg PO BEDTIME [facility]; Protocol Last Admin: 10/19/18 21:03 Dose: 40 mg Prochlorperazine Edisylate (Compazine Inj*) 10 mg IV Q6H PRN PRN Reason: NAUSEA/VOMITING Last Admin: 10/18/18 16:13 Dose: 2 ml Vital Signs - 8 hr 10/20/18 10/20/18 10/20/18 07:37 07:58 11:25 Temperature 98.9 F 98.8 F Pulse Rate 63 91 Respiratory 18 18 18 Rate Blood Pressure 110/64 117/65 (mmHg) O2 Sat by Pulse 93 93 94 Oximetry Oxygen Devices in Use Now: None, CPAP Eyes: No Scleral Icterus, PERRLA Ears/Nose/Mouth/Throat: NL Teeth, Lips, Gums Neurological: Alert and Oriented x 3 Result Diagrams: 10/20/18 07:40 10/20/18 07:40 Microbiology and Other Data: Microbiology 10/17/18 10:47 Anaerobic Culture - Preliminary Wound - Left No Growth Day 1 10/17/18 10:47 Gram Stain - Final Foot Left Assess/Plan/Problems-Billing Assessment: Mr. Joiner is a 67 yo M with PMH of DM2, HTN, HLD, KYLE, COPD, and osteomyelitis ; who presented for an elective left foot amputation revision. Hospital Medicine is consulting for co-medical management. - Patient Problems (1) Status post amputation of left foot Current Visit: Yes Status: Acute Code(s): Z89.432 - ACQUIRED ABSENCE OF LEFT FOOT SNOMED Code(s): 838281546 Comment: - POD #3 - Due to Chronic Osteo - Management per Ortho - ID recommends vanco d/t history of MRSA - Awaiting intraop cultures to narrow. (2) COPD (chronic obstructive pulmonary disease) Current Visit: No Status: Acute Code(s): J44.9 - CHRONIC OBSTRUCTIVE PULMONARY DISEASE, UNSPECIFIED SNOMED Code(s): 33168723 Comment: - Continue albuterol PRN (3) Diabetes Current Visit: No Status: Acute Code(s): E11.9 - TYPE 2 DIABETES MELLITUS WITHOUT COMPLICATIONS SNOMED Code(s): 49153017 Comment: - A1c 9.6% - Hold Januvia - Continue metformin; start Lantus - Excellent control in the hospital on severely decreased insulin regimen. - Nutrition consult appreciated. (4) HTN (hypertension) Current Visit: No Status: Acute Code(s): I10 - ESSENTIAL (PRIMARY) HYPERTENSION SNOMED Code(s): 89665734 Comment: - Normotensive, SBP 120-140s - Continue lisinopril (5) Morbid obesity Current Visit: No Status: Acute Code(s): E66.01 - MORBID (SEVERE) OBESITY DUE TO EXCESS CALORIES SNOMED Code(s): 801706179 Comment: - BMI 39 (6) HLD (hyperlipidemia) Current Visit: Yes Status: Acute Code(s): E78.5 - HYPERLIPIDEMIA, UNSPECIFIED SNOMED Code(s): 92463042 Comment: - Continue pravastatin (7) Full code status Current Visit: No Status: Acute Code(s): Z78.9 - OTHER SPECIFIED HEALTH STATUS SNOMED Code(s): 996065792 Comment: (8) DVT prophylaxis Current Visit: No Status: Acute Code(s): TXU0857 - SNOMED Code(s): 395461356 Comment: - Lovenox per Ortho Status and Disposition: Dispo per Ortho. Thank you for this consultation. We will Sign Off at this time. Please feel free to call with any questions.
[2018-10-20] MEDS: Enoxaparin(*) 40 MG/0.4 ML SYR SUBCUT SCH (17:07)
[2018-10-20] MEDS: CMC: Pravastatin (NF) 20 MG TAB PO SCH (20:17)
[2018-10-20] MEDS: Insulin GLARGINE(*) 1 UNITS UNIT SUBCUT SCH (20:17)
[2018-10-21] MEDS: Vancomycin(*) 1,000 MG in NS 0.9% 250 ML* 250 ML IVPB SCH ×4 (02:05→21:01)
[2018-10-21] MEDS: Acetaminophen TAB* 325 MG PO SCH ×3 (05:47→22:27)
[2018-10-21] MEDS ORDERED: NS 0.9% 250 ML* 250 ML ONE (09:29)
[2018-10-21] MEDS: Aspirin 81 mg CHEW TAB* 81 MG TAB.CHEW PO SCH (09:37)
[2018-10-21] MEDS: metFORMIN* 1,000 MG TAB PO SCH ×2 (09:37→17:51)
[2018-10-21] MEDS: Docusate CAP* 100 MG PO SCH ×2 (09:37→22:25)
[2018-10-21] MEDS: Lisinopril TAB* 10 MG PO SCH (09:40)
[2018-10-21] MEDS: Insulin LISPRO* 1 UNITS UNIT SUBCUT SCH ×3 (09:42→17:23)
--- NOTE | 2018-10-21 13:41 | PN ---
Progress Note - Progress Note Date of Service: 10/21/18 SOAP: Subjective: []Patient seen at bedside. Denies nausea, vomiting, CP, SOB or left foot pain. Objective: [] Vital Signs Temp 97.0 F 10/21/18 11:07 Pulse 85 10/21/18 11:07 Resp 18 10/21/18 11:07 BP 120/80 10/21/18 11:07 Pulse Ox 97 10/21/18 11:07 Intake & Output 10/20/18 10/21/18 10/21/18 18:59 06:59 18:59 Intake Total 1478 1100 Output Total 1150 925 650 Balance 328 175 -650 Intake: IV Fluids 20 nS 20 IVPB 258 500 ABX - VANCOMYCIN 258 500 Oral 1200 600 Output: Urine 1150 925 650 Other: # Bowel Movements 0 Laboratory Results - last 24 hr 10/20/18 10/20/18 10/21/18 17:09 21:44 08:53 POC Glucose (mg/dL) 158 H 144 H 141 H Microbiology 10/17/18 10:47 Gram Stain - Final Foot Left Wound Culture - Preliminary Normal Marybeth 10/17/18 10:47 Anaerobic Culture - Final Wound - Left No Growth Day 4 left foot dressing with moderate fresh bloody drainage on DIDI Dressings removed, wound and sutures intact, no active drainage seen, no erythema or erythema calf NT and soft New 4x4s, Kerlex and DIDI wrap applied Assessment: []s/p revision midfoot amputation left foot POD #4 Plan: []NWB LLE ABX per ID. On Vancomycin, follow cultures dressing changes as needed DVT prophy lovenox, okay to continue asa 81 qd Plan discharge when cultures come back and abx are set up
[2018-10-21] MEDS: Acetaminophen TAB* 325 MG PO PRN ×2 (17:52→22:24)
[2018-10-21] MEDS: Enoxaparin(*) 40 MG/0.4 ML SYR SUBCUT SCH (17:53)
[2018-10-21] MEDS: CMC: Pravastatin (NF) 20 MG TAB PO SCH (22:25)
[2018-10-21] MEDS: Insulin GLARGINE(*) 1 UNITS UNIT SUBCUT SCH (22:25)
[2018-10-22] MEDS: Vancomycin(*) 1,000 MG in NS 0.9% 250 ML* 250 ML IVPB SCH ×4 (02:09→22:16)
[2018-10-22] MEDS: Acetaminophen TAB* 325 MG PO SCH ×3 (05:50→22:26)
[2018-10-22 07:15] LABS: Vancomycin Trough 21.2 mcg/mL
[2018-10-22 07:38] LABS: EGFR African American 136.9 (>60); EGFR Non-African American 113.2 (>60)
--- NOTE | 2018-10-22 08:31 | PN ---
AMENDED REPORT NOW INCLUDES DATE OF VISIT PROGRESS NOTE: DATE OF VISIT: 10/22/18 Heron is recovering well from his revision amputation of left midfoot. He is not having any pain, though the wound is changed today. It is clean and dry, excellent healing, no erythema. White count has been drifting down to 11.9, in more normal range. Blood count is normal. Sugars have also been remarkably stable, below 150. His cultures intraoperatively did not grow any particular organism. Heron could be discharged according to ID on appropriate antibiotics. He has home healthcare 3 days a week, but they need to be notified a day before he leaves. He will be nonweightbearing, just a dry dressing on his left foot, and will follow up in the office. [id number]/[facility] #: [id number] RUTH
[2018-10-22] MEDS: Aspirin 81 mg CHEW TAB* 81 MG TAB.CHEW PO SCH (10:20)
[2018-10-22] MEDS: metFORMIN* 1,000 MG TAB PO SCH ×2 (10:20→16:47)
[2018-10-22] MEDS: Docusate CAP* 100 MG PO SCH ×2 (10:20→22:50)
[2018-10-22] MEDS: Lisinopril TAB* 10 MG PO SCH (10:20)
[2018-10-22] MEDS: Insulin LISPRO* 1 UNITS UNIT SUBCUT SCH ×3 (10:22→16:49)
[2018-10-22] MEDS: Magnesium Hydroxide LIQ* 30 ML UDC PO PRN (10:22)
--- NOTE | 2018-10-22 13:59 | PN ---
Subjective Date of Service: 10/22/18 Interval History: Patient is feeling well today. Patient denies pain and states that he is doing better with PT. Patient denies CP, SOB, Dizziness, abdominal pain, diarrhea, dysuria, dizziness, or other pain. Family History: Unchanged from Admission Social History: Unchanged from Admission Past Medical History: Unchanged from Admission Objective Active Medications: Acetaminophen (Tylenol Tab*) 975 mg PO Q8HR [facility] Last Admin: 10/22/18 13:48 Dose: Not Given Acetaminophen (Tylenol Tab*) 650 mg PO Q4H PRN PRN Reason: FEVER Last Admin: 10/21/18 22:24 Dose: 650 mg Albuterol (Ventolin Hfa Inhaler*) 2 puff INH Q4HR PRN PRN Reason: WHEEZING Aspirin (Aspirin 81 Mg Chew Tab*) 81 mg PO DAILY [facility] BEDS [facility] Last Admin: 10/22/18 10:20 Dose: 81 mg Bisacodyl (Dulcolax Supp*) 10 mg [place] DAILY PRN PRN Reason: constipation Dextrose (Dextrose 50% Vial 50 Ml*) 25 ml IV PUSH .FOR FS < 60 - SS PRN PRN Reason: FS < 60 Diphenhydramine HCl (Benadryl Iv*) 25 mg IV Q6H PRN PRN Reason: itching Diphenhydramine HCl (Benadryl Po*) 25 mg PO Q6H PRN PRN Reason: itching Docusate Sodium (Colace Cap*) 100 mg PO BID [facility] 234 [facility]S [facility] Last Admin: 10/22/18 10:20 Dose: 100 mg Enoxaparin Sodium (Lovenox(*)) 40 mg SUBCUT Q24H [facility] 234 BEDS [facility] Last Admin: 10/21/18 17:53 Dose: 40 mg Fenofibrate (Tricor 160 Mg) 160 mg PO QAM [facility] 234 BEDS [facility]; Protocol Last Admin: 10/22/18 10:21 Dose: 160 mg Vancomycin HCl 1,000 mg/ (Sodium Chloride) 250 mls @ 166.667 mls/hr IVPB Q6H [facility] 234 BEDS [facility] Last Admin: 10/22/18 07:52 Dose: 166.667 mls/hr Insulin Glargine (Lantus(*)) 10 units SUBCUT BEDTIME [facility] 234 B[facility]S [facility] Last Admin: 10/21/18 22:25 Dose: 10 units Insulin Human Lispro (Humalog*) 0 units SUBCUT AC [facility] 234 BEDS [facility]; Protocol Last Admin: 10/22/18 12:54 Dose: 3 units Lactulose (Lactulose*) 30 ml PO Q6H PRN PRN Reason: constipation Lisinopril (Prinivil Tab*) 20 mg PO QAM [facility] 234 B[facility]S [facility] Last Admin: 10/22/18 10:20 Dose: 20 mg Magnesium Hydroxide (Milk Of Magnesia Liq*) 30 ml PO Q6H PRN PRN Reason: constipation Last Admin: 10/22/18 10:22 Dose: 30 ml Metformin HCl (Glucophage*) 1,000 mg PO BID WITH MEALS [facility] 234 BEDS [facility] Last Admin: 10/22/18 10:20 Dose: 1,000 mg Ondansetron HCl (Zofran Inj*) 4 mg IV Q6H PRN PRN Reason: nausea Ondansetron HCl (Zofran Odt Tab*) 4 mg PO Q6H PRN PRN Reason: NAUSEA Last Admin: 10/18/18 13:25 Dose: 4 mg Oxycodone HCl (Roxycodone Tab*) 5 mg PO Q3H PRN PRN Reason: PAIN Last Admin: 10/19/18 21:49 Dose: 5 mg Pharmacy Consult (Vancomycin Per Pharmacy*) 1 note FOLLOW UP .VANC PER PHARMACY COUNTS INCLUDE 234 BEDS AT [facility]; Protocol Pharmacy Profile Note (Vancomycin Trough Check) 1 note FOLLOW UP 0745 ONE Stop: 10/24/18 07:46 Polyethylene Glycol/Electrolytes (Miralax*) 17 gm PO DAILY PRN PRN Reason: Constipation Pravastatin Sodium (Pravachol (Nf)) 40 mg PO BEDTIME [facility]S INCLUDE 234 BEDS AT [facility]; Protocol Last Admin: 10/21/18 22:25 Dose: 40 mg Prochlorperazine Edisylate (Compazine Inj*) 10 mg IV Q6H PRN PRN Reason: NAUSEA/VOMITING Last Admin: 10/18/18 16:13 Dose: 2 ml Vital Signs - 8 hr 10/22/18 10/22/18 10/22/18 08:00 08:37 11:30 Temperature 98.2 F 97.9 F Pulse Rate 58 60 Respiratory 18 20 20 Rate Blood Pressure 160/78 161/75 (mmHg) O2 Sat by Pulse 96 96 Oximetry Oxygen Devices in Use Now: None Appearance: Patient is a 67yo male who appears stated age and is sitting in the bed in [facility]. Eyes: No Scleral Icterus, PERRLA Ears/Nose/Mouth/Throat: NL Teeth, Lips, Gums, Clear Oropharnyx, Mucous Membranes Moist Neck: NL Appearance and Movements; NL JVP, Trachea Midline Respiratory: Symmetrical Chest Expansion and Respiratory Effort, Clear to Auscultation Cardiovascular: NL Sounds; No Murmurs; No JVD, RRR, No Edema Abdominal: NL Sounds; No Tenderness; No Distention Lymphatic: No Cervical Adenopathy Extremities: No Edema, No Clubbing, Cyanosis Skin: No Nodules or Sclerosis, - - LE amputation covered in wraps. Neurological: Alert and Oriented x 3, NL Sensation, NL Muscle Strength and Tone , - - CN II-XII intact. Result Diagrams: 10/20/18 07:40 10/22/18 06:13 Microbiology and Other Data: Microbiology 10/17/18 10:47 Anaerobic Culture - Preliminary Wound - Left No Growth Day 1 10/17/18 10:47 Gram Stain - Final Foot Left Assess/Plan/Problems-Billing Assessment: Mr. Joiner is a 67 yo M with PMH of DM2, HTN, HLD, KYLE, COPD, and osteomyelitis ; who presented for an elective left foot amputation revision. Hospital Medicine is consulting for co-medical management. - Patient Problems (1) Status post amputation of left foot Current Visit: Yes Status: Acute Code(s): Z89.432 - ACQUIRED ABSENCE OF LEFT FOOT SNOMED Code(s): 330825170 Comment: - POD #5 - Due to Chronic Osteo - Management per Ortho - ID recommends vanco d/t history of MRSA - Negative intraoperative cultures. - Will D/C on 10 days of Bactrim. (2) COPD (chronic obstructive pulmonary disease) Current Visit: No Status: Acute Code(s): J44.9 - CHRONIC OBSTRUCTIVE PULMONARY DISEASE, UNSPECIFIED SNOMED Code(s): 76820770 Comment: - Continue albuterol PRN (3) Diabetes Current Visit: No Status: Acute Code(s): E11.9 - TYPE 2 DIABETES MELLITUS WITHOUT COMPLICATIONS SNOMED Code(s): 73489030 Comment: - A1c 9.6% - Hold Januvia - Continue metformin; start Lantus - Excellent control in the hospital on severely decreased insulin regimen. - Nutrition consult appreciated. (4) HTN (hypertension) Current Visit: No Status: Acute Code(s): I10 - ESSENTIAL (PRIMARY) HYPERTENSION SNOMED Code(s): 66113632 Comment: - Normotensive, SBP 120-140s - Continue lisinopril (5) Morbid obesity Current Visit: No Status: Acute Code(s): E66.01 - MORBID (SEVERE) OBESITY DUE TO EXCESS CALORIES SNOMED Code(s): 745881157 Comment: - BMI 39 (6) HLD (hyperlipidemia) Current Visit: Yes Status: Acute Code(s): E78.5 - HYPERLIPIDEMIA, UNSPECIFIED SNOMED Code(s): 32021507 Comment: - Continue pravastatin (7) Full code status Current Visit: No Status: Acute Code(s): Z78.9 - OTHER SPECIFIED HEALTH STATUS SNOMED Code(s): 008571318 Comment: (8) DVT prophylaxis Current Visit: No Status: Acute Code(s): ONV2801 - SNOMED Code(s): 253348713 Comment: - Lovenox per Ortho Status and Disposition: Dispo per Ortho. PT recommending rehab. Thank you for this consultation. Please feel free to call with any questions.
[2018-10-22] MEDS: Enoxaparin(*) 40 MG/0.4 ML SYR SUBCUT SCH (16:47)
[2018-10-22] MEDS: CMC: Pravastatin (NF) 20 MG TAB PO SCH (22:50)
[2018-10-22] MEDS: Insulin GLARGINE(*) 1 UNITS UNIT SUBCUT SCH (22:52)
[2018-10-23] MEDS: Vancomycin(*) 1,000 MG in NS 0.9% 250 ML* 250 ML IVPB SCH ×4 (03:25→20:43)
[2018-10-23] MEDS: Acetaminophen TAB* 325 MG PO SCH ×3 (06:10→22:31)
[2018-10-23] MEDS: metFORMIN* 1,000 MG TAB PO SCH ×2 (08:36→18:11)
[2018-10-23] MEDS: Aspirin 81 mg CHEW TAB* 81 MG TAB.CHEW PO SCH (08:36)
[2018-10-23] MEDS: Docusate CAP* 100 MG PO SCH ×2 (08:36→20:01)
[2018-10-23] MEDS: Lisinopril TAB* 10 MG PO SCH (08:37)
[2018-10-23] MEDS: Magnesium Hydroxide LIQ* 30 ML UDC PO PRN ×2 (08:37→20:01)
[2018-10-23] MEDS: Insulin LISPRO* 1 UNITS UNIT SUBCUT SCH ×3 (08:41→18:11)
[2018-10-23] MEDS: Enoxaparin(*) 40 MG/0.4 ML SYR SUBCUT SCH (18:17)
[2018-10-23] MEDS: Insulin GLARGINE(*) 1 UNITS UNIT SUBCUT SCH (20:43)
[2018-10-23] MEDS: CMC: Pravastatin (NF) 20 MG TAB PO SCH (20:44)
[2018-10-23] MEDS: oxyCODONE TAB* 5 MG TAB PO PRN (23:28)
[2018-10-24] MEDS: Vancomycin(*) 1,000 MG in NS 0.9% 250 ML* 250 ML IVPB SCH ×5 (01:32→23:17)
[2018-10-24] MEDS ORDERED: Vancomycin Trough Check NOTE FOLLOW UP ONE (07:45)
--- NOTE | 2018-10-24 09:26 | PN ---
Progress Note - Progress Note Date of Service: 10/24/18 SOAP: Subjective: CC: Left midfoot infection, S/P revision of amputation HPI: Mr. Joiner is a 67 yo male with PMH significant for DM2, HTN, HLD, and left forefoot chronic osteomyelitis s/p forefoot amputation in July 2018. He denies fever, chills, nausea, vomiting, diarrhea, or urinary symptoms. He has been declining the Vancomycin because he wants to go home. Discussed that the best chance of treating his infection is with IV and oral ABX. He is willing to do IV ABX at home and will allow a dose to be given this morning. Objective: Vital Signs - 8 hr 10/24/18 10/24/18 01:31 07:25 Temperature 97.3 F Pulse Rate 68 Respiratory 16 20 Rate Blood Pressure 148/88 (mmHg) O2 Sat by Pulse 94 Oximetry Physical Exam: General: NAD, sitting up in bed Neurological: Alert and Oriented x 4 HEENT: Moist MM, no thrush Cardiovascular: Heart rate regular, no murmur Respiratory: Lung clear bilateral Abdominal: Bowel sounds present; ABD soft, non tender and large Skin: Dressing to left LE stump with small amount of old bloody drainage. Laboratory Last Values WBC 11.9 10^3/uL (3.5-10.8) H 10/20/18 07:40 RBC 3.94 10^6 /uL (4.18-5.48) L 10/20/18 07:40 Hgb 12.0 g/dL (14.0-18.0) L 10/20/18 07:40 Hct 35 % (42-52) L 10/20/18 07:40 MCV 88 fL (80-94) 10/20/18 07:40 MCH 30 pg (27-31) 10/20/18 07:40 MCHC 35 g/dL (31-36) 10/20/18 07:40 RDW 14 % (10-15) 10/20/18 07:40 Plt Count 379 10^3/uL (150-450) 10/20/18 07:40 MPV 8.7 fL (7.4-10.4) 10/20/18 07:40 Neut % (Auto) 56.8 % 10/20/18 07:40 Lymph % (Auto) 28.3 % 10/20/18 07:40 [place] % (Auto) 11.4 % 10/20/18 07:40 Eos % (Auto) 3.0 % 10/20/18 07:40 Baso % (Auto) 0.5 % 10/20/18 07:40 Absolute Neuts (auto) 6.8 10^3/ul (1.5-7.7) 10/20/18 07:40 Absolute Lymphs (auto) 3.4 10^3/ul (1.0-4.8) 10/20/18 07:40 Absolute Monos (auto) 1.4 10^3/ul (0-0.8) H 10/20/18 07:40 Absolute Eos (auto) 0.4 10^3/ul (0-0.6) 10/20/18 07:40 Absolute Basos (auto) 0.1 10^3/ul (0-0.2) 10/20/18 07:40 Absolute Nucleated RBC 0.0 10^3/ul 10/20/18 07:40 Nucleated RBC % 0.1 10/20/18 07:40 Sodium 134 mmol/L (135-145) L 10/20/18 07:40 Potassium 4.0 mmol/L (3.5-5.0) 10/20/18 07:40 Chloride 104 mmol/L (101-111) 10/20/18 07:40 Carbon Dioxide 24 mmol/L (22-32) 10/20/18 07:40 Anion Gap 6 mmol/L (2-11) 10/20/18 07:40 BUN 13 mg/dL (6-24) 10/22/18 06:13 Creatinine 0.70 mg/dL (0.67-1.17) 10/22/18 06:13 Est GFR ( Amer) 136.9 (>60) 10/22/18 06:13 Est GFR (Non-Af Amer) 113.2 (>60) 10/22/18 06:13 BUN/Creatinine Ratio 14.9 (8-20) 10/20/18 07:40 Glucose 144 mg/dL (70-100) H 10/20/18 07:40 POC Glucose (mg/dL) 173 mg/dL (70-100) H 10/23/18 18:02 Calcium 8.7 mg/dL (8.6-10.3) 10/20/18 07:40 Total Bilirubin 0.70 mg/dL (0.2-1.0) 10/19/18 05:01 AST 9 U/L (13-39) L 10/19/18 05:01 ALT 7 U/L (7-52) 10/19/18 05:01 Alkaline Phosphatase 39 U/L (34-104) 10/19/18 05:01 C-Reactive Protein 167.84 mg/L (<8.01) H 10/19/18 05:01 Total Protein 6.6 g/dL (6.4-8.9) 10/19/18 05:01 Albumin 3.3 g/dL (3.2-5.2) 10/19/18 05:01 Globulin 3.3 g/dL (2-4) 10/19/18 05:01 Albumin/Globulin Ratio 1.0 (1-3) 10/19/18 05:01 Vancomycin Trough 10.1 mcg/mL 10/24/18 08:07 Microbiology 10/17/18 10:47 Gram Stain - Final Foot Left Wound Culture - Final Normal [place] 10/17/18 10:47 Anaerobic Culture - Final Wound - Left No Growth Day 4 Assessment: 1. Left midfoot infection with chronic osteomyelitis. POD #7. Afebrile, low grade fever on 10/19/18. Leukocytosis improving, but not checked since 10/20/18. Cultures from the OR on 10/17/18 with no growth in anaerobic culture, and normal zion. Wound culture from 10/03 with enterobacter, previously with MRSA and group B strep in the forefoot. MRI completed on 10/14/18 as an outpatient with soft tissue swelling and bone marrow edema within the remaining metatarsal bones , suspicious for osteomyelitis. 2. DM2 with peripheral neuropathy. 3. S/P splenectomy 1974 Plan: Continue IV Vancomycin, day 11/09. Vancomycin trough goal 15-20. Will start Cipro 500 mg PO BID in addition to the Vancomycin. Check CBC, CMP and CRP in the AM.
[2018-10-24] MEDS: Docusate CAP* 100 MG PO SCH ×3 (10:15→20:55)
[2018-10-24] MEDS: metFORMIN* 1,000 MG TAB PO SCH ×3 (10:15→18:03)
[2018-10-24] MEDS: Lisinopril TAB* 10 MG PO SCH (10:15)
[2018-10-24] MEDS: Insulin LISPRO* 1 UNITS UNIT SUBCUT SCH ×4 (10:16→18:29)
[2018-10-24] MEDS: Aspirin 81 mg CHEW TAB* 81 MG TAB.CHEW PO SCH (10:16)
[2018-10-24] MEDS: Acetaminophen TAB* 325 MG PO SCH ×3 (11:12→20:55)
--- NOTE | 2018-10-24 15:46 | PN ---
Progress Note - Progress Note Date of Service: 10/24/18 SOAP: Subjective: []Pt seen at bedside, he feels well and desires DC home. Operative site nonpainful. Denies fever or chills. Objective: []Gen: Appears well, NAD LLE: Incision CDI no erythema or discharge. Nontender to palpation. Calf supple and nontender. New dressing placed. Right calf supple and nontender Assessment: []s/p revision midfoot amputation left foot POD #5 Plan: []NWB LLE ABX per ID. Pt refused vanco, plan is for DC on bactrim and cipro DVT prophy lovenox, okay to continue asa 81 qd DC home today Vital Signs Temp 98.8 F 10/24/18 15:27 Pulse 70 10/24/18 15:27 Resp 18 10/24/18 15:27 BP 138/68 10/24/18 15:27 Pulse Ox 96 10/24/18 15:27 Intake & Output 10/23/18 10/24/18 10/24/18 18:59 06:59 18:59 Intake Total 850 0 500 Output Total 034 231 9702 Balance 150 -800 -875 Intake: Oral 850 0 500 Output: Urine 560 311 5394 Other: Estimated Void Large # Voids 1 Laboratory Last Values WBC 11.9 10^3/uL (3.5-10.8) H 10/20/18 07:40 RBC 3.94 10^6 /uL (4.18-5.48) L 10/20/18 07:40 Hgb 12.0 g/dL (14.0-18.0) L 10/20/18 07:40 Hct 35 % (42-52) L 10/20/18 07:40 MCV 88 fL (80-94) 10/20/18 07:40 MCH 30 pg (27-31) 10/20/18 07:40 MCHC 35 g/dL (31-36) 10/20/18 07:40 RDW 14 % (10-15) 10/20/18 07:40 Plt Count 379 10^3/uL (150-450) 10/20/18 07:40 MPV 8.7 fL (7.4-10.4) 10/20/18 07:40 Neut % (Auto) 56.8 % 10/20/18 07:40 Lymph % (Auto) 28.3 % 10/20/18 07:40 [place] % (Auto) 11.4 % 10/20/18 07:40 Eos % (Auto) 3.0 % 10/20/18 07:40 Baso % (Auto) 0.5 % 10/20/18 07:40 Absolute Neuts (auto) 6.8 10^3/ul (1.5-7.7) 10/20/18 07:40 Absolute Lymphs (auto) 3.4 10^3/ul (1.0-4.8) 10/20/18 07:40 Absolute Monos (auto) 1.4 10^3/ul (0-0.8) H 10/20/18 07:40 Absolute Eos (auto) 0.4 10^3/ul (0-0.6) 10/20/18 07:40 Absolute Basos (auto) 0.1 10^3/ul (0-0.2) 10/20/18 07:40 Absolute Nucleated RBC 0.0 10^3/ul 10/20/18 07:40 Nucleated RBC % 0.1 10/20/18 07:40 Sodium 134 mmol/L (135-145) L 10/20/18 07:40 Potassium 4.0 mmol/L (3.5-5.0) 10/20/18 07:40 Chloride 104 mmol/L (101-111) 10/20/18 07:40 Carbon Dioxide 24 mmol/L (22-32) 10/20/18 07:40 Anion Gap 6 mmol/L (2-11) 10/20/18 07:40 BUN 13 mg/dL (6-24) 10/22/18 06:13 Creatinine 0.70 mg/dL (0.67-1.17) 10/22/18 06:13 Est GFR ( Amer) 136.9 (>60) 10/22/18 06:13 Est GFR (Non-Af Amer) 113.2 (>60) 10/22/18 06:13 BUN/Creatinine Ratio 14.9 (8-20) 10/20/18 07:40 Glucose 144 mg/dL (70-100) H 10/20/18 07:40 POC Glucose (mg/dL) 154 mg/dL (70-100) H 10/24/18 11:25 Calcium 8.7 mg/dL (8.6-10.3) 10/20/18 07:40 Total Bilirubin 0.70 mg/dL (0.2-1.0) 10/19/18 05:01 AST 9 U/L (13-39) L 10/19/18 05:01 ALT 7 U/L (7-52) 10/19/18 05:01 Alkaline Phosphatase 39 U/L (34-104) 10/19/18 05:01 C-Reactive Protein 167.84 mg/L (<8.01) H 10/19/18 05:01 Total Protein 6.6 g/dL (6.4-8.9) 10/19/18 05:01 Albumin 3.3 g/dL (3.2-5.2) 10/19/18 05:01 Globulin 3.3 g/dL (2-4) 10/19/18 05:01 Albumin/Globulin Ratio 1.0 (1-3) 10/19/18 05:01 Vancomycin Trough 10.1 mcg/mL 10/24/18 08:07
--- NOTE | 2018-10-24 16:13 | DS ---
Orthopedic Discharge Summary - Discharge Summary Date of Admission:10/17/18 Date of Discharge: [] Date of Surgery: [] Attending Orthopedic Provider: [] Pre-operative Diagnosis: [] Operative Procedure: [] Disposition of Patient: [] Condition of Patient: [] History: VALERI CORRALES is a 67 year old M with years of increasingly severe [ ] pain. Patient has failed conservative management and has elected to undergo a [] total [] replacement Hospital Course: VALERI was admitted to [facility] on 10/17/18. Patient underwent a [] without complication followed by a brief recovery in PACU and transfer to the Short Stay Surgical Unit in stable condition. Our hospitalist service, physical therapy and occupational therapy also participated in this patients care. Post-op day 1: patient was alert and in no acute distress. Dressing was clean, dry and intact. Operative extremity dorsiflexion and plantarflexion intact, sensation intact to light touch distally , DP2+. Post-op day two: dressing was changed, incision was clean, dry and intact. Patient was deemed to be medically and orthopedically stable for discharge. Physical therapy goals were met. Home Medications Medication Instructions Recorded Confirmed Type Albuterol HFA INHALER* [Ventolin 2 puff INH Q4HR PRN 08/03/13 10/17/18 History HFA Inhaler*] Lisinopril TAB* [Prinivil TAB 10 20 mg PO QAM 08/03/13 10/17/18 History MG*] metFORMIN* [Glucophage 1000 MG TAB 1,000 mg PO BID 08/03/13 10/17/18 History *] SitaGLIPtin (NF) [Januvia (NF)] 100 mg PO QAM 11/11/15 10/17/18 History Aspirin EC TAB* [Ecotrin EC Low 81 mg PO QAM 04/20/16 10/17/18 History Dose 81 MG*] Canagliflozin (NF) [Invokana (NF)] 300 mg PO QAM 04/20/16 10/17/18 History Fenofibrate [Tricor 160 MG] 160 mg PO QAM 04/20/16 10/17/18 History Pravastatin (NF) [Pravachol (NF)] 40 mg PO BEDTIME 04/20/16 10/17/18 History Acetaminophen TAB* [Tylenol TAB*] 650 mg PO Q4H PRN #0 tab 04/28/16 10/17/18 Rx Bisacodyl SUPP* [Dulcolax Supp*] 10 mg [place] DAILY PRN #0 supp 04/28/16 10/17/18 Rx Polyethylene Glycol 3350* 17 gm PO DAILY PRN #0 packet 04/28/16 10/17/18 Rx [Miralax*] oxyCODONE TAB* [Roxycodone TAB 5 5 mg PO Q3H PRN #0 tab MDD 8 tabs 04/28/1607/31 Rx mg*] Enoxaparin(*) [Lovenox(*)] 40 mg SUBCUT QAM 10/12/18 10/17/18 History Insulin GLARGINE(*) [Lantus(*)] 60 units SUBCUT BEDTIME 10/12/18 10/17/18 History Senna TAB 8.6 mg* [Senokot 8.6 mg 1 tab PO QAM 10/12/18 10/17/18 History TAB*] Insulin ISOPH/REG 70/30 (*) 100 units SUBCUT 0800 10/18/18 10/18/18 History [HumuLIN 70/30 (*)] Insulin REGULAR(*) 25 units SUBCUT 1200,1700 10/18/18 10/18/18 History Acetaminophen TAB* [Tylenol TAB*] 975 mg PO Q8HR tab 10/24/18 Rx Ciprofloxacin TAB* [Cipro 500 MG 500 mg PO Q12H #56 tab 10/24/18 Rx TAB*] Ciprofloxacin TAB* [Cipro 500 MG 500 mg PO Q12HR tab 10/24/18 Rx TAB*] Docusate CAP* [Colace Cap*] 100 mg PO BID PRN #90 cap 10/24/18 Rx Enoxaparin(*) [Lovenox(*)] 40 mg SUBCUT Q24H syringe 10/24/18 Rx Sulfamethox/Trimethoprim DS* 1 tab PO BID #56 tab 10/24/18 Rx [Bactrim DS 800/160 TAB*] Discharge Instructions following Orthopedic Surgery: Activity: * Nonweightbearing left leg * Continue physical therapy and occupational therapy exercises as shown Wound care: * Home nursing to change dressing in 2-4 days. Sterile 4x4s, kerlix, sam wrap. Evaluate for any tenderness, redness or drainage. Labs Home nurse to check BMP wednesday10/28/18 and weekly Call Orthopedic office for: * Increased drainage * Redness * Increased pain * Fever Go to ER with shortness of breath or chest pain. Diet: * Regular diet * Increase fluids and fiber to prevent constipation. * Continue to use stool softeners, call office if no bowel motion within 48 hours. Medications See Home Medication List in your packet for medications that you should take after discharge. DVT Prophylaxis: Continue Lovenox Dosing: [40] mg once a day. This medication increases bleeding tendency Antibiotics are required prior to any dental work. FOLLOW UP: Follow up with [Brian] Within 7 days, call for appointment Please call our office with any questions or concerns ([phone]) abx per ID -- cipro 500 q12 hr for 4 weeks -- bactrim DS q12hr x 4 weeks Decrease lisinopril dose from 20 mg daily to 10 mg daily while on these antibiotics to preserve renal function, home nurse to monitor BP and call PCP with concerns
--- NOTE | 2018-10-24 16:47 | DS ---
Orthopedic Discharge Summary - Discharge Summary Date of Admission:10/17/18 Date of Discharge: 10/24/18 Date of Surgery: 10/17/18 Attending Orthopedic Provider: Dr Torres Pre-operative Diagnosis: Wound breakdown and drainage from left stump Operative Procedure: revision amputation left stump Disposition of Patient: home Condition of Patient: stable History: VALERI CORRALES is a 67 year old M with wound breakdown and drainage from his left stump. Hospital Course: VALERI was admitted to [facility] on 10/17/18. Patient underwent a [revision amputation left stump] without complication followed by a brief recovery in PACU and transfer to the Short Stay Surgical Unit in stable condition. Our hospitalist service, infectious disease, physical therapy and occupational therapy also participated in this patients care. Throughout his stay patient was alert and in no acute distress. Dressing was clean, dry and intact. His dressing was changed twice during his stay, last and incision was CDI without discharge and without erythema. He refused IV vancomycin as well as rehab. ID recommendation therefore was for bactrim DS BID x 4 weeks and cipro 500 mg BID x 4 weeks with reduction of lisinopril to 10 mg daily while on these antibiotics to preserve renal function and close monitoring of BMP. His insulin was reduced significantly while in the hospital, hospitalist service recommend sending him out on his oral hypoglycemics, stopping all his home insulin and replacing it with 10 mg insulin glargine at night as well as insulin lispro sliding scale AC. Hospitalist service discussed this change with the patient and provided written information regarding how to use the sliding scale. He was discharged to home with VNS. VNS will need to check his BMP within 3 days, monitor BP and glucose at each visit. Home Medications Medication Instructions Recorded Confirmed Type Albuterol HFA INHALER* [Ventolin 2 puff INH Q4HR PRN 08/03/13 10/17/18 History HFA Inhaler*] Lisinopril TAB* [Prinivil TAB 10 20 mg PO QAM 08/03/13 10/17/18 History MG*] metFORMIN* [Glucophage 1000 MG TAB 1,000 mg PO BID 08/03/13 10/17/18 History *] SitaGLIPtin (NF) [Januvia (NF)] 100 mg PO QAM 11/11/15 10/17/18 History Aspirin EC TAB* [Ecotrin EC Low 81 mg PO QAM 04/20/16 10/17/18 History Dose 81 MG*] Canagliflozin (NF) [Invokana (NF)] 300 mg PO QAM 04/20/16 10/17/18 History Fenofibrate [Tricor 160 MG] 160 mg PO QAM 04/20/16 10/17/18 History Pravastatin (NF) [Pravachol (NF)] 40 mg PO BEDTIME 04/20/16 10/17/18 History Acetaminophen TAB* [Tylenol TAB*] 650 mg PO Q4H PRN #0 tab 04/28/16 10/17/18 Rx Bisacodyl SUPP* [Dulcolax Supp*] 10 mg [place] DAILY PRN #0 supp 04/28/16 10/17/18 Rx Polyethylene Glycol 3350* 17 gm PO DAILY PRN #0 packet 04/28/16 10/17/18 Rx [Miralax*] oxyCODONE TAB* [Roxycodone TAB 5 5 mg PO Q3H PRN #0 tab MDD 8 tabs 04/28/1607/31 Rx mg*] Enoxaparin(*) [Lovenox(*)] 40 mg SUBCUT QAM 10/12/18 10/17/18 History Senna TAB 8.6 mg* [Senokot 8.6 mg 1 tab PO QAM 10/12/18 10/17/18 History TAB*] Acetaminophen TAB* [Tylenol TAB*] 975 mg PO Q8HR tab 10/24/18 Rx Ciprofloxacin TAB* [Cipro 500 MG 500 mg PO Q12H #56 tab 10/24/18 Rx TAB*] Ciprofloxacin TAB* [Cipro 500 MG 500 mg PO Q12HR tab 10/24/18 Rx TAB*] Docusate CAP* [Colace Cap*] 100 mg PO BID PRN #90 cap 10/24/18 Rx Enoxaparin(*) [Lovenox(*)] 40 mg SUBCUT Q24H syringe 10/24/18 Rx Insulin GLARGINE(*) [Lantus(*)] 10 units SUBCUT BEDTIME #100 unit 10/24/18 Rx Insulin LISPRO* [HumaLOG*] 0 units SUBCUT AC PRN #1 unit 10/24/18 Rx Sulfamethox/Trimethoprim DS* 1 tab PO BID #56 tab 10/24/18 Rx [Bactrim DS 800/160 TAB*] Discharge Instructions following Orthopedic Surgery: Activity: * Nonweightbearing left leg * Continue physical therapy and occupational therapy exercises as shown Wound care: * Home nursing to change dressing in 2-4 days. Sterile 4x4s, kerlix, sam wrap. Evaluate for any tenderness, redness or drainage. Labs Home nurse to check BMP wednesday10/28/18 and twice weekly while on antibiotics Call Orthopedic office for: * Increased drainage * Redness * Increased pain * Fever Go to ER with shortness of breath or chest pain. Diet: * Regular diet * Increase fluids and fiber to prevent constipation. * Continue to use stool softeners, call office if no bowel motion within 48 hours. Medications See Home Medication List in your packet for medications that you should take after discharge. DVT Prophylaxis: Continue Lovenox Dosing: [40] mg once a day. This medication increases bleeding tendency Antibiotics are required prior to any dental work. FOLLOW UP: Follow up with [Brian] Within 7 days, call for appointment Please call our office with any questions or concerns ([phone]) antibiotics as recommended Infectious disease -- cipro 500 every 12 hr for 4 weeks -- bactrim DS every 12 hr x 4 weeks Infectious disease recommends you decrease lisinopril dose from 20 mg daily to 10 mg daily while on these antibiotics to preserve renal function, home nurse to monitor BP and call PCP with concerns Insulin as directed by hospitalist service: Insulin glargine 10 mg at bedtime Insulin lispro before meals per sliding scale instruction provided to you Please check finger sticks before meals and at night. Keep a log of values. Follow up with PCP within one week. RX to [facility]
[2018-10-24] MEDS: Enoxaparin(*) 40 MG/0.4 ML SYR SUBCUT SCH (18:03)
[2018-10-24] MEDS: CMC: Pravastatin (NF) 20 MG TAB PO SCH (20:55)
[2018-10-24] MEDS: Insulin GLARGINE(*) 1 UNITS UNIT SUBCUT SCH (20:55)
[2018-10-24] MEDS: Ciprofloxacin TAB* 500 MG PO SCH (20:55)
[2018-10-24] MEDS: Magnesium Hydroxide LIQ* 30 ML UDC PO PRN (20:55)
[2018-10-25] MEDS: Vancomycin(*) 1,000 MG in NS 0.9% 250 ML* 250 ML IVPB SCH (04:39)
[2018-10-25] MEDS: Acetaminophen TAB* 325 MG PO SCH (04:59)
[2018-10-25 07:12] LABS: ABS Basophils 0.1 10^3/ul (0-0.2); ABS Eosinophils 0.5 10^3/ul (0-0.6); ABS Lymphocytes 4.8 10^3/ul (1.0-4.8); ABS Monocytes 0.9 10^3/ul (0-0.8); ABS Neutrophils 6.3 10^3/ul (1.5-7.7); Eosinophil % 4.1 %; Hematocrit 36 % (42-52); Hemoglobin 12.6 g/dL (14.0-18.0); Lymphocyte % 37.9 %; Mean Corpuscular HGB Conc 35 g/dL (31-36); Mean Corpuscular Hemoglobin 30 pg (27-31); Mean Corpuscular Volume 88 fL (80-94); Mean Platelet Volume 7.6 fL (7.4-10.4); Platelet Count 597 10^3/uL (150-450); Red Blood Count 4.16 10^6 /uL (4.18-5.48); Red Cell Distribution Width 14 % (10-15); White Blood Count 12.6 10^3/uL (3.5-10.8)
[2018-10-25 07:48] LABS: Albumin 3.4 g/dL (3.2-5.2); Albumin/Globulin Ratio 0.9 (1-3); C Reactive Protein 24.09 mg/L (<8.01); Calcium 9.1 mg/dL (8.6-10.3); EGFR African American 126.5 (>60); EGFR Non-African American 104.5 (>60); Globulin 3.7 g/dL (2-4); Potassium 4.4 mmol/L (3.5-5.0); Total Bilirubin 0.4 mg/dL (0.2-1.0); Total Protein 7.1 g/dL (6.4-8.9)
[2018-10-25] MEDS: Insulin LISPRO* 1 UNITS UNIT SUBCUT SCH (08:45)
[2018-10-25] MEDS: Lisinopril TAB* 10 MG PO SCH (08:46)
[2018-10-25] MEDS: Aspirin 81 mg CHEW TAB* 81 MG TAB.CHEW PO SCH (08:48)
[2018-10-25] MEDS: metFORMIN* 1,000 MG TAB PO SCH (08:48)
[2018-10-25] MEDS: Docusate CAP* 100 MG PO SCH (08:49)
[2018-10-25] MEDS: Ciprofloxacin TAB* 500 MG PO SCH (08:49)
--- NOTE | 2018-10-25 09:34 | PN ---
Progress Note - Progress Note Date of Service: 10/25/18 SOAP: Subjective: []Pt seen at bedside. He feels well today. Denies Fever, chills, CP, SOB, abd pain, dysuria, dizziness. RLE is nonpainful. His DC was held last night as antibiotic determination was still underway most of the afternoon due to patient refusing vancomycin. Once cipro and bactrim were determined as appropriate by ID, patient did not have a ride home which prevented DC until this morning. Objective: [] Gen: Appears well, NAD LLE: Incision CDI no erythema or discharge. Nontender to palpation. Calf supple and nontender. New dressing placed. Right calf supple and nontender Assessment: []s/p revision midfoot amputation left foot POD #6 Plan: []NWB LLE ABX per ID. Pt refused vanco, plan is for DC on bactrim and cipro DVT prophy lovenox, okay to continue asa 81 qd DC home today Vital Signs Temp 97.6 F 10/25/18 07:38 Pulse 68 10/25/18 07:38 Resp 16 10/25/18 07:38 BP 142/78 10/25/18 07:38 Pulse Ox 96 10/25/18 07:38 Intake & Output 10/24/18 10/25/18 10/25/18 18:59 06:59 18:59 Intake Total 500 1579 Output Total 1375 1000 300 Balance -875 579 -300 Intake: IV Fluids 619 ABX - VANCOMYCIN 570 nS 49 Oral 500 960 Output: Urine 1375 1000 300 Laboratory Last Values WBC 12.6 10^3/uL (3.5-10.8) H 10/25/18 06:59 RBC 4.16 10^6 /uL (4.18-5.48) L 10/25/18 06:59 Hgb 12.6 g/dL (14.0-18.0) L 10/25/18 06:59 Hct 36 % (42-52) L 10/25/18 06:59 MCV 88 fL (80-94) 10/25/18 06:59 MCH 30 pg (27-31) 10/25/18 06:59 MCHC 35 g/dL (31-36) 10/25/18 06:59 RDW 14 % (10-15) 10/25/18 06:59 Plt Count 597 10^3/uL (150-450) H D 10/25/18 06:59 MPV 7.6 fL (7.4-10.4) 10/25/18 06:59 Neut % (Auto) 50.1 % 10/25/18 06:59 Lymph % (Auto) 37.9 % 10/25/18 06:59 [place] % (Auto) 7.4 % 10/25/18 06:59 Eos % (Auto) 4.1 % 10/25/18 06:59 Baso % (Auto) 0.5 % 10/25/18 06:59 Absolute Neuts (auto) 6.3 10^3/ul (1.5-7.7) 10/25/18 06:59 Absolute Lymphs (auto) 4.8 10^3/ul (1.0-4.8) 10/25/18 06:59 Absolute Monos (auto) 0.9 10^3/ul (0-0.8) H 10/25/18 06:59 Absolute Eos (auto) 0.5 10^3/ul (0-0.6) 10/25/18 06:59 Absolute Basos (auto) 0.1 10^3/ul (0-0.2) 10/25/18 06:59 Absolute Nucleated RBC 0.0 10^3/ul 10/25/18 06:59 Nucleated RBC % 0.0 10/25/18 06:59 Sodium 134 mmol/L (135-145) L 10/25/18 06:59 Potassium 4.4 mmol/L (3.5-5.0) 10/25/18 06:59 Chloride 103 mmol/L (101-111) 10/25/18 06:59 Carbon Dioxide 25 mmol/L (22-32) 10/25/18 06:59 Anion Gap 6 mmol/L (2-11) 10/25/18 06:59 BUN 15 mg/dL (6-24) 10/25/18 06:59 Creatinine 0.75 mg/dL (0.67-1.17) 10/25/18 06:59 Est GFR ( Amer) 126.5 (>60) 10/25/18 06:59 Est GFR (Non-Af Amer) 104.5 (>60) 10/25/18 06:59 BUN/Creatinine Ratio 20.0 (8-20) 10/25/18 06:59 Glucose 147 mg/dL (70-100) H 10/25/18 06:59 POC Glucose (mg/dL) 178 mg/dL (70-100) H 10/24/18 20:36 Calcium 9.1 mg/dL (8.6-10.3) 10/25/18 06:59 Total Bilirubin 0.40 mg/dL (0.2-1.0) 10/25/18 06:59 AST 11 U/L (13-39) L 10/25/18 06:59 ALT 8 U/L (7-52) 10/25/18 06:59 Alkaline Phosphatase 53 U/L (34-104) 10/25/18 06:59 C-Reactive Protein 24.09 mg/L (<8.01) H 10/25/18 06:59 Total Protein 7.1 g/dL (6.4-8.9) 10/25/18 06:59 Albumin 3.4 g/dL (3.2-5.2) 10/25/18 06:59 Globulin 3.7 g/dL (2-4) 10/25/18 06:59 Albumin/Globulin Ratio 0.9 (1-3) L 10/25/18 06:59 Vancomycin Trough 10.1 mcg/mL 10/24/18 08:07
[2018-10-25] MEDS ORDERED: Vancomycin Trough Check NOTE FOLLOW UP ONE (10:30)
[2018-10-25 11:29] VITALS: BP 140/80
== END 2018-10-25 11:29 | disposition home or self-care (01) | DRG 858 ==
LOC: OR 07:14 → SSU 11:24
PROVIDERS: ADMIT Orthopaedic Surgery; ATTEND Orthopaedic Surgery
PROC: 0Y6N0ZB Detachment at Left Foot, Partial 2nd Ray, Open Approach (ICD-10-PCS; 2018-10-17)
PROC: 0Y6N0ZC Detachment at Left Foot, Partial 3rd Ray, Open Approach (ICD-10-PCS; 2018-10-17)
PROC: 0Y6N0ZD Detachment at Left Foot, Partial 4th Ray, Open Approach (ICD-10-PCS; 2018-10-17)
PROC: 0Y6N0ZF Detachment at Left Foot, Partial 5th Ray, Open Approach (ICD-10-PCS; 2018-10-17)
PROC: 0Y6N0Z9 Detachment at Left Foot, Partial 1st Ray, Open Approach (ICD-10-PCS; principal; 2018-10-17 09:00)
DX: T81.42XA Infection following a procedure, deep incisional surgical site, initial encounter (principal); E11.42 Type 2 diabetes mellitus with diabetic polyneuropathy; E66.01 Morbid (severe) obesity due to excess calories; I10 Essential (primary) hypertension; E78.5 Hyperlipidemia, unspecified; G47.33 Obstructive sleep apnea (adult) (pediatric); J44.9 Chronic obstructive pulmonary disease, unspecified; Z68.39 Body mass index [BMI] 39.0-39.9, adult; Z82.49 Family history of ischemic heart disease and other diseases of the circulatory system; Z83.3 Family history of diabetes mellitus; Z82.3 Family history of stroke; Z80.7 Family history of other malignant neoplasms of lymphoid, hematopoietic and related tissues; Z87.891 Personal history of nicotine dependence; Z79.84 Long term (current) use of oral hypoglycemic drugs; Z79.82 Long term (current) use of aspirin; Z79.4 Long term (current) use of insulin; Z79.1 Long term (current) use of non-steroidal anti-inflammatories (NSAID); Z79.891 Long term (current) use of opiate analgesic; Z79.899 Other long term (current) drug therapy
CPT/HCPCS: 36415; 80048; 80053; 80202; 82565; 84520; 85025; 86140; 87070; 87073; 87077; 87205; 88307; 88311; 94660; 97530; A9270-GY; G8978-GP-CK; G8979-GP-CI; J0690; J0780; J1650; J2001; J2250; J3010; J3370

== ENCOUNTER 2018-11-18 12:21 | Emergency (ER) | payer MEDICARE, MEDICAID ==
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
--- OUTSIDE RECORDS SUMMARY | 2018-11-18 13:23 | XMS REPORT | Continuity of Care Document ---
:1950 External Reference #:[id number] Author Name Valeri Torres M.D. (transmitted by agent of provider Chey Butler) Address [address] [place] [id number] Care Team Providers Name Role Phone Erki Puri MD - Family Medicine Care Team Information Wire Drawer [phone] Problems Active Problems Provider Date Chronic obstructive lung disease Katherine Stephenson MD Onset: 11/13/2015 Obstructive sleep apnea syndrome Katherine Stephenson MD Onset: 11/13/2015 Morbid obesity Katherine Stephenson MD Onset: 11/13/2015 Chronic osteomyelitis of ankle and/or foot Valeri Torres M.D. 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 day as needed pain with food Cipro 1 tab by mouth 30tabs Shaw Martinez, 10/03/2018 500mg Tablets twice a day Aspirin Enteric qd Unknown 11/26/2002 Coated 81mg Tablets Fenofibrate qd Unknown 160mg Lisinopril qd Unknown 20mg Pravastatin Sodium 1 tablet by mouth Unknown 20mg once daily at Tablets bedtime Proair HFA 1-2 puffs by mouth Unknown 108(90Base) every 4 hours as mcg/Act Aerosol needed Docusate Sodium 1 tab every 12 Unknown 100mg hours as needed for Capsules constipation Enoxaparin Sodium Unknown 40mg/0.4ML Solution Oxycodone HCL 1 tabs by mouth Unknown 5mg every 4-6 hours as Tablets needed Senna take 1 tablets by Unknown 8.6mg Tablets mouth every day as needed Linezolid one by mouth twice Unknown 600mg Tablets a day Acetaminophen 2 every 4 hours as Unknown 325mg needed for pain Tablets Insulin Glargine Pen as directed Unknown History Medications Levofloxacin 1 by mouth 14tabs Z89.432 Valeri Torres, 10/27/2018 - 500mg every day M.D. 11/16/2018 Tablets Medications Administered in Office Medication SIG Qnty Indications Ordering Provider Date Celestone 3 mg and 3mg Annette Sorensen, 01/16/2014 Injection M.D. Immunizations Description No Information Available Vital Signs Date Vital Result Comment 11/17/2018 9:51am Height 71 inches 5'11" Heart Rate 82 /min BP Systolic Sitting 148 mmHg BP Diastolic Sitting 78 mmHg Respiratory Rate 18 /min Body Temperature 98.8 F Pain Level 0 10/27/2018 11:48am Height 71 inches 5'11" Heart Rate 103 /min BP Systolic 160 mmHg BP Diastolic 100 mmHg Respiratory Rate 18 /min Body Temperature 98.8 F Pain Level 0 Results Test Date Facility Test Result H/L Range Note Laboratory test 10/17/2018 [facility] Point of Care 125 mg/dL High 70-100 [address] [place] [address] [phone] Laboratory test 10/17/2018 [facility] Point of Care 196 mg/dL High 70-100 [address] [place] [address] [phone] Wound 10/03/2018 [facility] Wound/Misc SEE RESULT 3 Culture/Sensi [address] [address] Stain [phone] Recovery Room Nurse: [id number] 2 Recovery Room Nurse: [id number] 3 SEE RESULT BELOW Name: VALERI JOINER Alicia : [address]: Brandy MCDANIEL Acct: [id number] Unit: [id number] AGE: 67 Location: [facility] Re10/03/18 SEX: M Status: REG REF SPEC: [id number] REGINA: 10/03/[address]: Brandy MCDANIEL REQ: [id number] RECD: 10/03/18 STATUS: COMP _ SOURCE: FOOT,LEFT SPDESC: ORDERED: Culture Stain Procedure Result Reported Site Wound/Misc Gram Stain Final 10/04/18- 0745 ML 1+ Neutrophils 1+ Epithelial Cells 1+ Gram Positive Cocci 1+ Gram Positive Bacilli Wound/Misc Culture Final 10/05/18- 1238 ML Organism 1 ENTEROBACTER CLOACAE Quantity 1+ WITH MIXED ORGANISMS 1. ENTEROBACTER CLOACAE M.I.C. RX --------- ------ Cefazolin >=64 R Cefepime <=1 S Ceftriaxone <=1 S Ciprofloxacin <=0.25 S Gentamicin <=1 S Levofloxacin <=0.12 S Meropenem <=0.25 S Tetracycline 2 S Pipercillin/Tazobactam <=4 S Trimethoprim/Sulfamethoxazole <=20 S Amoxicillin/Clavulanic Acid >=32 R Aztreonam <=1 S CONTINUED ON NEXT PAGE DEPARTMENT OF PATHOLOGY, [address] [place] [address] Osei Gillis M.D. Director [facility] # [id number] Patient: VALERI JOINER [id number] (Continued) Specimen: [id number] Collected: 10/03/18 Received: 07/22/19-1908 (Continued) Procedure Result Reported Site Wound/Misc Culture Final (continued) Contact the Microbiology Department for any additional antibiotic reporting. * ML - Main Lab . END OF REPORT DEPARTMENT OF PATHOLOGY, [address] [place] [address] Osei Gillis M.D. Director [facility] # [id number] Procedures Date Code Description Status 10/17/2018 20937 Amputation Foot Transmetatarsal Completed 10/17/2018 70668 Amputation Foot Transmetatarsal Completed 09/22/2018 89475 Apply Total Contact Leg Cast Completed 09/13/2018 15289 Walking Cast Completed 08/11/2018 Amputation Foot Transmetatarsal Completed 08/11/2018 88828 Gastrocnemius Recession Completed 08/11/2018 77673 Gastrocnemius Recession Completed 08/11/2018 84097 Gastrocnemius Recession Completed 08/09/2018 05593 EKG, Interpretation Only Completed 05/24/2018 94348 Walking Cast Completed Medical Devices Description No Information Available Encounters Type Date Location Provider Dx Diagnosis Office Visit 11/01/2018 [facility] Glenn Dutton T87.44 Infection of 6:44a Altaf Phillips M.D. amputation stump, Diseases left lower extremity E11.69 Type 2 diabetes mellitus with other specified complication M86.672 Other chronic osteomyelitis, left ankle and foot E11.40 Type 2 diabetes mellitus with diabetic neuropathy, unsp Office Visit 10/31/2018 [facility] Day Marin T87.44 Infection of 6:42a For Infectious Leach, [employer] amputation Diseases stump, left lower extremity L03.116 Cellulitis of left lower limb D72.829 Elevated white blood cell count, unspecified E11.40 Type 2 diabetes mellitus with diabetic neuropathy, unsp Office Visit 10/24/2018 [facility] Day Marin T87.44 Infection of 8:56a For Infectious Leach, [employer] amputation Diseases stump, left lower extremity E11.69 Type 2 diabetes mellitus with other specified complication M86.672 Other chronic osteomyelitis, left ankle and foot E11.40 Type 2 diabetes mellitus with diabetic neuropathy, unsp Office Visit 10/22/2018 [facility] Raúl E11.9 Type 2 diabetes 8:10a Assoc,[facility] [place] mellitus without Hospitalists complications J44.9 Chronic obstructive pulmonary disease, unspecified I10 Essential (primary) hypertension E78.5 Hyperlipidemia, unspecified Office Visit 10/20/2018 [facility] Raúl E11.9 Type 2 diabetes 8:10a Assoc[facility] [place] mellitus without Hospitalists complications J44.9 Chronic obstructive pulmonary disease, unspecified I10 Essential (primary) hypertension E78.5 Hyperlipidemia, unspecified Office Visit 10/19/2018 [facility] Raúl E11.9 Type 2 diabetes 8:10a [facility] [place] mellitus without Hospitalists complications J44.9 Chronic obstructive pulmonary disease, unspecified I10 Essential (primary) hypertension E78.5 Hyperlipidemia, unspecified [facility] T[facility].44 Infection of 10:46a For Infectious Leach, [employer] amputation Diseases stump, left lower extremity E11.40 Type 2 diabetes mellitus with diabetic neuropathy, unsp Office Visit 10/18/2018 [facility] Nicole Angulo, E11.9 Type 2 diabetes 8:09a Assoc,pc [employer] mellitus without Hospitalists complications J44.9 Chronic obstructive pulmonary disease, unspecified I10 Essential (primary) hypertension E78.5 Hyperlipidemia, unspecified Office Visit 10/17/2018 [facility] Emilie E11.9 Type 2 diabetes 8:09a gopal Kraft, [employer] mellitus without Hospitalists complications I10 Essential (primary) hypertension E78.5 Hyperlipidemia, unspecified Office Visit 08/16/2018 [facility] L03.116 Cellulitis of 10:36a gopal Kraft PA-C left lower limb Hospitalists E11.9 Type 2 diabetes mellitus without complications I10 Essential (primary) hypertension J44.9 Chronic obstructive pulmonary disease, unspecified Office Visit 08/15/2018 [facility] Margaret L03.116 Cellulitis of 10:35a gopal Kraft PA-C left lower limb Hospitalists E11.9 Type 2 diabetes mellitus without complications I10 Essential (primary) hypertension J44.9 Chronic obstructive pulmonary disease, unspecified Office Visit 08/12/2018 [facility] Day Marin L03.116 Cellulitis of 12:18p For Infectious Leach, [employer] left lower limb Diseases M60.074 Infective myositis, left foot E11.9 Type 2 diabetes mellitus without complications Office Visit 08/12/2018 [facility] Shy Gordon, L03.116 Cellulitis of 10:34a gopal Kraft M.D. left lower limb Hospitalists E11.9 Type 2 diabetes mellitus without complications I10 Essential (primary) hypertension J44.9 Chronic obstructive pulmonary disease, unspecified Office Visit 08/11/2018 12:17p [facility] Raphael Dutton L03.116 Cellulitis of For Infectious Tara Phillips left lower limb Diseases M60.074 Infective myositis, left foot E11.9 Type 2 diabetes mellitus without complications [facility].116 Cellulitis of 10:34a gopal Kraft M.D. left lower limb Hospitalists E11.9 Type 2 diabetes mellitus without complications I10 Essential (primary) hypertension J44.9 Chronic obstructive pulmonary disease, unspecified Office Visit 08/10/2018 8:02a Orthopedic Shawelliot Martinez, S91.332A Puncture wound Services Of without C.M.A. foreign body, left foot, init encntr B99.9 Unspecified infectious disease Office Visit 08/10/2018 [facility] Shy Gordon L03.116 Cellulitis of 10:34a Assgopal monsivais M.D. left lower limb Hospitalists E11.9 Type 2 diabetes mellitus without complications I10 Essential (primary) hypertension J44.9 Chronic obstructive pulmonary disease, unspecified Office Visit 08/10/2018 [facility] Day [place] L08.9 Local infection of 12:16p For Infectious Haylee [employer] the skin and Diseases subcutaneous tissue, unsp E11.40 Type 2 diabetes mellitus with diabetic neuropathy, [facility] Office Visit 08/09/2018 12:14p [facility] Raphael Dutton S91.332A Puncture wound Infectious Tara Phillips without Diseases foreign body, left foot, init encntr L08.9 Local infection of the skin and subcutaneous tissue, [facility] E11.40 Type 2 diabetes mellitus with diabetic neuropathy, unsp Office Visit 08/09/2018 [facility] Amy L03.116 Cellulitis of 10:33a Assoc,VIOLETA Mason left lower limb Hospitalists E11.9 Type 2 diabetes mellitus without complications I10 Essential (primary) hypertension E78.5 Hyperlipidemia, unspecified Office Visit 08/09/2018 10:45a Orthopedic Valeri L03.116 Cellulitis of Services Of Tara Torres left lower limb C.M.A. M86.172 Other acute osteomyelitis, left ankle and foot Office Visit 06/14/2018 Sarah Vila86.171 Other acute 11:00a Services Of Tara Torres osteomyelitis, right C.M.A. 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 ankle and foot Assessments Date Code Description Provider 11/17/2018 M86.672 Other chronic osteomyelitis, left Valeri Torres M.D. 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 specified complication 11/01/2018 M86.672 Other chronic osteomyelitis, left Raphael Phillips M.D. ankle and foot 11/01/2018 E11.40 Type 2 diabetes mellitus with Raphael Phillips M.D. 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 VIOLETA Hdz 10/24/2018 E11.69 Type 2 diabetes mellitus with other Day Leach NP specified complication 10/24/2018 M86.672 Other chronic osteomyelitis, left Day Leach NP ankle and foot 10/24/2018 E11.40 Type 2 diabetes mellitus with Day Leach NP diabetic neuropathy, unspecified 10/22/2018 E11.9 Type 2 diabetes mellitus without VIOLETA Ruffin complications 10/22/2018 J44.9 Chronic obstructive pulmonary VIOLETA Ruffin disease, unspecified 10/22/2018 I10 Essential (primary) hypertension VIOLETA Ruffin 10/22/2018 E78.5 Hyperlipidemia, unspecified VIOLTEA Ruffin 10/21/2018 Z98.890 Other specified postprocedural BRUCE Lunsford states 10/20/2018 E11.9 Type 2 diabetes mellitus without VIOLETA Ruffin complications 10/20/2018 Z98.890 Other specified postprocedural Eneida Chamberlain PA-C states 10/20/2018 J44.9 Chronic obstructive pulmonary VIOLETA Ruffin disease, unspecified 10/20/2018 I10 Essential (primary) hypertension VIOLETA Ruffin 10/20/2018 E78.5 Hyperlipidemia, unspecified VIOLETA Ruffin 10/19/2018 E11.9 Type 2 diabetes mellitus without VIOLETA Ruffin complications 10/19/2018 Z98.890 Other specified postprocedural VIOLETA Hdz states 10/19/2018 J44.9 Chronic obstructive pulmonary VIOLETA Ruffin disease, unspecified 10/19/2018 I10 Essential (primary) hypertension VIOLETA Ruffin 10/19/2018 E78.5 Hyperlipidemia, unspecified VIOLETA Ruffin 10/18/2018 E11.9 Type 2 diabetes mellitus without Nicole Adele, [employer] complications 10/18/2018 T87.44 Infection of amputation stump, left Day Leach NP lower extremity 10/18/2018 J44.9 Chronic obstructive pulmonary Nicole Adele, [employer] disease, unspecified 10/18/2018 Z98.890 Other specified postprocedural VIOLETA Hdz states 10/18/2018 I10 Essential (primary) hypertension Nicole Adele, [employer] 10/18/2018 E11.40 Type 2 diabetes mellitus with Day Leach NP diabetic neuropathy, unspecified 10/18/2018 E78.5 Hyperlipidemia, unspecified Nicole Adele, [employer] 10/17/2018 E11.9 Type 2 diabetes mellitus without Emilie Cordoba, [employer] complications 10/17/2018 T81.31xA Disruption of external operation BRUCE Rivera (surgical) wound, not elsew 10/17/2018 I10 Essential (primary) hypertension Emilie Cordoba, [employer] 10/17/2018 T81.31xA Disruption of external operation Valeri Torres M.D. (surgical) wound, not elsew 10/17/2018 E78.5 Hyperlipidemia, unspecified Emilie Austin, [employer] 10/17/2018 Z47.81 Encounter for orthopedic aftercare Valeri Torres M.D. following surgical amputation 10/17/2018 E11.9 Type 2 diabetes mellitus without BRUCE Rivera complications 10/17/2018 Z47.81 Encounter for orthopedic aftercare BRUCE Rivera following surgical amputation 10/17/2018 E11.9 Type 2 diabetes mellitus without Valeri Torres M.D. 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 10/11/2018 L03.116 Cellulitis of left lower limb Valeri Torres M.D. 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 following surgical amputa 09/13/2018 Z47.81 Encounter for orthopedic aftercare Valeri Torres M.D. 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 VIOLETA Hdz 08/16/2018 E11.9 Type 2 diabetes mellitus without Margaret Murphy PA-C complications 08/16/2018 I10 Essential (primary) hypertension Margaret Murphy PA-C 08/16/2018 J44.9 Chronic obstructive pulmonary Margaret Murphy PA-C disease, unspecified 08/15/2018 Z47.81 Encounter for orthopedic aftercare VIOLETA Hdz following surgical amp 08/15/2018 L03.116 Cellulitis of left lower limb Margaret Murphy PA-C 08/15/2018 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 complications 08/12/2018 I10 Essential (primary) hypertension Shy Gordon M.D. 08/12/2018 J44.9 Chronic obstructive pulmonary Shy Gordon M.D. disease, unspecified 08/12/2018 L03.116 Cellulitis of left lower limb Day Leach, [employer] 08/12/2018 M60.074 Infective myositis, left foot Day Leach, [employer] 08/12/2018 E11.9 Type 2 diabetes mellitus without Day Leach, [employer] complications 08/11/2018 L03.116 Cellulitis of left lower limb Shy Gordon M.D. 08/11/2018 L03.116 Cellulitis of left lower limb Raphael Phillips M.D. 08/11/2018 E11.9 Type 2 diabetes mellitus without Shy Gordon M.D. complications 08/11/2018 L03.116 Cellulitis of left lower limb BRUCE Harmon 08/11/2018 I10 Essential (primary) hypertension Shy Gordon M.D. 08/11/2018 M60.074 Infective myositis, left foot Raphael Phillips M.D. 08/11/2018 J44.9 Chronic obstructive pulmonary Shy Gordon M.D. disease, unspecified 08/11/2018 L03.116 Cellulitis of left lower limb Shaw Martinez MD 08/11/2018 E11.9 Type 2 diabetes mellitus without Raphael Phillips M.D. complications 08/11/2018 M62.472 Contracture of muscle, left ankle Shaw Martinez MD and foot 08/11/2018 M67.02 Short Achilles tendon (acquired), Brandy Greenjoy, RPA-C left ankle 08/10/2018 L03.116 Cellulitis of left lower limb Shy Gordon M.D. 08/10/2018 E11.9 Type 2 diabetes mellitus without Shy Gordon M.D. complications 08/10/2018 I10 Essential (primary) hypertension Shy Gordon M.D. 08/10/2018 J44.9 Chronic obstructive pulmonary Shy Gordon M.D. disease, unspecified 08/10/2018 L08.9 Local infection of the skin and Day Leach NP subcutaneous tissue, [facility] 08/10/2018 S91.332A Puncture wound without foreign body, Shaw Martinez MD left foot, init encntr 08/10/2018 E11.40 Type 2 diabetes mellitus with Day Leach NP diabetic neuropathy, [facility] 08/10/2018 B99.9 Unspecified infectious disease Shaw Martinez MD 08/09/2018 R94.31 Abnormal electrocardiogram [ECG] Jony Sidhu M.D. [EKG] 08/09/2018 L03.116 Cellulitis of left lower limb VIOLETA Ann 08/09/2018 S91.332A Puncture wound without foreign body, Raphael Phillips M.D. left foot, init encntr 08/09/2018 E11.9 Type 2 diabetes mellitus without VIOLETA Ann complications 08/09/2018 L03.116 Cellulitis of left lower limb Valeri Torres M.D. 08/09/2018 I10 Essential (primary) hypertension VIOLETA Ann 08/09/2018 L08.9 Local infection of the skin and Raphael Phillips M.D. subcutaneous tissue, uns 08/09/2018 E78.5 Hyperlipidemia, unspecified VIOLETA Ann 08/09/2018 M86.172 Other acute osteomyelitis, left Valeri Torres M.D. ankle and foot 08/09/2018 E11.40 Type 2 diabetes mellitus with Raphael Phillips M.D. diabetic neuropathy, unsp 06/14/2018 M86.171 Other acute osteomyelitis, right Valeri Torres M.D. 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 05/24/2018 M86.171 Other acute osteomyelitis, right Valeri Torres M.D. ankle and foot Plan of Treatment Future Appointment(s):11/30/2018 1:30 pm - Day Leach NP at [facility]/05/2019 - Valeri Torres M.D.M86.672 Other chronic osteomyelitis, left ankle and footNew Xrays:MRI Lower Extremity Left W/O, Ordered: 11/17/18Follow up:after testing is completed Functional Status Description No Information Available Mental Status Description No Information Available Referrals Description No Information Available
[2018-11-18 13:52] LABS: ABS Basophils 0.1 10^3/ul (0-0.2); ABS Eosinophils 0.4 10^3/ul (0-0.6); ABS Lymphocytes 4.8 10^3/ul (1.0-4.8); ABS Monocytes 0.7 10^3/ul (0-0.8); ABS Neutrophils 3.6 10^3/ul (1.5-7.7); Eosinophil % 3.7 %; Hematocrit 37 % (42-52); Hemoglobin 12.9 g/dL (14.0-18.0); Lymphocyte % 50.6 %; Mean Corpuscular HGB Conc 35 g/dL (31-36); Mean Corpuscular Hemoglobin 30 pg (27-31); Mean Corpuscular Volume 87 fL (80-94); Nucleated Red Blood Cells % 0.2; Platelet Count 454 10^3/uL (150-450); Red Cell Distribution Width 14 % (10-15); White Blood Count 9.5 10^3/uL (3.5-10.8)
[2018-11-18 14:16] LABS: Albumin 3.8 g/dL (3.2-5.2); Albumin/Globulin Ratio 1.1 (1-3); BUN/Creatinine Ratio 16.5 (8-20); C Reactive Protein 7.68 mg/L (<8.01); Calcium 9.6 mg/dL (8.6-10.3); EGFR African American 100.9 (>60); EGFR Non-African American 83.4 (>60); Globulin 3.5 g/dL (2-4); Potassium 4.2 mmol/L (3.5-5.0); Total Bilirubin 0.4 mg/dL (0.2-1.0); Total Protein 7.3 g/dL (6.4-8.9)
[2018-11-18] MEDS ORDERED: Iodixanol* (CONTRAST) 320 MG/ML 100 ML SDV IV ONE (15:10)
[2018-11-18] MEDS ORDERED: Lidocaine 2% VISCOUS* 15 ML UDC PO ONE (15:43)
[2018-11-18] MEDS ORDERED: Al Hydrox/Mg Hydrox/Simet LIQ* 30 ML UDC PO ONE (15:43)
[2018-11-18 17:05] LABS: Erythrocyte Sed Rate 43 mm/Hr (0-19)
[2018-11-18 18:10] LABS: Urine Appearance Clear; Urine Bacteria Absent (Absent); Urine Bilirubin Negative (Negative); Urine Blood 2+ (Negative); Urine Color Yellow; Urine Glucose 1+(50 mg/dL) (Negative); Urine Ketones Negative (Negative); Urine Nitrite Negative (Negative); Urine Protein Negative (Negative); Urine Red Blood Cell 3+(>10/hpf) (Absent); Urine Urobilinogen Negative (Negative); Urine White Blood Cell Trace(0-5/hpf) (Absent)
[2018-11-18 18:48] VITALS: BP 147/84
== END 2018-11-18 18:47 | disposition home or self-care (01) ==
LOC: ED 12:21
DX: K59.00 Constipation, unspecified (principal); R33.9 Retention of urine, unspecified; E11.9 Type 2 diabetes mellitus without complications; K76.0 Fatty (change of) liver, not elsewhere classified; I70.0 Atherosclerosis of aorta; D64.9 Anemia, unspecified; I10 Essential (primary) hypertension; J44.9 Chronic obstructive pulmonary disease, unspecified; Z87.891 Personal history of nicotine dependence; Z79.4 Long term (current) use of insulin; Z79.82 Long term (current) use of aspirin; Z79.891 Long term (current) use of opiate analgesic; Z79.899 Other long term (current) drug therapy
CPT/HCPCS: 36415; 74177; 80053; 81003; 81015; 85025; 85652; 86140; 87086; 99284; Q9967

== ENCOUNTER 2018-12-13 12:17 | Emergency (ER) | payer MEDICARE, MEDICAID ==
[2018-12-13] MEDS ORDERED: Famotidine IV* 10 MG/ML 2 ML (20 mg) IV SLOW PU ONE (13:27)
[2018-12-13] MEDS ORDERED: Ondansetron INJ* 2 MG/ML VIAL IV ONE (13:27)
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
[2018-12-13] MEDS ORDERED: Lactated Ringers 1000 ML Bag* 1,000 ML IV ONE (14:00)
[2018-12-13 14:19] LABS: ABS Basophils 0.1 10^3/ul (0-0.2); ABS Eosinophils 0.2 10^3/ul (0-0.6); ABS Lymphocytes 3.2 10^3/ul (1.0-4.8); ABS Monocytes 0.9 10^3/ul (0-0.8); Eosinophil % 1.4 %; Hematocrit 40 % (42-52); Hemoglobin 13.4 g/dL (14.0-18.0); Lymphocyte % 25.8 %; Mean Corpuscular HGB Conc 34 g/dL (31-36); Mean Corpuscular Hemoglobin 30 pg (27-31); Mean Corpuscular Volume 87 fL (80-94); Mean Platelet Volume 6.6 fL (7.4-10.4); Nucleated Red Blood Cells % 0.1; Platelet Count 492 10^3/uL (150-450); Red Blood Count 4.55 10^6 /uL (4.18-5.48); Red Cell Distribution Width 15 % (10-15); White Blood Count 12.3 10^3/uL (3.5-10.8)
[2018-12-13 14:36] LABS: Albumin 3.8 g/dL (3.2-5.2); BUN/Creatinine Ratio 12.8 (8-20); Calcium 9.4 mg/dL (8.6-10.3); EGFR African American 97.2 (>60); EGFR Non-African American 80.3 (>60); Globulin 3.9 g/dL (2-4); Indirect Bilirubin 0.3 mg/dL (0.3-1.0); Potassium 4.3 mmol/L (3.5-5.0); Total Bilirubin 0.4 mg/dL (0.2-1.0); Total Protein 7.7 g/dL (6.4-8.9)
[2018-12-13 15:24] VITALS: BP 142/77
[2018-12-14 14:24] LABS: C Reactive Protein 13.11 mg/L (<8.01)
== END 2018-12-13 15:23 | disposition home or self-care (01) ==
LOC: ED 12:17
DX: T81.89XA Other complications of procedures, not elsewhere classified, initial encounter (principal); Z87.891 Personal history of nicotine dependence; J45.909 Unspecified asthma, uncomplicated; E11.9 Type 2 diabetes mellitus without complications; D64.9 Anemia, unspecified; I10 Essential (primary) hypertension; J44.9 Chronic obstructive pulmonary disease, unspecified; K59.00 Constipation, unspecified; Z79.4 Long term (current) use of insulin; F03.90 Unspecified dementia, unspecified severity, without behavioral disturbance, psychotic disturbance, mood disturbance, and anxiety; Z79.2 Long term (current) use of antibiotics; Z79.899 Other long term (current) drug therapy; Y83.8 Other surgical procedures as the cause of abnormal reaction of the patient, or of later complication, without mention of misadventure at the time of the procedure; Y92.9 Unspecified place or not applicable
CPT/HCPCS: 36415; 80048; 80076; 83605; 83690; 85025; 86140; 96374; 96375; 99282

== ENCOUNTER 2018-12-16 13:11 | Inpatient (IN) | payer MEDICARE, MEDICAID ==
[2018-12-16] MEDS ORDERED: Vancomycin(*) 1,000 MG in NS 0.9% 250 ML* 250 ML IVPB ONE (13:24)
--- OUTSIDE RECORDS SUMMARY | 2018-12-16 13:56 | XMS REPORT | Continuity of Care Document ---
:1950 External Reference #:[id number] Author Name Valeri Torres M.D. 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 years - Unknown smoker quit 12 yrs ago Recreational Drug Use Denies Drug Use Smoking Status Reviewed: 12/15/18 Patient is a former 3PPD x 37 years - smoker quit 12 yrs ago Exercise Type/Frequency Does not exercise Allergies, Adverse Reactions, Alerts Description No Known Drug Allergies Medications Active Medications SIG Qnty Indications Ordering Provider Date Cipro 1 by mouth twice a 28tabs Day Marin 11/30/2018 500mg Tablets day SUE Leach Linezolid one by mouth twice 28tabs Day Marin 11/30/2018 600mg a day SUE Leach Tablets Ibuprofen take 1 tab by mouth 60tabs Valeri Torres, 10/04/2018 600mg with food 3 times a M.D. Tablets day as needed pain with food Aspirin Enteric qd Unknown 11/26/2002 Coated 81mg Tablets Oxycodone-Acetaminop 1 tabs by mouth Unknown hen every 4-6 hours as 5-325mg Tablets needed for pain Sertraline HCL 1 by mouth every Unknown 25mg day Tablets Insulin Glargine Pen as directed Unknown Acetaminophen 2 every 4 hours as Unknown 500mg needed for pain Tablets Senna take 1 tablets by Unknown 8.6mg Tablets mouth every day as needed Enoxaparin Sodium Unknown 40mg/0.4ML Solution Docusate Sodium 1 tab every 12 Unknown 100mg hours as needed for Capsules constipation Proair HFA 1-2 puffs by mouth Unknown every 4 hours as 108(90Base) mcg/Act needed Aerosol Pravastatin Sodium 1 tablet by mouth Unknown once daily at 20mg Tablets bedtime Lisinopril qd Unknown 20mg Fenofibrate qd Unknown 160mg History Medications Vancomycin HCL 1250 mg iv every Unknown 11/21/2018 - 1gm 8 hrs x 33 doses 11/21/2018 Solution Rec at [facility] Cefepime HCL 1 gm iv every 12 Unknown 11/07/2018 - 1gm hours x 22 doses 11/21/2018 Solution Rec at [facility] Levofloxacin 1 by mouth every 14tabs Z89.432 Valeri Torres, 10/27/2018 - 500mg day M.DAzra 11/16/2018 Tablets Cipro 1 tab by mouth 30tabs Shaw Martinez, 10/03/2018 - 500mg Tablets twice a day 11/07/2018 Medications Administered in Office Medication SIG Qnty Indications Ordering Provider Date Celestone 3 mg and 3mg Annette Sorensen, 01/16/2014 Injection M.DAzra Immunizations Description No Information Available Vital Signs Date Vital Result Comment 12/15/2018 9:29am Height 71 inches 5'11" Weight 283.00 lb Heart Rate 86 /min BP Systolic 118 mmHg BP Diastolic 68 mmHg Respiratory Rate 16 /min Body Temperature 98.9 F Pain Level 0 BMI (Body Mass Index) 39.5 kg/m2 11/30/2018 1:40pm Height 71 inches 5'11" Weight 283.00 lb per pt Heart Rate 72 /min BP Systolic Sitting 110 mmHg BP Diastolic Sitting 60 mmHg Respiratory Rate 14 /min Body Temperature 99.6 F BMI (Body Mass Index) 39.5 kg/m2 Results Test Date Facility Test Result H/L Range Note Wound 11/30/2018 [facility] Wound/Misc SEE RESULT 1 Culture[facility] [address] [place] [address] Stain [phone] Laboratory test 10/17/2018 [facility] Point of Care 125 mg/dL High 70-100 [address] [place] [address] [phone] Laboratory test 10/17/2018 [facility] Point of Care 196 mg/dL High 70-100 [address] [place] [address] [phone] Wound 10/03/2018 [facility] Wound/Misc SEE RESULT 4 Culture[facility] [address] [place] [address] Stain [phone] 1 SEE RESULT BELOW Name: VALERI JOINER : [address]: Sujey Templeton NP Acct: [id number] Unit: [id number] AGE: 68 Location: [facility] Re11/30/18 SEX: M Status: REG REF SPEC: [id number] REGINA: 11/30/[address] [facility] [address]: Day Torresmelanie Leach,SUE REQ: [id number] RECD: 11/30/18 STATUS: COMP _ [facility] Culture Stain COMMENTS: [id number] Specimen Description Left foot Procedure Result Reported Site Wound/Misc Gram Stain Final 12/01/18- 0753 ML 2+ Neutrophils 2+ Yeast Wound/Misc Culture Final 12/04/181418 ML Organism 1 FAISAL SPECIES, NOT ALBICANS Quantity 2+ Organism 2 FAISAL ALBICANS Quantity 1+ * ML - Main Lab . END OF REPORT DEPARTMENT OF PATHOLOGY, [address] [place] [address] Osei Gillis M.D. Director [facility] # [id number] 2 Senior Service Aide: [id number] 3 Senior Service Aide: [id number] 4 SEE RESULT BELOW Name: VALERI JOINER : [address]: Brandy MCDANIEL Acct: [id number] Unit: [id number] AGE: 67 Location: [facility] Re10/03/18 SEX: M Status: REG REF SPEC: [id number] REGINA: 10/03/18-[address]: Brandy MCDANIEL REQ: [id number] RECD: 10/03/18 STATUS: COMP _ SOURCE: FOOT,LEFT SPDESC: ORDERED: Culture Stain Procedure Result Reported Site Wound/Misc Gram Stain Final 10/04/18- 07 ML 1+ Neutrophils 1+ Epithelial Cells 1+ [...] CONTINUED ON NEXT PAGE DEPARTMENT OF PATHOLOGY, [address] [place] [address] Osei Gillis M.D. Director [facility] # [id number] Patient: VALERI JOINER [id number] (Continued) Specimen: [id number] Collected: 10/03/18 Received: 10/03/18-1907 (Continued) Procedure Result Reported Site Wound/Misc Culture Final (continued) Contact the Microbiology Department for any additional antibiotic reporting. * ML - Main Lab . END OF REPORT DEPARTMENT OF PATHOLOGY, [address] [place] [address] Osei Gillis M.D. Director [facility] # [id number] Procedures Date Code Description Status 10/17/2018 03658 Amputation Foot Transmetatarsal Completed 10/17/2018 84368 Amputation Foot Transmetatarsal Completed 09/22/2018 47235 Apply Total Contact Leg Cast Completed 09/13/2018 86629 Walking Cast Completed 08/11/2018 17029 Amputation Foot Transmetatarsal Completed 08/11/2018 90080 Gastrocnemius Recession Completed 08/11/2018 30737 Gastrocnemius Recession Completed 08/11/2018 52790 Gastrocnemius Recession Completed 08/09/2018 43921 EKG, Interpretation Only Completed Medical Devices Description No Information Available Encounters Type Date Location Provider Dx Diagnosis Office Visit 11/30/2018 [facility] Day Marin L03.116 Cellulitis of 1:30p Infectious Haylee, SUE left lower limb Diseases E11.69 Type 2 diabetes mellitus with other specified complication T87.81 Dehiscence of amputation stump T87.44 Infection of amputation stump, left lower extremity Office Visit 11/08/2018 [facility] Susan L03.116 Cellulitis of 10:23a Assoc,gopal Wyman, left lower limb Hospitalists CHIEF NURSE M86.672 Other chronic osteomyelitis, left ankle and foot 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 Office Visit 11/07/2018 [facility] E11.69 Type 2 diabetes 11:19a For Infectious Haylee, CHIEF NURSE mellitus with Diseases other specified complication M86.672 Other chronic osteomyelitis, left ankle and foot Office Visit 11/07/2018 [facility] Susan L03.116 Cellulitis of 10:22a Assloi,gopal Wyman, left lower limb Hospitalists CHIEF NURSE 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 Office Visit 11/06/2018 10:22a [facility] Raúl L03.116 Cellulitis of Assoc,pc Jazmin, [place] left lower limb Hospitalists E11.9 Type 2 diabetes mellitus without complications 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 Office Visit 11/05/2018 10:22a [facility] Raúl L03.116 Cellulitis of Assoc,pc Jazmin, [place] left lower limb Hospitalists E11.9 Type 2 diabetes mellitus without complications 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 Office Visit 11/04/2018 [facility] E11.69 Type 2 diabetes 11:01a For Infectious Haylee, CHIEF NURSE mellitus with Diseases other specified complication M86.672 Other chronic osteomyelitis, left ankle and foot Office Visit 11/04/2018 10:21a [facility] Raúl L03.116 Cellulitis of Assoc,pc Jazmin, [place] left lower limb Hospitalists E11.9 Type 2 diabetes mellitus without complications 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 Office Visit 2018 10:21a [facility] Raúl L03.116 Cellulitis of Assoc,pc Jazmin, [place] left lower limb Hospitalists E11.9 Type 2 diabetes mellitus without complications Office Visit 11/02/2018 10:21a [facility] Raúl L03.116 Cellulitis of Assoc,pc Jazmin, PA left lower limb Hospitalists E11.9 Type 2 diabetes mellitus without complications R45.1 Restlessness and agitation Office Visit 11/01/2018 [facility] Amy L03.116 Cellulitis of 10:20a gopal Kraft PA left lower limb Hospitalists E11.9 Type 2 diabetes mellitus without complications R45.1 Restlessness and agitation Office Visit 11/01/2018 6:44a [facility] D[facility] T87.44 Infection of Infectious Tara Phillips amputation Diseases stump, left lower extremity E11.69 Type 2 diabetes mellitus with other specified complication M86.672 Other chronic osteomyelitis, left ankle and foot E11.40 Type 2 diabetes mellitus with diabetic neuropathy, unsp Office Visit 10/31/2018 [facility] L03.116 Cellulitis of 10:20a ,VIOLETA Mason left lower limb Hospitalists E11.9 Type 2 diabetes mellitus without complications I10 Essential (primary) hypertension Office Visit 10/31/2018 [facility] T87.44 Infection of 6:42a For Infectious SUE Leach amputation Diseases stump, left lower extremity L03.116 Cellulitis of left lower limb D72.829 Elevated white blood cell count, unspecified E11.40 Type 2 diabetes mellitus with diabetic neuropathy, unsp [facility] Visit 10/30[facility] L03.116 Cellulitis of 10:19a goapl Kraft PA left lower limb Hospitalists E11.9 Type 2 diabetes mellitus without complications I10 Essential (primary) hypertension Office Visit 10/29/2018 [facility] L03.116 Cellulitis of 10:19a gopal Kraft, CHIEF NURSE left lower limb Hospitalists 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 Office Visit 10/24/2018 [facility] T87.44 Infection of 8:56a For Infectious Leach, CHIEF NURSE amputation Diseases stump, left lower extremity E11.69 Type 2 diabetes mellitus with other specified complication M86.672 Other chronic osteomyelitis, left ankle and foot E11.40 Type 2 diabetes mellitus with diabetic neuropathy, unsp Office Visit 10/22/2018 [facility] Raúl E11.9 Type 2 diabetes 8:10a Assoc,pc Langlois, [place] mellitus without Hospitalists complications J44.9 Chronic obstructive pulmonary disease, unspecified I10 Essential (primary) hypertension E78.5 Hyperlipidemia, unspecified Office Visit 10/20/2018 [facility] Raúl E11.9 Type 2 diabetes 8:10a Assoc,pc Langlois, [place] mellitus without Hospitalists complications J44.9 Chronic obstructive pulmonary disease, unspecified I10 Essential (primary) hypertension E78.5 Hyperlipidemia, unspecified Office Visit 10/19/2018 [facility] Raúl E11.9 Type 2 diabetes 8:10a Assoc,pc Langlois, PA mellitus without Hospitalists complications J44.9 Chronic obstructive pulmonary disease, unspecified I10 Essential (primary) hypertension E78.5 Hyperlipidemia, unspecified Office Visit 10/18/2018 [facility] T87.44 Infection of 10:46a For Infectious Leach, CHIEF NURSE amputation Diseases stump, left lower extremity E11.40 Type 2 diabetes mellitus with diabetic neuropathy, unsp Office Visit 10/18/2018 [facility] Nicole Adele, E11.9 Type 2 diabetes 8:09a Assoc,pc CHIEF NURSE mellitus without Hospitalists complications J44.9 Chronic obstructive pulmonary disease, unspecified I10 Essential (primary) hypertension E78.5 Hyperlipidemia, unspecified Office Visit 10/17/2018 [facility] Emilie E11.9 Type 2 diabetes 8:09a Assoc,pc Beryl, CHIEF NURSE mellitus without Hospitalists complications I10 Essential (primary) hypertension E78.5 Hyperlipidemia, unspecified Office Visit 08/16/2018 [facility] Margaret L03.116 Cellulitis of 10:36a Assoc,pc Katherine, PABenjieC left lower limb Hospitalists E11.9 Type 2 diabetes mellitus without complications I10 Essential (primary) hypertension J44.9 Chronic obstructive pulmonary disease, unspecified Office Visit 08/15/2018 [facility] Margaret L03.116 Cellulitis of 10:35a Assoc,pc O'adwoa, PA-C left lower limb Hospitalists E11.9 Type 2 diabetes mellitus without complications I10 Essential (primary) hypertension J44.9 Chronic obstructive pulmonary disease, unspecified Office Visit 08/12/2018 [facility] Day Marin L03.116 Cellulitis of 12:18p For Infectious Haylee, CHIEF NURSE left lower limb Diseases M60.074 Infective myositis, left foot E11.9 Type 2 diabetes mellitus without complications Office Visit 08/12/2018 [facility] Evan, L03.116 Cellulitis of 10:34a Assgopal monsivais M.D. left lower limb Hospitalists E11.9 Type 2 diabetes mellitus without complications I10 Essential (primary) hypertension J44.9 Chronic obstructive pulmonary disease, unspecified Office Visit 08/11/2018 12:17p [facility] Raphael Dutton L03.116 Cellulitis of For Infectious Tara Phillips left lower limb Diseases M60.074 Infective myositis, left foot E11.9 Type 2 diabetes mellitus without complications Office Visit 08/11/2018 [facility] Evan, L03.116 Cellulitis of 10:34a Assgopal monsivais M.D. left lower limb Hospitalists E11.9 Type 2 diabetes mellitus without complications I10 Essential (primary) hypertension J44.9 Chronic obstructive pulmonary disease, unspecified Office Visit 08/10/2018 8:02a [place] Shaw Martinez, S91.332A Puncture wound [facility] [place] without [place] foreign body, left foot, init encntr B99.9 Unspecified infectious disease [facility] L03.116 Cellulitis of 10:34a gopal Kraft M.D. left lower limb Hospitalists E11.9 Type 2 diabetes mellitus without complications I10 Essential (primary) hypertension J44.9 Chronic obstructive pulmonary disease, unspecified Office Visit 08/10/2018 [facility] Day Marin L08.9 Local infection of 12:16p For Infectious Leach, CHIEF NURSE the skin and Diseases subcutaneous tissue, unsp E11.40 Type 2 diabetes mellitus with diabetic neuropathy, unsp Office Visit 08/09/2018 12:14p [facility] Glenn Dutton S91.332A Puncture wound Infectious Tara Phillips without Diseases foreign body, left foot, init encntr L08.9 Local infection of the skin and subcutaneous tissue, unsp E11.40 Type 2 diabetes mellitus with diabetic neuropathy, [facility] Office Visit 08/09/2018 [facility] Amy L03.116 Cellulitis of 10:33a gopal Kraft PA left lower limb Hospitalists E11.9 Type 2 diabetes mellitus without complications I10 Essential (primary) hypertension E78.5 Hyperlipidemia, unspecified Office Visit 08/09/2018 10:45a [facility] Valeri L03.116 Cellulitis of at [place] Torres M.D. left lower limb M86.172 Other acute osteomyelitis, left ankle and foot Assessments Date Code Description Provider 12/15/2018 M86.672 Other chronic osteomyelitis, left Valeri Torres M.D. ankle and foot 11/30/2018 L03.116 Cellulitis of left lower limb Day Leach, SUE 11/30/2018 E11.69 Type 2 diabetes mellitus with other Day Leach NP specified complication 11/30/2018 T87.81 Dehiscence of amputation stump Day Leach, SUE 11/30/2018 T87.44 Infection of amputation stump, left Day Leach NP lower extremity 11/17/2018 M86.672 Other chronic osteomyelitis, left Valeri Torres M.D. 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 Brandy Greenliz RPA-C 11/06/2018 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 Raúl Wu, PA 11/05/2018 L03.116 Cellulitis of left lower limb Raúl Wu, PA 11/05/2018 Z47.81 Encounter for orthopedic aftercare Brandy Dunn RPA-C following surgical amputation 11/05/2018 E11.9 Type 2 diabetes mellitus without VIOLETA Ruffin complications 11/05/2018 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 Raúl Wu, PA 11/05/2018 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 Brandy Greenlzi RPA-C 11/04/2018 E11.69 Type 2 diabetes mellitus with other Day Leach NP specified complication 11/04/2018 L03.116 Cellulitis of left lower limb Raúl Wu, PA 11/04/2018 M86.672 Other chronic osteomyelitis, left Day Leach NP ankle and foot 11/04/2018 Z47.81 Encounter for orthopedic aftercare Cintia eLonard RPA-C following surgical amputation 11/04/2018 E11.9 Type 2 diabetes mellitus without VIOLETA Ruffin complications 11/04/2018 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 Cintia Leonard RPA-C 11/04/2018 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 Raúl Wu PA 2018 L03.116 Cellulitis of left lower limb Raúl Wu, PA 2018 Z47.81 Encounter for orthopedic aftercare VIOLETA Hdz following surgical amputation 2018 E11.9 Type 2 diabetes mellitus without VIOLETA Ruffin complications 2018 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 VIOLETA Hdz 11/02/2018 L03.116 Cellulitis of left lower limb Raúl Wu, PA 11/02/2018 Z47.81 Encounter for orthopedic aftercare VIOLETA Hdz following surgical amputation 11/02/2018 E11.9 Type 2 diabetes mellitus without VIOLETA Ruffin complications 11/02/2018 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 specified complication 11/01/2018 M86.672 Other chronic osteomyelitis, left Raphael Phillips M.D. ankle and foot 11/01/2018 E11.40 Type 2 diabetes mellitus with Raphael Phillips M.D. diabetic neuropathy, unspecified 10/31/2018 L03.116 Cellulitis of left lower limb VIOLETA Ann 10/31/2018 E11.9 Type 2 diabetes mellitus without VIOLETA Ann complications 10/31/2018 I10 Essential (primary) hypertension VIOLETA Ann 10/31/2018 T87.44 Infection of amputation stump, left Day Leach, SUE lower extremity 10/31/2018 L03.116 Cellulitis of left lower limb Day Leach NP 10/31/2018 D72.829 Elevated white blood cell count, Day Leach NP unspecified 10/31/2018 E11.40 Type 2 diabetes mellitus with Day Leach NP diabetic neuropathy, unspecified 10/30/2018 L03.116 Cellulitis of left lower limb VIOLETA Ann 10/30/2018 Z47.81 Encounter for orthopedic aftercare BRUCE Barrett following surgical amputation 10/30/2018 E11.9 Type 2 diabetes mellitus without VIOLETA Ann complications 10/30/2018 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 Arabella Olga, RPA-C 10/30/2018 I10 Essential (primary) hypertension VIOLETA Ann 10/29/2018 L03.116 Cellulitis of left lower limb Patsy Dougherty, CHIEF NURSE 10/29/2018 T87.44 Infection of amputation stump, left Shaw Martinez MD lower extremity 10/29/2018 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 Patsy Baldwinholly, CHIEF NURSE 10/29/2018 E11.9 Type 2 diabetes mellitus without Patsy Dennyholly, CHIEF NURSE complications 10/29/2018 I10 Essential (primary) hypertension Patsy Baldwinholly, CHIEF NURSE 10/28/2018 L03.116 Cellulitis of left lower limb Patsy Dougherty, CHIEF NURSE 10/28/2018 Z47.81 Encounter for orthopedic aftercare BRUCE Lunsford following surgical amputation 10/28/2018 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 10/27/2018 E11.9 Type 2 diabetes mellitus without Shy Gordon M.D. 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 10/27/2018 I10 Essential (primary) hypertension Shy Gordon M.D. 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 VIOLETA Hdz 10/24/2018 E11.69 Type 2 diabetes mellitus with other Day Leach, CHIEF NURSE specified complication 10/24/2018 M86.672 Other chronic osteomyelitis, left Day Leach, SUE ankle and foot 10/24/2018 E11.40 Type 2 diabetes mellitus with Day Leach, CHIEF NURSE diabetic neuropathy, unspecified 10/22/2018 E11.9 Type 2 diabetes mellitus without Raúl Wu PA complications 10/22/2018 J44.9 Chronic obstructive pulmonary Raúl Wu PA disease, unspecified 10/22/2018 I10 Essential (primary) hypertension Raúl Wu PA 10/22/2018 E78.5 Hyperlipidemia, unspecified Raúl Wu PA 10/21/2018 Z98.890 Other specified postprocedural JUAN CARLOS [place] states 10/20/2018 E11.9 Type 2 diabetes mellitus without Raúl Wu PA complications 10/20/2018 Z98.890 Other specified postprocedural Eneida Chamberlain PA-C states 10/20/2018 J44.9 Chronic obstructive pulmonary Raúl Wu, PA disease, unspecified 10/20/2018 I10 Essential (primary) hypertension Raúl Wu, PA 10/20/2018 E78.5 Hyperlipidemia, unspecified Raúl Wu, PA 10/19/2018 E11.9 Type 2 diabetes mellitus without Raúl Wu, PA complications 10/19/2018 Z98.890 Other specified postprocedural VIOLETA Hdz states 10/19/2018 J44.9 Chronic obstructive pulmonary Raúl Wu PA disease, unspecified 10/19/2018 I10 Essential (primary) hypertension Raúl Wu PA 10/19/2018 E78.5 Hyperlipidemia, unspecified Raúl Wu, PA 10/18/2018 E11.9 Type 2 diabetes mellitus without Incole Adele, CHIEF NURSE complications 10/18/2018 T87.44 Infection of amputation stump, left Day Leach, SUE lower extremity 10/18/2018 J44.9 Chronic obstructive pulmonary Nicole Adele, CHIEF NURSE disease, unspecified 10/18/2018 Z98.890 Other specified postprocedural VIOLETA Hdz states 10/18/2018 I10 Essential (primary) hypertension Nicole Adele, CHIEF NURSE 10/18/2018 E11.40 Type 2 diabetes mellitus with Day Leach NP diabetic neuropathy, unspecified 10/18/2018 E78.5 Hyperlipidemia, unspecified Nicole Adele, CHIEF NURSE 10/17/2018 E11.9 Type 2 diabetes mellitus without Emilie Cordoba NP complications 10/17/2018 T81.31xA Disruption of external operation BRUCE Rivera (surgical) wound, not elsew 10/17/2018 I10 Essential (primary) hypertension Emilie Cordoba, SUE 10/17/2018 T81.31xA Disruption of external operation Valeri Torres M.D. (surgical) wound, not elsew 10/17/2018 E78.5 Hyperlipidemia, unspecified Emilie Cordoba NP 10/17/2018 Z47.81 Encounter for orthopedic aftercare Valeri [...] L03.116 Cellulitis of left lower limb Margaret O'adwoa, PA-C 08/16/2018 Z89.432 Acquired absence of left foot VIOLETA Hdz 08/16/2018 E11.9 Type 2 diabetes mellitus without Margaret O'adwoa, PA-C complications 08/16/2018 I10 Essential (primary) hypertension Margaret O'adwoa, PA-C 08/16/2018 J44.9 Chronic obstructive pulmonary Margaret O'adwoa, PA-C disease, unspecified 08/15/2018 Z47.81 Encounter for orthopedic aftercare VIOLETA Hdz following surgical amp 08/15/2018 L03.116 Cellulitis of left lower limb Margaret O'adwoa, PA-C 08/15/2018 Z89.432 Acquired absence of left foot Noreen Cr PA 08/15/2018 E11.9 Type 2 diabetes mellitus without Margaret O'adwoa, PA-C complications 08/15/2018 I10 Essential (primary) hypertension Margaret O'adwoa, PA-C 08/15/2018 J44.9 Chronic obstructive pulmonary Margaret O'adwoa, PA-C disease, unspecified 08/12/2018 Z47.81 Encounter for [...] L03.116 Cellulitis of left lower limb Day Tania Leach, CHIEF NURSE 08/12/2018 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 08/10/2018 E11.9 Type 2 diabetes mellitus without Shy Gordon M.D. complications 08/10/2018 I10 Essential (primary) hypertension Shy Gordon M.D. 08/10/2018 J44.9 Chronic obstructive pulmonary Shy Gordon M.D. disease, unspecified 08/10/2018 L08.9 Local infection of the skin and Day Leach, CHIEF NURSE subcutaneous tissue, unsp 08/10/2018 S91.332A Puncture wound without foreign body, Shaw Martinez MD left foot, init encntr 08/10/2018 E11.40 Type 2 diabetes mellitus with Day Leach NP diabetic neuropathy, [facility] 08/10/2018 B99.9 Unspecified infectious disease Shaw Martinez [...] skin and Raphael Phillips M.D. subcutaneous tissue, [facility] 08/09/2018 E78.5 Hyperlipidemia, unspecified VIOLETA Ann 08/09/2018 M86.172 Other acute osteomyelitis, left Valeri Torres M.D. ankle and foot 08/09/2018 E11.40 Type 2 diabetes mellitus with Raphael Phillips M.D. diabetic neuropathy, [facility] Plan of Treatment Future Appointment(s):12/19/2018 2:15 pm - BRUCE Harmon at [facility]12/19/2018 2:15 pm - Valeri Torres M.D. at [facility]12/21/2018 1:00 pm - Day Leach NP at [facility]/2019 - Valeri Torres M.D.M86.672 Other chronic osteomyelitis, left ankle and footFollow up:As needed Functional Status Description No Information Available Mental Status Description No Information Available Referrals Description No Information Available
[2018-12-16 13:58] LABS: ABS Basophils 0.1 10^3/ul (0-0.2); ABS Eosinophils 0.2 10^3/ul (0-0.6); ABS Lymphocytes 3.9 10^3/ul (1.0-4.8); ABS Monocytes 1.1 10^3/ul (0-0.8); ABS Neutrophils 7.3 10^3/ul (1.5-7.7); Eosinophil % 1.8 %; Hematocrit 37 % (42-52); Hemoglobin 12.5 g/dL (14.0-18.0); Lymphocyte % 30.8 %; Mean Corpuscular HGB Conc 34 g/dL (31-36); Mean Corpuscular Hemoglobin 29 pg (27-31); Mean Corpuscular Volume 88 fL (80-94); Mean Platelet Volume 6.8 fL (7.4-10.4); Nucleated Red Blood Cells % 0.1; Platelet Count 381 10^3/uL (150-450); Red Blood Count 4.27 10^6 /uL (4.18-5.48); Red Cell Distribution Width 15 % (10-15); White Blood Count 12.5 10^3/uL (3.5-10.8)
[2018-12-16 14:11] LABS: Activated Partial Thrombo Time 33.2 seconds (26.0-38.0); INR 1.21 (0.82-1.09)
[2018-12-16 14:16] LABS: Troponin I 0.01 ng/mL (<0.04)
[2018-12-16 14:23] LABS: Albumin 3.6 g/dL (3.2-5.2); Albumin/Globulin Ratio 0.9 (1-3); BUN/Creatinine Ratio 18.4 (8-20); Calcium 9.1 mg/dL (8.6-10.3); EGFR African American 92.6 (>60); EGFR Non-African American 76.5 (>60); Globulin 3.8 g/dL (2-4); Potassium 4.3 mmol/L (3.5-5.0); Total Bilirubin 0.4 mg/dL (0.2-1.0); Total Protein 7.4 g/dL (6.4-8.9)
[2018-12-16] MEDS ORDERED: Cefepime 2 GM in Dextrose(*) 2 GM/50 ML BAG IV ONE (14:36)
[2018-12-16] MEDS ORDERED: Acetaminophen TAB* 325 MG PO PRN ×2 (16:20→16:31)
[2018-12-16] MEDS ORDERED: Albuterol HFA INHALER* 8 gm MDI INH PRN (16:31)
[2018-12-16] MEDS ORDERED: Dextrose 50% VIAL 50 ml IV PUSH PRN (16:58)
[2018-12-16] MEDS ORDERED: Vancomycin per Pharmacy* NOTE FOLLOW UP SCH (17:00)
--- NOTE | 2018-12-16 18:03 | CONS ---
CONSULTATION REPORT: DATE OF CONSULT: 12/16/18 CHIEF COMPLAINT: Left foot wound status post midfoot amputation. HISTORY OF PRESENT ILLNESS: Mr. Joiner is a 68-year-old diabetic male with neuropathy and recurrent open wounds of his feet. He underwent a left midfoot amputation with Dr. Torres on 10/17/18 and had subsequent admission in mid October for IV antibiotics for a draining wound. He is referred to the ergency room today for similar situation with a draining ulcer from a draining wound of the left foot . The patient is afebrile and asymptomatic and presents from [facility]. PAST MEDICAL HISTORY: 1. Diabetes. 2. Diabetic neuropathy. 3. Recurrent osteomyelitis from the bilateral lower extremities. 4. Obstructive sleep apnea. 5. Morbid obesity. 6. Shoulder melanoma. 7. Hypertension. 8. Hyperlipidemia. 9. Asthma. PAST SURGICAL HISTORY: 1. Splenectomy. 2. Melanoma excision. 3. Multiple bilateral foot amputations. HOME MEDICATIONS: 1. Albuterol 2 puffs inhaled q.4 hours p.r.n. 2. Lisinopril 20 mg p.o. q.a.m. 3. Metformin 1000 mg p.o. b.i.d. 4. Januvia 100 mg p.o. q.a.m. 5. Invokana 300 mg p.o. q.a.m. 6. Fenofibrate 160 mg p.o. q.a.m. 7. Pravachol 40 mg p.o. q.h.s. 8. Tylenol 650 mg p.o. q.4 hours p.r.n. 9. Dulcolax 10 mg [place] daily as needed. 10. Oxycodone 5 mg p.o. q.3 hours p.r.n. pain. 11. Lovenox 40 mg subcutaneously daily. 12. Lantus insulin 10 units subcutaneous at bedtime. ALLERGIES: None. FAMILY HISTORY: Significant for diabetes. No cancer or heart disease. SOCIAL HISTORY: The patient does not work. He minimally ambulates due to bilateral lower extremity amputations. He denies tobacco, alcohol, or recreational drug use. REVIEW OF SYSTEMS: 14 systems were reviewed with the patient today and are positive for left foot er ythema and drainage. Negative for fevers, chills, chest pain, shortness of breath with exertion and all other systems are negative. PHYSICAL EXAMINATION: Vital Signs: Temperature 98.2, blood pressure 120/64, pulse 67, respirations 22, oxygen saturation 97. In general, he is a well-developed, well-nourished male, lying on the stre tcher, in no acute distress with appropriate affect. HEENT: Normocephalic/atraumatic. Hearing and vision are grossly intact with extraocular movements intact. Neck: Trachea is midline and symmetric al. Chest: No labored breathing. Lungs are clear to auscultation. No wheezes, rales, or rhonchi no coral. Cardio: Regular rate and rhythm. Normal S1 and S2. No murmurs, gallops, or rubs noted. Abdo men: Nondistended. Soft and nontender with bowel sounds present. Musculoskeletal: The left lower extremity, his incision is well approximated except for the lateral aspect has a nickel size ulcerati on with drainage and circumferential erythema. Skin: Otherwise is dry and intact. DIAGNOSTIC LABS: White blood cell count 12.5, platelets 381, INR 1.21. Sodium 132, BUN and creatini ne 147. ASSESSMENT AND PLAN: Mr. Joiner is a 68-year-old male referred by Dr. Torres to the emergency room. Plan will be revision of the left amputation stump on Wednesday, which is in 3 days. Hospital Medicine will admit the patient and optimize him for the surgical procedure. The patient currently is on IV vancomycin, which will continue as per Medicine and Infectious Disease. VIOLETA PENA [id number]/[facility] #: [id number]
[2018-12-16] MEDS: Enoxaparin(*) 40 MG/0.4 ML SYR SUBCUT SCH (18:22)
[2018-12-16] MEDS: NS 0.9% 1000 ML** 1,000 ML IV SCH (18:22)
--- NOTE | 2018-12-16 19:35 | HP ---
AMENDED REPORT NOW INCLUDES DESIGNATED COSIGNER ADMISSION HISTORY AND PHYSICAL: DATE OF ADMISSION: 12/16/18 PRIMARY CARE PROVIDER: Dr. Puri. PROVIDER: Jigna Lezama NP ATTENDING PHYSICIAN: Dr. Joyner.* (DICTATED BY JIGNA LEZAMA NP) OTHER PROVIDERS: Include Dr. Torres, Dr. Dozier. HISTORY OF PRESENT ILLNESS: This is a 68-year-old male with a past medical history significant for status post left forefoot amputation on 08/11/18, status post revision on 10/17/18, discharged to [facility] for rehab and IV antibiotics. He has failed antibiotic therapy in the outpatient setting and was seen in the office by Dr. Torres yesterday, who at that time felt he should be direct admit for the amputation, instead the patient was brought back to [facility] and was then sent back to the emergency room today. In the ED, the patient received a dose of IV cefepime and vancomycin. Denies any fever, chills , headaches, chest pain, shortness of breath, abdominal pain, nausea, vomiting, or any issues with moving bowel or bladder. He denies any pain in his left foot. The hospitalists were asked to evaluate the patient for admission. PAST MEDICAL HISTORY: Includes left foot osteomyelitis, diabetes type 2, hypertension, hyperlipidemia, KYLE, COPD, bilateral carpal tunnel release, melanoma. PAST SURGICAL HISTORY: Includes right partial foot amputation; on 08/11/18, left forefoot amputation; on 10/17/18, revision of left forefoot amputation; finger surgery with percutaneous pinning; splenectomy; and bilateral shoulder surgeries. HOME MEDICATIONS: Include: 1. Fenofibrate 160 mg p.o. q. day. 2. Albuterol inhaler 2 puffs inhalation q.4 hours p.r.n. 3. Aspirin 81 mg p.o. q.a.m. 4. Docusate 100 mg p.o. b.i.d. 5. Insulin glargine 10 units subcutaneous q.a.m. 6. Lactobacillus acidophilus 1 tab p.o. b.i.d. 7. Lisinopril 20 mg p.o. q.a.m. 8. Zofran 4 mg p.o. q.6 hours p.r.n. 9. Oxycodone/acetaminophen 5/325 one tab p.o. q.6 hours p.r.n. 10. Pravastatin 40 mg p.o. at bedtime. 11. Senna 1 tab p.o. b.i.d. 12. Sertraline 25 mg p.o. daily. ALLERGIES: He has no known drug allergies. FAMILY HISTORY: Mother, positive for heart disease. Brother, positive for diabetes. Father, positive for stroke and lymphoma. SOCIAL HISTORY: Denies any tobacco, alcohol, or drug use. He is disabled, lives at [facility]. Surrogate is Panchito Gonzalez, who is his [id number]. REVIEW OF SYSTEMS: A 14-point system review was completed. Negative for fevers , chills, anorexia, chest pain. Only pertinent positive is decreased sensation to bilateral lower extremities. PHYSICAL EXAMINATION CONSTITUTIONAL: This is a well-developed, well-groomed gentleman, lying in bed , in no acute distress. VITAL SIGNS: Temp 97.6 Fahrenheit, 67 pulse, respirations 22, O2 sat 94% on room air, and blood pressure 120/64. HEENT: Eyes: Conjunctivae pink and moist. PERRLA. Extraocular muscles intact. ENT: Oropharynx clear. Mucous membranes moist. LYMPHATICS: No cervical lymphadenopathy noted. RESPIRATORY: Lung sounds clear throughout bilaterally on room air. No accessory muscle use. CARDIAC: S1, S2. Heart rate regular. No murmurs, rubs or gallops appreciated. ABDOMEN: Soft, nontender. Positive bowel sounds x4. MUSCULOSKELETAL: No clubbing or cyanosis of the digits noted. Healed right midfoot amputation. Full range of motion of all extremities. NEURO: No focal deficits appreciated. Decreased sensation to bilateral lower extremities. PSYCH: Alert and oriented x4. No anxiety or depression noted. SKIN: Dressing to the left foot taken down for examination, noted 2 open areas. Medial wound had purulent drainage, surrounding erythema and edema. No tenderness to palpation due to decreased sensation in extremity. DIAGNOSTIC STUDIES/LAB DATA: White blood cell count 12.5, hemoglobin 12.5, hematocrit 37. INR 1.21. Sodium 132, chloride 99, glucose 147, lactic acid 1.8. AST 9, ALT 6. No imaging done in the ED on this visit. Foot x-ray done on 12/13/18 showed subcutaneous gas along the margin of the amputation. On 12/02/18, MRI showed early osteomyelitis, edema in the cuboid and cuneiform, and anterior talus edema progressive since previous exam. ASSESSMENT AND PLAN: Again, my impression is that this is a 68-year-old male with a past medical history significant for previous osteomyelitis and amputations of both feet, diabetes type 2 and hypertension, who presented to the emergency room today with a known left foot infection. The patient has already been seen by Dr. Torres and is scheduled for surgery in the a.m. with anticipation of a possible left [id number] amputation. Infectious Disease is aware of the patient and has given valuable input on antibiotic choice. 1. Left foot osteomyelitis. Again, Dr. Torres consulted. Consistent carb diet for dinner, n.p.o. after midnight in anticipation of surgery. Normal saline at 75 mL an hour. Cefepime 2 g IV q. day and vancomycin IV per pharmacy dosing. The patient may have either Tylenol or Percocet for pain control. May get out of bed with assistance. 2. Diabetes type 2. Fingersticks a.c. and h.s. with lispro sliding scale insulin. Continue Lantus. 3. Hypertension. Continue lisinopril. 4. Hyperlipidemia. Continue pravastatin and fenofibrate. 5. Depression. Continue sertraline. 6. Chronic obstructive pulmonary disease. Continue albuterol inhalers. 7. Bowel management: The patient will have Colace and senna. 8. DVT prophylaxis: Lovenox. 9. Code status is DNR. Disposition is to admit inpatient with anticipation of surgery in the a.m. Condition is fair. TIME SPENT: Time spent on the patient 60 minutes with more than half of that spent [id number]. JIGNA LEZAMA, UTILITY PERSON [id number]/[facility] #: [id number] RUTH
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
[2018-12-16] MEDS: Insulin LISPRO* 1 UNITS UNIT SUBCUT SCH (21:30)
[2018-12-16] MEDS: Lactobacillus Acidophilus* 1 TAB PO SCH (21:31)
[2018-12-16] MEDS: Senna TAB 8.6 mg* TAB PO SCH (21:31)
[2018-12-16] MEDS: Docusate CAP* 100 MG PO SCH (21:31)
[2018-12-16] MEDS: Atorvastatin* 10 MG TAB PO SCH (21:31)
[2018-12-17] MEDS: Vancomycin(*) 750 MG in NS 0.9% 250 ML* 250 ML IVPB SCH ×2 (02:13→14:32)
[2018-12-17] MEDS: Ondansetron INJ* 2 MG/ML VIAL IV PRN (04:47)
[2018-12-17 05:17] LABS: Urine Appearance Cloudy; Urine Bacteria 1+ (Absent); Urine Bilirubin Negative (Negative); Urine Blood 3+ (Negative); Urine Color Yellow; Urine Glucose 1+(50 mg/dL) (Negative); Urine Ketones Trace (Negative); Urine Nitrite Negative (Negative); Urine Protein 1+(30 mg/dL) (Negative); Urine Red Blood Cell 3+(>10/hpf) (Absent); Urine Specific Gravity 1.029 (1.010-1.030); Urine Squamous Epithelial Cell Present (Absent); Urine Urobilinogen Negative (Negative); Urine White Blood Cell 3+(>20/hpf) (Absent)
[2018-12-17 07:36] LABS: ABS Basophils 0.1 10^3/ul (0-0.2); ABS Eosinophils 0.4 10^3/ul (0-0.6); ABS Lymphocytes 2.4 10^3/ul (1.0-4.8); ABS Neutrophils 5.6 10^3/ul (1.5-7.7); Eosinophil % 4.2 %; Hematocrit 37 % (42-52); Hemoglobin 12.5 g/dL (14.0-18.0); Lymphocyte % 25.1 %; Mean Corpuscular HGB Conc 34 g/dL (31-36); Mean Corpuscular Hemoglobin 30 pg (27-31); Mean Corpuscular Volume 87 fL (80-94); Mean Platelet Volume 7.1 fL (7.4-10.4); Nucleated Red Blood Cells % 0.1; Platelet Count 397 10^3/uL (150-450); Red Blood Count 4.22 10^6 /uL (4.18-5.48); Red Cell Distribution Width 15 % (10-15); White Blood Count 9.5 10^3/uL (3.5-10.8)
[2018-12-17] MEDS: Insulin LISPRO* 1 UNITS UNIT SUBCUT SCH ×4 (07:48→20:19)
[2018-12-17] MEDS: Docusate CAP* 100 MG PO SCH ×2 (07:48→20:18)
[2018-12-17] MEDS: Aspirin EC TAB* 81 MG TAB.EC PO SCH (07:48)
[2018-12-17] MEDS: Senna TAB 8.6 mg* TAB PO SCH ×2 (07:49→20:18)
[2018-12-17] MEDS: Lactobacillus Acidophilus* 1 TAB PO SCH ×2 (07:49→20:18)
[2018-12-17] MEDS: Lisinopril TAB* 10 MG PO SCH (07:49)
[2018-12-17] MEDS: Sertraline* 25 MG TAB PO SCH (07:49)
[2018-12-17] MEDS: FENOFIBRATE 160 MG PO SCH (07:49)
[2018-12-17 07:50] LABS: BUN/Creatinine Ratio 16.8 (8-20); Calcium 8.9 mg/dL (8.6-10.3); EGFR Non-African American 79.3 (>60); Potassium 4.1 mmol/L (3.5-5.0)
[2018-12-17] MEDS: Insulin GLARGINE(*) 1 UNITS UNIT SUBCUT SCH (07:56)
[2018-12-17] MEDS ORDERED: ceFAZolin 2 GM in NS PREMIX(*) 2 GM/100 ML BAG IVPB ONE (08:10)
[2018-12-17] MEDS ORDERED: Propofol* 10 MG/ML 20 ML BTL ONE (08:11)
[2018-12-17] MEDS ORDERED: Midazolam* 1 MG/ML 5 ML VIAL (5 MG) ONE (08:12)
[2018-12-17] MEDS ORDERED: fentaNYL* 50 MCG/ML 2 ML VIAL (100 MCG VIAL) ONE ×3 (08:12→10:43)
[2018-12-17] MEDS ORDERED: Bupivacaine 0.5%* 50 ML MDV VIAL ONE (08:25)
[2018-12-17] MEDS ORDERED: Naloxone* 0.4 MG/ML 1 ML VIAL IV PRN (09:14)
[2018-12-17] MEDS ORDERED: Ondansetron INJ* 2 MG/ML VIAL IV PRN (09:14)
[2018-12-17] MEDS: fentaNYL* 50 MCG/ML 2 ML VIAL (100 MCG VIAL) IV PRN ×5 (10:04→10:43)
[2018-12-17] MEDS ORDERED: HYDROmorphone INJ1* 1 MG/ML SYRINGE ONE ×3 (10:07→11:47)
[2018-12-17] MEDS: HYDROmorphone INJ1* 1 MG/ML SYRINGE IV PRN ×5 (10:08→11:51)
[2018-12-17] MEDS ORDERED: oxyCODONE/Acetamin 5/325 MG* TAB ONE (10:30)
[2018-12-17] MEDS: NS 0.9% 1000 ML** 1,000 ML IV SCH (12:53)
--- NOTE | 2018-12-17 13:45 | PN ---
Subjective Date of Service: 12/17/18 Interval History: Mr. Joiner is not feeling well today. He is back on the floor after going to the OR this morning. He is in a significant amount of pain at this point, but is unable to further describe the pain. He will not stay awake to answer any further questions. Nursing reports patient has been quite sedated since arriving from PACU. Family History: Unchanged from Admission Social History: Unchanged from Admission Past Medical History: Unchanged from Admission Objective Active Medications: Acetaminophen (Tylenol Tab*) 650 mg PO Q4H PRN MILD PAIN or TEMP > 100.4 Albuterol (Ventolin Hfa Inhaler*) 2 puff INH Q4HR PRN WHEEZING Aspirin (Aspirin Ec Tab*) 81 mg PO QAM [facility] Atorvastatin Calcium (Lipitor*) 10 mg PO BEDTIME [facility]; Protocol Dextrose (Dextrose 50% Vial 50 Ml*) 25 ml IV PUSH .FOR FS < 60 - SS PRN FS < 60 Docusate Sodium (Colace Cap*) 100 mg PO BID [facility] Enoxaparin Sodium (Lovenox(*)) 40 mg SUBCUT Q24H [facility] Fenofibrate (Tricor 160 Mg) 160 mg PO QAM [facility]; Protocol Sodium Chloride (Ns 0.9% 1000 Ml) 1,000 mls @ 75 mls/hr IV PER RATE [facility] Cefepime HCl (Maxipime 2 Gm In Dextrose Duplex (*)) 2 gm in 50 mls @ 100 mls/ hr IV Q24H [facility] Vancomycin HCl 750 mg/ Sodium (Chloride) 250 mls @ 166.667 mls/hr IVPB Q12H [facility] Insulin Glargine (Lantus(*)) 10 units SUBCUT Q24H [facility] Insulin Human Lispro (Humalog*) 0 units SUBCUT ACHS [facility]; Protocol Lactobacillus Rhamnosus (Lactobacillus Acidophilus*) 1 tab PO BID [facility] Lisinopril (Prinivil Tab*) 20 mg PO QAM [facility] Ondansetron HCl (Zofran Inj*) 4 mg IV Q4H PRN NAUSEA/VOMITING Oxycodone/Acetaminophen (Percocet 5/325 Tab*) 1 tab PO Q6HR PRN PAIN - MODERATE Senna (Senokot 8.6 Mg Tab*) 1 tab PO BID [facility] Sertraline HCl (Zoloft*) 25 mg PO DAILY [facility] Vital Signs - 8 hr 12/17/18 12/17/18 12/17/18 08:00 09:57 10:00 Temperature 97.2 F Pulse Rate 59 63 Respiratory 16 16 16 Rate Blood Pressure 111/50 92/50 (mmHg) O2 Sat by Pulse 93 93 Oximetry 12/17/18 12/17/18 12/17/18 10:04 10:05 10:08 Temperature Pulse Rate 58 Respiratory 16 16 16 Rate Blood Pressure 106/49 (mmHg) O2 Sat by Pulse 92 Oximetry 12/17/18 12/17/18 12/17/18 10:09 10:10 10:14 Temperature Pulse Rate 62 62 Respiratory 16 9 13 Rate Blood Pressure 94/37 (mmHg) O2 Sat by Pulse 93 93 Oximetry 12/17/18 12/17/18 12/17/18 10:15 10:16 10:19 Temperature Pulse Rate 62 Respiratory 13 16 16 Rate Blood Pressure 102/50 (mmHg) O2 Sat by Pulse 93 Oximetry 12/17/18 12/17/18 12/17/18 10:26 10:28 10:30 Temperature Pulse Rate 65 Respiratory 16 16 11 Rate Blood Pressure 110/52 (mmHg) O2 Sat by Pulse 96 Oximetry 12/17/18 12/17/18 12/17/18 10:43 10:45 11:00 Temperature Pulse Rate 60 59 Respiratory 16 15 11 Rate Blood Pressure 102/54 107/46 (mmHg) O2 Sat by Pulse 95 92 Oximetry 12/17/18 12/17/18 12/17/18 11:01 11:15 11:30 Temperature Pulse Rate 61 55 58 Respiratory 12 4 10 Rate Blood Pressure 102/41 111/52 (mmHg) O2 Sat by Pulse 90 90 92 Oximetry 12/17/18 12/17/18 12/17/18 11:45 11:51 12:00 Temperature Pulse Rate 56 61 Respiratory 8 16 8 Rate Blood Pressure 97/46 108/46 (mmHg) O2 Sat by Pulse 95 91 Oximetry 12/17/18 12/17/18 12:01 12:24 Temperature Pulse Rate 61 Respiratory 21 18 Rate Blood Pressure (mmHg) O2 Sat by Pulse 89 94 Oximetry Oxygen Devices in Use Now: CPAP Appearance: Middle-aged male sitting in bed in NAD Ears/Nose/Mouth/Throat: Mucous Membranes Moist Neck: NL Appearance and Movements; NL JVP, Trachea Midline Respiratory: Symmetrical Chest Expansion and Respiratory Effort, Clear to Auscultation Cardiovascular: NL Sounds; No Murmurs; No JVD, RRR Abdominal: NL Sounds; No Tenderness; No Distention Extremities: No Edema Neurological: - - Wakes to voice, drowsy Lines/Tubes/Other Access: Clean, Dry and Intact Peripheral IV Nutrition: Taking PO's Result Diagrams: 12/17/18 07:02 12/17/18 07:02 Assess/Plan/Problems-Billing Assessment: Mr Joiner is a 68 yo M with PMH of DM2, HTN, HLD, KYLE, COPD, and 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 Torres d/t failing outpatient antibiotics. - Patient Problems (1) Osteomyelitis of left foot Code(s): M86.9 - OSTEOMYELITIS, UNSPECIFIED Comment: - Recurrent, failed outpatient antibiotics - S/p BKA POD #0 - Ortho following closely - Appreciate ID consult Wednesday - Continue cefepime, vanco (2) UTI (urinary tract infection) Comment: - Urine culture pending, though E. coli is present in - Continue cefepime (3) Bacteremia Code(s): R78.81 - BACTEREMIA Comment: - 1/2 bottles growing E. coli; source is UTI - Not meeting sepsis criteria - Continue cefepime (4) Diabetes Code(s): E11.9 - TYPE 2 DIABETES MELLITUS WITHOUT COMPLICATIONS Comment: - A1c 7.7% in November - Continue Lantus, Lispro SS (5) HTN (hypertension) Code(s): I10 - ESSENTIAL (PRIMARY) HYPERTENSION Comment: - Normotensive - Continue lisinopril (6) HLD (hyperlipidemia) Code(s): E78.5 - HYPERLIPIDEMIA, UNSPECIFIED Comment: - Continue atorvastatin (7) Depression Code(s): F32.9 - MAJOR DEPRESSIVE DISORDER, SINGLE EPISODE, UNSPECIFIED Comment: - Continue sertraline (8) DVT prophylaxis Comment: - Lovenox (9) DNR (do not resuscitate) Comment: Status and Disposition: Inpatient. Anticipate need for prison abx and d/c back to [facility] when medically stable. Attending: Heron Lua
[2018-12-17] MEDS: Lactated Ringers 1000 ML Bag* 1,000 ML IV SCH (15:28)
[2018-12-17] MEDS ORDERED: Cefepime 2 GM in Dextrose(*) 2 GM/50 ML BAG IV SCH (16:00)
[2018-12-17] MEDS: oxyCODONE/Acetamin 5/325 MG* TAB PO PRN ×2 (16:39→21:01)
[2018-12-17] MEDS: Enoxaparin(*) 40 MG/0.4 ML SYR SUBCUT SCH (17:56)
[2018-12-17] MEDS: Atorvastatin* 10 MG TAB PO SCH (20:18)
[2018-12-17] MEDS: Tamsulosin CAP* 0.4 MG PO SCH (23:54)
[2018-12-18] MEDS: oxyCODONE/Acetamin 5/325 MG* TAB PO PRN ×5 (00:55→20:53)
[2018-12-18] MEDS: Vancomycin(*) 750 MG in NS 0.9% 250 ML* 250 ML IVPB SCH ×2 (01:59→14:56)
[2018-12-18] MEDS: Lactated Ringers 1000 ML Bag* 1,000 ML IV SCH (07:00)
[2018-12-18 07:39] LABS: Hematocrit 33 % (42-52); Mean Corpuscular HGB Conc 34 g/dL (31-36); Mean Corpuscular Hemoglobin 29 pg (27-31); Mean Corpuscular Volume 86 fL (80-94); Mean Platelet Volume 7.1 fL (7.4-10.4); Platelet Count 367 10^3/uL (150-450); Red Blood Count 3.79 10^6 /uL (4.18-5.48); Red Cell Distribution Width 15 % (10-15); White Blood Count 16.1 10^3/uL (3.5-10.8)
[2018-12-18 07:52] LABS: BUN/Creatinine Ratio 16.7 (8-20); Calcium 8.6 mg/dL (8.6-10.3); EGFR African American 120.5 (>60); EGFR Non-African American 99.6 (>60); Potassium 3.9 mmol/L (3.5-5.0)
[2018-12-18 08:07] LABS: ABS Basophils 0.1 10^3/ul (0-0.2); ABS Eosinophils 0.4 10^3/ul (0-0.6); ABS Lymphocytes 3.4 10^3/ul (1.0-4.8); ABS Monocytes 1.7 10^3/ul (0-0.8); ABS Neutrophils 10.6 10^3/ul (1.5-7.7); Eosinophil % 2.4 %; Lymphocyte % 21.3 %
[2018-12-18] MEDS: Insulin LISPRO* 1 UNITS UNIT SUBCUT SCH ×4 (10:07→21:17)
[2018-12-18] MEDS: Aspirin EC TAB* 81 MG TAB.EC PO SCH (10:08)
[2018-12-18] MEDS: FENOFIBRATE 160 MG PO SCH (10:08)
[2018-12-18] MEDS: Insulin GLARGINE(*) 1 UNITS UNIT SUBCUT SCH (10:08)
[2018-12-18] MEDS: Docusate CAP* 100 MG PO SCH ×2 (10:08→20:52)
[2018-12-18] MEDS: Senna TAB 8.6 mg* TAB PO SCH ×2 (10:09→20:52)
[2018-12-18] MEDS: Sertraline* 25 MG TAB PO SCH (10:09)
[2018-12-18] MEDS: Lisinopril TAB* 10 MG PO SCH (10:09)
[2018-12-18] MEDS: Lactobacillus Acidophilus* 1 TAB PO SCH ×2 (10:09→20:52)
--- NOTE | 2018-12-18 10:29 | PN ---
Progress Note - Progress Note Date of Service: 12/18/18 SOAP: Subjective: [Patient reports some discomfort L LE when trying to move. Also some burning with urination. Denies CP,SOB, dizziness, nausea] Objective: [A and O x 3, NAD L stump dressing C/D/I Vital Signs: Temp Pulse Resp BP Pulse Ox 99.1 F 96 14 142/70 94 12/18/18 04:16 12/18/18 04:16 12/18/18 10:21 12/18/18 04:16 12/18/18 05:11 Laboratory Results - last 24 hr 12/17/18 12/17/18 12/17/18 12:58 16:40 20:12 WBC RBC Hgb Hct MCV MCH MCHC RDW Plt Count MPV Neut % (Auto) Lymph % (Auto) [place] % (Auto) Eos % (Auto) Baso % (Auto) Absolute Neuts (auto) Absolute Lymphs (auto) Absolute Monos (auto) Absolute Eos (auto) Absolute Basos (auto) Absolute Nucleated RBC Nucleated RBC % Sodium Potassium Chloride Carbon Dioxide Anion Gap BUN Creatinine Est GFR ( Amer) Est GFR (Non-Af Amer) BUN/Creatinine Ratio Glucose POC Glucose (mg/dL) 184 H 161 H 165 H Calcium 12/18/18 12/18/18 07:27 07:27 WBC 16.1 H RBC 3.79 L Hgb 11.0 L Hct 33 L MCV 86 MCH 29 MCHC 34 RDW 15 Plt Count 367 MPV 7.1 L Neut % (Auto) 65.6 Lymph % (Auto) 21.3 [place] % (Auto) 10.3 Eos % (Auto) 2.4 Baso % (Auto) 0.4 Absolute Neuts (auto) 10.6 H Absolute Lymphs (auto) 3.4 Absolute Monos (auto) 1.7 H Absolute Eos (auto) 0.4 Absolute Basos (auto) 0.1 Absolute Nucleated RBC 0.0 Nucleated RBC % 0.0 Sodium 135 Potassium 3.9 Chloride 103 Carbon Dioxide 29 Anion Gap 3 BUN 13 Creatinine 0.78 Est GFR ( Amer) 120.5 Est GFR (Non-Af Amer) 99.6 BUN/Creatinine Ratio 16.7 Glucose 169 H POC Glucose (mg/dL) Calcium 8.6 ] Assessment: [s/p L Transtibial amputaion POD #1] Plan: [OOB with assist Pain management Lovenox U/A ordered]
--- NOTE | 2018-12-18 12:45 | PN ---
Subjective Date of Service: 12/18/18 Interval History: Mr. Joiner is feeling a little better today. He is still having significant LLE pain. He rates it 10/10 at the worst, but after pain medication this morning it is 8/10 and he is moderately comfortable at that level. He denies CP, SOB, N/V. No concerns from nursing. Family History: Unchanged from Admission Social History: Unchanged from Admission Past Medical History: Unchanged from Admission Objective Active Medications: Acetaminophen (Tylenol Tab*) 650 mg PO Q4H PRN MILD PAIN or TEMP > 100.4 Albuterol (Ventolin Hfa Inhaler*) 2 puff INH Q4HR PRN WHEEZING Aspirin (Aspirin Ec Tab*) 81 mg PO QAM [facility] Atorvastatin Calcium (Lipitor*) 10 mg PO BEDTIME [facility]TTO; Protocol Dextrose (Dextrose 50% Vial 50 Ml*) 25 ml IV PUSH .FOR FS < 60 - SS PRN FS < 60 Docusate Sodium (Colace Cap*) 100 mg PO BID [facility] Enoxaparin Sodium (Lovenox(*)) 40 mg SUBCUT Q24H [facility] Fenofibrate (Tricor 160 Mg) 160 mg PO QAM [facility]; Protocol Cefepime HCl (Maxipime 2 Gm In Dextrose Duplex (*)) 2 gm in 50 mls @ 100 mls/ hr IV Q24H [facility] Vancomycin HCl 750 mg/ Sodium (Chloride) 250 mls @ 166.667 mls/hr IVPB Q12H [facility] Lactated Ringer's (Lactated Ringers 1000 Ml Bag*) 1,000 mls @ 75 mls/hr IV PER RATE [facility] Insulin Glargine (Lantus(*)) 10 units SUBCUT Q24H [facility] Insulin Human Lispro (Humalog*) 0 units SUBCUT ACHS [facility]; Protocol Lactobacillus Rhamnosus (Lactobacillus Acidophilus*) 1 tab PO BID [facility] Lisinopril (Prinivil Tab*) 20 mg PO QAM [facility] Ondansetron HCl (Zofran Inj*) 4 mg IV Q4H PRN NAUSEA/VOMITING Oxycodone/Acetaminophen (Percocet 5/325 Tab*) 1 tab PO Q6HR PRN PAIN - MODERATE Senna (Senokot 8.6 Mg Tab*) 1 tab PO BID [facility] Sertraline HCl (Zoloft*) 25 mg PO DAILY [facility] Tamsulosin HCl (Flomax Cap*) 0.4 mg PO BEDTIME [facility] Vital Signs - 8 hr 12/18/18 12/18/18 12/18/18 05:11 06:15 08:00 Temperature Pulse Rate Respiratory 18 14 Rate Blood Pressure (mmHg) O2 Sat by Pulse 94 Oximetry 12/18/18 12/18/18 12/18/18 10:19 10:21 11:50 Temperature 99.5 F Pulse Rate 85 Respiratory 14 14 16 Rate Blood Pressure 96/54 (mmHg) O2 Sat by Pulse 95 Oximetry Appearance: Middle-aged male laying in bed in NAD Ears/Nose/Mouth/Throat: Mucous Membranes Moist Neck: NL Appearance and Movements; NL JVP, Trachea Midline Respiratory: Symmetrical Chest Expansion and Respiratory Effort, Clear to Auscultation Cardiovascular: NL Sounds; No Murmurs; No JVD, RRR Abdominal: NL Sounds; No Tenderness; No Distention Skin: - - Dressing intact to LLE stump Neurological: Alert and Oriented x 3 Lines/Tubes/Other Access: Clean, Dry and Intact Peripheral IV Nutrition: Taking PO's Result Diagrams: 12/18/18 07:27 12/18/18 07:27 Assess/Plan/Problems-Billing Assessment: Mr Joiner is a 68 yo M with PMH of DM2, HTN, HLD, KYLE, COPD, and 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 Torres d/t failing outpatient antibiotics. - Patient Problems (1) Osteomyelitis of left foot Code(s): M86.9 - OSTEOMYELITIS, UNSPECIFIED Comment: - Recurrent, failed outpatient antibiotics - S/p BKA POD #1 - Ortho following closely - Appreciate ID consult Wednesday - Continue cefepime, vanco (2) Bacteremia Code(s): R78.81 - BACTEREMIA Comment: - 03/18 BC bottles growing E. coli - Source is UTI (not growing E. coli in urine, but has been on abx recently) or wound - Continue cefepime (3) UTI (urinary tract infection) Comment: - Urine culture growing Leidy, likely representing colonization (4) Diabetes Code(s): E11.9 - TYPE 2 DIABETES MELLITUS WITHOUT COMPLICATIONS Comment: - A1c 7.7% in November - Continue Lantus, Lispro SS (5) HTN (hypertension) Code(s): I10 - ESSENTIAL (PRIMARY) HYPERTENSION Comment: - Normotensive - Continue lisinopril (6) HLD (hyperlipidemia) Code(s): E78.5 - HYPERLIPIDEMIA, UNSPECIFIED Comment: - Continue atorvastatin (7) Depression Code(s): F32.9 - MAJOR DEPRESSIVE DISORDER, SINGLE EPISODE, UNSPECIFIED Comment: - Continue sertraline (8) DVT prophylaxis Comment: - Lovenox (9) DNR (do not resuscitate) Comment: Status and Disposition: Inpatient. Anticipate need for senior care abx and d/c back to [facility] when medically stable. Attending: Heron Lua
[2018-12-18] MEDS ORDERED: Vancomycin Trough Check NOTE FOLLOW UP ONE (13:30)
[2018-12-18] MEDS ORDERED: Cefepime 2 GM in Dextrose(*) 2 GM/50 ML BAG IV SCH (16:00)
[2018-12-18] MEDS: Enoxaparin(*) 40 MG/0.4 ML SYR SUBCUT SCH (18:17)
[2018-12-18] MEDS: Cefepime 2 GM in Dextrose(*) 2 GM/50 ML BAG IV SCH (18:18)
[2018-12-18] MEDS: Atorvastatin* 10 MG TAB PO SCH (20:52)
[2018-12-18] MEDS: Tamsulosin CAP* 0.4 MG PO SCH (20:52)
[2018-12-18] MEDS: Vancomycin(*) 1,250 MG in NS 0.9% 250 ML* 250 ML IVPB SCH (20:55)
[2018-12-18 21:48] LABS: Urine Appearance Turbid; Urine Bacteria Absent (Absent); Urine Bilirubin Negative (Negative); Urine Blood 2+ (Negative); Urine Color Amber; Urine Glucose 2+(150 mg/dL) (Negative); Urine Ketones Trace (Negative); Urine Nitrite Negative (Negative); Urine Protein 2+(100 mg/dL) (Negative); Urine Red Blood Cell 3+(>10/hpf) (Absent); Urine Specific Gravity 1.033 (1.010-1.030); Urine Urobilinogen Negative (Negative); Urine White Blood Cell 3+(>20/hpf) (Absent)
[2018-12-19] MEDS: Lactated Ringers 1000 ML Bag* 1,000 ML IV SCH ×2 (01:00→20:14)
[2018-12-19] MEDS: oxyCODONE/Acetamin 5/325 MG* TAB PO PRN ×5 (02:37→21:02)
--- NOTE | 2018-12-19 03:36 | OP ---
DATE OF OPERATION: 12/17/18 - ROOM #335 DATE OF : 54 SURGEON: Heron Torres MD LASER OPERATOR: VIOLETA Barrett PRE-OP DIAGNOSIS: Chronic osteomyelitis, left hindfoot. POST-OP DIAGNOSIS: Chronic osteomyelitis, left hindfoot. OPERATIVE PROCEDURE: Transtibial amputation, left leg. DESCRIPTION OF PROCEDURE: The patient was taken to the operating room and a thigh tourniquet was inflated. We made a transverse elliptical incision in the mid third of the left calf with a bone cut plan for a handbreadth below the tibial tubercle. Longer posterior flap preserved. We divided the anterior musculature and then the tibia to appropriate length with the Ibercheck-6 saw and then the fibula 1 cm proximally. We then continued to divide the posterior skin and dermis and then flexing the osteotomy, we were able to expose the posterior musculature which was divided with a 10 blade. The leg was sent to Pathology. We then sent local cultures from the proximal tibia. Irrigated with 1 L of saline. Provisional hemostasis obtained with a #1 Vicryl suture ligatures and then after dropping the tourniquet, additional hemostasis obtained. We closed the anterior to posterior fascial flaps with #1 Vicryl interrupted sutures. Subcu was closed with 2-0 Monocryl sutures and then the skin with 2-0 Prolene interrupted vertical mattress sutures. A compression dressing and plaster splint was applied. Tourniquet time was 11 minutes. [id number]/CPS #: [id number] MTDCara
[2018-12-19] MEDS: Morphine INJ* 2 MG/ML 1 ML SYRINGE (TWO MG - NEW SYRINGE VERSION) IV PRN ×3 (03:57→13:57)
[2018-12-19] MEDS: Vancomycin(*) 1,250 MG in NS 0.9% 250 ML* 250 ML IVPB SCH ×3 (05:12→20:24)
[2018-12-19 06:09] LABS: Hematocrit 29 % (42-52); Hemoglobin 9.7 g/dL (14.0-18.0); Mean Corpuscular HGB Conc 34 g/dL (31-36); Mean Corpuscular Hemoglobin 29 pg (27-31); Mean Corpuscular Volume 87 fL (80-94); Mean Platelet Volume 7.3 fL (7.4-10.4); Platelet Count 313 10^3/uL (150-450); Red Blood Count 3.32 10^6 /uL (4.18-5.48); Red Cell Distribution Width 15 % (10-15); White Blood Count 14.8 10^3/uL (3.5-10.8)
[2018-12-19 06:36] LABS: ABS Basophils 0.1 10^3/ul (0-0.2); ABS Eosinophils 0.6 10^3/ul (0-0.6); ABS Lymphocytes 4.5 10^3/ul (1.0-4.8); ABS Monocytes 1.7 10^3/ul (0-0.8); ABS Neutrophils 7.9 10^3/ul (1.5-7.7); Eosinophil % 3.9 %; Lymphocyte % 30.6 %
[2018-12-19 06:40] LABS: BUN/Creatinine Ratio 14.1 (8-20); Calcium 8.4 mg/dL (8.6-10.3); EGFR African American 134.3 (>60); Potassium 3.8 mmol/L (3.5-5.0)
[2018-12-19] MEDS: Cefepime 2 GM in Dextrose(*) 2 GM/50 ML BAG IV SCH ×2 (07:26→17:27)
[2018-12-19] MEDS: Aspirin EC TAB* 81 MG TAB.EC PO SCH (07:26)
[2018-12-19] MEDS: Lisinopril TAB* 10 MG PO SCH (07:26)
[2018-12-19] MEDS: FENOFIBRATE 160 MG PO SCH (07:26)
[2018-12-19] MEDS: Lactobacillus Acidophilus* 1 TAB PO SCH ×2 (07:27→20:24)
[2018-12-19] MEDS: Docusate CAP* 100 MG PO SCH ×2 (07:27→20:24)
[2018-12-19] MEDS: Sertraline* 25 MG TAB PO SCH (07:27)
[2018-12-19] MEDS: Senna TAB 8.6 mg* TAB PO SCH ×2 (07:27→20:25)
[2018-12-19] MEDS: Insulin LISPRO* 1 UNITS UNIT SUBCUT SCH ×4 (09:17→21:03)
[2018-12-19] MEDS: Insulin GLARGINE(*) 1 UNITS UNIT SUBCUT SCH (09:17)
[2018-12-19 10:14] LABS: C Reactive Protein 138.97 mg/L (<8.01)
--- NOTE | 2018-12-19 10:39 | PN ---
Progress Note - Progress Note Date of Service: 12/19/18 SOAP: Subjective: []Pt seen at bedside. He is comfortable without complaints. Denies feeling of fever, chills, CP, SOB, dizziness, nausea. LLE surgical site is painful though tolerable. Objective: []Gen: Appears well, NAD LLE: Dressing CDI with no strike through Assessment: []s/p L Transtibial amputaion POD #2] Plan: ID Consulted for abx mgmt. On cefepime and vanco. Blood culture cx ecoli, urine cx corrie OOB with assist NWB LLE Keep splint CDI Lovenox for DVT prophy Vital Signs Temp 98.3 F 12/19/18 08:29 Pulse 63 12/19/18 08:29 Resp 16 12/19/18 09:25 BP 118/64 12/19/18 08:29 Pulse Ox 91 12/19/18 08:29 Intake & Output 12/18/18 12/19/18 12/19/18 18:59 06:59 18:59 Intake Total 500 2922 Output Total 250 475 Balance 250 2447 Weight 273 lb 273 lb Intake: IV Fluids 1971 LR 1972 Oral 500 950 Output: Urine 250 475 Laboratory Last Values WBC 14.8 10^3/uL (3.5-10.8) H 12/19/18 05:22 RBC 3.32 10^6 /uL (4.18-5.48) L 12/19/18 05:22 Hgb 9.7 g/dL (14.0-18.0) L 12/19/18 05:22 Hct 29 % (42-52) L 12/19/18 05:22 MCV 87 fL (80-94) 12/19/18 05:22 MCH 29 pg (27-31) 12/19/18 05:22 MCHC 34 g/dL (31-36) 12/19/18 05:22 RDW 15 % (10-15) 12/19/18 05:22 Plt Count 313 10^3/uL (150-450) 12/19/18 05:22 MPV 7.3 fL (7.4-10.4) L 12/19/18 05:22 Neut % (Auto) 53.5 % 12/19/18 05:22 Lymph % (Auto) 30.6 % 12/19/18 05:22 [place] % (Auto) 11.6 % 12/19/18 05:22 Eos % (Auto) 3.9 % 12/19/18 05:22 Baso % (Auto) 0.4 % 12/19/18 05:22 Absolute Neuts (auto) 7.9 10^3/ul (1.5-7.7) H 12/19/18 05:22 Absolute Lymphs (auto) 4.5 10^3/ul (1.0-4.8) 12/19/18 05:22 Absolute Monos (auto) 1.7 10^3/ul (0-0.8) H 12/19/18 05:22 Absolute Eos (auto) 0.6 10^3/ul (0-0.6) 12/19/18 05:22 Absolute Basos (auto) 0.1 10^3/ul (0-0.2) 12/19/18 05:22 Absolute Nucleated RBC 0.0 10^3/ul 12/19/18 05:22 Nucleated RBC % 0.0 12/19/18 05:22 INR (Anticoag Therapy) 1.21 (0.82-1.09) H 12/16/18 13:45 APTT 33.2 seconds (26.0-38.0) 12/16/18 13:45 Sodium 136 mmol/L (135-145) 12/19/18 05:22 Potassium 3.8 mmol/L (3.5-5.0) 12/19/18 05:22 Chloride 105 mmol/L (101-111) 12/19/18 05:22 Carbon Dioxide 26 mmol/L (22-32) 12/19/18 05:22 Anion Gap 5 mmol/L (2-11) 12/19/18 05:22 BUN 10 mg/dL (6-24) 12/19/18 05:22 Creatinine 0.71 mg/dL (0.67-1.17) 12/19/18 05:22 Est GFR ( Amer) 134.3 (>60) 12/19/18 05:22 Est GFR (Non-Af Amer) 111.0 (>60) 12/19/18 05:22 BUN/Creatinine Ratio 14.1 (8-20) 12/19/18 05:22 Glucose 129 mg/dL (70-100) H 12/19/18 05:22 POC Glucose (mg/dL) 203 mg/dL (70-100) H 12/18/18 21:09 Lactic Acid 1.1 mmol/L (0.5-2.0) 12/16/18 18:34 Calcium 8.4 mg/dL (8.6-10.3) L 12/19/18 05:22 Total Bilirubin 0.40 mg/dL (0.2-1.0) 12/16/18 13:45 AST 9 U/L (13-39) L 12/16/18 13:45 ALT 6 U/L (7-52) L 12/16/18 13:45 Alkaline Phosphatase 55 U/L (34-104) 12/16/18 13:45 Troponin I 0.01 ng/mL (<0.04) 12/16/18 13:45 C-Reactive Protein 138.97 mg/L (<8.01) H 12/19/18 05:22 Total Protein 7.4 g/dL (6.4-8.9) 12/16/18 13:45 Albumin 3.6 g/dL (3.2-5.2) 12/16/18 13:45 Globulin 3.8 g/dL (2-4) 12/16/18 13:45 Albumin/Globulin Ratio 0.9 (1-3) L 12/16/18 13:45 Urine Color Naa 12/18/18 21:20 Urine Appearance Turbid 12/18/18 21:20 Urine pH 5.0 (5-9) 12/18/18 21:20 Ur Specific [place] 1.033 (1.010-1.030) H 12/18/18 21:20 Urine Protein 2+(100 mg/dl) (Negative) A 12/18/18 21:20 Urine Ketones Trace (Negative) A 12/18/18 21:20 Urine Blood 2+ (Negative) A 12/18/18 21:20 Urine Nitrate Negative (Negative) 12/18/18 21:20 Urine Bilirubin Negative (Negative) 12/18/18 21:20 Urine Urobilinogen Negative (Negative) 12/18/18 21:20 Ur Leukocyte Esterase 3+ (Negative) A 12/18/18 21:20 Urine WBC (Auto) 3+(>20/hpf) (Absent) A 12/18/18 21:20 Urine RBC (Auto) 3+(>10/hpf) (Absent) A 12/18/18 21:20 Ur Squamous Epith Cells Present (Absent) A 12/17/18 04:55 Urine Bacteria Absent (Absent) 12/18/18 21:20 Urine Yeast Present (Absent) A 12/18/18 21:20 Urine Glucose 2+(150 mg/dl) (Negative) A 12/18/18 21:20 Vancomycin Trough 5.8 mcg/mL 12/18/18 13:31
--- NOTE | 2018-12-19 12:28 | CONS ---
CONSULTATION REPORT: DATE OF ADMISSION: 12/16/18 DATE OF CONSULTATION: 12/19/18 PRIMARY CARE PROVIDER: Dr. Erik Puri. PROVIDER REQUESTING CONSULTATION: Jigna Lezama NP. CONSULTING SERVICE: Infectious Disease. PROVIDER: Day Leach NP. ATTENDING PHYSICIAN: Dr. Raphael Dozier * (dicated by Day Leach NP). REASON FOR CONSULT: Chronic left lower extremity osteomyelitis. IMPRESSION: 1. Left lower extremity stump infection with suspected chronic osteomyelitis. He had an MRI of the left lower extremity on 12/02/18 showing edema in the cuboid and cuneiforms as well as the anterior talus, edema progressive since previous exam. He is status post a left transtibial amputation with Dr. Torres on 12/17/18. He has been afebrile. He has had leukocytosis, but is improving during his stay. No growth in cultures to date. 2. Escherichia coli bacteremia in 1 out of 4 bottles on admission. The patient denies any urinary symptoms. Initial urine culture with corrie. Second urine culture was pending. Suspect source may be his foot. 3. Diabetes mellitus type 2. 4. Obesity, BMI of 38.1. 5. Status post splenectomy, 1974. RECOMMENDATION/PLAN: Recommend continuing cefepime and vancomycin. We await urine culture and final cultures from the operating room. The patient will need to have 4 weeks of IV antibiotics. Will add a CRP to the last available labs. We will continue to follow along and final recommendations for antibiotics at the time of discharge will be made after cultures are finalized. HISTORY OF PRESENT ILLNESS: Mr. Joiner is a 68-year-old male with past medical history significant for diabetes mellitus type 2, hypertension, hyperlipidemia, obstructive sleep apnea, COPD, bilateral lower extremity osteomyelitis resulting in a right partial foot amputation and multiple left lower extremity surgeries. Mr. Joiner initially had a partial left foot amputation on 08/11/18 and was felt to have continued soft tissue infection. He was hospitalized from 10/17/18 to 10/25/18 undergoing a revision of his left midfoot amputation on 07/31. He has had multiple bacteria grow in this wound over a period of time including enterobacter, Finegoldia magna, Staph aureus, and Group B strep. After his October hospitalization, he was discharged on Cipro and Bactrim. At followup in mid October with Dr. Torres, he was noted to have a cellulitis and sent to the ER. He was re-hospitalized this time having an MRI showing a bone marrow edema at the midfoot without compelling corresponding loss of normal T1 marrow and extensive soft tissue edema without evidence of a loculated abscess collection. He was on vancomycin and cefepime during the hospitalization at the end of October. He was discharged on Cipro and linezolid, which he had been on outpatient. He was seen in the ID office for followup in mid November. The wound on the left lower extremity stump had opened up. A culture was obtained at that time showing corrie. He was restarted on linezolid and Cipro. He saw Dr. Torres in his office last week, who recommended that he be directly admitted to the hospital due to concern for infection in his left lower extremity stump. Mr. Joiner presented to the emergency room on 12/16/18. He has been afebrile. He was noted to have leukocytosis on admission. He was referred to the hospitalist service. During his hospitalization, he underwent a left transtibial amputation on with Dr. Torres. He has been on cefepime and vancomycin. His initial leukocytosis resolved, but then postoperatively, he developed a white blood cell count of 16.1; he is down to 14.8 today. He had a urinalysis with 3+ blood , negative for nitrite, 3+ leukocytes, 3+ wbc's, 3+ rbc's, 1+ bacteria, yeast present. He has continued to be afebrile. Denied fever, chills, shortness of breath, nausea, vomiting, diarrhea, constipation, or urinary symptoms as such urgency, frequency, dysuria. He denies any recent travel. He reports discomfort in his left lower extremity which is managed with pain medication. PAST MEDICAL HISTORY: 1. Chronic osteomyelitis of the left lower extremity. 2. Diabetes mellitus type 2. 3. Hypertension. 4. Hyperlipidemia. 5. Obstructive sleep apnea. 6. COPD. 7. Melanoma. PAST SURGICAL HISTORY: 1. Status post bilateral carpal tunnel release. 2. Status post right partial foot amputation. 3. Status post left forefoot amputation, 10/17/18. 4. Status post revision, left forefoot amputation. 5. Status post splenectomy, 1973. 6. Status post bilateral shoulder surgery. 7. Status post finger surgery with pinning. MEDICATIONS: Home medications: 1. Zofran 4 mg by mouth every 6 hours as needed for nausea. 2. Sertraline 25 mg by mouth daily. 3. Percocet 5/325 one tablet by mouth every 6 hours as needed for pain. 4. Acetaminophen 1000 mg by mouth every 6 hours as needed for pain. 5. Lactobacillus 1 tablet by mouth twice daily. 6. Linezolid 600 mg by mouth twice daily. 7. Ciprofloxacin 500 mg by mouth twice daily. 8. Senna 1 tablet by mouth daily. 9. Albuterol HFA inhaler 2 puff inhalation every 4 hours as needed for shortness of breath or wheeze. 10. Pravastatin 40 mg by mouth daily. 11. Lisinopril 20 mg by mouth every morning. 12. Aspirin 81 mg by mouth daily. 13. Lantus insulin 10 units subcutaneous daily. 14. Tricor 160 mg by mouth daily. Hospital medications: 1. Acetaminophen 650 mg by mouth every 4 hours as needed for fever or pain. 2. Albuterol HFA inhaler 2 puffs inhalation every 4 hours as needed for shortness of breath or wheeze. 3. Aspirin 81 mg by mouth daily. 4. Atorvastatin 10 mg by mouth daily. 5. Cefepime 2 g IV every 12 hours. 6. Dextrose 25 mL IV as needed for glucose less than 60. 7. Colace 100 mg by mouth twice daily. 8. Lovenox 40 mg subcutaneous daily. 9. Tricor 160 mg by mouth daily. 10. Lantus insulin 10 units subcutaneous daily. 11. Humalog insulin sliding scale subcutaneous before meals and at bedtime. 12. Lactated Ringer's 75 mL an hour intravenously. 13. Lactobacillus 1 tablet by mouth twice daily. 14. Lisinopril 20 mg by mouth daily. 15. Morphine sulfate 2 mg IV every 4 hours as needed for pain. 16. Zofran 4 mg IV every 4 hours as needed for nausea. 17. Percocet 5/325 1 to 2 tablets by mouth every 4 hours as needed for pain. 18. Senokot 1 tablet by mouth twice daily. 19 Sertraline 25 mg by mouth daily. 20. Tamsulosin 0.4 mg by mouth daily at bedtime. 21. Vancomycin 1250 mg IV q.8 hours. ALLERGIES: No known drug allergies. FAMILY HISTORY: Denies family history of recurrent or resistant infections. Father with a history of stroke, melanoma. Mother with a history of heart disease. Brother with a history of diabetes. SOCIAL HISTORY: He denies alcohol, tobacco, or recreational drug use. He is a former smoker, quitting approximately 17 years ago. REVIEW OF SYSTEMS: I performed a 10-point review of systems. All the pertinent positives and negatives are mentioned in the history of present illness. The remaining review of systems are negative. PHYSICAL EXAMINATION: Vital Signs: Temperature 98.3, heart rate 63, respiratory rate 16, O2 sat 91% on room air, blood pressure 118/64. General Appearance: He is alert, appears to be in no acute distress. Lying in bed. Head: Normocephalic, atraumatic. EENT: Extraocular movements are intact. Moist mucous membranes. No subconjunctival hemorrhage. Neck: Supple. No lymphadenopathy. Neurological: Alert and oriented x4. Cranial nerves II through XII are grossly intact. Cardiovascular: Regular rate and rhythm. S1, S2 present. No murmurs, rubs, or gallops heard. Respiratory: No accessory muscle use. Lungs are clear to auscultation bilaterally. Abdomen: Bowel sounds present. Abdomen obese, soft, nontender. Extremities: No lower extremity edema. Musculoskeletal: No clubbing or cyanosis noted. Psychological: Calm and cooperative. Skin: No rashes or abnormalities seen. He has a surgical dressing to the left lower extremity. DIAGNOSTIC STUDIES/LAB DATA: Sodium 136, potassium 3.8, chloride 105, CO2 of 26 , BUN 10, creatinine 0.71, glucose 129. White blood cell count 14.7, hemoglobin 9.7, hematocrit 29, platelet count 313. Please see impression and recommendations outlined above, recommendations have been discussed with VIOLETA Hdz. Thank you for asking us to see Mr. Joiner in consultation. The case has been reviewed with my attending Dr. aRphael Dozier who agrees with my plan of care. Reviewed by CALISTA ALEMAN 12/22/18 [id number] [id number]/[facility] #: [id number] MTDD
[2018-12-19] MEDS: Enoxaparin(*) 40 MG/0.4 ML SYR SUBCUT SCH (17:27)
--- NOTE | 2018-12-19 19:49 | PN ---
Subjective Date of Service: 12/19/18 Interval History: Patient has pain at ambulation site of LLE which extends up to his thigh. Denies difficulty breathing, chest pain, abd pain, nausea, fever/chills. Family History: Unchanged from Admission Social History: Unchanged from Admission Past Medical History: Unchanged from Admission Objective Active Medications: Acetaminophen (Tylenol Tab*) 650 mg PO Q4H PRN PRN Reason: MILD PAIN or TEMP > 100.4 Last Admin: 12/18/18 13:19 Dose: 650 mg Albuterol (Ventolin Hfa Inhaler*) 2 puff INH Q4HR PRN PRN Reason: WHEEZING Aspirin (Aspirin Ec Tab*) 81 mg PO QAM [facility] Last Admin: 12/19/18 07:26 Dose: 81 mg Atorvastatin Calcium (Lipitor*) 10 mg PO BEDTIME [facility]; Protocol Last Admin: 12/18/18 20:52 Dose: 10 mg Dextrose (Dextrose 50% Vial 50 Ml*) 25 ml IV PUSH .FOR FS < 60 - SS PRN PRN Reason: FS < 60 Docusate Sodium (Colace Cap*) 100 mg PO BID [facility] Last Admin: 12/19/18 07:27 Dose: 100 mg Enoxaparin Sodium (Lovenox(*)) 40 mg SUBCUT Q24H [facility] Last Admin: 12/19/18 17:27 Dose: 40 mg Fenofibrate (Tricor 160 Mg) [facility]; Protocol Last Admin: 12/19/18 07:26 Dose: 160 mg Lactated Ringer's (Lactated Ringers 1000 Ml Bag*) 1,000 mls @ 75 mls/hr IV PER RATE [facility] Last Admin: 12/19/18 01:00 Dose: 75 mls/hr Vancomycin HCl 1,250 mg/ (Sodium Chloride) 250 mls @ 166.667 mls/hr IVPB Q8H [facility] Last Admin: 12/19/18 12:38 Dose: 166.667 mls/hr Cefepime HCl (Maxipime 2 Gm In Dextrose Duplex (*)) 2 gm in 50 mls @ 100 mls/ hr IV Q12HR@0600,1800 [facility] Last Admin: 12/19/18 17:27 Dose: 100 mls/hr Insulin Glargine (Lantus(*)) 8 units SUBCUT Q24H [facility] Insulin Human Lispro (Humalog*) 0 units SUBCUT ACHS [facility]; Protocol Last Admin: 12/19/18 16:50 Dose: Not Given Lactobacillus Rhamnosus (Lactobacillus Acidophilus*) 1 tab PO BID [facility] Last Admin: 12/19/18 07:27 Dose: 1 tab Lisinopril (Prinivil Tab*) 20 mg PO QAM [facility] Last Admin: 12/19/18 07:26 Dose: 20 mg Morphine Sulfate (Morphine Inj (Syringe))*) 2 mg IV Q4H PRN PRN Reason: Pain - Unrelieved Last Admin: 12/19/18 13:57 Dose: 2 mg Ondansetron HCl (Zofran Inj*) 4 mg IV Q4H PRN PRN Reason: NAUSEA/VOMITING Last Admin: 12/17/18 04:47 Dose: 4 mg Oxycodone/Acetaminophen (Percocet 5/325 Tab*) 1 tab PO Q4H PRN PRN Reason: PAIN - MODERATE Oxycodone/Acetaminophen (Percocet 5/325 Tab*) 2 tab PO Q4H PRN PRN Reason: PAIN - SEVERE Last Admin: 12/19/18 16:39 Dose: 2 tab Pharmacy Consult (Vancomycin Per Pharmacy*) 1 note FOLLOW UP .VANC PER PHARMACY [facility]; Protocol Pharmacy Profile Note (Vancomycin Trough Check) 1 note FOLLOW UP ONCE ONE Stop: 12/20/18 04:31 Senna (Senokot 8.6 Mg Tab*) 1 tab PO BID [facility] Last Admin: 12/19/18 07:27 Dose: 1 tab Sertraline HCl (Zoloft*) 25 mg PO DAILY [facility] Last Admin: 12/19/18 07:27 Dose: 25 mg Tamsulosin HCl (Flomax Cap*) 0.4 mg PO BEDTIME [facility] Last Admin: 12/18/18 20:52 Dose: 0.4 mg Vital Signs - 8 hr 12/19/18 12/19/18 12/19/18 11:59 12:50 13:57 Temperature 98.4 F Pulse Rate 62 Respiratory 16 16 16 Rate Blood Pressure 115/64 (mmHg) O2 Sat by Pulse 95 Oximetry 12/19/18 12/19/18 12/19/18 15:20 15:29 16:00 Temperature 98.6 F Pulse Rate 66 Respiratory 16 18 Rate Blood Pressure 100/60 (mmHg) O2 Sat by Pulse 96 96 Oximetry 12/19/18 16:39 Temperature Pulse Rate Respiratory 16 Rate Blood Pressure (mmHg) O2 Sat by Pulse Oximetry Oxygen Devices in Use Now: None Appearance: Obese, white male, laying upright in bed, in NAD Eyes: No Scleral Icterus, PERRLA Ears/Nose/Mouth/Throat: Mucous Membranes Moist Neck: NL Appearance and Movements; NL JVP Respiratory: Symmetrical Chest Expansion and Respiratory Effort, Clear to Auscultation Cardiovascular: NL Sounds; No Murmurs; No JVD, RRR Abdominal: - - abd soft, nontender, nondistended Extremities: No Edema, No Clubbing, Cyanosis, - - left BKA in DIDI wrap Skin: No Rash or Ulcers Neurological: Alert and Oriented x 3, NL Muscle Strength and Tone Result Diagrams: 12/19/18 05:22 12/19/18 05:22 Additional Lab and Data: Lab Results 12/16/18 12/16/18 12/16/18 Range/Units 13:45 13:45 13:45 WBC 12.5 H (3.5-10.8) 10^3/uL RBC 4.27 (4.18-5.48) 10^6 /uL Hgb 12.5 L (14.0-18.0) g/dL Hct 37 L (42-52) % MCV 88 (80-94) fL MCH 29 (27-31) pg MCHC 34 (31-36) g/dL RDW 15 (10-15) % Plt Count 381 (150-450) 10^3/uL MPV 6.8 L (7.4-10.4) fL Neut % (Auto) 58.0 % Lymph % (Auto) 30.8 % [place] % (Auto) 9.0 % Eos % (Auto) 1.8 % Baso % (Auto) 0.4 % Absolute Neuts (auto) 7.3 (1.5-7.7) 10^3/ul Absolute Lymphs (auto) 3.9 (1.0-4.8) 10^3/ul Absolute Monos (auto) 1.1 H (0-0.8) 10^3/ul Absolute Eos (auto) 0.2 (0-0.6) 10^3/ul Absolute Basos (auto) 0.1 (0-0.2) 10^3/ul Absolute Nucleated RBC 0.0 10^3/ul Nucleated RBC % 0.1 INR (Anticoag Therapy) 1.21 H (0.82-1.09) APTT 33.2 (26.0-38.0) seconds Sodium 132 L (135-145) mmol/L Potassium 4.3 (3.5-5.0) mmol/L Chloride 99 L (101-111) mmol/L Carbon Dioxide 26 (22-32) mmol/L Anion Gap 7 (2-11) mmol/L BUN 18 (6-24) mg/dL Creatinine 0.98 (0.67-1.17) mg/dL Est GFR ( Amer) 92.6 (>60) Est GFR (Non-Af Amer) 76.5 (>60) BUN/Creatinine Ratio 18.4 (8-20) Glucose 147 H (70-100) mg/dL Lactic Acid (0.5-2.0) mmol/L Calcium 9.1 (8.6-10.3) mg/dL Total Bilirubin 0.40 (0.2-1.0) mg/dL AST 9 L (13-39) U/L ALT 6 L (7-52) U/L Alkaline Phosphatase 55 (34-104) U/L Troponin I 0.01 (<0.04) ng/mL Total Protein 7.4 (6.4-8.9) g/dL Albumin 3.6 (3.2-5.2) g/dL Globulin 3.8 (2-4) g/dL Albumin/Globulin Ratio 0.9 L (1-3) 12/16/18 Range/Units 13:46 WBC (3.5-10.8) 10^3/uL RBC (4.18-5.48) 10^6 /uL Hgb (14.0-18.0) g/dL Hct (42-52) % MCV (80-94) fL MCH (27-31) pg MCHC (31-36) g/dL RDW (10-15) % Plt Count (150-450) 10^3/uL MPV (7.4-10.4) fL Neut % (Auto) % Lymph % (Auto) % [place] % (Auto) % Eos % (Auto) % Baso % (Auto) % Absolute Neuts (auto) (1.5-7.7) 10^3/ul Absolute Lymphs (auto) (1.0-4.8) 10^3/ul Absolute Monos (auto) (0-0.8) 10^3/ul Absolute Eos (auto) (0-0.6) 10^3/ul Absolute Basos (auto) (0-0.2) 10^3/ul Absolute Nucleated RBC 10^3/ul Nucleated RBC % INR (Anticoag Therapy) (0.82-1.09) APTT (26.0-38.0) seconds Sodium (135-145) mmol/L Potassium (3.5-5.0) mmol/L Chloride (101-111) mmol/L Carbon Dioxide (22-32) mmol/L Anion Gap (2-11) mmol/L BUN (6-24) mg/dL Creatinine (0.67-1.17) mg/dL Est GFR ( Amer) (>60) Est GFR (Non-Af Amer) (>60) BUN/Creatinine Ratio (8-20) Glucose (70-100) mg/dL Lactic Acid 1.8 (0.5-2.0) mmol/L Calcium (8.6-10.3) mg/dL Total Bilirubin (0.2-1.0) mg/dL AST (13-39) U/L ALT (7-52) U/L Alkaline Phosphatase (34-104) U/L Troponin I (<0.04) ng/mL Total Protein (6.4-8.9) g/dL Albumin (3.2-5.2) g/dL Globulin (2-4) g/dL Albumin/Globulin Ratio (1-3) Microbiology and Other Data: Microbiology 12/17/18 09:04 Gram Stain - Final Wound - Left Leg 12/16/18 13:45 Aerobic Blood Culture - Preliminary Blood Venous No Growth Day 1 Anaerobic Blood Culture - Preliminary Escherichia Coli Assess/Plan/Problems-Billing Assessment: Mr Joiner is a 68 yo M with PMH of DM2, HTN, HLD, KYLE, COPD, and 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 Torres d/t failing outpatient antibiotics. - Patient Problems (1) Osteomyelitis of left foot Current Visit: Yes Status: Acute Code(s): M86.9 - OSTEOMYELITIS, UNSPECIFIED SNOMED Code(s): 2612136300743204 Comment: - Recurrent, failed outpatient antibiotics - S/p BKA POD #2 - Ortho following closely - Appreciate ID consult - Continue cefepime, vanco - Added gabapentin for pain control (2) Bacteremia Current Visit: Yes Status: Acute Code(s): R78.81 - BACTEREMIA SNOMED Code( s): 5701885 Comment: - 03/18 BC bottles growing E. coli - Source is UTI (not growing E. coli in urine, but has been on abx recently) or wound - Continue cefepime and Vanco (3) UTI (urinary tract infection) Current Visit: Yes Status: Acute Comment: - Urine culture growing Leidy, likely representing colonization (4) Diabetes Current Visit: No Status: Acute Code(s): E11.9 - TYPE 2 DIABETES MELLITUS WITHOUT COMPLICATIONS SNOMED Code(s): 85466702 Comment: - A1c 7.7% in November - Continue Lispro SS - Decreased Glargine to 8 U qAM due to BG in 70s before dinner to avoid overnight hypoglycemia (5) Depression Current Visit: Yes Status: Acute Code(s): F32.9 - MAJOR DEPRESSIVE DISORDER , SINGLE EPISODE, UNSPECIFIED SNOMED Code(s): 89703940 Comment: - Continue sertraline (6) HLD (hyperlipidemia) Current Visit: No Status: Chronic Code(s): E78.5 - HYPERLIPIDEMIA, UNSPECIFIED SNOMED Code(s): 06960593 Comment: - Continue atorvastatin (7) HTN (hypertension) Current Visit: No Status: Chronic Code(s): I10 - ESSENTIAL (PRIMARY) HYPERTENSION SNOMED Code(s): 20026282 Comment: - Normotensive - Continue lisinopril (8) DNR (do not resuscitate) Current Visit: Yes Status: Acute Comment: (9) DVT prophylaxis Current Visit: No Status: Acute Code(s): IPR6571 - SNOMED Code(s): 249173513 Comment: - Lovenox Status and Disposition: Inpatient. Anticipate need for usp abx and d/c back to [facility] when medically stable.
[2018-12-19] MEDS: Tamsulosin CAP* 0.4 MG PO SCH (20:24)
[2018-12-19] MEDS: Atorvastatin* 10 MG TAB PO SCH (20:24)
[2018-12-19] MEDS: Gabapentin CAP(*) 300 MG PO SCH (20:24)
[2018-12-20] MEDS ORDERED: Vancomycin Trough Check NOTE FOLLOW UP ONE (04:30)
[2018-12-20] MEDS: Vancomycin(*) 1,250 MG in NS 0.9% 250 ML* 250 ML IVPB SCH ×2 (05:56→13:05)
[2018-12-20] MEDS: oxyCODONE/Acetamin 5/325 MG* TAB PO PRN (08:18)
[2018-12-20] MEDS: Aspirin EC TAB* 81 MG TAB.EC PO SCH (08:19)
[2018-12-20] MEDS: Sertraline* 25 MG TAB PO SCH (08:19)
[2018-12-20] MEDS: Gabapentin CAP(*) 300 MG PO SCH ×2 (08:19→22:42)
[2018-12-20] MEDS: Cefepime 2 GM in Dextrose(*) 2 GM/50 ML BAG IV SCH ×2 (08:19→17:48)
[2018-12-20] MEDS: FENOFIBRATE 160 MG PO SCH (08:19)
[2018-12-20] MEDS: Docusate CAP* 100 MG PO SCH ×2 (08:19→22:41)
[2018-12-20] MEDS: Lisinopril TAB* 10 MG PO SCH (08:19)
[2018-12-20] MEDS: Lactobacillus Acidophilus* 1 TAB PO SCH ×2 (08:19→22:41)
[2018-12-20] MEDS: Senna TAB 8.6 mg* TAB PO SCH ×2 (08:19→22:40)
[2018-12-20 09:16] LABS: Hematocrit 29 % (42-52); Hemoglobin 9.8 g/dL (14.0-18.0); Mean Corpuscular HGB Conc 34 g/dL (31-36); Mean Corpuscular Hemoglobin 29 pg (27-31); Mean Corpuscular Volume 87 fL (80-94); Mean Platelet Volume 7.1 fL (7.4-10.4); Platelet Count 350 10^3/uL (150-450); Red Blood Count 3.33 10^6 /uL (4.18-5.48); Red Cell Distribution Width 16 % (10-15); White Blood Count 14.6 10^3/uL (3.5-10.8)
[2018-12-20 09:50] LABS: ABS Basophils 0.1 10^3/ul (0-0.2); ABS Eosinophils 0.7 10^3/ul (0-0.6); ABS Lymphocytes 2.7 10^3/ul (1.0-4.8); ABS Monocytes 1.6 10^3/ul (0-0.8); ABS Neutrophils 9.6 10^3/ul (1.5-7.7); Eosinophil % 4.5 %; Lymphocyte % 18.3 %
[2018-12-20] MEDS: Insulin GLARGINE(*) 1 UNITS UNIT SUBCUT SCH (10:10)
[2018-12-20] MEDS: Insulin LISPRO* 1 UNITS UNIT SUBCUT SCH ×4 (10:11→22:42)
--- NOTE | 2018-12-20 11:12 | PN ---
Progress Note - Progress Note Date of Service: 12/20/18 SOAP: Subjective: CC: Left LE stump infection HPI: Mr. Joiner is a 68 yo male with PMH significant for DM2, HTN, HLD, KYLE, COPD, bilateral LE osteomyelitis; presented to the hospital with let LE stump infection and is now S/P left transtibital amputation. He reports feeling fatigued, but denies fever, chills, nausea, vomiting, or diarrhea. Objective: Vital Signs 12/20/18 12/20/18 12/20/18 08:19 08:26 10:11 Temperature 97.9 F Pulse Rate 70 Respiratory 18 20 16 Rate Blood Pressure 130/68 (mmHg) O2 Sat by Pulse 95 Oximetry Physical Exam: General: NAD, laying in bed Neurological: Alert and Oriented HEENT: Moist MM, no thrush Cardiovascular: Heart rate regular Respiratory: Lung sounds clear Abdominal: Bowel sounds present; ABD soft, non tender and large Skin: Surgical dressing to left LE stump clean, dry and intact Laboratory Results - last 24 hr 12/20/18 12/20/18 05:09 09:03 WBC 14.6 H RBC 3.33 L Hgb 9.8 L Hct 29 L MCV 87 MCH 29 MCHC 34 RDW 16 H Plt Count 350 MPV 7.1 L Neut % (Auto) 65.8 Lymph % (Auto) 18.3 [place] % (Auto) 11.0 Eos % (Auto) 4.5 Baso % (Auto) 0.4 Absolute Neuts (auto) 9.6 H Absolute Lymphs (auto) 2.7 Absolute Monos (auto) 1.6 H Absolute Eos (auto) 0.7 H Absolute Basos (auto) 0.1 Absolute Nucleated RBC 0.0 Nucleated RBC % 0.0 POC Glucose (mg/dL) Vancomycin Trough 14.6 Microbiology 12/17/18 09:04 Anaerobic Culture - Preliminary Wound - Left Leg No Growth Day 3 Gram Stain - Final Wound Culture - Preliminary No Growth Day 3 12/16/18 13:45 Aerobic Blood Culture - Preliminary Blood Venous No Growth Day 4 Anaerobic Blood Culture - Final Escherichia Coli 12/17/18 07:02 Aerobic Blood Culture - Preliminary Blood Venous No Growth Day 3 Anaerobic Blood Culture - Preliminary No Growth Day 3 12/17/18 17:20 Aerobic Blood Culture - Preliminary Blood Venous No Growth Day 2 Anaerobic Blood Culture - Preliminary No Growth Day 2 12/16/18 13:45 Aerobic Blood Culture - Preliminary Blood Venous No Growth Day 3 Anaerobic Blood Culture - Preliminary No Growth Day 3 12/17/18 04:55 Urine Culture - Final Urine Leidy Albicans Assessment: 1. Left LE stump infection with suspected chronic osteomyelitis. MRI from with cuboid, cuneiforms, and anterior talus edema. S/P left transtibial amputation, POD #3. Wound culture with no growth on day 3. Afebrile this AM, low grade fever overnight with T max 100.2. Continued to have leukocytosis. 2. E coli bacteremia. 1/4 bottles positive on admission. Repeat blood cultures with no growth on day 3. 3. DM2. 4. Obesity. BMI 38.1 5. S/P splenectomy in 1973 Plan: Continue cefepime and vancomycin. Will need to have 4-6 weeks of IV ABX.
[2018-12-20] MEDS: Enoxaparin(*) 40 MG/0.4 ML SYR SUBCUT SCH (17:48)
--- NOTE | 2018-12-20 19:26 | PN ---
Subjective Date of Service: 12/20/18 Interval History: Patient reports the pain at incision site is still persistent but does not radiate up left leg today. Denies fever/chills, chest pain, difficulty breathing , abd pain. No overnight events. Pain is overall well controlled per patient. Family History: Unchanged from Admission Social History: Unchanged from Admission Past Medical History: Unchanged from Admission Objective Active Medications: Acetaminophen (Tylenol Tab*) 650 mg PO Q4H PRN PRN Reason: MILD PAIN or TEMP > 100.4 Last Admin: 12/18/18 13:19 Dose: 650 mg Albuterol (Ventolin Hfa Inhaler*) 2 puff INH Q4HR PRN PRN Reason: WHEEZING Aspirin (Aspirin Ec Tab*) 81 mg PO QAM [facility] Last Admin: 12/20/18 08:19 Dose: 81 mg Atorvastatin Calcium (Lipitor*) 10 mg PO BEDTIME [facility]; Protocol Last Admin: 12/19/18 20:24 Dose: 10 mg Dextrose (Dextrose 50% Vial 50 Ml*) 25 ml IV PUSH .FOR FS < 60 - SS PRN PRN Reason: FS < 60 Docusate Sodium (Colace Cap*) 100 mg PO BID [facility] Last Admin: 12/20/18 08:19 Dose: 100 mg Enoxaparin Sodium (Lovenox(*)) 40 mg SUBCUT Q24H [facility] Last Admin: 12/20/18 17:48 Dose: 40 mg Fenofibrate (Tricor 160 Mg) 160 mg PO QAM [facility]; Protocol Last Admin: 12/20/18 08:19 Dose: 160 mg Gabapentin (Neurontin Cap(*)) 300 mg PO BID [facility] Last Admin: 12/20/18 08:19 Dose: 300 mg Lactated Ringer's (Lactated Ringers 1000 Ml Bag*) 1,000 mls @ 75 mls/hr IV PER RATE [facility] Last Admin: 12/19/18 20:14 Dose: 75 mls/hr Vancomycin HCl 1,250 mg/ (Sodium Chloride) 250 mls @ 166.667 mls/hr IVPB Q8H [facility] Last Admin: 12/20/18 13:05 Dose: 166.667 mls/hr Cefepime HCl (Maxipime 2 Gm In Dextrose Duplex (*)) 2 gm in 50 mls @ 100 mls/ hr IV Q12HR@0600,1800 [facility] Last Admin: 10/08/19 17:48 Dose: 100 mls/hr Insulin Glargine (Lantus(*)) 8 units SUBCUT Q24H [facility] Last Admin: 12/20/18 10:10 Dose: 8 units Insulin Human Lispro (Humalog*) 0 units SUBCUT ACHS [facility]; Protocol Last Admin: 12/20/18 17:48 Dose: 5 units Lactobacillus Rhamnosus (Lactobacillus Acidophilus*) 1 tab PO BID [facility] Last Admin: 12/20/18 08:19 Dose: 1 tab Lisinopril (Prinivil Tab*) 20 mg PO QAM [facility] Last Admin: 12/20/18 08:19 Dose: 20 mg Morphine Sulfate (Morphine Inj (Syringe))*) 2 mg IV Q4H PRN PRN Reason: Pain - Unrelieved Last Admin: 12/19/18 13:57 Dose: 2 mg Ondansetron HCl (Zofran Inj*) 4 mg IV Q4H PRN PRN Reason: NAUSEA/VOMITING Last Admin: 12/17/18 04:47 Dose: 4 mg Oxycodone/Acetaminophen (Percocet 5/325 Tab*) 1 tab PO Q4H PRN PRN Reason: PAIN - MODERATE Oxycodone/Acetaminophen (Percocet 5/325 Tab*) 2 tab PO Q4H PRN PRN Reason: PAIN - SEVERE Last Admin: 12/20/18 08:18 Dose: 2 tab Pharmacy Consult (Vancomycin Per Pharmacy*) 1 note FOLLOW UP .VANC PER PHARMACY [facility]; Protocol Pharmacy Profile Note (Vancomycin Trough Check) 1 note FOLLOW UP 0430 ONE Stop: 12/23/18 04:31 Senna (Senokot 8.6 Mg Tab*) 1 tab PO BID [facility] Last Admin: 12/20/18 08:19 Dose: 1 tab Sertraline HCl (Zoloft*) 25 mg PO DAILY [facility] Last Admin: 12/20/18 08:19 Dose: 25 mg Tamsulosin HCl (Flomax Cap*) 0.4 mg PO BEDTIME [facility] Last Admin: 12/19/18 20:24 Dose: 0.4 mg Vital Signs - 8 hr 12/20/18 12/20/18 12:04 12:40 Temperature 98.3 F 97.8 F Pulse Rate 56 65 Respiratory 17 16 Rate Blood Pressure 130/64 119/56 (mmHg) O2 Sat by Pulse 94 94 Oximetry Oxygen Devices in Use Now: None Appearance: Obese, white male, laying upright in bed, appearing in NAD Eyes: No Scleral Icterus, PERRLA Ears/Nose/Mouth/Throat: Mucous Membranes Moist Neck: NL Appearance and Movements; NL JVP Respiratory: Symmetrical Chest Expansion and Respiratory Effort, Clear to Auscultation Cardiovascular: NL Sounds; No Murmurs; No JVD, RRR Abdominal: - - abd soft, nontender, nondistended Extremities: No Edema, No Clubbing, Cyanosis, - - left LE stump in DIDI wraps Skin: No Rash or Ulcers Neurological: Alert and Oriented x 3, NL Muscle Strength and Tone Result Diagrams: 12/20/18 09:03 12/19/18 05:22 Additional Lab and Data: Lab Results 12/16/18 12/16/18 12/16/18 Range/Units 13:45 13:45 13:45 WBC 12.5 H (3.5-10.8) 10^3/uL RBC 4.27 (4.18-5.48) 10^6 /uL Hgb 12.5 L (14.0-18.0) g/dL Hct 37 L (42-52) % MCV 88 (80-94) fL MCH 29 (27-31) pg MCHC 34 (31-36) g/dL RDW 15 (10-15) % Plt Count 381 (150-450) 10^3/uL MPV 6.8 L (7.4-10.4) fL Neut % (Auto) 58.0 % Lymph % (Auto) 30.8 % [place] % (Auto) 9.0 % Eos % (Auto) 1.8 % Baso % (Auto) 0.4 % Absolute Neuts (auto) 7.3 (1.5-7.7) 10^3/ul Absolute Lymphs (auto) 3.9 (1.0-4.8) 10^3/ul Absolute Monos (auto) 1.1 H (0-0.8) 10^3/ul Absolute Eos (auto) 0.2 (0-0.6) 10^3/ul Absolute Basos (auto) 0.1 (0-0.2) 10^3/ul Absolute Nucleated RBC 0.0 10^3/ul Nucleated RBC % 0.1 INR (Anticoag Therapy) 1.21 H (0.82-1.09) APTT 33.2 (26.0-38.0) seconds Sodium 132 L (135-145) mmol/L Potassium 4.3 (3.5-5.0) mmol/L Chloride 99 L (101-111) mmol/L Carbon Dioxide 26 (22-32) mmol/L Anion Gap 7 (2-11) mmol/L BUN 18 (6-24) mg/dL Creatinine 0.98 (0.67-1.17) mg/dL Est GFR ( Amer) 92.6 (>60) Est GFR (Non-Af Amer) 76.5 (>60) BUN/Creatinine Ratio 18.4 (8-20) Glucose 147 H (70-100) mg/dL Lactic Acid (0.5-2.0) mmol/L Calcium 9.1 (8.6-10.3) mg/dL Total Bilirubin 0.40 (0.2-1.0) mg/dL AST 9 L (13-39) U/L ALT 6 L (7-52) U/L Alkaline Phosphatase 55 (34-104) U/L Troponin I 0.01 (<0.04) ng/mL Total Protein 7.4 (6.4-8.9) g/dL Albumin 3.6 (3.2-5.2) g/dL Globulin 3.8 (2-4) g/dL Albumin/Globulin Ratio 0.9 L (1-3) 12/16/18 Range/Units 13:46 WBC (3.5-10.8) 10^3/uL RBC (4.18-5.48) 10^6 /uL Hgb (14.0-18.0) g/dL Hct (42-52) % MCV (80-94) fL MCH (27-31) pg MCHC (31-36) g/dL RDW (10-15) % Plt Count (150-450) 10^3/uL MPV (7.4-10.4) fL Neut % (Auto) % Lymph % (Auto) % [place] % (Auto) % Eos % (Auto) % Baso % (Auto) % Absolute Neuts (auto) (1.5-7.7) 10^3/ul Absolute Lymphs (auto) (1.0-4.8) 10^3/ul Absolute Monos (auto) (0-0.8) 10^3/ul Absolute Eos (auto) (0-0.6) 10^3/ul Absolute Basos (auto) (0-0.2) 10^3/ul Absolute Nucleated RBC 10^3/ul Nucleated RBC % INR (Anticoag Therapy) (0.82-1.09) APTT (26.0-38.0) seconds Sodium (135-145) mmol/L Potassium (3.5-5.0) mmol/L Chloride (101-111) mmol/L Carbon Dioxide (22-32) mmol/L Anion Gap (2-11) mmol/L BUN (6-24) mg/dL Creatinine (0.67-1.17) mg/dL Est GFR ( Amer) (>60) Est GFR (Non-Af Amer) (>60) BUN/Creatinine Ratio (8-20) Glucose (70-100) mg/dL Lactic Acid 1.8 (0.5-2.0) mmol/L Calcium (8.6-10.3) mg/dL Total Bilirubin (0.2-1.0) mg/dL AST (13-39) U/L ALT (7-52) U/L Alkaline Phosphatase (34-104) U/L Troponin I (<0.04) ng/mL Total Protein (6.4-8.9) g/dL Albumin (3.2-5.2) g/dL Globulin (2-4) g/dL Albumin/Globulin Ratio (1-3) Microbiology and Other Data: Microbiology 12/17/18 09:04 Gram Stain - Final Wound - Left Leg 12/16/18 13:45 Aerobic Blood Culture - Preliminary Blood Venous No Growth Day 1 Anaerobic Blood Culture - Preliminary Escherichia Coli Assess/Plan/Problems-Billing Assessment: Mr Joiner is a 68 yo M with PMH of DM2, HTN, HLD, KYLE, COPD, and 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 Torres d/t failing outpatient antibiotics. - Patient Problems (1) Osteomyelitis of left foot Current Visit: Yes Status: Acute Code(s): M86.9 - OSTEOMYELITIS, UNSPECIFIED SNOMED Code(s): 7832397516975114 Comment: - Recurrent, failed outpatient antibiotics - S/p BKA POD #3 - Ortho following closely - Appreciate ID consult - Continue cefepime, vanco - Added gabapentin for pain control (2) Bacteremia Current Visit: Yes Status: Acute Code(s): R78.81 - BACTEREMIA SNOMED Code( s): 2472542 Comment: - 03/18 BC bottles growing E. coli - Source is UTI (not growing E. coli in urine, but has been on abx recently) or wound - Continue cefepime and Vanco - Surveillance cultures are negative to date but patient has persistant leukocytosis. He is afebrile (3) UTI (urinary tract infection) Current Visit: Yes Status: Acute Comment: - Urine culture growing Leidy, likely representing colonization (4) Diabetes Current Visit: No Status: Acute Code(s): E11.9 - TYPE 2 DIABETES MELLITUS WITHOUT COMPLICATIONS SNOMED Code(s): 54682034 Comment: - A1c 7.7% in November - Continue Lispro SS - Continue Insulin Glargine 8 U qAM (5) Depression Current Visit: Yes Status: Acute Code(s): F32.9 - MAJOR DEPRESSIVE DISORDER , SINGLE EPISODE, UNSPECIFIED SNOMED Code(s): 13714759 Comment: - Continue sertraline (6) HLD (hyperlipidemia) Current Visit: No Status: Chronic Code(s): E78.5 - HYPERLIPIDEMIA, UNSPECIFIED SNOMED Code(s): 31096281 Comment: - Continue atorvastatin (7) HTN (hypertension) Current Visit: No Status: Chronic Code(s): I10 - ESSENTIAL (PRIMARY) HYPERTENSION SNOMED Code(s): 96377226 Comment: - Normotensive - Continue lisinopril (8) DNR (do not resuscitate) Current Visit: Yes Status: Acute Comment: (9) DVT prophylaxis Current Visit: No Status: Acute Code(s): PKS2560 - SNOMED Code(s): 042335510 Comment: - Lovenox Status and Disposition: Inpatient. Anticipate need for [facility] abx and d/c back to [facility] when medically stable.
[2018-12-20] MEDS: Tamsulosin CAP* 0.4 MG PO SCH (22:41)
[2018-12-20] MEDS: Atorvastatin* 10 MG TAB PO SCH (22:41)
[2018-12-21] MEDS: Vancomycin(*) 1,250 MG in NS 0.9% 250 ML* 250 ML IVPB SCH ×5 (00:32→22:06)
[2018-12-21] MEDS: oxyCODONE/Acetamin 5/325 MG* TAB PO PRN (09:17)
[2018-12-21] MEDS: Senna TAB 8.6 mg* TAB PO SCH ×2 (09:19→22:20)
[2018-12-21] MEDS: Sertraline* 25 MG TAB PO SCH (09:19)
[2018-12-21] MEDS: Docusate CAP* 100 MG PO SCH ×2 (09:19→22:10)
[2018-12-21] MEDS: Aspirin EC TAB* 81 MG TAB.EC PO SCH (09:19)
[2018-12-21] MEDS: Gabapentin CAP(*) 300 MG PO SCH ×2 (09:19→22:07)
[2018-12-21] MEDS: Lisinopril TAB* 10 MG PO SCH (09:19)
[2018-12-21] MEDS: Lactobacillus Acidophilus* 1 TAB PO SCH ×2 (09:19→22:06)
[2018-12-21] MEDS: Insulin GLARGINE(*) 1 UNITS UNIT SUBCUT SCH (09:20)
[2018-12-21] MEDS: Insulin LISPRO* 1 UNITS UNIT SUBCUT SCH ×4 (09:20→22:08)
[2018-12-21] MEDS: Cefepime 2 GM in Dextrose(*) 2 GM/50 ML BAG IV SCH ×2 (10:13→19:48)
--- NOTE | 2018-12-21 10:41 | PN ---
Progress Note - Progress Note Date of Service: 12/21/18 SOAP: Subjective: CC: Left LE stump infection HPI: Mr. Joiner is a 68 yo male with PMH significant for DM2, HTN, HLD, KYLE, COPD, bilateral LE osteomyelitis; presented to the hospital with let LE stump infection and is now S/P left transtibital amputation. He reports he is feeling well today; denies fever, chills, nausea, vomiting, diarrhea, ABD pain, back pain or urinary symptoms. Objective: Vital Signs - 8 hr 12/21/18 12/21/18 12/21/18 04:13 04:32 09:17 Temperature 98 F Pulse Rate 72 Respiratory 19 18 Rate Blood Pressure 146/64 (mmHg) O2 Sat by Pulse 93 90 Oximetry Physical Exam: General: NAD, laying in bed Neurological: Alert and Oriented HEENT: Moist MM, no thrush Cardiovascular: Heart rate regular Respiratory: Lung sounds clear Abdominal: Bowel sounds present; ABD soft, non tender and non distended MSK: No tenderness with palpation of the neck, back or spine Skin: No rash. Surgical dressing to the left LE stump clean, dry and intact Laboratory Last Values WBC 14.6 10^3/uL (3.5-10.8) H 12/20/18 09:03 RBC 3.33 10^6 /uL (4.18-5.48) L 12/20/18 09:03 Hgb 9.8 g/dL (14.0-18.0) L 12/20/18 09:03 Hct 29 % (42-52) L 12/20/18 09:03 MCV 87 fL (80-94) 12/20/18 09:03 MCH 29 pg (27-31) 12/20/18 09:03 MCHC 34 g/dL (31-36) 12/20/18 09:03 RDW 16 % (10-15) H 12/20/18 09:03 Plt Count 350 10^3/uL (150-450) 12/20/18 09:03 MPV 7.1 fL (7.4-10.4) L 12/20/18 09:03 Neut % (Auto) 65.8 % 12/20/18 09:03 Lymph % (Auto) 18.3 % 12/20/18 09:03 [place] % (Auto) 11.0 % 12/20/18 09:03 Eos % (Auto) 4.5 % 12/20/18 09:03 Baso % (Auto) 0.4 % 12/20/18 09:03 Absolute Neuts (auto) 9.6 10^3/ul (1.5-7.7) H 12/20/18 09:03 Absolute Lymphs (auto) 2.7 10^3/ul (1.0-4.8) 12/20/18 09:03 Absolute Monos (auto) 1.6 10^3/ul (0-0.8) H 12/20/18 09:03 Absolute Eos (auto) 0.7 10^3/ul (0-0.6) H 12/20/18 09:03 Absolute Basos (auto) 0.1 10^3/ul (0-0.2) 12/20/18 09:03 Absolute Nucleated RBC 0.0 10^3/ul 12/20/18 09:03 Nucleated RBC % 0.0 12/20/18 09:03 INR (Anticoag Therapy) 1.21 (0.82-1.09) H 12/16/18 13:45 APTT 33.2 seconds (26.0-38.0) 12/16/18 13:45 Sodium 136 mmol/L (135-145) 12/19/18 05:22 Potassium 3.8 mmol/L (3.5-5.0) 12/19/18 05:22 Chloride 105 mmol/L (101-111) 12/19/18 05:22 Carbon Dioxide 26 mmol/L (22-32) 12/19/18 05:22 Anion Gap 5 mmol/L (2-11) 12/19/18 05:22 BUN 10 mg/dL (6-24) 12/19/18 05:22 Creatinine 0.71 mg/dL (0.67-1.17) 12/19/18 05:22 Est GFR ( Amer) 134.3 (>60) 12/19/18 05:22 Est GFR (Non-Af Amer) 111.0 (>60) 12/19/18 05:22 BUN/Creatinine Ratio 14.1 (8-20) 12/19/18 05:22 Glucose 129 mg/dL (70-100) H 12/19/18 05:22 POC Glucose (mg/dL) 170 mg/dL (70-100) H 12/21/18 07:24 Lactic Acid 1.1 mmol/L (0.5-2.0) 12/16/18 18:34 Calcium 8.4 mg/dL (8.6-10.3) L 12/19/18 05:22 Total Bilirubin 0.40 mg/dL (0.2-1.0) 12/16/18 13:45 AST 9 U/L (13-39) L 12/16/18 13:45 ALT 6 U/L (7-52) L 12/16/18 13:45 Alkaline Phosphatase 55 U/L (34-104) 12/16/18 13:45 Troponin I 0.01 ng/mL (<0.04) 12/16/18 13:45 C-Reactive Protein 138.97 mg/L (<8.01) H 12/19/18 05:22 Total Protein 7.4 g/dL (6.4-8.9) 12/16/18 13:45 Albumin 3.6 g/dL (3.2-5.2) 12/16/18 13:45 Globulin 3.8 g/dL (2-4) 12/16/18 13:45 Albumin/Globulin Ratio 0.9 (1-3) L 12/16/18 13:45 Urine Color Naa 12/18/18 21:20 Urine Appearance Turbid 12/18/18 21:20 Urine pH 5.0 (5-9) 12/18/18 21:20 Ur Specific [place] 1.033 (1.010-1.030) H 12/18/18 21:20 Urine Protein 2+(100 mg/dl) (Negative) A 12/18/18 21:20 Urine Ketones Trace (Negative) A 12/18/18 21:20 Urine Blood 2+ (Negative) A 12/18/18 21:20 Urine Nitrate Negative (Negative) 12/18/18 21:20 Urine Bilirubin Negative (Negative) 12/18/18 21:20 Urine Urobilinogen Negative (Negative) 12/18/18 21:20 Ur Leukocyte Esterase 3+ (Negative) A 12/18/18 21:20 Urine WBC (Auto) 3+(>20/hpf) (Absent) A 12/18/18 21:20 Urine RBC (Auto) 3+(>10/hpf) (Absent) A 12/18/18 21:20 Ur Squamous Epith Cells Present (Absent) A 12/17/18 04:55 Urine Bacteria Absent (Absent) 12/18/18 21:20 Urine Yeast Present (Absent) A 12/18/18 21:20 Urine Glucose 2+(150 mg/dl) (Negative) A 12/18/18 21:20 Vancomycin Trough 14.6 mcg/mL 12/20/18 05:09 Microbiology 12/17/18 09:04 Anaerobic Culture - Final Wound - Left Leg No Growth Day 4 Gram Stain - Final Wound Culture - Final No Growth Day 4 12/16/18 13:45 Aerobic Blood Culture - Final Blood Venous No Growth Day 5 Anaerobic Blood Culture - Final Escherichia Coli 12/17/18 07:02 Aerobic Blood Culture - Preliminary Blood Venous No Growth Day 4 Anaerobic Blood Culture - Preliminary No Growth Day 4 12/17/18 17:20 Aerobic Blood Culture - Preliminary Blood Venous No Growth Day 3 Anaerobic Blood Culture - Preliminary No Growth Day 3 12/16/18 13:45 Aerobic Blood Culture - Preliminary Blood Venous No Growth Day 4 Anaerobic Blood Culture - Preliminary No Growth Day 4 12/18/18 21:20 Urine Culture - Final Urine Leidy Albicans 12/17/18 04:55 Urine Culture - Final Urine Leidy Albicans Assessment: 1. Left LE stump infection with suspected chronic osteomyelitis. MRI from with cuboid, cuneiforms, and anterior talus edema. S/P left transtibial amputation, POD #4. Wound culture with no growth on day 4. Afebrile this AM, low grade fever yesterday afternoon with T max 100.2. Continues to have leukocytosis. 2. E coli bacteremia. 1/4 bottles positive on admission. Repeat blood cultures with no growth on day 3. 3. DM2. 4. Obesity. BMI 38.1 5. S/P splenectomy in 1973 Plan: Continue cefepime and vancomycin. Will need to have 4-6 weeks of IV ABX.
[2018-12-21] MEDS: FENOFIBRATE 160 MG PO SCH (10:42)
--- NOTE | 2018-12-21 13:35 | PN ---
Subjective Date of Service: 12/21/18 Interval History: Mr. Joiner is feeling well today. He denies any pain and offers no complaints. Not taking any pain medications. Slept well overnight. Good appetite. Denies CP , SOB, N/V, dizziness. No concerns from nursing. Family History: Unchanged from Admission Social History: Unchanged from Admission Past Medical History: Unchanged from Admission Objective Active Medications: Acetaminophen (Tylenol Tab*) 650 mg PO Q4H PRN MILD PAIN or TEMP > 100.4 Albuterol (Ventolin Hfa Inhaler*) 2 puff INH Q4HR PRN WHEEZING Aspirin (Aspirin Ec Tab*) 81 mg PO QAM [facility] Atorvastatin Calcium (Lipitor*) 10 mg PO BEDTIME [facility]; Protocol Dextrose (Dextrose 50% Vial 50 Ml*) 25 ml IV PUSH .FOR FS < 60 - SS PRN FS < 60 Docusate Sodium (Colace Cap*) 100 mg PO BID [facility] Enoxaparin Sodium (Lovenox(*)) 40 mg SUBCUT Q24H [facility] Fenofibrate (Tricor 160 Mg) 160 mg PO QAM [facility]; Protocol Gabapentin (Neurontin Cap(*)) 300 mg PO BID [facility] Lactated Ringer's (Lactated Ringers 1000 Ml Bag*) 1,000 mls @ 75 mls/hr IV PER RATE [facility] Cefepime HCl (Maxipime 2 Gm In Dextrose Duplex (*)) 2 gm in 50 mls @ 100 mls/ hr IV Q12H [facility] Vancomycin HCl 1,250 mg/ (Sodium Chloride) 250 mls @ 166.667 mls/hr IVPB Q8HR [facility] Insulin Glargine (Lantus(*)) 8 units SUBCUT Q24H [facility] Insulin Human Lispro (Humalog*) 0 units SUBCUT ACHS [facility]; Protocol Lactobacillus Rhamnosus (Lactobacillus Acidophilus*) 1 tab PO BID [facility] Lisinopril (Prinivil Tab*) 20 mg PO QAM [facility] Morphine Sulfate (Morphine Inj (Syringe))*) 2 mg IV Q4H PRN Pain - Unrelieved Ondansetron HCl (Zofran Inj*) 4 mg IV Q4H PRN NAUSEA/VOMITING Oxycodone/Acetaminophen (Percocet 5/325 Tab*) 1 tab PO Q4H PRN PAIN - MODERATE Oxycodone/Acetaminophen (Percocet 5/325 Tab*) 2 tab PO Q4H PRN PAIN - SEVERE Senna (Senokot 8.6 Mg Tab*) 1 tab PO BID [facility] Sertraline HCl (Zoloft*) 25 mg PO DAILY [facility] Tamsulosin HCl (Flomax Cap*) 0.4 mg PO BEDTIME [facility] Vital Signs - 8 hr 12/21/18 12/21/18 12/21/18 09:17 09:19 11:17 Respiratory 18 18 20 Rate 12/21/18 11:19 Respiratory 20 Rate Oxygen Devices in Use Now: None Appearance: Middle-aged male laying in bed in NAD Ears/Nose/Mouth/Throat: Mucous Membranes Moist Neck: NL Appearance and Movements; NL JVP, Trachea Midline Respiratory: Symmetrical Chest Expansion and Respiratory Effort, Clear to Auscultation Cardiovascular: NL Sounds; No Murmurs; No JVD, RRR Abdominal: NL Sounds; No Tenderness; No Distention Extremities: No Edema Neurological: Alert and Oriented x 3 Lines/Tubes/Other Access: Clean, Dry and Intact Peripheral IV Nutrition: Taking PO's Result Diagrams: 12/20/18 09:03 12/19/18 05:22 Assess/Plan/Problems-Billing Assessment: Mr Joiner is a 68 yo M with PMH of DM2, HTN, HLD, KYLE, COPD, and 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 Torres d/t failing outpatient antibiotics. - Patient Problems (1) Osteomyelitis of left foot Code(s): M86.9 - OSTEOMYELITIS, UNSPECIFIED Comment: - Recurrent, failed outpatient antibiotics - S/p BKA POD #4 - Ortho following closely - Appreciate ID consult - Continue cefepime, vanco, gabapentin (2) Bacteremia Code(s): R78.81 - BACTEREMIA Comment: - 03/18 BC bottles growing E. coli - Surveillance cultures are negative to date but patient has persistant leukocytosis - Source is UTI vs wound - Continue cefepime and Vanco (3) UTI (urinary tract infection) Comment: - Urine culture growing Leidy, likely colonization (4) Diabetes Code(s): E11.9 - TYPE 2 DIABETES MELLITUS WITHOUT COMPLICATIONS Comment: - A1c 7.7% in November - Continue Lispro SS, Lantus (5) HTN (hypertension) Code(s): I10 - ESSENTIAL (PRIMARY) HYPERTENSION Comment: - Normotensive - Continue lisinopril (6) HLD (hyperlipidemia) Code(s): E78.5 - HYPERLIPIDEMIA, UNSPECIFIED Comment: - Continue atorvastatin (7) Depression Code(s): F32.9 - MAJOR DEPRESSIVE DISORDER, SINGLE EPISODE, UNSPECIFIED Comment: - Continue sertraline (8) DVT prophylaxis Comment: - Lovenox (9) DNR (do not resuscitate) Comment: Status and Disposition: Inpatient. Anticipate need for longterm abx and d/c back to [facility] when medically stable. Attending: Tiesha Gates
[2018-12-21] MEDS: Enoxaparin(*) 40 MG/0.4 ML SYR SUBCUT SCH (19:07)
[2018-12-21] MEDS: Atorvastatin* 10 MG TAB PO SCH (22:06)
[2018-12-21] MEDS: Tamsulosin CAP* 0.4 MG PO SCH (22:07)
[2018-12-22] MEDS: Morphine INJ* 2 MG/ML 1 ML SYRINGE (TWO MG - NEW SYRINGE VERSION) IV PRN (03:19)
[2018-12-22] MEDS: Ondansetron INJ* 2 MG/ML VIAL IV PRN (03:20)
[2018-12-22] MEDS: oxyCODONE/Acetamin 5/325 MG* TAB PO PRN ×2 (04:51→13:31)
[2018-12-22] MEDS: Vancomycin(*) 1,250 MG in NS 0.9% 250 ML* 250 ML IVPB SCH ×3 (05:58→22:04)
[2018-12-22 06:03] LABS: ABS Basophils 0.1 10^3/ul (0-0.2); ABS Eosinophils 0.8 10^3/ul (0-0.6); ABS Lymphocytes 3.9 10^3/ul (1.0-4.8); ABS Monocytes 1.5 10^3/ul (0-0.8); ABS Neutrophils 8.4 10^3/ul (1.5-7.7); Eosinophil % 5.2 %; Hematocrit 30 % (42-52); Hemoglobin 9.9 g/dL (14.0-18.0); Lymphocyte % 26.6 %; Mean Corpuscular HGB Conc 33 g/dL (31-36); Mean Corpuscular Hemoglobin 29 pg (27-31); Mean Corpuscular Volume 87 fL (80-94); Mean Platelet Volume 7.4 fL (7.4-10.4); Nucleated Red Blood Cells % 0.1; Platelet Count 470 10^3/uL (150-450); Red Blood Count 3.45 10^6 /uL (4.18-5.48); Red Cell Distribution Width 15 % (10-15); White Blood Count 14.6 10^3/uL (3.5-10.8)
[2018-12-22 06:23] LABS: BUN/Creatinine Ratio 14.3 (8-20); Calcium 8.3 mg/dL (8.6-10.3); EGFR African American 154.2 (>60); EGFR Non-African American 127.4 (>60); Potassium 4.1 mmol/L (3.5-5.0)
[2018-12-22] MEDS: Aspirin EC TAB* 81 MG TAB.EC PO SCH (08:34)
[2018-12-22] MEDS: Gabapentin CAP(*) 300 MG PO SCH ×2 (08:34→20:40)
[2018-12-22] MEDS: Senna TAB 8.6 mg* TAB PO SCH ×2 (08:34→20:40)
[2018-12-22] MEDS: Lisinopril TAB* 10 MG PO SCH (08:35)
[2018-12-22] MEDS: Docusate CAP* 100 MG PO SCH ×2 (08:35→20:40)
[2018-12-22] MEDS: Sertraline* 25 MG TAB PO SCH (08:36)
[2018-12-22] MEDS: FENOFIBRATE 160 MG PO SCH (08:36)
[2018-12-22] MEDS: Lactobacillus Acidophilus* 1 TAB PO SCH ×2 (08:36→20:39)
[2018-12-22] MEDS: Insulin GLARGINE(*) 1 UNITS UNIT SUBCUT SCH (08:39)
[2018-12-22] MEDS: Insulin LISPRO* 1 UNITS UNIT SUBCUT SCH ×4 (08:39→22:03)
[2018-12-22] MEDS: Cefepime 2 GM in Dextrose(*) 2 GM/50 ML BAG IV SCH ×2 (09:37→20:40)
--- NOTE | 2018-12-22 10:33 | PN ---
Progress Note - Progress Note Date of Service: 12/22/18 SOAP: Subjective: CC: wound dehiscence HPI: 68 year old man with recent left leg BKA, he had some pain over night which is better today, had improved with tylenol and ibuprofen. His appetite is good and no fever, rash, or diarrhea. His last admission he had said he would pull his picc out if we got him one but this time is agreeable to it. Objective: Vital Signs Temp 36.0 C 12/22/18 07:15 Pulse 65 12/22/18 07:15 Resp 18 12/22/18 08:50 BP 115/60 12/22/18 07:15 Pulse Ox 90 12/22/18 07:15 Intake & Output 12/21/18 12/22/18 12/22/18 18:59 06:59 18:59 Intake Total 1680 936 Output Total 1275 57957 Balance 405 -41133 Weight 280 lb 3.2 oz Intake: IV Fluids 373 LR 233 NS 140 IVPB 563 LR 253 cefepime 50 vancomycin 260 Oral 1680 0 Output: Urine 1275 79054 Other: Estimated Void Medium # Bowel Movements 1 1 Estimated Stool Amount Small Large # Voids 3 Gen:awake, no distress HEENT: no thrush Heart:RRR no murmur Lungs:CTA BL Abd:+BS NTND soft Skin: no rash MSK: L leg amp site wrapped Laboratory Results - last 24 hr 12/21/18 12/21/18 12/21/18 12:50 16:35 21:41 WBC RBC Hgb Hct MCV MCH MCHC RDW Plt Count MPV Neut % (Auto) Lymph % (Auto) [place] % (Auto) Eos % (Auto) Baso % (Auto) Absolute Neuts (auto) Absolute Lymphs (auto) Absolute Monos (auto) Absolute Eos (auto) Absolute Basos (auto) Absolute Nucleated RBC Nucleated RBC % Sodium Potassium Chloride Carbon Dioxide Anion Gap BUN Creatinine Est GFR ( Amer) Est GFR (Non-Af Amer) BUN/Creatinine Ratio Glucose POC Glucose (mg/dL) 169 H 233 H 150 H Calcium 12/22/18 12/22/18 12/22/18 05:34 05:34 08:12 WBC 14.6 H RBC 3.45 L Hgb 9.9 L Hct 30 L MCV 87 MCH 29 MCHC 33 RDW 15 Plt Count 470 H D MPV 7.4 Neut % (Auto) 57.7 Lymph % (Auto) 26.6 [place] % (Auto) 10.0 Eos % (Auto) 5.2 Baso % (Auto) 0.5 Absolute Neuts (auto) 8.4 H Absolute Lymphs (auto) 3.9 Absolute Monos (auto) 1.5 H Absolute Eos (auto) 0.8 H Absolute Basos (auto) 0.1 Absolute Nucleated RBC 0.0 Nucleated RBC % 0.1 Sodium 135 Potassium 4.1 Chloride 104 Carbon Dioxide 29 Anion Gap 2 BUN 9 Creatinine 0.63 L Est GFR ( Amer) 154.2 Est GFR (Non-Af Amer) 127.4 BUN/Creatinine Ratio 14.3 Glucose 160 H POC Glucose (mg/dL) 149 H Calcium 8.3 L Microbiology 12/17/18 07:02 Aerobic Blood Culture - Final Blood Venous No Growth Day 5 Anaerobic Blood Culture - Final No Growth Day 5 12/17/18 17:20 Aerobic Blood Culture - Preliminary Blood Venous No Growth Day 4 Anaerobic Blood Culture - Preliminary No Growth Day 4 12/16/18 13:45 Aerobic Blood Culture - Final Blood Venous No Growth Day 5 Anaerobic Blood Culture - Final No Growth Day 5 12/17/18 09:04 Anaerobic Culture - Final Wound - Left Leg No Growth Day 4 Gram Stain - Final Wound Culture - Final No Growth Day 4 12/16/18 13:45 Aerobic Blood Culture - Final Blood Venous No Growth Day 5 Anaerobic Blood Culture - Final Escherichia Coli 12/18/18 21:20 Urine Culture - Final Urine Leidy Albicans 12/17/18 04:55 Urine Culture - Final Urine Leidy Albicans Assessment: 1. Left leg wound dehiscence after foot amputation now s/p BKA, wound cultures no growth 2. T2DM with neuropathy 3. Morbid obesity 4. KYLE 5. E coli 1/4 BC bottles , no urianry or abd symptoms, could be due to leg infection Plan: 1. continue vancomycin goal 15-20, cefepime 2 gm IV Q12hrs day 09/09 w weekly cbc , cmp, crp , vancomycin trough 25 minutes floor time >25% face to face in counseling regarding antibiotic and rehab plans
[2018-12-22] MEDS: Lactated Ringers 1000 ML Bag* 1,000 ML IV SCH (12:05)
--- NOTE | 2018-12-22 12:57 | PN ---
Subjective Date of Service: 12/22/18 Interval History: Mr. Joiner is feeling well today. He offers no complaints. Reports some nausea and vomiting last night, but none since. No abdominal pain. He does not want to go back to [facility] because he does not feel he receives proper treatment there. Denies CP, SOB. No concerns from nursing. Family History: Unchanged from Admission Social History: Unchanged from Admission Past Medical History: Unchanged from Admission Objective Active Medications: Acetaminophen (Tylenol Tab*) 650 mg PO Q4H PRN MILD PAIN or TEMP > 100.4 Albuterol (Ventolin Hfa Inhaler*) 2 puff INH Q4HR PRN WHEEZING Aspirin (Aspirin Ec Tab*) 81 mg PO QAM OTTO Atorvastatin Calcium (Lipitor*) 10 mg PO BEDTIME OTTO; Protocol Dextrose (Dextrose 50% Vial 50 Ml*) 25 ml IV PUSH .FOR FS < 60 - SS PRN FS < 60 Docusate Sodium (Colace Cap*) 100 mg PO BID OTTO Enoxaparin Sodium (Lovenox(*)) 40 mg SUBCUT Q24H OTTO Fenofibrate (Tricor 160 Mg) 160 mg PO QAM OTTO; Protocol Gabapentin (Neurontin Cap(*)) 300 mg PO BID OTTO Lactated Ringer's (Lactated Ringers 1000 Ml Bag*) 1,000 mls @ 75 mls/hr IV PER RATE OTTO Cefepime HCl (Maxipime 2 Gm In Dextrose Duplex (*)) 2 gm in 50 mls @ 100 mls/ hr IV Q12H OTTO Vancomycin HCl 1,250 mg/ (Sodium Chloride) 250 mls @ 166.667 mls/hr IVPB Q8HR OTTO Insulin Glargine (Lantus(*)) 8 units SUBCUT Q24H OTTO Insulin Human Lispro (Humalog*) 0 units SUBCUT ACHS OTTO; Protocol Lactobacillus Rhamnosus (Lactobacillus Acidophilus*) 1 tab PO BID OTTO Lisinopril (Prinivil Tab*) 20 mg PO QAM OTTO Morphine Sulfate (Morphine Inj (Syringe))*) 2 mg IV Q4H PRN Pain - Unrelieved Ondansetron HCl (Zofran Inj*) 4 mg IV Q4H PRN NAUSEA/VOMITING Oxycodone/Acetaminophen (Percocet 5/325 Tab*) 1 tab PO Q4H PRN PAIN - MODERATE Oxycodone/Acetaminophen (Percocet 5/325 Tab*) 2 tab PO Q4H PRN PAIN - SEVERE Senna (Senokot 8.6 Mg Tab*) 1 tab PO BID OTTO Sertraline HCl (Zoloft*) 25 mg PO DAILY OTTO Tamsulosin HCl (Flomax Cap*) 0.4 mg PO BEDTIME OTTO Vital Signs - 8 hr 12/22/18 12/22/18 12/22/18 07:15 07:55 08:00 Temperature 96.8 F Pulse Rate 65 Respiratory 16 18 19 Rate Blood Pressure 115/60 (mmHg) O2 Sat by Pulse 90 Oximetry Oxygen Devices in Use Now: BiPAP - @ HS Appearance: Middle-aged male lying in bed in NAD Ears/Nose/Mouth/Throat: Mucous Membranes Moist Neck: NL Appearance and Movements; NL JVP, Trachea Midline Respiratory: Symmetrical Chest Expansion and Respiratory Effort, Clear to Auscultation Cardiovascular: NL Sounds; No Murmurs; No JVD, RRR Abdominal: NL Sounds; No Tenderness; No Distention Neurological: Alert and Oriented x 3 Lines/Tubes/Other Access: Clean, Dry and Intact Peripheral IV Nutrition: Taking PO's Result Diagrams: 12/22/18 05:34 12/22/18 05:34 Assess/Plan/Problems-Billing Assessment: Mr Joiner is a 68 yo M with PMH of DM2, HTN, HLD, KYLE, COPD, and 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 Torres d/t failing outpatient antibiotics. - Patient Problems (1) Osteomyelitis of left foot Code(s): M86.9 - OSTEOMYELITIS, UNSPECIFIED Comment: - Recurrent, failed outpatient antibiotics - S/p BKA POD #5 - Ortho following closely - Appreciate ID consult - Continue cefepime, vanco (day 09/09), gabapentin (2) Bacteremia Code(s): R78.81 - BACTEREMIA Comment: - 03/18 BC bottles growing E. coli - Surveillance cultures are negative to date but patient has persistant leukocytosis - Source is UTI vs wound - Continue cefepime, vanco (3) UTI (urinary tract infection) Comment: - Urine culture growing Leidy, likely colonization (4) Diabetes Code(s): E11.9 - TYPE 2 DIABETES MELLITUS WITHOUT COMPLICATIONS Comment: - A1c 7.7% in November - Continue Lispro SS, Lantus (5) HTN (hypertension) Code(s): I10 - ESSENTIAL (PRIMARY) HYPERTENSION Comment: - Normotensive - Continue lisinopril (6) HLD (hyperlipidemia) Code(s): E78.5 - HYPERLIPIDEMIA, UNSPECIFIED Comment: - Continue atorvastatin (7) Depression Code(s): F32.9 - MAJOR DEPRESSIVE DISORDER, SINGLE EPISODE, UNSPECIFIED Comment: - Continue sertraline (8) DVT prophylaxis Comment: - Lovenox (9) DNR (do not resuscitate) Comment: Status and Disposition: Inpatient. Anticipate need for intermediate abx and d/c back to [facility] tomorrow. Attending: Tiesha Gates
--- NOTE | 2018-12-22 14:38 | PN ---
Progress Note - Progress Note Date of Service: 12/22/18 SOAP: Subjective: []Pt seen at bedside. He feels well without complaints. Denies fever, chills, CP , SOB, dizziness. LLE is not painful. Objective: []Gen: Appears well, NAD LLE: Dressing CDI with no strike through Assessment: []s/p L Transtibial amputation Plan: ID rec: On cefepime and vanco OOB with assist NWB LLE Keep splint CDI. If still in house at 7 week post op, ortho to do a wound check. Otherwise f/u outpt next week Lovenox for DVT prophy Vital Signs Temp 97 F 12/22/18 11:15 Pulse 65 12/22/18 07:15 Resp 19 12/22/18 13:31 BP 114/61 12/22/18 11:15 Pulse Ox 94 12/22/18 11:15 Intake & Output 12/21/18 12/22/18 12/22/18 18:59 06:59 18:59 Intake Total 3156 610 6434 Output Total 1275 01498 300 Balance 405 -86129 900 Weight 280 lb 3.2 oz Intake: IV Fluids 373 LR 233 NS 140 IVPB 563 LR 253 cefepime 50 vancomycin 260 Oral 1680 0 1200 Output: Urine 1275 83623 300 Other: Estimated Void Medium Small Date of Last Bowel 12/21/18 Movement # Bowel Movements 1 1 1 Estimated Stool Amount Small Large # Voids 3 1 Laboratory Last Values WBC 14.6 10^3/uL (3.5-10.8) H 12/22/18 05:34 RBC 3.45 10^6 /uL (4.18-5.48) L 12/22/18 05:34 Hgb 9.9 g/dL (14.0-18.0) L 12/22/18 05:34 Hct 30 % (42-52) L 12/22/18 05:34 MCV 87 fL (80-94) 12/22/18 05:34 MCH 29 pg (27-31) 12/22/18 05:34 MCHC 33 g/dL (31-36) 12/22/18 05:34 RDW 15 % (10-15) 12/22/18 05:34 Plt Count 470 10^3/uL (150-450) H D 12/22/18 05:34 MPV 7.4 fL (7.4-10.4) 12/22/18 05:34 Neut % (Auto) 57.7 % 12/22/18 05:34 Lymph % (Auto) 26.6 % 12/22/18 05:34 [place] % (Auto) 10.0 % 12/22/18 05:34 Eos % (Auto) 5.2 % 12/22/18 05:34 Baso % (Auto) 0.5 % 12/22/18 05:34 Absolute Neuts (auto) 8.4 10^3/ul (1.5-7.7) H 12/22/18 05:34 Absolute Lymphs (auto) 3.9 10^3/ul (1.0-4.8) 12/22/18 05:34 Absolute Monos (auto) 1.5 10^3/ul (0-0.8) H 12/22/18 05:34 Absolute Eos (auto) 0.8 10^3/ul (0-0.6) H 12/22/18 05:34 Absolute Basos (auto) 0.1 10^3/ul (0-0.2) 12/22/18 05:34 Absolute Nucleated RBC 0.0 10^3/ul 12/22/18 05:34 Nucleated RBC % 0.1 12/22/18 05:34 INR (Anticoag Therapy) 1.21 (0.82-1.09) H 12/16/18 13:45 APTT 33.2 seconds (26.0-38.0) 12/16/18 13:45 Sodium 135 mmol/L (135-145) 12/22/18 05:34 Potassium 4.1 mmol/L (3.5-5.0) 12/22/18 05:34 Chloride 104 mmol/L (101-111) 12/22/18 05:34 Carbon Dioxide 29 mmol/L (22-32) 12/22/18 05:34 Anion Gap 2 mmol/L (2-11) 12/22/18 05:34 BUN 9 mg/dL (6-24) 12/22/18 05:34 Creatinine 0.63 mg/dL (0.67-1.17) L 12/22/18 05:34 Est GFR ( Amer) 154.2 (>60) 12/22/18 05:34 Est GFR (Non-Af Amer) 127.4 (>60) 12/22/18 05:34 BUN/Creatinine Ratio 14.3 (8-20) 12/22/18 05:34 Glucose 160 mg/dL (70-100) H 12/22/18 05:34 POC Glucose (mg/dL) 172 mg/dL (70-100) H 12/22/18 11:20 Lactic Acid 1.1 mmol/L (0.5-2.0) 12/16/18 18:34 Calcium 8.3 mg/dL (8.6-10.3) L 12/22/18 05:34 Total Bilirubin 0.40 mg/dL (0.2-1.0) 12/16/18 13:45 AST 9 U/L (13-39) L 12/16/18 13:45 ALT 6 U/L (7-52) L 12/16/18 13:45 Alkaline Phosphatase 55 U/L (34-104) 12/16/18 13:45 Troponin I 0.01 ng/mL (<0.04) 12/16/18 13:45 C-Reactive Protein 138.97 mg/L (<8.01) H 12/19/18 05:22 Total Protein 7.4 g/dL (6.4-8.9) 12/16/18 13:45 Albumin 3.6 g/dL (3.2-5.2) 12/16/18 13:45 Globulin 3.8 g/dL (2-4) 12/16/18 13:45 Albumin/Globulin Ratio 0.9 (1-3) L 12/16/18 13:45 Urine Color Naa 12/18/18 21:20 Urine Appearance Turbid 12/18/18 21:20 Urine pH 5.0 (5-9) 12/18/18 21:20 Ur Specific [place] 1.033 (1.010-1.030) H 12/18/18 21:20 Urine Protein 2+(100 mg/dl) (Negative) A 12/18/18 21:20 Urine Ketones Trace (Negative) A 12/18/18 21:20 Urine Blood 2+ (Negative) A 12/18/18 21:20 Urine Nitrate Negative (Negative) 12/18/18 21:20 Urine Bilirubin Negative (Negative) 12/18/18 21:20 Urine Urobilinogen Negative (Negative) 12/18/18 21:20 Ur Leukocyte Esterase 3+ (Negative) A 12/18/18 21:20 Urine WBC (Auto) 3+(>20/hpf) (Absent) A 12/18/18 21:20 Urine RBC (Auto) 3+(>10/hpf) (Absent) A 12/18/18 21:20 Ur Squamous Epith Cells Present (Absent) A 12/17/18 04:55 Urine Bacteria Absent (Absent) 12/18/18 21:20 Urine Yeast Present (Absent) A 12/18/18 21:20 Urine Glucose 2+(150 mg/dl) (Negative) A 12/18/18 21:20 Vancomycin Trough 14.6 mcg/mL 12/20/18 05:09
[2018-12-22] MEDS: Enoxaparin(*) 40 MG/0.4 ML SYR SUBCUT SCH (16:47)
[2018-12-22] MEDS: Atorvastatin* 10 MG TAB PO SCH (20:40)
[2018-12-22] MEDS: Tamsulosin CAP* 0.4 MG PO SCH (20:40)
[2018-12-23] MEDS: Lactated Ringers 1000 ML Bag* 1,000 ML IV SCH (04:37)
[2018-12-23] MEDS: Morphine INJ* 2 MG/ML 1 ML SYRINGE (TWO MG - NEW SYRINGE VERSION) IV PRN (04:45)
[2018-12-23] MEDS: Ondansetron INJ* 2 MG/ML VIAL IV PRN ×2 (04:45→16:32)
[2018-12-23] MEDS ORDERED: Vancomycin Trough Check NOTE FOLLOW UP ONE (05:30)
[2018-12-23 07:04] LABS: EGFR African American 138.8 (>60); EGFR Non-African American 114.7 (>60)
[2018-12-23] MEDS: oxyCODONE/Acetamin 5/325 MG* TAB PO PRN ×2 (07:30→16:32)
[2018-12-23] MEDS: Vancomycin(*) 1,250 MG in NS 0.9% 250 ML* 250 ML IVPB SCH ×2 (07:30→17:22)
[2018-12-23] MEDS: Cefepime 2 GM in Dextrose(*) 2 GM/50 ML BAG IV SCH ×2 (09:30→20:10)
[2018-12-23] MEDS: Aspirin EC TAB* 81 MG TAB.EC PO SCH (09:33)
[2018-12-23] MEDS: Sertraline* 25 MG TAB PO SCH (09:33)
[2018-12-23] MEDS: FENOFIBRATE 160 MG PO SCH (09:33)
[2018-12-23] MEDS: Docusate CAP* 100 MG PO SCH (09:33)
[2018-12-23] MEDS: Lisinopril TAB* 10 MG PO SCH (09:34)
[2018-12-23] MEDS: Lactobacillus Acidophilus* 1 TAB PO SCH (09:34)
[2018-12-23] MEDS: Gabapentin CAP(*) 300 MG PO SCH (09:34)
[2018-12-23] MEDS: Senna TAB 8.6 mg* TAB PO SCH (09:34)
[2018-12-23] MEDS: Insulin GLARGINE(*) 1 UNITS UNIT SUBCUT SCH (09:35)
[2018-12-23] MEDS: Insulin LISPRO* 1 UNITS UNIT SUBCUT SCH ×3 (09:35→17:33)
--- NOTE | 2018-12-23 10:37 | PN ---
Progress Note - Progress Note Date of Service: 12/23/18 SOAP: Subjective: CC: Left LE stump infection HPI: Mr. Joiner is a 68 yo male with PMH significant for DM2, HTN, HLD, KYLE, COPD, bilateral LE osteomyelitis; presented to the hospital with let LE stump infection and is now S/P left transtibital amputation. He reports he is feeling well today; denies fever, chills, nausea, vomiting, diarrhea, ABD pain, back pain or urinary symptoms. Objective: Vital Signs 12/23/18 12/23/18 12/23/18 08:11 09:30 09:34 Temperature 97.8 F Pulse Rate 60 Respiratory 20 18 16 Rate Blood Pressure 133/67 (mmHg) O2 Sat by Pulse 99 Oximetry Physical Exam: General: NAD, laying in bed Neurological: Alert and Oriented HEENT: Moist MM, no thrush Cardiovascular: Heart rate regular, no murmur Respiratory: Lung sounds clear ABD: Bowel sounds present; ABD soft, non tender and obese Skin: No rash. Surgical dressing to left LE Laboratory Last Values WBC 14.6 10^3/uL (3.5-10.8) H 12/22/18 05:34 RBC 3.45 10^6 /uL (4.18-5.48) L 12/22/18 05:34 Hgb 9.9 g/dL (14.0-18.0) L 12/22/18 05:34 Hct 30 % (42-52) L 12/22/18 05:34 MCV 87 fL (80-94) 12/22/18 05:34 MCH 29 pg (27-31) 12/22/18 05:34 MCHC 33 g/dL (31-36) 12/22/18 05:34 RDW 15 % (10-15) 12/22/18 05:34 Plt Count 470 10^3/uL (150-450) H D 12/22/18 05:34 MPV 7.4 fL (7.4-10.4) 12/22/18 05:34 Neut % (Auto) 57.7 % 12/22/18 05:34 Lymph % (Auto) 26.6 % 12/22/18 05:34 [place] % (Auto) 10.0 % 12/22/18 05:34 Eos % (Auto) 5.2 % 12/22/18 05:34 Baso % (Auto) 0.5 % 12/22/18 05:34 Absolute Neuts (auto) 8.4 10^3/ul (1.5-7.7) H 12/22/18 05:34 Absolute Lymphs (auto) 3.9 10^3/ul (1.0-4.8) 12/22/18 05:34 Absolute Monos (auto) 1.5 10^3/ul (0-0.8) H 12/22/18 05:34 Absolute Eos (auto) 0.8 10^3/ul (0-0.6) H 12/22/18 05:34 Absolute Basos (auto) 0.1 10^3/ul (0-0.2) 12/22/18 05:34 Absolute Nucleated RBC 0.0 10^3/ul 12/22/18 05:34 Nucleated RBC % 0.1 12/22/18 05:34 INR (Anticoag Therapy) 1.21 (0.82-1.09) H 12/16/18 13:45 APTT 33.2 seconds (26.0-38.0) 12/16/18 13:45 Sodium 135 mmol/L (135-145) 12/22/18 05:34 Potassium 4.1 mmol/L (3.5-5.0) 12/22/18 05:34 Chloride 104 mmol/L (101-111) 12/22/18 05:34 Carbon Dioxide 29 mmol/L (22-32) 12/22/18 05:34 Anion Gap 2 mmol/L (2-11) 12/22/18 05:34 BUN 9 mg/dL (6-24) 12/23/18 06:31 Creatinine 0.69 mg/dL (0.67-1.17) 12/23/18 06:31 Est GFR ( Amer) 138.8 (>60) 12/23/18 06:31 Est GFR (Non-Af Amer) 114.7 (>60) 12/23/18 06:31 BUN/Creatinine Ratio 14.3 (8-20) 12/22/18 05:34 Glucose 160 mg/dL (70-100) H 12/22/18 05:34 POC Glucose (mg/dL) 174 mg/dL (70-100) H 12/23/18 07:30 Lactic Acid 1.1 mmol/L (0.5-2.0) 12/16/18 18:34 Calcium 8.3 mg/dL (8.6-10.3) L 12/22/18 05:34 Total Bilirubin 0.40 mg/dL (0.2-1.0) 12/16/18 13:45 AST 9 U/L (13-39) L 12/16/18 13:45 ALT 6 U/L (7-52) L 12/16/18 13:45 Alkaline Phosphatase 55 U/L (34-104) 12/16/18 13:45 Troponin I 0.01 ng/mL (<0.04) 12/16/18 13:45 C-Reactive Protein 138.97 mg/L (<8.01) H 12/19/18 05:22 Total Protein 7.4 g/dL (6.4-8.9) 12/16/18 13:45 Albumin 3.6 g/dL (3.2-5.2) 12/16/18 13:45 Globulin 3.8 g/dL (2-4) 12/16/18 13:45 Albumin/Globulin Ratio 0.9 (1-3) L 12/16/18 13:45 Urine Color Naa 12/18/18 21:20 Urine Appearance Turbid 12/18/18 21:20 Urine pH 5.0 (5-9) 12/18/18 21:20 Ur Specific [place] 1.033 (1.010-1.030) H 12/18/18 21:20 Urine Protein 2+(100 mg/dl) (Negative) A 12/18/18 21:20 Urine Ketones Trace (Negative) A 12/18/18 21:20 Urine Blood 2+ (Negative) A 12/18/18 21:20 Urine Nitrate Negative (Negative) 12/18/18 21:20 Urine Bilirubin Negative (Negative) 12/18/18 21:20 Urine Urobilinogen Negative (Negative) 12/18/18 21:20 Ur Leukocyte Esterase 3+ (Negative) A 12/18/18 21:20 Urine WBC (Auto) 3+(>20/hpf) (Absent) A 12/18/18 21:20 Urine RBC (Auto) 3+(>10/hpf) (Absent) A 12/18/18 21:20 Ur Squamous Epith Cells Present (Absent) A 12/17/18 04:55 Urine Bacteria Absent (Absent) 12/18/18 21:20 Urine Yeast Present (Absent) A 12/18/18 21:20 Urine Glucose 2+(150 mg/dl) (Negative) A 12/18/18 21:20 Vancomycin Trough 16.0 mcg/mL 12/23/18 06:31 Microbiology 12/17/18 17:20 Aerobic Blood Culture - Final Blood Venous No Growth Day 5 Anaerobic Blood Culture - Final No Growth Day 5 12/17/18 07:02 Aerobic Blood Culture - Final Blood Venous No Growth Day 5 Anaerobic Blood Culture - Final No Growth Day 5 12/16/18 13:45 Aerobic Blood Culture - Final Blood Venous No Growth Day 5 Anaerobic Blood Culture - Final No Growth Day 5 12/17/18 09:04 Anaerobic Culture - Final Wound - Left Leg No Growth Day 4 Gram Stain - Final Wound Culture - Final No Growth Day 4 12/16/18 13:45 Aerobic Blood Culture - Final Blood Venous No Growth Day 5 Anaerobic Blood Culture - Final Escherichia Coli 12/18/18 21:20 Urine Culture - Final Urine Leidy Albicans 12/17/18 04:55 Urine Culture - Final Urine Leidy Albicans Assessment: 1. Left LE stump infection with suspected chronic osteomyelitis. MRI from with cuboid, cuneiforms, and anterior talus edema. S/P left transtibial amputation, POD #6. Wound culture with no growth on day 5. Afebrile. Continues to have mild leukocytosis. 2. E coli bacteremia. 1/4 bottles positive on admission. Repeat blood cultures with no growth on day 5. Suspect that the LE infection is the cause. 3. DM2. 4. Obesity. BMI 38.1 5. S/P splenectomy in 1973 Plan: Continue cefepime 2 gm IV BID and vancomycin 1250 mg IV BID, day 10/09. PICC line has been this AM. Weekly labs while on IV ABX: CBC, CRP, CMP, and vanco trough. Followup with ID in the office in 2-3 weeks.
--- NOTE | 2018-12-23 12:55 | DS ---
CC: Dr. Erik Puri; Dr. Heron Torres; Dr. Raphael Dozier * DATE OF ADMISSION: 12/16/2018. DATE OF DISCHARGE: 12/23/2018. PRIMARY CARE PHYSICIAN: Dr. Erik Puri. ORTHOPEDIC SURGEON: Dr. Heron Torres. INFECTIOUS DISEASE: Dr. Raphael Dozier. ATTENDING PHYSICIAN: Dr. Tiesha Gates * (dictated by Nicole Angulo NP). PRIMARY DIAGNOSES: 1. Left foot osteomyelitis, status post left BKA. 2. E. coli bacteremia. SECONDARY DIAGNOSES: 1. Diabetes mellitus type 2. 2. Hypertension. 3. Hyperlipidemia. 4. Depression. STUDIES WHILE IN THE HOSPITAL: 1. Chest x-ray on 12/23/2018, reads as: Right lower lobe atelectasis. PICC line tip is in the superior vena cava. CONSULTATIONS WHILE IN THE HOSPITAL: 1. Dr. Torres from Orthopedics on 12/16/2018. 2. Dr. Dozier from Infectious Disease on 12/19/2018. PROCEDURES WHILE IN THE HOSPITAL: 1. Left below the knee amputation with Dr. Torres on 12/17/2018. HISTORY OF PRESENT ILLNESS/HOSPITAL COURSE: Mr. Joiner is a 68-year-old male with a past medical history of left foot osteomyelitis, diabetes, hypertension, hyperlipidemia, obstructive sleep apnea, and COPD who presented to the emergency room on 12/16/2018 after being sent to the hospital by Dr. Torres. Please see the history and physical by Jigna Lezama NP for a complete summary of the events leading up to this hospitalization. In short, the patient had a left forefoot amputation and subsequent revision on 10/17/2018. He has been treated with oral antibiotics for osteomyelitis as an outpatient as he was unwilling to take IV antibiotics. The patient was seen in the office and Dr. Torres felt as though the patient had failed antibiotics and recommended admission. In the emergency room, the patient was noted to have a minimally elevated white blood count. Vitals were noted to be stable. He was admitted by the Hospitalist Service. The patient was seen in consultation by Orthopedics and ultimately went to the OR on 12/17/2018 and had a transtibial amputation of the left leg with Dr. Torres. The patient tolerated the procedure well and has an uneventful recovery. He did have significant pain over the next few days which was well- managed with pain medication. The patient was seen by Dr. Dozier on 2018. At that point, he recommended continuing the patient on Cefepime and Vancomycin which had been started on admission. He indicated that the patient would need four weeks of IV antibiotics. On admission, the patient did have blood cultures and one out of four bottles grew E. coli which is susceptible to Cefepime, so no additional antibiotics were required. He was noted to have a urine culture which grew 25 to 50,000 colonies of corrie likely representing colonization without any treatment indicated at this time. The patient had repeat blood cultures on 12/17/2018 which ultimately showed no growth after five days. At that point, it was determined that the patient could have a PICC line placed in anticipation of IV antibiotics. VIOLETA Hdz from Orthopedics saw the patient on 12/22/2018 and at that point indicated that the patient would need to be out of bed with assist and nonweightbearing on the left lower extremity. She noted that the splint should be kept clean, dry, and intact and that if the patient was discharged, he would need to follow-up next week. I have spoken with Dr. Dozier and Day Leach NP and they have cleared the patient for discharge from their perspective with an additional three weeks of IV antibiotics. The patient had a PICC line placed this morning. Position was confirmed by chest x-ray as indicated above. I will note that the patient is not particularly pleased to be returning to [facility] as he does not feel he gets appropriate care there, though because of his insurance, this is the only viable option at this time and he is aware of that. He reports feeling general malaise today, but has no specific complaints. He denies pain. PHYSICAL EXAMINATION: On exam, he has no focal neurological deficits. He is alert and oriented times four. His heart has a regular rate and rhythm without murmurs, rubs, or gallops. His lungs are clear to auscultation without rhonchi , wheezes, or rubs. There is no significant edema. Abdomen is soft, nontender. Physical exam is otherwise benign. Mr. Joiner is stable for discharge today. Vital signs are as follows: Temperature 97.8, heart rate 60, respiratory rate 16, oxygen saturation 99 percent by BiPAP while asleep, blood pressure 133/67. DISCHARGE MEDICATIONS: New medications: 1. Cefepime 2 gm IV q.12 hours times 21 days. 2. Vancomycin 1,250 mg IV q.12 hours times 21 days. 3. Docusate 100 mg p.o. b.i.d. 4. Gabapentin 300 mg p.o. b.i.d. 5. Heparin flush per protocol. 6. Tamsulosin 0.4 mg p.o. at bedtime. Continued medications: 1. Albuterol MDI two puffs q.4 hours prn shortness of breath or wheezing. 2. Aspirin 81 mg p.o. daily. 3. Fenofibrate 160 mg p.o. daily. 4. Lactobacillus one tab p.o. b.i.d. 5. Lisinopril 20 mg p.o. daily. 6. Pravastatin 40 mg p.o. at bedtime. 7. Sertraline 25 mg p.o. daily. 8. Acetaminophen 1,000 mg p.o. q.6 hours prn pain. 9. Glargine 10 units subcu daily. 10. Ondansetron 4 mg p.o. q.6 hours prn nausea. 11. Percocet 5/325 one tab p.o. q.6 hours prn pain. 12. Senna one tab p.o. daily. Discontinued medications: 1. Ciprofloxacin. 2. Linezolid. DISCHARGE PLAN: Mr. Joiner will be discharged back to [facility]. Medications are noted above. The patient will need an additional 21 days of Cefepime and Vancomycin, both twice daily. Further need for antibiotics will be reassessed by Dr. Dozier. He was started on Gabapentin here in the hospital for neuropathic pain; this has had good effect and he tolerated it well. Tamsulosin was additionally started here in the hospital. He can continue his other usual medications, though should stop any previously prescribed antibiotics. The patient will need to follow-up with Dr. Dozier in three weeks and will need to follow-up with Dr. Torres in one week. He will need weekly CBC, CMP, CRP and Vanco trough starting 12/26/2018. PICC line care will be per protocol. The patient can otherwise follow-up with a provider at [facility]. ACTIVITY: Per Orthopedics. Will be out of bed with assist and nonweightbearing on the left lower extremity as indicated above. That splint will need to be kept clean, dry, and intact. DIET: Consistent carb diabetic. He should return to the emergency room or nearest hospital for any worsening of symptoms, shortness of breath, lightheadedness, dizziness, chest discomfort, high fevers, chills, night sweats, loss of consciousness or any other worrisome signs or symptoms. CONDITION ON DISCHARGE: Stable. DISPOSITION: custodial facility, [facility]. This is a summarized report of a complex medical history and hospital stay. For further details, please see the entire medical record. TIME SPENT: Approximately 50 minutes were spent on this discharge. NICOLE ANGULO NP [id number]/[facility] #: [id number] RUTH
[2018-12-23] MEDS: Enoxaparin(*) 40 MG/0.4 ML SYR SUBCUT SCH (17:34)
[2018-12-23 20:51] VITALS: BP 126/55
[2018-12-24] MEDS ORDERED: Vancomycin Trough Check NOTE FOLLOW UP ONE (05:30)
== END 2018-12-23 20:00 | DRG 617 ==
LOC: ED 13:11 → MED 16:20 → UNDOADMIN 17:19 → MED 12-17 12:26 → SSU 12-17 12:26 → MED 12-20 12:38 → SSU 12-20 12:38 → UNDODISIN 12-23 20:00
PROVIDERS: ADMIT Hospitalist; ATTEND Internal Medicine
PROC: 0Y6J0Z2 Detachment at Left Lower Leg, Mid, Open Approach (ICD-10-PCS; principal; 2018-12-17 08:00)
PROC: 05H533Z Insertion of Infusion Device into Right Subclavian Vein, Percutaneous Approach (ICD-10-PCS; 2018-12-23)
DX: E11.69 Type 2 diabetes mellitus with other specified complication (principal); J98.11 Atelectasis; T81.30XA Disruption of wound, unspecified, initial encounter; M86.672 Other chronic osteomyelitis, left ankle and foot; B96.20 Unspecified Escherichia coli [E. coli] as the cause of diseases classified elsewhere; I10 Essential (primary) hypertension; E78.5 Hyperlipidemia, unspecified; F32.9 Major depressive disorder, single episode, unspecified; E11.40 Type 2 diabetes mellitus with diabetic neuropathy, unspecified; G47.33 Obstructive sleep apnea (adult) (pediatric); J44.9 Chronic obstructive pulmonary disease, unspecified; E66.01 Morbid (severe) obesity due to excess calories; Z66 Do not resuscitate; Z89.432 Acquired absence of left foot; Z89.431 Acquired absence of right foot; Z85.820 Personal history of malignant melanoma of skin; Z79.1 Long term (current) use of non-steroidal anti-inflammatories (NSAID); Z79.82 Long term (current) use of aspirin; Z79.4 Long term (current) use of insulin; Z79.891 Long term (current) use of opiate analgesic; Z79.51 Long term (current) use of inhaled steroids; Z79.899 Other long term (current) drug therapy; Z82.49 Family history of ischemic heart disease and other diseases of the circulatory system; Z83.3 Family history of diabetes mellitus; Z82.3 Family history of stroke; Z80.7 Family history of other malignant neoplasms of lymphoid, hematopoietic and related tissues; Z68.38 Body mass index [BMI] 38.0-38.9, adult
CPT/HCPCS: 36415; 71045; 80048; 80053; 80202; 81003; 81015; 82565; 83605; 84484; 84520; 85025; 85610; 85730; 86140; 87040; 87070; 87073; 87077; 87086; 87106; 87186; 87205; 88305; 88311; 96365; 96376; 99284; A9270-GY; C1751; G8978-GP-CL; G8978-GP-CM; G8979-GP-CI; G8987-GO-CL; G8988-GO-CI; J0690; J0692; J1170; J1650; J2250; J2270; J2405; J2704; J3010; J3370; J3490

== ENCOUNTER 2018-12-25 04:56 | Emergency (ER) | payer MEDICARE, MEDICAID ==
[2018-12-25] MEDS ORDERED: NS 0.9% 1000 ML** 1,000 ML IV ONE (05:30)
[2018-12-25 05:57] LABS: ABS Basophils 0.1 10^3/ul (0-0.2); ABS Eosinophils 0.8 10^3/ul (0-0.6); ABS Lymphocytes 3.2 10^3/ul (1.0-4.8); ABS Neutrophils 8.8 10^3/ul (1.5-7.7); Eosinophil % 5.8 %; Hematocrit 31 % (42-52); Hemoglobin 10.5 g/dL (14.0-18.0); Lymphocyte % 22.9 %; Mean Corpuscular HGB Conc 33 g/dL (31-36); Mean Corpuscular Hemoglobin 29 pg (27-31); Mean Corpuscular Volume 87 fL (80-94); Mean Platelet Volume 6.8 fL (7.4-10.4); Platelet Count 685 10^3/uL (150-450); Red Blood Count 3.59 10^6 /uL (4.18-5.48); Red Cell Distribution Width 16 % (10-15)
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
[2018-12-25 06:03] LABS: INR 1.09 (0.82-1.09)
[2018-12-25] MEDS ORDERED: Ketorolac INJ* 30 MG/ML 1 ML VIAL IV PUSH ONE (06:09)
[2018-12-25] MEDS ORDERED: Ondansetron INJ* 2 MG/ML VIAL IV ONE (06:09)
[2018-12-25 06:17] LABS: Albumin 3.1 g/dL (3.2-5.2); Albumin/Globulin Ratio 0.8 (1-3); BUN/Creatinine Ratio 18.8 (8-20); EGFR African American 138.8 (>60); EGFR Non-African American 114.7 (>60); Globulin 3.7 g/dL (2-4); Potassium 4.2 mmol/L (3.5-5.0); Total Bilirubin 0.3 mg/dL (0.2-1.0); Total Protein 6.8 g/dL (6.4-8.9)
--- NOTE | 2018-12-25 07:14 | ED ---
Progress - Progress Note Progress Note: This pt is a sign out to Dr. Shaw from Dr. Gray at shift change 0700 pending Sx improvement and disposition. Re-Evaluation - Re-Evaluation First Eval Re-Evaluation Time: 08:35 Change: Unchanged Comment: Pt still in pain, 09/21. Second Eval Re-Evaluation Time: 09:20 Change: Unchanged Comment: The splint was reapplied. The wound is clean, dry, and intact. Course/Dx - Course Course Of Treatment: This patient was signed over from Dr. Gray at shift change. She recommends to assess pain and if controlled to discharged home with F/U with Dr. Torres. The pain is controlled. The patient was given [place] for pain. I discussed my physical exam and findings with Dr. Almanzar who came and assessed the patient. The wound is clean, dry, and intact distal signs of infection. Therefore, Dr. Almanzar recommends for the patient to be discharged back to the assisted. The patient was given a dose of vancomycin and cefepime his normal doses. I discussed all the findings and test results with the patient. Patient was instructed to return to the emergency room immediately if any of the symptoms return worsens. Plan of care was discussed with the patient and understands and agrees. All questions were answered to the patient' s satisfaction. There were no further complaints or concerns. Lung exam before discharge: CTA B/L. Good air exchange. No wheezing or crackles heard. CVS: S1 and S2 present. No murmurs appreciated. Patient is alert and oriented x 3. Patient is hemodynamically stable. Patient will be discharged home with follow up PCP in the next 2-3 days - Diagnoses Provider Diagnoses: Pain of amputation stump of left lower extremity - Provider Notifications Discussed Care Of Patient With: Michelle Delcid Time Discussed With Above Provider: 08:42 Instructed by Provider To: MD Will See In ED Discharge ED - Sign-Out/Discharge Documenting (check all that apply): Patient Departure - Discharge Plan Condition: Stable Disposition: HOME Patient Education Materials: Leg Pain (ED) Referrals: Raúl Nguyen MD [Primary Care Provider] - 2 Days Additional Instructions: PLEASE RETURN TO THE EMERGENCY DEPARTMENT FOR ANY NEW OR WORSENING SYMPTOMS. FOLLOW UP WITH YOUR PRIMARY CARE PROVIDER IN 1-3 DAYS. - Billing Disposition and Condition Condition: STABLE Disposition: Home - Attestation Statements Document Initiated by Scribe: Yes Documenting Scribe: Jasmeet Cohen Provider For Whom Scribe is Documenting (Include Credential): Jacob Shaw MD Scribe Attestation: IJasmeet, scribed for Jacob Shaw MD on 12/25/18 at 1825. Scribe Documentation Reviewed: Yes Provider Attestation: The documentation as recorded by the Jasmeet lange accurately reflects the service I personally performed and the decisions made by Jacob watson MD Status of Scribe Document: Viewed Procedures - Sedation Patient Received Moderate/Deep Sedation with Procedure: No
[2018-12-25] MEDS ORDERED: Morphine 4 MG/ML VIAL (1 ml) 4 MG/ML VIAL IV ONE (08:36)
[2018-12-25] MEDS ORDERED: HYDROcodone/ACETAMIN 5-325 MG* 1 TAB PO ONE (08:42)
[2018-12-25] MEDS ORDERED: Cefepime 2 GM in Dextrose(*) 2 GM/50 ML BAG IV ONE (08:44)
[2018-12-25] MEDS ORDERED: Vancomycin(*) 1,250 MG in NS 0.9% 250 ML* 250 ML IVPB ONE (08:44)
[2018-12-25 09:32] LABS: C Reactive Protein 20.57 mg/L (<8.01)
[2018-12-25 10:37] LABS: Erythrocyte Sed Rate 76 mm/Hr (0-19)
[2018-12-25 11:47] VITALS: BP 104/55
--- NOTE | 2018-12-25 12:23 | CONS ---
CONSULTATION REPORT: DATE OF CONSULT: 12/25/18 - EMERGENCY DEPT. HISTORY OF PRESENT ILLNESS: Briefly, Heron Joiner is a 68-year-old male who underwent a previous left leg BKA by Dr. Torres on 12/17/18 for chronic osteomyelitis of the left foot. He was then discharged to [facility]. He was doing okay. There was some question of whether he was getting the appropriate pain medication orally. He was getting a dose of Toradol, but apparently no Percocet. He had increasing pain in his left leg. There was concern that he had something else going on. He was also having coughing and upper respiratory symptoms, but no fevers. He is on chronic antibiotics, which is cefepime as well as vancomycin that he gets through a PICC line. He states that his left leg pain is excruciating; it has been a 7/10. He did get a dose of medication this morning and that helped quite a bit, but he still is uncomfortable. He is not very vocal or verbal. His [id number] is telling me much of his story. PAST MEDICAL HISTORY: Osteomyelitis of left foot, diabetes type 2, hypertension , hyperlipidemia, KYLE, COPD, history of melanoma. PAST SURGICAL HISTORY: Right foot partial amputation and BKA, left foot forefoot amputation. He has had ORIF of his finger, splenectomy, bilateral shoulder surgeries, bilateral carpal tunnel releases and the most recent surgery on 12/17/18. MEDICATIONS: He was discharged on 12/23/18 and discharge medications are: 1. Cefepime. 2. Vancomycin. 3. Docusate. 4. Gabapentin. 5. Heparin. 6. Tamsulosin. 7. Albuterol. 8. Aspirin. 9. Fenofibrate. 10. Lactobacillus. 11. Lisinopril. 12. Pravastatin. 13. Sertraline. 14. Tylenol. 15. Glargine. 16. Percocet. 17. Ondansetron. 18. Senna. ALLERGIES: None. FAMILY HISTORY: Mother with heart disease. Brother with diabetes. Father with stroke and lymphoma. SOCIAL HISTORY: He denies tobacco and alcohol. He lives at [facility]. He is disabled. His [id number] is speaking for him. REVIEW OF SYSTEMS: A 14-point review of systems reviewed with the patient, significant for left leg pain, cough, and upper respiratory symptoms. No fever or chills. PHYSICAL EXAM: He is in no acute distress. He is lying on the stretcher. There is no strikethrough of the cast. He is pleasant and he mumbles, but he does not answer questions that well. Vitals: Temperature is 98.9, heart rate 56, respiratory rate 21, O2 saturation 91% on room air, blood pressure 143/60. Examination of the left leg demonstrates that the skin is intact. We took down the dressing. There is no erythema or warmth about the incision site. There is no drainage. It looks like a well-healing BKA. His remaining calf is soft and nontender. DIAGNOSTIC STUDIES/LAB DATA: Chest x-ray was reviewed and demonstrates that there may be small infiltrates. Labs: No ESR or CRP was drawn, but recent labs demonstrate white count of 14, hematocrit of 31, platelet count 685. INR 1.09. ESR is pending. Sodium is 133 , potassium 4.2, chloride 100, carbon dioxide 26, BUN 13, creatinine 0.69, glucose 128, CRP is 20.57. ASSESSMENT AND PLAN: He has left leg pain after a below-knee amputation. It sounds like he may not have been getting the appropriate pain medication. Also , this foot may have been uncomfortable as well. Taking his splint off actually helped relieve some of his symptoms. He could be getting some irritation from the cast material. I did talk to Dr. Torres. We will place him in a soft dressing, and he will have this changed every day at [facility], and he will follow up with Dr. Torres on Wednesday. He will continue the antibiotics and likely be discharged per the ER. He should continue his pain medication as needed. [id number]/[facility] #: [id number] [facility]
== END 2018-12-25 12:28 | disposition home or self-care (01) ==
LOC: ED 04:56
DX: T87.89 Other complications of amputation stump (principal); R10.9 Unspecified abdominal pain; E11.9 Type 2 diabetes mellitus without complications; E78.5 Hyperlipidemia, unspecified; D64.9 Anemia, unspecified; I10 Essential (primary) hypertension; J44.9 Chronic obstructive pulmonary disease, unspecified; F03.90 Unspecified dementia, unspecified severity, without behavioral disturbance, psychotic disturbance, mood disturbance, and anxiety; Z87.891 Personal history of nicotine dependence; Z85.820 Personal history of malignant melanoma of skin; Z90.81 Acquired absence of spleen; Z89.422 Acquired absence of other left toe(s); Z89.511 Acquired absence of right leg below knee; Z79.4 Long term (current) use of insulin; Z79.82 Long term (current) use of aspirin; Z79.899 Other long term (current) drug therapy
CPT/HCPCS: 36415; 71045; 80053; 83605; 85025; 85610; 85652; 86140; 87040; 96361; 96365; 96375; 99285; J0692; J1885; J2405; J3370